=== PATIENT | female | born 1965 | race Two or more races ===

== ENCOUNTER → 2020-02-18 14:44 | Outpatient (BNVA) | payer MEDICAID, SELFPAY | PROVIDERS: PCP Nurse Practitioner Family; Referring Provider Nurse Practitioner Family; Visit Provider Internal Medicine Gastroenterology | DX: R10.13 Epigastric pain (principal); K59.09 Other constipation; K76.0 Fatty (change of) liver, not elsewhere classified; E73.9 Lactose intolerance, unspecified; K21.9 Gastro-esophageal reflux disease without esophagitis; E55.9 Vitamin D deficiency, unspecified; R79.89 Other specified abnormal findings of blood chemistry; E66.01 Morbid (severe) obesity due to excess calories; Z68.41 Body mass index [BMI] 40.0-44.9, adult; Z79.899 Other long term (current) drug therapy | CPT/HCPCS: 99212 ==

== ENCOUNTER 2020-06-12 12:26 | Outpatient (REF) | payer MEDICAID, SELFPAY | END 2020-06-12 12:27 | disposition home or self-care (01) | LOC: HO.LAB 12:26 | PROVIDERS: Visit Provider Internal Medicine | DX: Z20.822 Contact with and (suspected) exposure to COVID-19 (principal) | CPT/HCPCS: 36415; C9803; U0003; U0005 ==

== ENCOUNTER 2020-06-21 14:01 | Outpatient (REF) | payer MEDICAID, SELFPAY | END 2020-06-21 14:02 | disposition home or self-care (01) | LOC: HO.LAB 14:01 | PROVIDERS: Visit Provider Internal Medicine | DX: Z20.822 Contact with and (suspected) exposure to COVID-19 (principal) | CPT/HCPCS: 36415; C9803; U0003; U0005 ==

== ENCOUNTER 2020-07-06 15:59 | Outpatient (REF) | payer MEDICAID, SELFPAY ==
--- NOTE | ~2020-07-06 | MM_ITS ---
EXAMINATION: MM SCREENING DIGITAL BREAST TOMOSYNTHESIS, BILATERAL CLINICAL INFORMATION: Screening. Asymptomatic. The lifetime risk of breast cancer based on the Tyrer-Cuzick Model is 5.5%. COMPARISON: Mammography: March 14, 2017 and studies dating back to February 01, 2013 TECHNIQUE: Digital breast tomosynthesis is performed in both the craniocaudal and mediolateral oblique views along with computer-aided detection (CAD). Synthesized 2D images are generated from the tomosynthesis. FINDINGS: The breasts are almost entirely fatty (ACR BI-RADS breast composition Category a). There are no significant masses, abnormal calcifications, or other abnormalities. MM/MM tomosynthesis screening BI IMPRESSION: There are no significant changes from prior study. ASSESSMENT: BI-RADS 1: Negative RECOMMENDATION: Routine annual mammography screening. This patient's information was entered into a reminder system with a target due date for their next mammogram.
== END 2020-07-06 16:00 | disposition home or self-care (01) ==
LOC: HO.MAMMO 15:59
PROVIDERS: PCP Nurse Practitioner Family; Visit Provider Nurse Practitioner Family
DX: Z12.31 Encounter for screening mammogram for malignant neoplasm of breast (principal)
CPT/HCPCS: 77063; 77067

== ENCOUNTER 2020-08-03 07:49 | Outpatient (REF) | payer MEDICAID, SELFPAY ==
--- NOTE | ~2020-08-03 | XR_ITS ---
EXAMINATION: XR PELVIS CLINICAL INFORMATION: Hip pain. COMPARISON: 03/23/2014 TECHNIQUE: AP view of the pelvis. FINDINGS: There is no evidence of acute fracture or diastasis of the pelvis. Hip joint spaces are maintained. No destructive bony lesion is seen. Sacroiliac joints unremarkable. There is some spurring about the right greater trochanter. XR/XR pelvis 1-2V IMPRESSION: Spurring about the right greater trochanter. No significant bony abnormality appreciated.
== END 2020-08-03 07:50 | disposition home or self-care (01) ==
LOC: HO.HOSX 07:49
PROVIDERS: PCP Internal Medicine; Visit Provider Orthopaedic Surgery
DX: M25.552 Pain in left hip (principal); M54.16 Radiculopathy, lumbar region
CPT/HCPCS: 72170; 99202

== ENCOUNTER → 2020-08-17 14:12 | Outpatient (BNVA) | payer MEDICAID, SELFPAY | PROVIDERS: PCP Internal Medicine; Visit Provider Internal Medicine Gastroenterology ==

== ENCOUNTER 2020-08-30 07:02 | Outpatient (RCR) | payer MEDICAID, SELFPAY ==
--- NOTE | 2020-08-30 07:59 | MHC.PT.EP ---
[facility] [place] [facility] [place] [facility] [place] [facility] [address] Isadora Barajas [address] [phone] F: [phone] F: [phone] F: [phone] F: [phone] Physical Therapy Plan of Care Date of Evaluation: Date of Surgery: n/a Diagnosis: lumbar radiculopathy Assessment: The patient presented with mechanical low back pain and associated radiculopathy. The patient responded well to the Grisel Method. Her leg pain reduced with small range REIL. The patient demonstrates poor sitting, sleeping, and movement behaviors. She lacks proper hip hinge position for bending and lifting. She will require education on finding neutral spine once she is pain free. In standing she hinges at the mid lumbar spine and will need retraining on finding neutral spine. She also has poor chest breathing habits. She is a good candidate for skilled PT to address the listed impairments. Frequency and Duration: The patient will be seen 2x/week x 4 weeks. Short Term Goals: 1.Pt to able to demonstrate proper sitting posture with the use of a lumbar roll to decrease aggravating factors. 2.Pt to be able to demonstrate proper posture for common leisure activities such as crocheting and phone/tablet use. 3.For the patient to demonstrate proper upright sitting posture with use of the lumbar roll to improve compliance and carryover. Communications Operator Goals: 1.The patient to demonstrate proper lifting mechanics for household chore activities to show improved functional mobility. 2.The patient to report no leg or hip pain in order to show centralization of pain and reduction of lumbar derangement 3. Pt to be able to demonstrate self management of lumbar pain by demonstration of HEP. Treatment Plan: Modalities to reduce pain, spasms and effusion. Manual therapy to restore motion and function. Therapeutic exercise to improve strength and flexibility. Neuromuscular re-education for posture and balance. Therapeutic activities to return to functional activities of daily living. Electronically signed by: Sonam Mixon PT DPT Please sign and return to therapist. Thank you for your referral.
== END 2020-09-09 09:00 | disposition home or self-care (01) ==
LOC: HO.PT 07:02
PROVIDERS: PCP Internal Medicine; Visit Provider Orthopaedic Surgery
DX: M54.16 Radiculopathy, lumbar region (principal)
CPT/HCPCS: 97110; 97112; 97162

== ENCOUNTER → 2020-10-26 13:32 | Outpatient (BNVA) | payer MEDICAID, SELFPAY | PROVIDERS: Visit Provider Internal Medicine Gastroenterology ==

== ENCOUNTER → 2021-01-29 13:36 | Outpatient (BNVA) | payer MEDICAID, SELFPAY | PROVIDERS: PCP Internal Medicine; Visit Provider Internal Medicine Gastroenterology | DX: R79.89 Other specified abnormal findings of blood chemistry (principal) ==

== ENCOUNTER 2021-05-25 07:56 | Outpatient (REF) | payer MEDICAID, SELFPAY ==
[2021-05-25 09:13] LABS: Binax Internal Control QC Valid; Binax Lot number: 9864; Binax Now Covid-19 Ag Negative (Negative)
== END 2021-05-25 07:57 | disposition home or self-care (01) ==
LOC: HO.LAB 07:56
PROVIDERS: Visit Provider Internal Medicine
DX: Z20.822 Contact with and (suspected) exposure to COVID-19 (principal)
CPT/HCPCS: C9803

== ENCOUNTER 2021-05-29 10:21 | Outpatient (REF) | payer MEDICAID, SELFPAY ==
[2021-05-29 11:11] LABS: COVID-19 Test Negative (Negative)
== END 2021-05-29 10:22 | disposition home or self-care (01) ==
LOC: HO.LAB 10:21
PROVIDERS: Visit Provider Internal Medicine
DX: Z20.822 Contact with and (suspected) exposure to COVID-19 (principal)
CPT/HCPCS: 87635; C9803

== ENCOUNTER 2021-06-01 10:00 | Outpatient (REF) | payer MEDICAID, SELFPAY ==
[2021-06-01 10:28] LABS: Binax Now Covid-19 Ag Negative (Negative)
[2021-06-01 10:29] LABS: Binax Internal Control QC Valid
== END 2021-06-01 10:01 | disposition home or self-care (01) ==
LOC: HO.LAB 10:00
PROVIDERS: Visit Provider Internal Medicine
DX: Z20.822 Contact with and (suspected) exposure to COVID-19 (principal)
CPT/HCPCS: C9803

== ENCOUNTER 2021-10-25 10:27 | Emergency (ER) | payer MEDICAID, SELFPAY ==
--- NOTE | ~2021-10-25 | XR_ITS ---
EXAMINATION: XR CHEST CLINICAL INFORMATION: Shortness of breath, COVID positive. COMPARISON: 06/06/2019 chest radiograph. TECHNIQUE: 2 views of the chest were obtained. FINDINGS: No significant abnormality is noted involving the heart, lungs, mediastinum, bony thorax or soft tissues. XR/XR chest 2V IMPRESSION: No acute cardiopulmonary process.
[2021-10-25 10:32] VITALS: BP 150/117; PULSE 100; RESP 18; TEMP 36.9; O2SAT 96; BMI 43.4
[2021-10-25 10:50] LABS: COVID-19 Test Positive (Negative)
--- NOTE | 2021-10-25 10:58 | ED_ITS ---
HPI - SOB/Dyspnea General Chief Complaint: Dyspnea Stated Complaint: covid + diff breathing Time Seen by Provider: 10/25/21 10:58 Source: patient Mode of arrival: ambulatory Limitations: no limitations History of Present Illness HPI Narrative: 56 y/o female with history of constipation, GERD, asthma obesity, back pain who presents to the ER for evaluation of difficulty breathing that started yesterday. She tested positive for COVID at home today. She is fully vaccinated and boosted, she got her booster in May or June of this year. She states her difficulty breathing is due to her nasal congestion and she has a hard time getting an air. She is not wheezing or having any shortness of breath. She denies any chest pain. No fevers at home but she reports chills, body aches, headache and generalized weakness. MD elicited complaint: shortness of breath Pertinent past history: asthma Onset (ago): day(s) (1) Context: recent illness Timing: constant Severity: moderate Exacerbating factors: lying flat Relieving factors: rest Known history of: asthma Associated symptoms: cough Treatment prior to arrival: none Related Data Home oxygen amount: none Home Medications Medication Instructions Recorded Confirmed Saccharomyces boulardii 250 mg 250 mg PO BID 02/18/20 01/29/21 capsule (Probiotic (S.boulardii)) biotin 10,000 mcg capsule mcg PO 02/18/20 01/29/21 cholecalciferol (vitamin D3) 50 50 mcg PO DAILY 02/18/20 01/29/21 mcg (2,000 unit) capsule (Vitamin D3) citalopram 20 mg tablet 20 mg PO DAILY 02/18/20 01/29/21 docusate sodium 100 mg capsule 100 mg PO DAILY 02/18/20 01/29/21 epinephrine 0.3 mg/0.3 mL 0.3 mg IM Q10M PRN 02/18/20 01/29/21 injection, auto-injector (EpiPen) linaclotide 145 mcg capsule 145 mcg PO QAM 02/18/20 01/29/21 (Linzess) loratadine 10 mg tablet (Allergy 10 mg PO DAILY 02/18/20 01/29/21 Relief (loratadine)) lorazepam 1 mg tablet 1 mg PO BEDTIME PRN 02/18/20 01/29/21 simethicone 125 mg capsule (Gas 125 mg PO BID-QID PRN 02/18/20 01/29/21 Relief (simethicone)) simvastatin 20 mg tablet 20 mg PO BEDTIME 02/18/20 01/29/21 topiramate 50 mg capsule 50 mg PO DAILY 02/18/20 01/29/21 sprinkle,extended release 24 hr zolpidem 10 mg tablet 10 mg PO BEDTIME PRN 02/18/20 01/29/21 Previous Rx's Medication Instructions Recorded magnesium oxide 400 mg (241.3 mg 400 mg PO DAILY PRN constipation 02/18/20 magnesium) tablet 30 days #30 tabs dexlansoprazole 30 mg 60 mg PO DAILY #60 caps 06/18/21 capsule,biphase delayed release (Dexilant) fluticasone propionate 50 1 spray intranasal BID #16 grams 10/25/21 mcg/actuation nasal spray,suspension (24 Hour Allergy Relief) Allergies Allergy/AdvReac Type Severity Reaction Status Date / Time SEAFOOD Allergy Intermediate ANGIOEDEMA Uncoded 01/27/20 15:47 lactose intolerant Allergy Unknown stomach Uncoded 08/03/20 08:04 pain and heart burn Review of Systems Review of Systems: Constitutional: No Fever, + Chills ENT/Mouth: No sore throat, + Rhinorrhea, No Swallowing Difficulty, +nasal congestion Eyes: No Eye Pain, No Swelling, No Redness Cardiovascular: No Chest Pain, No SOB, No Orthopnea, No Edema Respiratory: + Cough, No Sputum, No Wheezing, No dyspnea Gastrointestinal: No Nausea, No Vomiting, No abdominal Pain Musculoskeletal: No joint pain, + Myalgias Skin: No Skin Lesions, No rash Neuro: + Weakness, No Numbness, No Dizziness, + Headache Psych: No Anxiety/Panic, No Depression Heme/Lymph: No Bruising, No Lymphadenopathy PMFSH Past Medical History Medical History (Updated 10/25/21 @ 12:10 by RANDI Saavedra) Bilateral wrist pain History of Helicobacter pylori infection (~06/2014) Hypercholesterolemia Obstructive sleep apnea Surgical History History of colonoscopy Family History Family History Unknown No problems noted. Social History Social History Household Members: Family Alcohol intake: current Alcohol intake frequency: holidays/special occasions only Advance Directives: No Advance Directives Information Provided: No Physical Exam Vital Signs: Vital Signs: Last Vital Signs Temp 98.4 F 10/25/21 10:32 Pulse 100 10/25/21 10:32 Resp 18 10/25/21 10:32 BP 150/117 H 10/25/21 10:32 Pulse Ox 96 10/25/21 10:32 O2 Del Method 10/25/21 10:32 BMI result Body Mass Index 43.4 Appearance: Alert. Oriented X3. No acute distress. Eyes: Pupils equal, round and reactive to light. ENT: Pharynx normal. Nasal turbinates are erythematous and boggy. Clear nasal discharge present hoarse voice. Neck: Normal inspection. Neck supple. CVS: Normal heart rate and rhythm. Pulses normal. Respiratory: No respiratory distress. Breath sounds normal. Skin: Skin warm and dry. Normal skin color. Normal skin turgor. No rashes. Extremities: No lower extremity edema. No calf tenderness. Neuro: Oriented X 3. Grossly normal, nonfocal Course Course Course Narrative: 56-year-old female presents to the ER for evaluation of ?difficulty breathing? that started yesterday. She took a at home COVID test today that was positive. She has had symptoms for last 3 days. Her difficulty breathing is related to nasal congestion and not shortness of breath. Her lungs are clear on examination. Her SpO2 is 96%. No wheezing. Her chest x-ray is clear. Will prescribe and nasal steroid and have her start a decongestant. At this time she is stable for discharge home with supportive care and outpatient follow-up. Stable for DC. MDM - SOB/Dyspnea Lab Data Labs: Lab Results 10/25/21 Range/Units 10:36 COVID-19 (PATRICK) Positive A (Negative) COVID-19 Clin Com See Note Critical Care Time Critical Care Time Critical Care Time: No Discharge Plan Discharge Clinical Impression: COVID-19 Patient Disposition: Home, Self-Care Instructions: Covid-19 Viral Syndrome and Novel Coronavirus (ED) Hey/Ath Additional Instructions: You were found to be COVID-19 POSITIVE today. Your chest x-ray and oxygen levels were normal. Rest. Drink plenty of fluids. Do not go out in public until 10/30, one week after your symptoms started. Wear a mask when you do out until 11/02. Use the prescribed nasal spray for your congestion. Recommend over the counter Sudafed from the pharmacy - you have to ask the pharmacist for this and sign for it. Take over the counter cold/flu medications as needed for your symptoms. Take Tylenol and/or Motrin as needed for fevers and body aches. Follow up with your doctor this week. If you develop new or worsening symptoms call 911 or come back to the ER for further evaluation. Prescriptions: New fluticasone propionate [24 Hour Allergy Relief] 50 mcg/actuation spray,suspension 1 spray intranasal BID Qty: 16 0RF Rx Instructions: administer into each nostril No Action Dexilant 30 mg capsule,biphase delayed releas 60 mg PO DAILY Qty: 60 3RF topiramate 50 mg capsule,sprinkle,ER 24hr 50 mg PO DAILY loratadine [Allergy Relief (loratadine)] 10 mg tablet 10 mg PO DAILY simvastatin 20 mg tablet 20 mg PO BEDTIME zolpidem 10 mg tablet 10 mg PO BEDTIME PRN biotin 10,000 mcg capsule PO cholecalciferol (vitamin D3) [Vitamin D3] 50 mcg (2,000 unit) capsule 50 mcg PO DAILY epinephrine [EpiPen] 0.3 mg/0.3 mL auto-injector 0.3 mg IM Q10M PRN Rx Instructions: for 2 doses docusate sodium 100 mg capsule 100 mg PO DAILY Saccharomyces boulardii [Probiotic (S.boulardii)] 250 mg capsule 250 mg PO BID Rx Instructions: swallow whole citalopram 20 mg tablet 20 mg PO DAILY lorazepam 1 mg tablet 1 mg PO BEDTIME PRN simethicone [Gas Relief (simethicone)] 125 mg capsule 125 mg PO BID-QID PRN magnesium oxide 400 mg (241.3 mg magnesium) tablet 400 mg PO DAILY PRN (Reason: constipation) 30 Days Qty: 30 4RF Linzess 145 mcg capsule 145 mcg PO QAM Referrals: [facility] [Primary Care Provider] -
== END 2021-10-25 12:17 | disposition home or self-care (01) ==
PROVIDERS: Emergency Provider Student in an Organized Health Care Education/Training Program
DX: U07.1 COVID-19 (principal); J45.909 Unspecified asthma, uncomplicated; E66.01 Morbid (severe) obesity due to excess calories; Z68.41 Body mass index [BMI] 40.0-44.9, adult
CPT/HCPCS: 71046; 87635; 99283

== ENCOUNTER 2021-12-27 08:02 | Outpatient (REF) | payer MEDICAID, SELFPAY ==
[2021-12-27 08:10] LABS: MANUAL DIFF FLAG NO
[2021-12-27 08:21] LABS: Basophils Percent Auto 0.7 % (0-2); Eosinophils Absolute Auto 0.1 X10*3/uL (0.0-0.4); Eosinophils Percent Auto 2.1 % (0-4); Hematocrit 41.4 % (37.0-47.0); Imm Gran Abs Auto 0.03 X10*3/uL (0.00-0.03); Imm Gran Pct Auto 0.6 % (0.0-0.4); Lymphocytes Absolute Auto 1.4 X10*3/uL (1.2-4.9); Lymphocytes Percent Auto 25.5 % (20-40); Mean Corpuscular HGB Conc 33.8 g/dl (31.0-35.0); Mean Corpuscular Hemoglobin 28.1 pg (27.0-33.0); Mean Corpuscular Volume 83.1 fL (80.0-98.0); Mean Platelet Volume 9.7 fL (9.4-12.3); Monocytes Absolute Auto 0.4 X10*3/uL (0.1-1.2); Monocytes Percent Auto 6.7 % (2-11); Neutrophils Absolute Auto 3.4 x10*3/uL (2.0-8.3); Neutrophils Percent Auto 64.4 % (45-73); Platelet Count 258 X10*3/uL (160-400); Red Blood Count 4.98 X10*6/uL (4.20-5.50); Red Cell Distribution Width 13.9 % (11.0-16.0); White Blood Count 5.3 X10*3/uL (4.8-10.8)
[2021-12-27 08:26] LABS: INTERNATIONAL NORM RATIO 1.1 (0.9-1.1); Prothrombin Time 12.4 SEC (10.0-13.1)
[2021-12-27 08:41] LABS: Alanine Aminotransferase 34 U/L (0-31); Alkaline Phosphatase 222 U/L (39-117); Aspartate Amino Transferase 34 U/L (5-31); Bilirubin Direct 0.2 mg/dL (0.0-0.5); Bilirubin Total 0.4 mg/dL (0.0-1.0); Total Protein 6.9 g/dL (6.5-8.0)
== END 2021-12-27 08:03 | disposition home or self-care (01) ==
LOC: HO.LAB 08:02
PROVIDERS: Visit Provider Internal Medicine Gastroenterology
DX: R79.89 Other specified abnormal findings of blood chemistry (principal)
CPT/HCPCS: 36415; 80076; 85025; 85610; 99212

== ENCOUNTER 2022-02-07 13:26 | Emergency (ER) | payer MEDICAID, SELFPAY ==
--- NOTE | ~2022-02-07 | CT_ITS ---
EXAMINATION: CT ANGIOGRAM CHEST CLINICAL INFORMATION: Left-sided chest pain radiating to back COMPARISON: CTA chest 03/29/2019 TECHNIQUE: Multiple axial images were obtained through the chest after the administration of 70 mL of Omnipaque 350 intravenous contrast. Extensive vascular post-processing including two-dimensional and three-dimensional reformatted images were created and reviewed on an independent workstation. This CT examination was performed using dose optimization techniques as appropriate, variously including the following: *Automated exposure control *Adjustment of mA and/or kV according to patient size (this includes techniques or standardized protocols for targeted exams where dose is matched to indication/reason for exam; i.e. extremities or head) *Use of iterative reconstruction technique DLP: 514 mGy-cm FINDINGS: LUNGS: The lungs are clear with no evidence of inflammation or nodules. MEDIASTINUM: No mediastinal or hilar lymphadenopathy is seen. Heart size is normal VASCULAR: The thoracic aorta appears unremarkable without convincing evidence of aneurysm dissection or any other acute aortic syndrome. Motion artifact, as the study was not cardiac gated interferes with evaluation of the aortic root. Three-vessel branching pattern of the arch is seen with widely patent great vessels. The small visualized portion of the abdominal aorta appears normal. The celiac SMA and LARA are all patent. There are single renal arteries seen bilaterally which are widely patent. Although not carried out for evaluation of the pulmonary arteries or pulmonary veins, they are well seen. No large pulmonary emboli are seen PLEURA: There is no pleural effusion. No pleural mass or thickening. AXILLA: No lymphadenopathy. UPPER ABDOMEN: Liver is enlarged with decreased attenuation suggesting hepatic steatosis OSSEOUS STRUCTURES: Unremarkable. CT/CT angio chest aorta IMPRESSION: No evidence of aortic dissection. Incidental note made of enlarged fatty liver. Fleischner guidelines were followed.
[2022-02-07 13:39] VITALS: BP 137/90; PULSE 88; PULSE 96; RESP 12; TEMP 36.6; O2SAT 98; O2SAT 99; BMI 40.6
[2022-02-07 13:45] VITALS: PULSE 96; RESP 20; O2SAT 95
--- NOTE | 2022-02-07 13:47 | ECG_ITS ---
Test Reason : CHEST PAIN Blood Pressure : / mmHG Vent. Rate : 089 BPM Atrial Rate : 089 BPM P-R Int : 192 ms QRS Dur : 086 ms QT Int : 386 ms P-R-T Axes : 016 -16 044 degrees QTc Int : 469 ms Normal sinus rhythm Possible Anterior infarct , age undetermined Abnormal ECG When compared with ECG of 23-NOV-2018 08:16, Nonspecific T wave abnormality, worse in Anterior leads Referred By: Marcela Garcia Electronically Signed By:ROBBY WALKER
--- NOTE | 2022-02-07 14:01 | ED_ITS ---
HPI - Chest Pain General Chief Complaint: Chest Pain Stated Complaint: CHEST PAIN Time Seen by Provider: 02/07/22 13:47 Source: patient and EMS Mode of arrival: EMS Limitations: no limitations History of Present Illness HPI narrative: 56-year-old female with a history of GERD, obesity, WOODS, obesity, asthma, constipation who presents to the ER via EMS from [facility] c/o left lower chest pain that radiates to her back that started around 2-3 am today. She says she was up using the bathroom when she noted a sharp, stabbing pain under her left breast, the intermittently wraps around to her back. She put some Vicks on the area and then went back to sleep. When she got up at 06:00 went to work she reports the pain intensified and she was unable to perform her job. She went to the [facility] and subsequently sent to the emergency room for further evaluation. She rides the ER on 6 L nasal cannula with oxygen saturations 99%. She denies any shortness of breath. She reports the pain is worse when she moves and when she touches the area under her left breast. She denies any injury or trauma MD complaint: chest pain Onset (ago): hour(s) (12) Timing of current episode: constant Onset: during rest Pain location: left chest Pain radiation: back Severity: moderate Pain scale (0-10): 8 Quality: sharp Relieving factors: nothing Exacerbating factors: palpation and movement Treatment prior to arrival: aspirin Risk Factors Thoracic aortic dissection risk factors: none Related Data Home Medications Medication Instructions Recorded Confirmed Saccharomyces boulardii 250 mg 250 mg PO BID 02/18/20 12/27/21 capsule (Probiotic (S.boulardii)) biotin 10,000 mcg capsule mcg PO 02/18/20 12/27/21 cholecalciferol (vitamin D3) 50 50 mcg PO DAILY 02/18/20 12/27/21 mcg (2,000 unit) capsule (Vitamin D3) citalopram 20 mg tablet 20 mg PO DAILY 02/18/20 12/27/21 docusate sodium 100 mg capsule 100 mg PO DAILY 02/18/20 12/27/21 epinephrine 0.3 mg/0.3 mL 0.3 mg IM Q10M PRN 02/18/20 12/27/21 injection, auto-injector (EpiPen) linaclotide 145 mcg capsule 145 mcg PO QAM 02/18/20 12/27/21 (Linzess) loratadine 10 mg tablet (Allergy 10 mg PO DAILY 02/18/20 12/27/21 Relief (loratadine)) lorazepam 1 mg tablet 1 mg PO BEDTIME PRN 02/18/20 12/27/21 simethicone 125 mg capsule (Gas 125 mg PO BID-QID PRN 02/18/20 12/27/21 Relief (simethicone)) simvastatin 20 mg tablet 20 mg PO BEDTIME 02/18/20 12/27/21 topiramate 50 mg capsule 50 mg PO DAILY 02/18/20 12/27/21 sprinkle,extended release 24 hr zolpidem 10 mg tablet 10 mg PO BEDTIME PRN 02/18/20 12/27/21 Previous Rx's Medication Instructions Recorded magnesium oxide 400 mg (241.3 mg 400 mg PO DAILY PRN constipation 02/18/20 magnesium) tablet 30 days #30 tabs fluticasone propionate 50 1 spray intranasal BID #16 grams 10/25/21 mcg/actuation nasal spray,suspension (24 Hour Allergy Relief) dexlansoprazole 30 mg 60 mg PO DAILY 60 days #120 caps 11/01/21 capsule,biphase delayed release (Dexilant) diphenhydramine HCl 25 mg capsule 50 mg PO ONCE PRN sleep 1 day #2 01/03/22 (Benadryl) caps prednisone 50 mg tablet 50 mg PO DAILY 1 day #3 tabs 01/04/22 Allergies Allergy/AdvReac Type Severity Reaction Status Date / Time SEAFOOD Allergy Intermediate ANGIOEDEMA Uncoded 01/27/20 15:47 lactose intolerant Allergy Unknown stomach Uncoded 08/03/20 08:04 pain and heart burn Review of Systems Review of Systems: Constitutional: No Fever, No Chills ENT/Mouth: No sore throat, No Rhinorrhea, No Swallowing Difficulty Cardiovascular: +Chest Pain, No SOB, No Orthopnea, No Edema Respiratory: No Cough, No Sputum, No Wheezing, No dyspnea Gastrointestinal: No Nausea, No Vomiting, No Diarrhea, No abdominal Pain, No Hematochezia, No Melena Genitourinary: No Dysuria, No Urinary Frequency, No Hematuria Musculoskeletal: No joint pain, No Myalgias Skin: No Skin Lesions, No rash Neuro: No Weakness, No Numbness, No Dizziness, No Headache Psych: + Anxiety/Panic, No Depression Heme/Lymph: No Bruising, No Lymphadenopathy Endocrine: No Polyuria, No Polydipsia PMFSH Past Medical History Medical History Bilateral wrist pain Chronic constipation Elevated LFTs Epigastric pain GERD (gastroesophageal reflux disease) History of Helicobacter pylori infection (~06/2014) Hypercholesterolemia Lactose intolerance Lumbar radiculopathy Morbid obesity with BMI of 40.0-44.9, adult NAFL (nonalcoholic fatty liver) Obstructive sleep apnea Vitamin D deficiency Surgical History History of colonoscopy Family History Family History Unknown No problems noted. Social History Social History Household Members: Family Alcohol intake: current Alcohol intake frequency: holidays/special occasions only Patient Tobacco Use Status: Never used Tobacco Use of substances other than those prescribed or required for medical reasons: No Advance Directives: No Advance Directives Information Provided: No Physical Exam Vital Signs: Vital Signs: Last Vital Signs Temp 97.9 F 02/07/22 13:39 Pulse 96 02/07/22 13:45 Resp 20 02/07/22 13:45 BP 137/90 H 02/07/22 13:39 Pulse Ox 95 02/07/22 13:45 O2 Del Method 02/07/22 13:45 Oxygen Flow Rate 4 02/07/22 13:39 BMI result Body Mass Index 40.6 Appearance: Alert. Oriented X3. No acute distress. Eyes: Pupils equal, round and reactive to light. ENT: Pharynx normal. Neck: Normal inspection. Neck supple. CVS: Normal heart rate and rhythm. Pulses normal. Respiratory: No respiratory distress. Breath sounds normal. Under left breast there is tenderness of the lower ribs, no overlying skin changes, no crepitus Abdomen: Soft and nontender. +BS x4 Skin: Skin warm and dry. Normal skin color. Normal skin turgor. No rashes. Extremities: No lower extremity edema. Neuro: Oriented X 3. No motor deficit. No sensory deficit. Course Course Course Narrative: 56-year-old female presents to the ER with acute onset of left-sided chest pain that radiates to her back that started at 2 or 03:00 today. She has exquisite tenderness on examination which is reassuring against any cardiac etiology it is more consistent with chest wall or muscular etiology, however given that the pain does radiate to her back will need to rule out dissection. She is hemodynamically stable with equal femoral pulses. water commissioner used to clarify that the patient does not have a contrast allergy. CT angio is pending. Reevaluation(s) Reevaluation #1: EKG reviewed, T-wave inversions in V1 to V3 are old. Her troponin is less than 3.5. She has chronically elevated alkaline phosphatase which is stable from prior. Other LFTs are within normal limits. Reevaluation #2: CT angio is negative for dissection. She is feeling better. She is stable for d/c home. Pain consistent with muscular etiology. MDM - Chest Pain Medical Records Data Attestation: I reviewed the patient's medical records. Lab Data Attestation: I reviewed the patient's lab results. Result diagrams: 02/07/22 14:20 02/07/22 14:20 Labs: Lab Results 02/07/22 02/07/22 02/07/22 Range/Units 14:20 14:20 14:20 WBC 8.9 (4.8-10.8) X10*3/uL RBC 5.46 (4.20-5.50) X10*6/uL Hgb 15.1 (12.0-16.0) g/dl Hct 43.9 (37.0-47.0) % MCV 80.4 (80.0-98.0) fL MCH 27.7 (27.0-33.0) pg MCHC 34.4 (31.0-35.0) g/dl RDW 13.6 (11.0-16.0) % Plt Count 293 (160-400) X10*3/uL MPV 9.6 (9.4-12.3) fL Immature Gran % (Auto) 0.4 (0.0-0.4) % Neut % (Auto) 71.5 (45-73) % Lymph % (Auto) 19.9 L (20-40) % [place] % (Auto) 6.7 (2-11) % Eos % (Auto) 1.1 (0-4) % Baso % (Auto) 0.4 (0-2) % Lymph # (Auto) 1.8 (1.2-4.9) X10*3/uL [place] # (Auto) 0.6 (0.1-1.2) X10*3/uL Eos # (Auto) 0.1 (0.0-0.4) X10*3/uL Baso # (Auto) 0.0 (0.0-0.2) X10*3/uL Abs Immat Gran (auto) 0.04 H (0.00-0.03) X10*3/uL Absolute Neuts (auto) 6.4 (2.0-8.3) x10*3/uL Absolute Nucleated RBC 0.000 (0.0-0.012) X10*3/uL Nucleated RBC % (auto) 0.0 (0.0-0.2) /100WBC Sodium 142 (135-145) mmol/L Potassium 4.0 (3.3-5.1) mmol/L Chloride 102 (96-108) mmol/L Carbon Dioxide 24 (22-29) mmol/L Anion Gap 20 (12-20) BUN 10 (9-16) mg/dL Creatinine 0.83 (0.5-1.4) mg/dL Estim Creat Clear Calc 88.3 Estimated GFR > 60 Random Glucose 250 H (60-115) mg/dL Calcium 9.6 (8.4-10.2) mg/dL Magnesium 1.8 (1.6-2.6) mg/dL Total Bilirubin 0.4 (0.0-1.0) mg/dL Direct Bilirubin 0.2 (0.0-0.5) mg/dL AST 19 D (5-31) U/L ALT 26 (0-31) U/L Alkaline Phosphatase 225 H (39-117) U/L Troponin I High Sens < 3.5 (<3.5-17.0) ng/L Total Protein 7.4 (6.5-8.0) g/dL Albumin 4.4 (3.5-5.0) g/dL COVID-19 (PATRICK) (Negative) COVID-19 Clin Com 02/07/22 Range/Units 14:20 WBC (4.8-10.8) X10*3/uL RBC (4.20-5.50) X10*6/uL Hgb (12.0-16.0) g/dl Hct (37.0-47.0) % MCV (80.0-98.0) fL MCH (27.0-33.0) pg MCHC (31.0-35.0) g/dl RDW (11.0-16.0) % Plt Count (160-400) X10*3/uL MPV (9.4-12.3) fL Immature Gran % (Auto) (0.0-0.4) % Neut % (Auto) (45-73) % Lymph % (Auto) (20-40) % [place] % (Auto) (2-11) % Eos % (Auto) (0-4) % Baso % (Auto) (0-2) % Lymph # (Auto) (1.2-4.9) X10*3/uL [place] # (Auto) (0.1-1.2) X10*3/uL Eos # (Auto) (0.0-0.4) X10*3/uL Baso # (Auto) (0.0-0.2) X10*3/uL Abs Immat Gran (auto) (0.00-0.03) X10*3/uL Absolute Neuts (auto) (2.0-8.3) x10*3/uL Absolute Nucleated RBC (0.0-0.012) X10*3/uL Nucleated RBC % (auto) (0.0-0.2) /100WBC Sodium (135-145) mmol/L Potassium (3.3-5.1) mmol/L Chloride (96-108) mmol/L Carbon Dioxide (22-29) mmol/L Anion Gap (12-20) BUN (9-16) mg/dL Creatinine (0.5-1.4) mg/dL Estim Creat Clear Calc Estimated GFR Random Glucose (60-115) mg/dL Calcium (8.4-10.2) mg/dL Magnesium (1.6-2.6) mg/dL Total Bilirubin (0.0-1.0) mg/dL Direct Bilirubin (0.0-0.5) mg/dL AST (5-31) U/L ALT (0-31) U/L Alkaline Phosphatase (39-117) U/L Troponin I High Sens (<3.5-17.0) ng/L Total Protein (6.5-8.0) g/dL Albumin (3.5-5.0) g/dL COVID-19 (PATRICK) Negative (Negative) COVID-19 Clin Com See Note ECG Data ECG #1: Attestation: I personally reviewed and interpreted this ECG as follows: ECG interpretation date: 02/07/22 ECG interpretation time: 16:20 Prior ECG tracings: available for review Interpretation: Normal sinus rhythm, ventricular 89 beats per minute, normal AL interval, normal QTC, no ST segment elevations or depressions, there are T-wave inversions in V1- V3, that are old Critical Care Time Critical Care Time Critical Care Time: No Discharge Plan Discharge Clinical Impression: Acute chest wall pain Patient Disposition: Home, Self-Care Instructions: Chest Wall Pain (ED) Additional Instructions: Your workup today was unremarkable. Your imaging did not show any concerning findings. Your pain is most likely due to chest wall pain from your coughing, it is most likely muscular. Recommend trial of anti inflammatory medications as needed for pain. Recommend following up with your primary care doctor. If you develop new or worsening symptoms call 911 or come back to the ER for further evaluation. Prescriptions: No Action Dexilant 30 mg capsule,biphase delayed releas 60 mg PO DAILY 60 Days Qty: 120 3RF diphenhydramine HCl [Benadryl] 25 mg capsule 50 mg PO ONCE PRN (Reason: sleep) 1 Days Qty: 2 0RF Rx Instructions: Take 2 tablets PO 1 hour before getting IV contrast prednisone 50 mg tablet 50 mg PO DAILY 1 Days Qty: 3 0RF Rx Instructions: Take 1 tablet 13 hrs prior to getting IV contrast Take 1 tablet 7 hrs prior to getting IV contrast Take 1 tablet 1 hr before getting IV contrast fluticasone propionate [24 Hour Allergy Relief] 50 mcg/actuation spray,suspension 1 spray intranasal BID Qty: 16 0RF Rx Instructions: administer into each nostril topiramate 50 mg capsule,sprinkle,ER 24hr 50 mg PO DAILY loratadine [Allergy Relief (loratadine)] 10 mg tablet 10 mg PO DAILY simvastatin 20 mg tablet 20 mg PO BEDTIME zolpidem 10 mg tablet 10 mg PO BEDTIME PRN biotin 10,000 mcg capsule PO cholecalciferol (vitamin D3) [Vitamin D3] 50 mcg (2,000 unit) capsule 50 mcg PO DAILY epinephrine [EpiPen] 0.3 mg/0.3 mL auto-injector 0.3 mg IM Q10M PRN Rx Instructions: for 2 doses docusate sodium 100 mg capsule 100 mg PO DAILY Saccharomyces boulardii [Probiotic (S.boulardii)] 250 mg capsule 250 mg PO BID Rx Instructions: swallow whole citalopram 20 mg tablet 20 mg PO DAILY lorazepam 1 mg tablet 1 mg PO BEDTIME PRN simethicone [Gas Relief (simethicone)] 125 mg capsule 125 mg PO BID-QID PRN magnesium oxide 400 mg (241.3 mg magnesium) tablet 400 mg PO DAILY PRN (Reason: constipation) 30 Days Qty: 30 4RF Linzess 145 mcg capsule 145 mcg PO QAM Referrals: [facility] [Primary Care Provider] - Stand Alone Forms: Work/School Release
[2022-02-07 14:24] LABS: MANUAL DIFF FLAG NO
[2022-02-07 14:35] LABS: Basophils Percent Auto 0.4 % (0-2); Eosinophils Absolute Auto 0.1 X10*3/uL (0.0-0.4); Eosinophils Percent Auto 1.1 % (0-4); Hematocrit 43.9 % (37.0-47.0); Hemoglobin 15.1 g/dl (12.0-16.0); Imm Gran Abs Auto 0.04 X10*3/uL (0.00-0.03); Imm Gran Pct Auto 0.4 % (0.0-0.4); Lymphocytes Absolute Auto 1.8 X10*3/uL (1.2-4.9); Lymphocytes Percent Auto 19.9 % (20-40); Mean Corpuscular HGB Conc 34.4 g/dl (31.0-35.0); Mean Corpuscular Hemoglobin 27.7 pg (27.0-33.0); Mean Corpuscular Volume 80.4 fL (80.0-98.0); Mean Platelet Volume 9.6 fL (9.4-12.3); Monocytes Absolute Auto 0.6 X10*3/uL (0.1-1.2); Monocytes Percent Auto 6.7 % (2-11); Neutrophils Absolute Auto 6.4 x10*3/uL (2.0-8.3); Neutrophils Percent Auto 71.5 % (45-73); Platelet Count 293 X10*3/uL (160-400); Red Blood Count 5.46 X10*6/uL (4.20-5.50); Red Cell Distribution Width 13.6 % (11.0-16.0); White Blood Count 8.9 X10*3/uL (4.8-10.8)
[2022-02-07 14:45] LABS: Alanine Aminotransferase 26 U/L (0-31); Albumin Level 4.4 g/dL (3.5-5.0); Alkaline Phosphatase 225 U/L (39-117); Anion Gap 20 (12-20); Aspartate Amino Transferase 19 U/L (5-31); Bilirubin Direct 0.2 mg/dL (0.0-0.5); Bilirubin Total 0.4 mg/dL (0.0-1.0); Blood Urea Nitrogen 10 mg/dL (9-16); Calcium 9.6 mg/dL (8.4-10.2); Carbon Dioxide 24 mmol/L (22-29); Chloride 102 mmol/L (96-108); Creatinine Clr Calc Pharmacy 88.3; Estimated Glomerular Filt Rate > 60; Glucose Random 250 mg/dL (60-115); Magnesium 1.8 mg/dL (1.6-2.6); Sodium 142 mmol/L (135-145); Total Protein 7.4 g/dL (6.5-8.0)
[2022-02-07 14:46] LABS: COVID-19 Test Negative (Negative); IDNOW Serial# 55D5AD1C
[2022-02-07 14:48] LABS: Troponin-I High Sensitivity < 3.5 ng/L (<3.5-17.0)
--- OUTSIDE RECORDS SUMMARY | 2022-02-07 15:20 | XMS_ITS | Continuity of Care Document ---
:1965 Author Organization [facility] Address [address] [place] [address]- Care Team Providers Name Role Phone Umair RABAGO, Shayy Schmitt [id number] Date(s): 01/11/[facility] - 06/03/20 [facility] [address] [place] [address]- Attending Physician: Raymundo Awan MD Admitting Physician: Raymundo Awan MD Referring Physician: Shayy Block NP, V Allergies, Adverse Reactions, Alerts Substance Reaction Severity Status NKA Active Medications acetaminophen-butalbital 325 mg-50 mg oral tablet 1 tablet, By Mouth, Every 4 hours, PRN as needed, # 30 tablet, 0 Refills, Maintenance, 05/20/17 15:18:41, Tablet Start Date: 05/20/17 Status: Orderedcitalopram 10 mg oral tablet 10 mg, 1, tablet, By Mouth, Daily, Refills 0, Maintenance, 05/20/17 15:22:52 Start Date: 05/20/17 Status: OrderedClaritin-D 1 tablet, By Mouth, Every 12 hours, 0 Refills, Maintenance, 09/29/14 9:30:48 Start Date: 09/29/14 Status: OrderedCompression Stockings See Instructions, # 3 pair, Refills 2, Tot. Refills 2, Maintenance, surgical, calf length 20-30 mm Hg Dx: bilateral leg varicose veins with pain and swelling, 03/06/17 17:10:34, Compound Start Date: 03/06/17 Status: OrderedCompression Stockings See Instructions, # 2 each, Refills 1, Tot. Refills 1, Maintenance, surgical, knee length 20-30 mm Hg DX:I83.813, 01/10/20 16:40:00 EDT, Supply Start Date: 01/10/20 Status: OrderedDexilant 60 mg oral delayed release capsule 1 capsule = 60 mg, By Mouth, Daily, # 30 capsule, 0 Refills, Maintenance, 05/20/17 15:19:24, EC Capsule Start Date: 05/20/17 Status: OrderedFlonase 50 mcg/inh nasal spray 1 sprays, Daily, 0 Refills, Maintenance, 09/29/14 9:31:17 Start Date: 09/29/14 Status: OrderedFlorajen3 oral capsule 1 capsule, By Mouth, Daily, 0 Refills, Maintenance, 05/20/17 15:19:06 Start Date: 05/20/17 Status: Orderedglycerin adult rectal suppository 1 supp, Rectally, Daily, 0 Refills, Maintenance, 05/20/17 15:19:49 Start Date: 05/20/17 Status: OrderedLinzess 290 mcg oral capsule 1 capsule = 290 mcg, By Mouth, Daily, # 30 capsule, 0 Refills, Maintenance, 05/20/17 15:20:58, Capsule Start Date: 05/20/17 Status: Orderedmagnesium oxide 400 mg oral tablet 1 tablet = 400 mg, By Mouth, Daily, # 14 tablet, 0 Refills, Maintenance, 05/20/17 15:20:07, Tablet Start Date: 05/20/17 Stop Date: 06/03/17 Status: OrderedNaprosyn 500 mg oral tablet 1 tablet = 500 mg, By Mouth, 2 times a day, 0 Refills, Maintenance, 05/20/17 15:21:51 Start Date: 05/20/17 Status: OrderedProbiotic Formula 1 capsule, By Mouth, Daily, 0 Refills, Maintenance, 05/20/17 15:22:39 Start Date: 05/20/17 Status: Orderedranitidine 300 mg oral capsule 1 capsule = 300 mg, By Mouth, Daily at bedtime, 0 Refills, Maintenance, 05/20/17 15:20:29 Start Date: 05/20/17 Status: Orderedsimethicone 125 mg oral capsule 1 capsule = 125 mg, By Mouth, 4 times a day, # 30 capsule, 0 Refills, Maintenance, 05/20/17 15:22:27, Capsule Start Date: 05/20/17 Status: Orderedsimvastatin 20 mg oral tablet 20 mg, 1, tablet, By Mouth, Daily at bedtime, Refills 0, Maintenance, 05/20/17 15:20:45 Start Date: 05/20/17 Status: OrderedtiZANidine 2 mg oral capsule 2 capsule = 4 mg, By Mouth, Every 8 hours, 0 Refills, Maintenance, 05/20/17 15:21:13 Start Date: 05/20/17 Status: Orderedtopiramate 25 mg oral capsule 1 capsule = 25 mg, By Mouth, 2 times a day, 0 Refills, Maintenance, 05/20/17 15:21:38 Start Date: 05/20/17 Status: OrderedVitamin D3 By Mouth, 0 Refills, Maintenance, 09/29/14 9:30:41 Start Date: 09/29/14 Status: Orderedzolpidem 10 mg oral tablet 1 tablet = 10 mg, By Mouth, Daily at bedtime, PRN for sleep, 0 Refills, Maintenance, 05/20/17 15:23:05, Tablet Start Date: 05/20/17 Status: Ordered Problem List Condition Effective Dates Status Health Status Informant Varicose vein(Confirmed) Active Social History Social History Type Response Smoking Status Never smoker entered on: 09/29/14 Sex
--- OUTSIDE RECORDS SUMMARY | 2022-02-07 15:20 | XMS_ITS | Continuity of Care Document ---
:1965 Author Organization [facility] Address [address] [place] [address]- Care Team Providers Name Role Phone Umair RABAGO, Shayy Schmitt [id number]22[facility] [address] [place] [address]- Attending Physician: Raymundo Awan MD Admitting Physician: [...]
--- OUTSIDE RECORDS SUMMARY | 2022-02-07 15:20 | XMS_ITS | Continuity of Care Document ---
:1965 Author Organization [facility] Address [address] [place] [address]- Care Team Providers Name Role Phone Shayy Block NP, V Primary Care Physician Encounter [facility] Date(s): 01/10/20 - 01/17/20 [facility] [address] [place] [address]- [facility] Attending Physician: Shayy Block NP, V Admitting Physician: Shayy Block NP, V Referring Physician: Shayy Block NP, V Allergies, [...] 09/29/14 Status: OrderedCompression Stockings See Instructions, # 2 each, Refills 1, Tot. Refills 1, Maintenance, surgical, knee length 20-30 mm Hg DX:I83.813, 01/10/20 16:40:00 EDT, Supply Start Date: 01/10/20 Status: OrderedCompression Stockings See Instructions, # 3 pair, Refills 2, Tot. Refills 2, Maintenance, surgical, calf length 20-30 mm Hg Dx: bilateral leg varicose veins with pain and swelling, 03/06/17 17:10:34, Compound Start Date: 03/06/17 Status: OrderedDexilant 60 mg oral delayed release [...] Status Health Status Informant Varicose vein(Confirmed) Active Vital Signs Most recent to oldest [Reference Range]: 1 Height 157.00 cm (01/10/20 4:21 PM) Weight 100 kg (01/10/20 4:21 PM) Body Mass Index [18.5-24.99] 40.57 *>HHI* (01/10/20 4:21 PM) Blood Pressure [90-138/55-84 mm Hg] 118/70 mm Hg (01/10/20 4:21 PM) Blood pressure sites Arm, right (01/10/20 4:21 PM) Weight Obtained Via Patient/family stated (01/10/20 4:21 PM) Social History Social History Type Response Smoking Status Never smoker entered on: 09/29/14 Sex
--- OUTSIDE RECORDS SUMMARY | 2022-02-07 15:20 | XMS_ITS | Continuity of Care Document ---
:1965 Author Organization [facility] Address [address] [place] [address]- Care Team Providers Name Role Phone Umair RABAGO, Shayy Schmitt Primary Care Physician Encounter [facility] Date(s): 01/11/20 - 05/10/20 [facility] [address] [place] [address] Attending Physician: Raymundo Awan MD Admitting Physician: Raymundo Awan MD Referring Physician: Raymundo Awan MD Allergies, Adverse Reactions, Alerts Substance Reaction Severity [...]
--- OUTSIDE RECORDS SUMMARY | 2022-02-07 15:20 | XMS_ITS | Continuity of Care Document ---
:1965 Author Organization [facility] Address [address] [place] [address]- Care Team Providers Name Role Phone Umair RABAGO, Shayy Schmitt [id number] [address] [place] [address]- Attending Physician: Raymundo Awan MD Admitting Physician: [...]
--- OUTSIDE RECORDS SUMMARY | 2022-02-07 15:20 | XMS_ITS | Continuity of Care Document ---
:1965 Author Organization [facility] Address [address] [place] [address]- Care Team Providers Name Role Phone Umair RABAGO, Shayy Schmitt [id number]16[facility] [address] [place] [address]- Attending Physician: Raymundo Awan MD Admitting Physician: Raymundo Awan MD Allergies, Adverse Reactions, [...]
--- OUTSIDE RECORDS SUMMARY | 2022-02-07 15:21 | XMS_ITS | Continuity of Care Document ---
:1965 Author Organization [facility] Address [address] [place] [address]- Care Team Providers Name Role Phone Umair RABAGO, Shayy Schmitt Primary Care Physician En[facility] [id number] Date(s): 09/15/20 - 10/15/20 [facility] [address] [place] [address]- Attending Physician: Jw Jimenez Admitting Physician: Jw Jimenez Referring Physician: AdmtrJw Allergies, Adverse Reactions, Alerts Substance Reaction Severity [...]
--- OUTSIDE RECORDS SUMMARY | 2022-02-07 15:21 | XMS_ITS | Continuity of Care Document ---
:1965 Author Organization [facility] Address [address] [place] [address]- Care Team Providers Name Role Phone Umair RABAGO, Shayy Schmitt [id number]/20 [facility] [address] [place] [address]- Attending Physician: Raymundo Awan MD Admitting Physician: [...]
--- OUTSIDE RECORDS SUMMARY | 2022-02-07 15:21 | XMS_ITS | Continuity of Care Document ---
:1965 Author Organization [facility] Address [address] [place] [address]- Care Team Providers Name Role Phone Umair RABAGO, Shayy Schmitt Primary Care Physician En[facility] [id number] Date(s): 05/25/20 - 06/24/20 [facility] [address] [place] [address]- Attending Physician: Jw Jimenez Admitting Physician: Jw [...]
== END 2022-02-07 17:10 | disposition home or self-care (01) ==
PROVIDERS: Physician Assistant; Emergency Provider Emergency Medicine
DX: R07.89 Other chest pain (principal); E78.00 Pure hypercholesterolemia, unspecified; E66.9 Obesity, unspecified; Z68.41 Body mass index [BMI] 40.0-44.9, adult; Z20.822 Contact with and (suspected) exposure to COVID-19
CPT/HCPCS: 71275; 80048; 80076; 83735; 84484; 85025; 87635; 93005; 99284; 99285

== ENCOUNTER → 2022-02-21 20:30 | Outpatient (REF) | payer MEDICAID, SELFPAY | LOC: HO.SL 20:30 | PROVIDERS: Visit Provider Internal Medicine | DX: G47.33 Obstructive sleep apnea (adult) (pediatric) (principal) | CPT/HCPCS: 95811 ==

== ENCOUNTER 2022-05-23 07:53 | Outpatient (REF) | payer MEDICAID, SELFPAY ==
[2022-05-23 09:37] LABS: MANUAL DIFF FLAG NO
[2022-05-23 09:52] LABS: Basophils Percent Auto 0.6 % (0-2); Eosinophils Absolute Auto 0.1 X10*3/uL (0.0-0.4); Eosinophils Percent Auto 1.9 % (0-4); Hematocrit 42.6 % (37.0-47.0); Hemoglobin 14.2 g/dl (12.0-16.0); Imm Gran Abs Auto 0.02 X10*3/uL (0.00-0.03); Imm Gran Pct Auto 0.4 % (0.0-0.4); Lymphocytes Absolute Auto 1.4 X10*3/uL (1.2-4.9); Lymphocytes Percent Auto 28.5 % (20-40); Mean Corpuscular HGB Conc 33.3 g/dl (31.0-35.0); Mean Corpuscular Hemoglobin 27.4 pg (27.0-33.0); Mean Corpuscular Volume 82.1 fL (80.0-98.0); Mean Platelet Volume 9.6 fL (9.4-12.3); Monocytes Absolute Auto 0.3 X10*3/uL (0.1-1.2); Monocytes Percent Auto 5.8 % (2-11); Neutrophils Absolute Auto 3.1 x10*3/uL (2.0-8.3); Neutrophils Percent Auto 62.8 % (45-73); Platelet Count 251 X10*3/uL (160-400); Red Blood Count 5.19 X10*6/uL (4.20-5.50); Red Cell Distribution Width 13.8 % (11.0-16.0); White Blood Count 4.9 X10*3/uL (4.8-10.8)
[2022-05-23 12:06] LABS: Folate 10.8 ng/mL (> or = 4.0); Vitamin B12 338 pg/mL (200-900)
[2022-05-23 12:08] LABS: Alanine Aminotransferase 30 U/L (0-31); Alkaline Phosphatase 229 U/L (39-117); Aspartate Amino Transferase 28 U/L (5-31); Bilirubin Direct 0.2 mg/dL (0.0-0.5); Bilirubin Total 0.6 mg/dL (0.0-1.0); Lipase 25 U/L (8-78); Total Protein 6.9 g/dL (6.5-8.0)
[2022-05-23 12:26] LABS: Vitamin D 25-OH Total 29.9 ng/mL (>30)
[2022-05-25 14:44] LABS: Immunoglobulin A 266 mg/dL (47-310)
[2022-05-26 18:58] LABS: TS Negative Control Passed; TS Panel A 0; TS Panel B 0; TS Positive Control Passed; TSpotTB Negative (Negative)
[2022-05-29 14:58] LABS: Mitochondrial Antibodies NEGATIVE (NEGATIVE)
[2022-05-30 13:09] LABS: Alk.Phos Iso. Macrohepatic 0 % (<=0); Alk.Phos Isoenzymes Bone 34 % (28-66); Alk.Phos Isoenzymes Intest 4 % (1-24); Alk.Phos Isoenzymes Liver 62 % (25-69); Alk.Phos Isoenzymes Placental 0 % (<=0); Alk.Phos Isoenzymes Total 190 U/L (37-153)
[2022-05-31 07:44] LABS: Transglutaminase Ab IgG <1.0 U/mL; Transglutaminase IgA <1.0 U/mL
== END 2022-05-23 07:54 | disposition home or self-care (01) ==
LOC: HO.LAB 07:53
PROVIDERS: Visit Provider Internal Medicine Gastroenterology
DX: K21.9 Gastro-esophageal reflux disease without esophagitis (principal); K43.9 Ventral hernia without obstruction or gangrene; K76.0 Fatty (change of) liver, not elsewhere classified; R79.89 Other specified abnormal findings of blood chemistry; E73.9 Lactose intolerance, unspecified; R10.13 Epigastric pain; R14.0 Abdominal distension (gaseous); R05.9 Cough, unspecified; Z79.899 Other long term (current) drug therapy
CPT/HCPCS: 36415; 80076; 82306; 82607; 82746; 82784; 83690; 84080; 85025; 86255; 86256; 86364; 86481; 99212

== ENCOUNTER 2022-05-27 10:26 | Day surgery (SDC) | payer MEDICAID, SELFPAY ==
--- NOTE | 2022-05-24 11:01 | HO.ANESPROP2 ---
Documented by User: Huma Ruiz NP 05/24/22 11:02 HPI - Anesthesia Eval Consult details Narrative: 57yo F for Upper Endoscopy PMFSH Active Problems Active Problems: All Active Problems (Updated 05/23/22 @ 08:30 by Gillian Velásquez MD) Cough (Acute) Supraumbilical hernia (Acute) COVID-19 (Acute) Lumbar radiculopathy (Acute) Morbid obesity with BMI of 40.0-44.9, adult (Acute) Colon cancer screening (Acute) Epigastric pain (Acute) Chronic constipation (Acute) Elevated LFTs (Acute) Vitamin D deficiency (Acute) GERD (gastroesophageal reflux disease) (Acute) Lactose intolerance (Acute) NAFL (nonalcoholic fatty liver) (Acute) Past Medical History Medical History Bilateral wrist pain Chronic constipation Elevated LFTs Epigastric pain GERD (gastroesophageal reflux disease) History of Helicobacter pylori infection (~06/2014) Hypercholesterolemia Lactose intolerance Lumbar radiculopathy Morbid obesity with BMI of 40.0-44.9, adult NAFL (nonalcoholic fatty liver) Obstructive sleep apnea Vitamin D deficiency Family History Family History Unknown No problems noted. Surgical History Surgical History History of colonoscopy Social History Social History Household Members: Family Alcohol intake: current Alcohol intake frequency: a few times a month Patient Tobacco Use Status: Never used Tobacco Use of substances other than those prescribed or required for medical reasons: No Are you DNR?: No Advance Directives: No Advance Directives Information Provided: Yes Meds Allergies Allergy/AdvReac Type Severity Reaction Status Date / Time SEAFOOD Allergy Intermediate ANGIOEDEMA Uncoded 05/27/22 11:09 lactose intolerant Allergy Unknown stomach Uncoded 05/27/22 11:09 pain and heart burn Home Medications Medication Instructions Recorded Confirmed Last Taken Type Saccharomyces boulardii 250 mg 250 mg PO BID 02/18/20 05/27/22 Unknown History capsule (Probiotic (S.boulardii)) biotin 10,000 mcg capsule 10,000 mcg PO DAILY 02/18/20 05/27/22 Unknown History cholecalciferol (vitamin D3) 50 50 mcg PO DAILY 02/18/20 05/27/22 Unknown History mcg (2,000 unit) capsule (Vitamin D3) citalopram 20 mg tablet 20 mg PO DAILY 02/18/20 05/27/22 Unknown History docusate sodium 100 mg capsule 100 mg PO DAILY 02/18/20 05/27/22 Unknown History epinephrine 0.3 mg/0.3 mL 0.3 mg IM Q10M PRN Allergy Symptoms 02/18/20 05/27/22 Unknown History injection, auto-injector (EpiPen) linaclotide 145 mcg capsule 145 mcg PO QAM 02/18/20 05/27/22 Unknown History (Linzess) loratadine 10 mg tablet (Allergy 10 mg PO DAILY 02/18/20 05/27/22 Unknown History Relief (loratadine)) lorazepam 1 mg tablet 1 mg PO BEDTIME PRN Anxiety 02/18/20 05/27/22 Unknown History simethicone 125 mg capsule (Gas 125 mg PO BID-QID PRN Acid Reflux 02/18/20 05/27/22 Unknown History Relief (simethicone)) simvastatin 20 mg tablet 20 mg PO BEDTIME 02/18/20 05/27/22 Unknown History topiramate 50 mg capsule 50 mg PO DAILY 02/18/20 05/27/22 Unknown History sprinkle,extended release 24 hr zolpidem 10 mg tablet 10 mg PO BEDTIME PRN Sleep 02/18/20 05/27/22 Unknown History Exam Exam Date and Time: May 24, 2022 1101 Pertinent Lab Results Pertinent Lab Results: Laboratory Tests 02/07/22 05/23/22 14:20 09:35 WBC 4.9 Hgb 14.2 Hct 42.6 Plt Count 251 Sodium 142 Potassium 4.0 Chloride 102 Carbon Dioxide 24 BUN 10 Creatinine 0.83 Assessment and Plan Assessment Anesthesia Assessment: Chart Reviewed Documented by User: Justine Mcege MD 05/27/22 11:28 [facility] Past Medical History Medical History Bilateral wrist pain Chronic constipation Elevated LFTs Epigastric pain GERD (gastroesophageal reflux disease) History of Helicobacter pylori infection (~06/2014) Hypercholesterolemia Lactose intolerance Lumbar radiculopathy Morbid obesity with BMI of 40.0-44.9, adult NAFL (nonalcoholic fatty liver) Obstructive sleep apnea Vitamin D deficiency Family History Family History Unknown No problems noted. Family history of problems with anesthesia: No Surgical History Surgical History History of colonoscopy History of Problems with Anesthesia: No Social History Social History Household Members: Family Alcohol intake: current Alcohol intake frequency: a few times a month Patient Tobacco Use Status: Never used Tobacco Use of substances other than those prescribed or required for medical reasons: No Are you DNR?: No Advance Directives: No Advance Directives Information Provided: Yes Meds Allergies Allergy/AdvReac Type Severity Reaction Status Date / Time SEAFOOD Allergy Intermediate ANGIOEDEMA Uncoded 05/27/22 11:09 lactose intolerant Allergy Unknown stomach Uncoded 05/27/22 11:09 pain and heart burn Home Medications Medication Instructions Recorded Confirmed Last Taken Type Saccharomyces boulardii 250 mg 250 mg PO BID 02/18/20 05/27/22 Unknown History capsule (Probiotic (S.boulardii)) biotin 10,000 mcg capsule 10,000 mcg PO DAILY 02/18/20 05/27/22 Unknown History cholecalciferol (vitamin D3) 50 50 mcg PO DAILY 02/18/20 05/27/22 Unknown History mcg (2,000 unit) capsule (Vitamin D3) citalopram 20 mg tablet 20 mg PO DAILY 02/18/20 05/27/22 Unknown History docusate sodium 100 mg capsule 100 mg PO DAILY 02/18/20 05/27/22 Unknown History epinephrine 0.3 mg/0.3 mL 0.3 mg IM Q10M PRN Allergy Symptoms 02/18/20 05/27/22 Unknown History injection, auto-injector (EpiPen) linaclotide 145 mcg capsule 145 mcg PO QAM 02/18/20 05/27/22 Unknown History (Linzess) loratadine 10 mg tablet (Allergy 10 mg PO DAILY 02/18/20 05/27/22 Unknown History Relief (loratadine)) lorazepam 1 mg tablet 1 mg PO BEDTIME PRN Anxiety 02/18/20 05/27/22 Unknown History simethicone 125 mg capsule (Gas 125 mg PO BID-QID PRN Acid Reflux 02/18/20 05/27/22 Unknown History Relief (simethicone)) simvastatin 20 mg tablet 20 mg PO BEDTIME 02/18/20 05/27/22 Unknown History topiramate 50 mg capsule 50 mg PO DAILY 02/18/20 05/27/22 Unknown History sprinkle,extended release 24 hr zolpidem 10 mg tablet 10 mg PO BEDTIME PRN Sleep 02/18/20 05/27/22 Unknown History Exam Airway Mallampati Class: II TM Dist: >3cm Neck ROM: Full Heart: rrr Lungs: cta Assessment and Plan Assessment Anesthesia Assessment: Anesthesia Plan Discussed and Chart Reviewed Final Anesthetic Review Family History of Problems with Anesthesia: No History of Problems with Anesthesia: No NPO: Yes ASA Class: II Final Preanesthetic Review: No Changes in Pt Med Stat, Meds/Allgs Chart Reviewed and Consent Obtained/Reviewed Patient Risk: Intermediate Procedure Risk: Intermediate Anesthetic Plan Anesthetic Plan: MAC: Disposition: Standard PACU
[2022-05-27 11:09] VITALS: BMI 37.9
[2022-05-27 11:12] VITALS: BP 109/83; PULSE 102; RESP 16; TEMP 36.2; O2SAT 95
[2022-05-27] MEDS: Lactated Ringers 1,000 ML 100 ML IVCONT (11:36)
--- NOTE | 2022-05-27 12:02 | MHC.SHP ---
Pre-Procedural Eval Section A Date of Service: 05/27/22 The patient is an INPATIENT: No Changes since office visit: Yes Patient answered all questions; No Cold of Flu in the past 2 weeks, No New Medical Problems and No Changes in Medication The History & Physical has been completed within 30 days and I have reviewed it.: Yes Section B Chief Complaint: Epigastric pain Allergies: Allergies Allergy/AdvReac Type Severity Reaction Status Date / Time SEAFOOD Allergy Intermediate ANGIOEDEMA Uncoded 05/27/22 11:09 lactose intolerant Allergy Unknown stomach Uncoded 05/27/22 11:09 pain and heart burn Plan I have reviewed the history and physical and performed a pertinent physical examination on my patient. No changes have occurred unless specified. Time Spent With Patient Time: Total time managing care of this patient today ____ minutes.
--- NOTE | 2022-05-27 12:02 | PM.OP ---
Brief Operative Note Date of Service: 05/27/22 Pre-op diagnosis: abdominal pain/bloating, acid reflex with burning sensation, swallowing problems on and off, weight loss. Post-op diagnosis: other (Hiatal hernia, Schatzki's ring, GERD, gastritis) Procedure: EGD WITH BIOPSIES AND ESOPHAGEAL BALLOON DILATION Surgeon: Gillian Velásquez MD Anesthesia: MAC Was an Income Tax Auditor used for this Procedure?: Yes Income Tax Auditor: Marcela Goodman Estimated blood loss (mL): 0 Pathology: other (: A. small bowel bxs, R/O celiac disease B. gastric antrum bxs, R/O H. pylori C. proximal esophagus bxs, R/O EoE) Condition: stable Disposition: PACU
--- NOTE | 2022-05-27 12:03 | W.PM.OPN ---
Operative Note Operative Note Date of Service: 05/27/22 Narrative: Pre-op diagnosis: abdominal pain/bloating, acid reflex with burning sensation, swallowing problems on and off, weight loss. Post-op diagnosis:?other (Hiatal hernia, Schatzki's ring, GERD, gastritis) Surgeon: Gillian Velásquez MD Anesthesia:?MAC FLEXIBLE TRANSORAL UPPER GASTROINTESTINAL ENDOSCOPY WITH BIOPSIES AND ESOPHAGEAL BALLOON DILATION Consent: Indications for the procedure and potential complications of bleeding, perforation, reaction to medications and missed diagnosis were discussed with the patient and informed consent was obtained. Instrument: Olympus GIF H 190 mid size upper endoscope Monitoring: Vital signs and clinical assessment, continuous EKG monitoring, Pulse oximetry, Carbon Dioxide monitoring and blood pressure monitoring were done throughout the procedure. Procedure: The patient was placed in the left lateral decubitis position and pre-procedure medications were administered and a bite block was placed. The endoscope was inserted into the mouth and advanced under direct vision to the third part of duodenum. A careful inspection was made as the upper endoscope was withdrawn including a retroflexed examination of the proximal stomach; Findings and interventions are described below. Findings: Larynx: Normal Esophagus: Tortuous esophagus with increased tertiary contractions - biopsies were obtained from proximal esophagus to check for EOE. GE junction at 35 cms, small hiatal hernia 35 to 37 cms. A partially obstructing Schatzki's ring at GE junction. Esophageal balloon dilation was performed with a 20 mm (60 F) CRE balloon X 60 seconds Stomach: Moderate gastric erythema with a few healing erosions. Biopsies were obtained. Grade 3 flap valve on retroflexed examination of the cardia. Duodenum: Normal bulb and descending duodenum. Biopsies obtained from 3rd part of duodenum to check for celiac sprue. Intervention: Biopsies and esophageal balloon dilation as noted above Impression and Post Procedure Diagnosis: Endoscopy Findings: ESOPHAGUS: Tortuous esophagus with increased tertiary contractions - biopsies were obtained from proximal esophagus to check for EOE. GE junction at 35 cms, small hiatal hernia 35 to 37 cms. A partially obstructing Schatzki's ring at GE junction. Esophageal balloon dilation was performed with a 20 mm (60 F) CRE balloon X 60 seconds STOMACH: Moderate gastric erythema with a few healing erosions. Biopsies were obtained. Grade 3 flap valve on retroflexed examination of the cardia. DUODENUM: Normal - biopsied to check for celiac sprue Plan: Await pathology results Patient has an appointment on 07/08/22 in the GI Clinic with Gillian Velásquez M.D.. GERD and Hiatal Hernia handouts were given in the discharge area
[2022-05-27 12:27] VITALS: BP 100/73; PULSE 95; RESP 16; TEMP 36.1; O2SAT 98
[2022-05-27 12:42] VITALS: BP 122/87; PULSE 96; RESP 16; TEMP 36.1; O2SAT 98
== END 2022-05-27 13:53 | disposition home or self-care (01) ==
PROVIDERS: Visit Provider Internal Medicine Gastroenterology
PROC: 0DJ08ZZ Inspection of Upper Intestinal Tract, Via Natural or Artificial Opening Endoscopic (ICD-10-PCS; CPT 43235; principal; 2022-05-27 11:50)
DX: K29.50 Unspecified chronic gastritis without bleeding (principal); K21.9 Gastro-esophageal reflux disease without esophagitis; R63.4 Abnormal weight loss; K22.2 Esophageal obstruction; K44.9 Diaphragmatic hernia without obstruction or gangrene; K76.0 Fatty (change of) liver, not elsewhere classified; K59.09 Other constipation; E78.00 Pure hypercholesterolemia, unspecified; R73.03 Prediabetes; E55.9 Vitamin D deficiency, unspecified; G47.33 Obstructive sleep apnea (adult) (pediatric); E66.9 Obesity, unspecified; Z68.37 Body mass index [BMI] 37.0-37.9, adult; E73.9 Lactose intolerance, unspecified; Z79.899 Other long term (current) drug therapy
CPT/HCPCS: 43249; 43239; 88305; 88342; C1726

== ENCOUNTER → 2022-06-26 07:59 | Outpatient (BNVA) | payer MEDICAID, SELFPAY | PROVIDERS: Visit Provider Nurse Practitioner Family | DX: G47.33 Obstructive sleep apnea (adult) (pediatric) (principal); Z99.89 Dependence on other enabling machines and devices | CPT/HCPCS: 99202 ==

== ENCOUNTER → 2022-07-08 07:29 | Outpatient (BNVA) | payer MEDICAID, SELFPAY | PROVIDERS: Visit Provider Internal Medicine Gastroenterology | DX: R10.13 Epigastric pain (principal) | CPT/HCPCS: 99212 ==

== ENCOUNTER → 2022-09-25 08:58 | Outpatient (BNVA) | payer MEDICAID, SELFPAY | PROVIDERS: Visit Provider Nurse Practitioner Family | DX: G47.33 Obstructive sleep apnea (adult) (pediatric) (principal); Z99.89 Dependence on other enabling machines and devices | CPT/HCPCS: 99212 ==

== ENCOUNTER 2022-10-02 08:34 | Outpatient (REF) | payer MEDICAID, SELFPAY ==
--- NOTE | ~2022-10-02 | US_ITS ---
EXAMINATION: US ABDOMEN COMPLETE CLINICAL INFORMATION: History of fatty liver. Elevated alkaline phosphatase. COMPARISON: CT abdomen and pelvis 01/31/2020. Ultrasound abdomen complete 11/04/2018 and 05/09/2014. TECHNIQUE: Real-time imaging of the abdominal viscera. FINDINGS: PANCREAS: The pancreas appears unremarkable, without masses or ductal dilatation, with the exception of the tail which is obscured by bowel gas. ABDOMINAL AORTA: The proximal, mid, and distal segments are normal in caliber. INFERIOR VENA CAVA: Visualized portions are normal. LIVER: The liver is enlarged measuring at least 20 cm in greatest length. The liver contour is normal. There is diffuse increased liver parenchymal echogenicity, consistent with hepatic steatosis. No focal hepatic lesion. There is no intrahepatic biliary duct dilatation seen. GALLBLADDER: Normal. The gallbladder is physiologically distended without evidence of stones, sludge, polyps, wall thickening or pericholecystic fluid. COMMON BILE DUCT: Normal in caliber measuring 0.36 cm in diameter. RIGHT KIDNEY: Normal. No hydronephrosis. No renal calculi or focal parenchymal lesions. The kidney measures 11.4 cm in maximum dimension. LEFT KIDNEY: Normal. No hydronephrosis. No renal calculi or focal parenchymal lesions. The kidney measures 12.3 cm in maximum dimension. SPLEEN: The spleen is enlarged measuring 13.6 cm in maximum dimension. FREE FLUID: None. US/US abdomen complete IMPRESSION: 1. Enlarged fatty liver. 2. Mild splenomegaly.
== END 2022-10-02 08:35 | disposition home or self-care (01) ==
LOC: HO.US 08:34
PROVIDERS: Visit Provider Nurse Practitioner Primary Care
DX: R74.8 Abnormal levels of other serum enzymes (principal); K76.0 Fatty (change of) liver, not elsewhere classified
CPT/HCPCS: 76700

== ENCOUNTER 2022-11-16 23:43 | Emergency (ER) | payer MEDICAID, SELFPAY ==
[2022-11-16 23:56] VITALS: BP 118/71; PULSE 90; RESP 23; TEMP 36.6; O2SAT 97; BMI 34.8
--- NOTE | 2022-11-17 01:02 | ED.CHESTPAIN ---
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 Related Data Home Medications Medication Instructions Recorded Confirmed Saccharomyces boulardii 250 mg 250 mg PO BID 02/18/20 07/08/22 capsule (Probiotic (S.boulardii)) biotin 10,000 mcg capsule 10,000 mcg PO DAILY 02/18/20 07/08/22 cholecalciferol (vitamin D3) 50 50 mcg PO DAILY 02/18/20 07/08/22 mcg (2,000 unit) capsule (Vitamin D3) citalopram 20 mg tablet 20 mg PO DAILY 02/18/20 07/08/22 docusate sodium 100 mg capsule 100 mg PO DAILY 02/18/20 07/08/22 epinephrine 0.3 mg/0.3 mL 0.3 mg IM Q10M PRN Allergy Symptoms 02/18/20 07/08/22 injection, auto-injector (EpiPen) linaclotide 145 mcg capsule 145 mcg PO QAM 02/18/20 07/08/22 (Linzess) loratadine 10 mg tablet (Allergy 10 mg PO DAILY 02/18/20 07/08/22 Relief (loratadine)) lorazepam 1 mg tablet 1 mg PO BEDTIME PRN Anxiety 02/18/20 07/08/22 simethicone 125 mg capsule (Gas 125 mg PO BID-QID PRN Acid Reflux 02/18/20 07/08/22 Relief (simethicone)) topiramate 50 mg capsule 50 mg PO DAILY 02/18/20 07/08/22 sprinkle,extended release 24 hr [id number] 1 tab PO .prn 06/26/22 07/08/22 50 mg-325 mg-40 mg tablet Previous Rx's Medication Instructions Recorded magnesium oxide 400 mg (241.3 mg 400 mg PO DAILY PRN constipation 02/18/20 magnesium) tablet 30 days #30 tabs fluticasone propionate 50 1 spray intranasal BID #16 grams 10/25/21 mcg/actuation nasal spray,suspension (24 Hour Allergy Relief) diphenhydramine HCl 25 mg capsule 50 mg PO ONCE PRN sleep 1 day #2 01/03/22 (Benadryl) caps dexlansoprazole 30 mg 60 mg PO DAILY 60 days #120 caps 05/23/22 capsule,biphase delayed release (Dexilant) sucralfate 1 gram tablet (Carafate) 1 g PO BID 30 days #60 tabs 05/23/22 Allergies Allergy/AdvReac Type Severity Reaction Status Date / Time SEAFOOD Allergy Intermediate ANGIOEDEMA Uncoded 09/25/22 09:04 lactose intolerant Allergy Unknown stomach Uncoded 09/25/22 09:04 pain and heart burn Review of Systems Review of Systems: Remigio positives and negatives as stated in [facility] Past Medical History Source: nursing notes reviewed Medical History Bilateral wrist pain Chronic constipation Elevated LFTs Epigastric pain GERD (gastroesophageal reflux disease) History of Helicobacter pylori infection (~06/2014) Hypercholesterolemia Lactose intolerance Lumbar radiculopathy Morbid obesity with BMI of 40.0-44.9, adult NAFL (nonalcoholic fatty liver) Obstructive sleep apnea Vitamin D deficiency Surgical History H/O: History of colonoscopy Family History Family History Unknown No problems noted. Social History Social History Household Members: Family Alcohol intake: current Alcohol intake frequency: a few times a month Patient Tobacco Use Status: Never used Tobacco Advance Directives: No Advance Directives Information Provided: Yes Physical Exam Vital Signs: Vital Signs: Last Vital Signs Temp 97.8 F 11/16/22 23:56 Pulse 90 11/16/22 23:56 Resp 23 H 11/16/22 23:56 BP 118/71 11/16/22 23:56 Pulse Ox 97 11/16/22 23:56 O2 Del Method Room Air 11/16/22 23:56 BMI result Body Mass Index 34.8 VITAL SIGNS: Reviewed. GENERAL: Elevated BMI, Well developed, well nourished, in no acute distress. HEAD: Normocephalic/atraumatic EYES: PERRLA, EOMI EARS: Ext canals without abnormality NOSE: Nares patent bilateral OROPHARYNX: no oral lesions noted, posterior pharynx clear NECK: Supple, no adenopathy LUNGS: Normal breath sounds. No adventitious sounds or accessory muscle use. SpO2<97> CARDIOVASCULAR: Regular rate and rhythm without noted murmurs ABDOMEN: Soft, non-tender, non-distended with bowel sounds. MUSCULOSKELETAL: No tenderness, deformities, or effusions noted on gross inspection. EXTREMITIES: No cyanosis, clubbing or edema. SKIN: Inspection of the skin reveals no rashes NEUROLOGIC: Alert and oriented x 4. Strength and sensation to light touch were grossly intact x 4. Medical Decision Making Medical Decision Making MDM Narrative: 57-year-old female with history and clinical presentation, DDX: Acute gastritis secondary to alcohol consumption, pancreatitis, low clinical suspicion for cardiopulmonary etiology or cholecystitis. Reviewed all laboratory investigations and hematologic indices are negative for leukocytosis/left shift and no evidence of anemia. Chemistries studies are grossly within normal limits to include undetectable troponin and no ischemic changes on EKG. Chest x-ray not significant for pneumonia. Patient is otherwise stable and will be discharged home with instructions follow-up with her primary care doctor. Differential Diagnosis Please see the discussion above Admission/Observation Consideration of admission/observation: Escalation of care including admission/observation considered Lab Data Please see the discussion above 11/16/22 23:51 11/16/22 23:51 Labs: Lab Results 11/16/22 11/16/22 11/16/22 Range/Units 23:51 23:51 23:51 WBC 7.7 (4.8-10.8) X10*3/uL RBC 4.90 (4.20-5.50) X10*6/uL Hgb 13.5 (12.0-16.0) g/dl Hct 39.1 (37.0-47.0) % MCV 79.8 L (80.0-98.0) fL MCH 27.6 (27.0-33.0) pg MCHC 34.5 (31.0-35.0) g/dl RDW 13.3 (11.0-16.0) % Plt Count 340 D (160-400) X10*3/uL MPV 8.8 L (9.4-12.3) fL Immature Gran % (Auto) 0.5 H (0.0-0.4) % Neut % (Auto) 48.7 (45-73) % Lymph % (Auto) 42.1 H (20-40) % Graham % (Auto) 6.4 (2-11) % Eos % (Auto) 1.6 (0-4) % Baso % (Auto) 0.7 (0-2) % Lymph # (Auto) 3.2 (1.2-4.9) X10*3/uL Graham # (Auto) 0.5 (0.1-1.2) X10*3/uL Eos # (Auto) 0.1 (0.0-0.4) X10*3/uL Baso # (Auto) 0.1 (0.0-0.2) X10*3/uL Abs Immat Gran (auto) 0.04 H (0.00-0.03) X10*3/uL Absolute Neuts (auto) 3.8 (2.0-8.3) x10*3/uL Absolute Nucleated RBC 0.000 (0.0-0.012) X10*3/uL Nucleated RBC % (auto) 0.0 (0.0-0.2) /100WBC Sodium 141 (135-145) mmol/L Potassium 4.1 (3.3-5.1) mmol/L Chloride 105 (96-108) mmol/L Carbon Dioxide 21 L (22-29) mmol/L Anion Gap 19 (12-20) BUN 11 (9-16) mg/dL Creatinine 0.76 (0.5-1.4) mg/dL Estim Creat Clear Calc 90.9 Estimated GFR > 60 Random Glucose 178 H (60-115) mg/dL Calcium 10.2 D (8.4-10.2) mg/dL Troponin I High Sens < 2.7 (<3.5-17.0) ng/L Lipase 22 (8-78) U/L Independent Interpretation I performed an independent interpretation of an: EKG Interpretation: Normal sinus rhythm, HR-97, no STEMI, MD/QRS/QTC is within normal limits. Radiology Impression Radiologist Impression: No pneumonia, otherwise my interpretation is in agreement with radiology's impression. External Record Review External record reviewed: Outpatient record and Prior outpatient labs Discharge Plan Discharge Clinical Impression: Gastritis, Alcohol intoxication Patient Disposition: Home, Self-Care Instructions: Gastritis (ED), Diet for Stomach Ulcers and Gastritis (ED) Additional Instructions: 1. Reanudar todos los medicamentos caseros seg?n lo prescrito. 2. Seguimiento con alfaro proveedor de atenci?n primaria los pr?ximos 1-2 d?as. Regrese a la allan de emergencias si los s?ntomas empeoran. 1. Resume all home medications as prescribed. 2. Follow-up with your primary care provider next 1-2 days. Return to the ER for any worsening symptoms. Prescriptions: No Action diphenhydramine HCl [Benadryl] 25 mg capsule 50 mg PO ONCE PRN (Reason: sleep) 1 Days Qty: 2 0RF Rx Instructions: Take 2 tablets PO 1 hour before getting IV contrast dexlansoprazole [Dexilant] 30 mg capsule,biphase delayed releas 60 mg PO DAILY 60 Days Qty: 120 3RF fluticasone propionate [24 Hour Allergy Relief] 50 mcg/actuation spray,suspension 1 spray intranasal BID Qty: 16 0RF Rx Instructions: administer into each nostril topiramate 50 mg capsule,sprinkle,ER 24hr 50 mg PO DAILY loratadine [Allergy Relief (loratadine)] 10 mg tablet 10 mg PO DAILY biotin 10,000 mcg capsule 10,000 mcg PO DAILY cholecalciferol (vitamin D3) [Vitamin D3] 50 mcg (2,000 unit) capsule 50 mcg PO DAILY epinephrine [EpiPen] 0.3 mg/0.3 mL auto-injector 0.3 mg IM Q10M PRN (Reason: Allergy Symptoms) Rx Instructions: for 2 doses docusate sodium 100 mg capsule 100 mg PO DAILY Saccharomyces boulardii [Probiotic (S.boulardii)] 250 mg capsule 250 mg PO BID Rx Instructions: swallow whole citalopram 20 mg tablet 20 mg PO DAILY lorazepam 1 mg tablet 1 mg PO BEDTIME PRN (Reason: Anxiety) simethicone [Gas Relief (simethicone)] 125 mg capsule 125 mg PO BID-QID PRN (Reason: Acid Reflux) magnesium oxide 400 mg (241.3 mg magnesium) tablet 400 mg PO DAILY PRN (Reason: constipation) 30 Days Qty: 30 4RF Linzess 145 mcg capsule 145 mcg PO QAM sucralfate [Carafate] 1 gram tablet 1 g PO BID 30 Days Qty: 60 2RF [id number]-[id number] 50-325-40 mg tablet 1 tab PO .prn Referrals: Cathie Becerra SIGNAL OPERATOR [Primary Care Provider] - Print Language: Telugu
== END 2022-11-17 02:25 | disposition home or self-care (01) ==
PROVIDERS: Emergency Provider Student in an Organized Health Care Education/Training Program; PCP Nurse Practitioner Primary Care
DX: K29.70 Gastritis, unspecified, without bleeding (principal); F10.920 Alcohol use, unspecified with intoxication, uncomplicated; Y90.9 Presence of alcohol in blood, level not specified; R06.02 Shortness of breath; E78.00 Pure hypercholesterolemia, unspecified; E66.9 Obesity, unspecified; Z68.34 Body mass index [BMI] 34.0-34.9, adult; Z79.899 Other long term (current) drug therapy
CPT/HCPCS: 36415; 71045; 80048; 83690; 84484; 85025; 93005; 99283

== ENCOUNTER 2022-12-05 02:07 | Emergency (ER) | payer MEDICAID, SELFPAY ==
--- NOTE | 2022-12-05 | ECG_ITS ---
Test Reason : CHEST PAIN Blood Pressure : / mmHG Vent. Rate : 081 BPM Atrial Rate : 081 BPM P-R Int : 186 ms QRS Dur : 092 ms QT Int : 394 ms P-R-T Axes : 033 -09 047 degrees QTc Int : 457 ms Normal sinus rhythm Nonspecific T wave abnormality Abnormal ECG When compared with ECG of 16-NOV-2022 23:44, No significant change was found Referred By: Generic ED Physician Electronically Signed By:KATHRIN ARAIZA MD
--- NOTE | ~2022-12-05 | XR_ITS ---
EXAMINATION: XR CHEST CLINICAL INFORMATION: Short of breath COMPARISON: 11/17/2022 TECHNIQUE: 2 views of the chest were obtained. FINDINGS: Cardiac leads overlie the chest. The lungs are well expanded. There is no focal consolidation, edema, or effusion. No pneumothorax. The cardiomediastinal silhouette is within normal limits. No acute osseous abnormality. XR/XR chest 2V IMPRESSION: Clear lungs.
[2022-12-05 02:15] VITALS: BP 97/59; PULSE 95; RESP 16; O2SAT 91; BMI 36.0
[2022-12-05 02:20] VITALS: BP 105/54
--- NOTE | 2022-12-05 02:20 | ED.CHESTPAIN ---
HPI - Chest Pain General Chief Complaint: Dyspnea Stated Complaint: CP Time Seen by Provider: 12/05/22 02:15 Source: patient Mode of arrival: ambulatory History of Present Illness HPI narrative: 57-year-old female who reports that she drank approximately 4-5 beers this evening and then developed shortness of breath despite the use of her CPAP machine and using albuterol inhaler. She denies any associated fever chills, new cough, denies any nausea or vomiting. Related Data Home Medications Medication Instructions Recorded Confirmed Saccharomyces boulardii 250 mg 250 mg PO BID 02/18/20 07/08/22 capsule (Probiotic (S.boulardii)) biotin 10,000 mcg capsule 10,000 mcg PO DAILY 02/18/20 07/08/22 cholecalciferol (vitamin D3) 50 50 mcg PO DAILY 02/18/20 07/08/22 mcg (2,000 unit) capsule (Vitamin D3) citalopram 20 mg tablet 20 mg PO DAILY 02/18/20 07/08/22 docusate sodium 100 mg capsule 100 mg PO DAILY 02/18/20 07/08/22 epinephrine 0.3 mg/0.3 mL 0.3 mg IM Q10M PRN Allergy Symptoms 02/18/20 07/08/22 injection, auto-injector (EpiPen) linaclotide 145 mcg capsule 145 mcg PO QAM 02/18/20 07/08/22 (Linzess) loratadine 10 mg tablet (Allergy 10 mg PO DAILY 02/18/20 07/08/22 Relief (loratadine)) lorazepam 1 mg tablet 1 mg PO BEDTIME PRN Anxiety 02/18/20 07/08/22 simethicone 125 mg capsule (Gas 125 mg PO BID-QID PRN Acid Reflux 02/18/20 07/08/22 Relief (simethicone)) topiramate 50 mg capsule 50 mg PO DAILY 02/18/20 07/08/22 sprinkle,extended release 24 hr fqleijulec-[id number]-[id number] 1 tab PO .prn 06/26/22 07/08/22 50 mg-325 mg-40 mg tablet Previous Rx's Medication Instructions Recorded magnesium oxide 400 mg (241.3 mg 400 mg PO DAILY PRN constipation 02/18/20 magnesium) tablet 30 days #30 tabs fluticasone propionate 50 1 spray intranasal BID #16 grams 10/25/21 mcg/actuation nasal spray,suspension (24 Hour Allergy Relief) diphenhydramine HCl 25 mg capsule 50 mg PO ONCE PRN sleep 1 day #2 01/03/22 (Benadryl) caps dexlansoprazole 30 mg 60 mg PO DAILY 60 days #120 caps 05/23/22 capsule,biphase delayed release (Dexilant) sucralfate 1 gram tablet (Carafate) 1 g PO BID 30 days #60 tabs 05/23/22 Allergies Allergy/AdvReac Type Severity Reaction Status Date / Time SEAFOOD Allergy Intermediate ANGIOEDEMA Uncoded 09/25/22 09:04 lactose intolerant Allergy Unknown stomach Uncoded 09/25/22 09:04 pain and heart burn Review of Systems Review of Systems: Pertinent positives and negatives as stated in [facility] Past Medical History Source: nursing notes reviewed Medical History Bilateral wrist pain Chronic constipation Elevated LFTs Epigastric pain GERD (gastroesophageal reflux disease) History of Helicobacter pylori infection (~06/2014) Hypercholesterolemia Lactose intolerance Lumbar radiculopathy Morbid obesity with BMI of 40.0-44.9, adult NAFL (nonalcoholic fatty liver) Obstructive sleep apnea Vitamin D deficiency Surgical History H/O: History of colonoscopy Family History Family History Unknown No problems noted. Social History Social History Household Members: Family Alcohol intake: current Alcohol intake frequency: a few times a month Patient Tobacco Use Status: Never used Tobacco Advance Directives: No Advance Directives Information Provided: Yes Physical Exam Vital Signs: Vital Signs: Last Vital Signs Temp 97.8 F 12/05/22 04:00 Pulse 108 H 12/05/22 04:00 Resp 16 12/05/22 04:00 BP 107/67 12/05/22 04:00 Pulse Ox 95 12/05/22 04:00 O2 Del Method Nasal Cannula 12/05/22 04:00 O2 Flow Rate 2 12/05/22 04:00 BMI result Body Mass Index 36.0 VITAL SIGNS: Reviewed. GENERAL: Elevated BMI, Well developed, well nourished, in no acute distress. HEAD: Normocephalic/atraumatic EYES: PERRLA, EOMI EARS: Ext canals without abnormality NOSE: Nares patent bilateral OROPHARYNX: no oral lesions noted, posterior pharynx clear NECK: Supple, no adenopathy LUNGS: Normal breath sounds. No adventitious sounds or accessory muscle use. SpO2<97> CARDIOVASCULAR: Regular rate and rhythm without noted murmurs, no JVD or lower extremity edema. ABDOMEN: Soft, non-tender, non-distended with bowel sounds. MUSCULOSKELETAL: No tenderness, deformities, or effusions noted on gross inspection. EXTREMITIES: No cyanosis, clubbing or edema. SKIN: Inspection of the skin reveals no rashes NEUROLOGIC: Drowsy but easily aroused and oriented x 4. Strength and sensation to light touch were grossly intact x 4. Medications Administered Discontinued Medications Generic Name Dose Route Start Last Admin Trade Name Freq PRN Reason Stop Dose Admin Albuterol Sulfate 5 mg 12/05/22 03:02 12/05/22 03:17 Albuterol Sulfate (0.083%) 2.5 Mg/3 Ml Vial.Neb INHALE 12/05/22 03:03 5 mg ONCE ONE Administration Lidocaine/Diphenhydr/Alum/Mg/Simeth 10 ml 12/05/22 02:18 12/05/22 02:25 Mag&Al/Sim/Diphenhyd/Lidocaine 10 Ml Oral.Susp PO 12/05/22 02:19 10 ml ONCE ONE Administration Protocol Medical Decision Making Medical Decision Making MDM Narrative: 57-year-old female with history and clinical presentation, DDX: Alcohol intoxication, Pneumonia, asthma, acid reflux, pancreatitis INTERVENTIONS: Nebs, labs, toxicology, EKG and chest x-ray I reviewed all investigations and hematologic indices are grossly within normal limits, there is no leukocytosis or left shift to suggest infection and there is no anemia or thrombocytopenia. Chemistries are grossly within normal limits and otherwise chronically stable, troponin is undetectable there are no acute EKG changes. Lipase is within normal limits arguing against the possibility of the pancreatitis in conjunction with benign abdominal exam. Urinalysis is negative for UTI or hematuria, however BAL-204. My interpretation is that patient is intoxicated and likely was not on her CPAP machine and that she falls asleep becomes obstructed and wakes up short of breath and anxious. She is otherwise stable for discharge to home. Patient will call family members for transportation to home. Differential Diagnosis Differential Diagnoses: The differential diagnosis associated with the presentation includes Please see the discussion above Admission/Observation Consideration of admission/observation: Escalation of care including admission/observation considered Please see the discussion above Lab Data MDM Lab Attestation statement: I reviewed the patient's lab results. Please see the discussion above 12/05/22 02:38 12/05/22 02:38 Labs: Lab Results 12/05/22 12/05/22 12/05/22 Range/Units 02:38 02:38 02:38 WBC 6.6 (4.8-10.8) X10*3/uL RBC 4.49 (4.20-5.50) X10*6/uL Hgb 12.4 (12.0-16.0) g/dl Hct 36.2 L (37.0-47.0) % MCV 80.6 (80.0-98.0) fL MCH 27.6 (27.0-33.0) pg MCHC 34.3 (31.0-35.0) g/dl RDW 13.3 (11.0-16.0) % Plt Count 252 D (160-400) X10*3/uL MPV 8.8 L (9.4-12.3) fL Immature Gran % (Auto) 0.5 H (0.0-0.4) % Neut % (Auto) 55.5 (45-73) % Lymph % (Auto) 36.2 (20-40) % [place] % (Auto) 5.9 (2-11) % Eos % (Auto) 1.4 (0-4) % Baso % (Auto) 0.5 (0-2) % Lymph # (Auto) 2.4 (1.2-4.9) X10*3/uL [place] # (Auto) 0.4 (0.1-1.2) X10*3/uL Eos # (Auto) 0.1 (0.0-0.4) X10*3/uL Baso # (Auto) 0.0 (0.0-0.2) X10*3/uL Abs Immat Gran (auto) 0.03 (0.00-0.03) X10*3/uL Absolute Neuts (auto) 3.7 (2.0-8.3) x10*3/uL Absolute Nucleated RBC 0.000 (0.0-0.012) X10*3/uL Nucleated RBC % (auto) 0.0 (0.0-0.2) /100WBC Sodium 141 (135-145) mmol/L Potassium 3.8 (3.3-5.1) mmol/L Chloride 106 (96-108) mmol/L Carbon Dioxide 19 L (22-29) mmol/L Anion Gap 20 (12-20) BUN 14 (9-16) mg/dL Creatinine 0.83 (0.5-1.4) mg/dL Estim Creat Clear Calc 81.5 Estimated GFR > 60 Random Glucose 168 H (60-115) mg/dL Calcium 9.5 D (8.4-10.2) mg/dL Total Bilirubin 0.3 (0.0-1.0) mg/dL AST 28 (5-31) U/L ALT 24 (0-31) U/L Alkaline Phosphatase 143 H (39-117) U/L Troponin I High Sens < 2.7 (<3.5-17.0) ng/L Total Protein 7.1 (6.5-8.0) g/dL Albumin 4.1 (3.5-5.0) g/dL Lipase 31 (8-78) U/L Urine Color Urine Appearance Urine pH (5.0-9.0) Ur Specific [place] (1.005-1.025) Urine Protein (Neg-Trace) mg/dL Urine Glucose (UA) (Negative) mg/dL Urine Ketones (Negative) mg/dL Urine Blood (Negative) Urine Nitrite (Negative) Ur Leukocyte Esterase (Negative) Ethyl Alcohol 204 mg/dL 12/05/22 Range/Units 02:57 WBC (4.8-10.8) X10*3/uL RBC (4.20-5.50) X10*6/uL Hgb (12.0-16.0) g/dl Hct (37.0-47.0) % MCV (80.0-98.0) fL MCH (27.0-33.0) pg MCHC (31.0-35.0) g/dl RDW (11.0-16.0) % Plt Count (160-400) X10*3/uL MPV (9.4-12.3) fL Immature Gran % (Auto) (0.0-0.4) % Neut % (Auto) (45-73) % Lymph % (Auto) (20-40) % [place] % (Auto) (2-11) % Eos % (Auto) (0-4) % Baso % (Auto) (0-2) % Lymph # (Auto) (1.2-4.9) X10*3/uL [place] # (Auto) (0.1-1.2) X10*3/uL Eos # (Auto) (0.0-0.4) X10*3/uL Baso # (Auto) (0.0-0.2) X10*3/uL Abs Immat Gran (auto) (0.00-0.03) X10*3/uL Absolute Neuts (auto) (2.0-8.3) x10*3/uL Absolute Nucleated RBC (0.0-0.012) X10*3/uL Nucleated RBC % (auto) (0.0-0.2) /100WBC Sodium (135-145) mmol/L Potassium (3.3-5.1) mmol/L Chloride (96-108) mmol/L Carbon Dioxide (22-29) mmol/L Anion Gap (12-20) BUN (9-16) mg/dL Creatinine (0.5-1.4) mg/dL Estim Creat Clear Calc Estimated GFR Random Glucose (60-115) mg/dL Calcium (8.4-10.2) mg/dL Total Bilirubin (0.0-1.0) mg/dL AST (5-31) U/L ALT (0-31) U/L Alkaline Phosphatase (39-117) U/L Troponin I High Sens (<3.5-17.0) ng/L Total Protein (6.5-8.0) g/dL Albumin (3.5-5.0) g/dL Lipase (8-78) U/L Urine Color Yellow Urine Appearance Clear Urine pH 5.5 (5.0-9.0) Ur Specific [place] <= 1.005 (1.005-1.025) Urine Protein Negative (Neg-Trace) mg/dL Urine Glucose (UA) Negative (Negative) mg/dL Urine Ketones Negative (Negative) mg/dL Urine Blood Negative (Negative) Urine Nitrite Negative (Negative) Ur Leukocyte Esterase Negative (Negative) Ethyl Alcohol mg/dL Independent Interpretation I performed an independent interpretation of an: EKG Interpretation: Normal sinus rhythm, HR-81, STEMI, SC/QRS/QTC are within normal limits. Radiology Impression Radiologist Impression: No pneumonia, otherwise my interpretation is in agreement with radiology's impression. External Record Review External record reviewed: Outpatient record and Prior outpatient labs Discharge Plan Discharge Clinical Impression: Alcohol intoxication, Obstructive sleep apnea Patient Disposition: Home, Self-Care Instructions: Using Oxygen at Home (ED), Alcohol Intoxication (ED) Additional Instructions: 1. Resume all home medications as prescribed. 2. I highly recommend that you use your CPAP machine while you sleep. 3. Please follow-up with your primary care provider for further evaluation Return to the ER for any worsening symptoms. Prescriptions: No Action diphenhydramine HCl [Benadryl] 25 mg capsule 50 mg PO ONCE PRN (Reason: sleep) 1 Days Qty: 2 0RF Rx Instructions: Take 2 tablets PO 1 hour before getting IV contrast dexlansoprazole [Dexilant] 30 mg capsule,biphase delayed releas 60 mg PO DAILY 60 Days Qty: 120 3RF fluticasone propionate [24 Hour Allergy Relief] 50 mcg/actuation spray,suspension 1 spray intranasal BID Qty: 16 0RF Rx Instructions: administer into each nostril topiramate 50 mg capsule,sprinkle,ER 24hr 50 mg PO DAILY loratadine [Allergy Relief (loratadine)] 10 mg tablet 10 mg PO DAILY biotin 10,000 mcg capsule 10,000 mcg PO DAILY cholecalciferol (vitamin D3) [Vitamin D3] 50 mcg (2,000 unit) capsule 50 mcg PO DAILY epinephrine [EpiPen] 0.3 mg/0.3 mL auto-injector 0.3 mg IM Q10M PRN (Reason: Allergy Symptoms) Rx Instructions: for 2 doses docusate sodium 100 mg capsule 100 mg PO DAILY Saccharomyces boulardii [Probiotic (S.boulardii)] 250 mg capsule 250 mg PO BID Rx Instructions: swallow whole citalopram 20 mg tablet 20 mg PO DAILY lorazepam 1 mg tablet 1 mg PO BEDTIME PRN (Reason: Anxiety) simethicone [Gas Relief (simethicone)] 125 mg capsule 125 mg PO BID-QID PRN (Reason: Acid Reflux) magnesium oxide 400 mg (241.3 mg magnesium) tablet 400 mg PO DAILY PRN (Reason: constipation) 30 Days Qty: 30 4RF Linzess 145 mcg capsule 145 mcg PO QAM sucralfate [Carafate] 1 gram tablet 1 g PO BID 30 Days Qty: 60 2RF veslvqncqh-wegzjgzwusnqz-svlc 50-325-40 mg tablet 1 tab PO .prn Referrals: Cathie Becerra, [facility] [Primary Care Provider] -
[2022-12-05] MEDS: Mag&Al/Sim/Diphenhyd/Lidocaine 10 ML ORAL.SUSP PO (02:25)
[2022-12-05 02:40] VITALS: BP 106/64; PULSE 90; RESP 20; TEMP 36.9; O2SAT 97
--- NOTE | 2022-12-05 02:41 | MHC.EDTECH ---
THIS PCT ASSUMED CARE OF PT ,VITALS SIGN TAKEN ,PATIENT BLOOD DRAWN AND SENT TO LAB .
[2022-12-05 02:42] LABS: Basophils Percent Auto 0.5 % (0-2); Eosinophils Absolute Auto 0.1 X10*3/uL (0.0-0.4); Eosinophils Percent Auto 1.4 % (0-4); Hematocrit 36.2 % (37.0-47.0); Hemoglobin 12.4 g/dl (12.0-16.0); Imm Gran Abs Auto 0.03 X10*3/uL (0.00-0.03); Imm Gran Pct Auto 0.5 % (0.0-0.4); Lymphocytes Absolute Auto 2.4 X10*3/uL (1.2-4.9); Lymphocytes Percent Auto 36.2 % (20-40); MANUAL DIFF FLAG NO; Mean Corpuscular HGB Conc 34.3 g/dl (31.0-35.0); Mean Corpuscular Hemoglobin 27.6 pg (27.0-33.0); Mean Corpuscular Volume 80.6 fL (80.0-98.0); Mean Platelet Volume 8.8 fL (9.4-12.3); Monocytes Absolute Auto 0.4 X10*3/uL (0.1-1.2); Monocytes Percent Auto 5.9 % (2-11); Neutrophils Absolute Auto 3.7 x10*3/uL (2.0-8.3); Neutrophils Percent Auto 55.5 % (45-73); Platelet Count 252 X10*3/uL (160-400); Red Blood Count 4.49 X10*6/uL (4.20-5.50); Red Cell Distribution Width 13.3 % (11.0-16.0); White Blood Count 6.6 X10*3/uL (4.8-10.8)
[2022-12-05 03:02] LABS: Alanine Aminotransferase 24 U/L (0-31); Albumin Level 4.1 g/dL (3.5-5.0); Alkaline Phosphatase 143 U/L (39-117); Anion Gap 20 (12-20); Aspartate Amino Transferase 28 U/L (5-31); Bilirubin Total 0.3 mg/dL (0.0-1.0); Blood Urea Nitrogen 14 mg/dL (9-16); Calcium 9.5 mg/dL (8.4-10.2); Carbon Dioxide 19 mmol/L (22-29); Chloride 106 mmol/L (96-108); Creatinine Clr Calc Pharmacy 81.5; Estimated Glomerular Filt Rate > 60; Ethanol 204 mg/dL; Glucose Random 168 mg/dL (60-115); Lipase 31 U/L (8-78); Potassium 3.8 mmol/L (3.3-5.1); Sodium 141 mmol/L (135-145); Total Protein 7.1 g/dL (6.5-8.0)
--- NOTE | 2022-12-05 03:03 | MHC.EDTECH ---
patient urine sample collected and sent to lab .
[2022-12-05 03:07] LABS: Troponin-I High Sensitivity < 2.7 ng/L (<3.5-17.0)
[2022-12-05 03:10] LABS: Appearance Urine Clear; Color Urine Yellow; Glucose Urine UA Negative (Negative); Leukocyte Esterase Urine Negative (Negative); Nitrite Urine Negative (Negative); PH 5.5 (5.0-9.0); Specific Gravity - Urine <= 1.005 (1.005-1.025); Urine Blood Negative (Negative); Urine Ketones Negative (Negative); Urine Protein Negative (Neg-Trace)
[2022-12-05] MEDS: Albuterol Sulfate (0.083%) 2.5 MG/3 ML VIAL.NEB 5 MG INHALE (03:17)
[2022-12-05 03:21] VITALS: PULSE 85; RESP 18; O2SAT 90
[2022-12-05 04:00] VITALS: BP 107/67; PULSE 108; RESP 16; TEMP 36.6; O2SAT 95
== END 2022-12-05 05:50 | disposition home or self-care (01) ==
PROVIDERS: Emergency Provider Student in an Organized Health Care Education/Training Program; PCP Nurse Practitioner Primary Care
DX: F10.129 Alcohol abuse with intoxication, unspecified (principal); R07.89 Other chest pain; G47.33 Obstructive sleep apnea (adult) (pediatric); R06.02 Shortness of breath; Y90.7 Blood alcohol level of 200-239 mg/100 ml; Z79.899 Other long term (current) drug therapy
CPT/HCPCS: 36415; 71046; 80053; 80307; 81003; 83690; 84484; 85025; 93005; 94640; 99284; 99285

== ENCOUNTER → 2022-12-05 02:12 | Outpatient (BNV) | payer MEDICAID, SELFPAY | PROVIDERS: Emergency Provider Student in an Organized Health Care Education/Training Program; PCP Nurse Practitioner Primary Care; Visit Provider Internal Medicine Cardiovascular Disease | DX: R07.9 Chest pain, unspecified (principal) | CPT/HCPCS: 93010 ==

== ENCOUNTER 2022-12-20 07:19 | Outpatient (AMB) | payer MEDICAID, SELFPAY ==
--- NOTE | 2022-12-20 07:24 | A.OFFVIS_ITS ---
Intake Vital Signs 12/20/22 07:28 Height 5 ft 3 in Weight 202 lb BMI 35.8 BP 122/68 Blood Pressure Location Lt brachial Position Sitting Pulse 89 Intake Visit Reasons: follow up Intake Note: Patient follow up for GERD. Patient cc: GERD with burning sensation and taking her breath out and Constipation, Patient needed refill for linzess. Denies any other GI issues. Nailer Machine Required: Yes Nailer Machine Name: [facility] [place] [facility] [place]peter Accompanied by: Self / Same As Patient Allergies SEAFOOD Allergy (Intermediate, Uncoded 09/25/22 09:04) ANGIOEDEMA lactose intolerant Allergy (Unknown, Uncoded 09/25/22 09:04) stomach pain and heart burn Medication List - Last Reconciled 12/20/22 by Gillian Velásquez MD biotin 10,000 mcg PO DAILY ivpmuolqsi-qjcbfqnobrrym-wetm 50-325-40 mg 1 tab PO .prn cholecalciferol (vitamin D3) (Vitamin D3) 50 mcg PO DAILY citalopram 20 mg PO DAILY dexlansoprazole (Dexilant) 60 mg (2 x 30 mg) PO DAILY 60 days diphenhydramine HCl (Benadryl) 50 mg (2 x 25 mg) PO ONCE PRN 1 day docusate sodium 100 mg PO DAILY epinephrine (EpiPen) 0.3 mg IM Q10M PRN fluticasone propionate 50 mcg/actuation (24 Hour Allergy Relief) 1 spray intranasal BID linaclotide (Linzess) 145 mcg PO QAM loratadine (Allergy Relief (loratadine)) 10 mg PO DAILY lorazepam 1 mg PO BEDTIME PRN magnesium oxide 400 mg PO DAILY PRN 30 days Saccharomyces boulardii (Probiotic (S.boulardii)) 250 mg PO BID simethicone (Gas Relief (simethicone)) 125 mg PO BID-QID PRN sucralfate (Carafate) 1 g PO BID 30 days topiramate 50 mg PO DAILY HPI follow up HPI Details GI CLINIC VISIT FOR THIS 57-YEAR-OLD KAZAK[place]-SPEAKING FEMALE FOR FOLLOW-UP OF GERD, EPIGASTRIC PAIN AND ABDOMINAL BLOATING. ?? ? CHRONIC ILLNESSES:?heartburn, headaches, hypercholesterolemia, prediabetic, varicose veins, vitamin D def, Obesity and sleep apnea ?LABS IN [place]:?01/04/20 - reviewed. NORMAL CBC AND CHEM PANEL. ELEVATED LFTS WITH AST OF 45, ALT 55 AND ALKALINE PHOSPHATASE OF 171, GGT OF 193 ? TERRENCE WAS NEGATIVE, 2015 HEPATITIS B SEROLOGIES INDICATED IMMUNITY TO HEPATITIS B. ? HEPATITIS C ANTIBODY WAS NEGATIVE ? SEROLOGIES FOR CELIAC DISEASE WERE NEGATIVE ?IMAGING STUDIES:?01/31/20? abdominal CT scan showed? scattered sigmoid and descending colon diverticulosis. ? Well-defined round structure left retroperitoneum not connected to kidneys ovaries -? question lymphocele ?11/04/18?Abd US showed: Liver of diffuse increased echogenicity. This is nonspecific, but ? consistent with diffuse fatty infiltration. Otherwise, unremarkable abdominal ultrasound. ?ENDOSCOPIC STUDIES:??05/27/22 EGD SHOWED: ESOPHAGUS: Tortuous esophagus with increased tertiary contractions -? biopsies were obtained from proximal esophagus to check for EOE.? GE junction at 35 cms, small hiatal hernia 35 to 37 cms. A partially obstructing Schatzki's ring at GE junction.? ? Esophageal balloon dilation was performed with a 20 mm (60 F) CRE balloon X 60 seconds STOMACH: Moderate gastric erythema with a few healing erosions. Biopsies were obtained. Grade 3 flap valve on retroflexed examination of the cardia. DUODENUM: Normal - biopsied to check for celiac sprue Plan:? GERD and Hiatal Hernia handouts were given in the discharge area BIOPSIES SHOWED: A.? Small bowel, biopsy:? Small bowel mucosa with preserved villi and no specific change; no evidence of celiac disease.? B.? Gastric antrum, biopsy:? Gastric antral mucosa with congestion and minimal chronic inactive gastritis; negative for H pylori, intestinal metaplasia and dysplasia.? C.? Esophagus, proximal, biopsy:? Squamous mucosa with no specific change; no evidence of eosinophilic esophagitis.? 10/02/18 EGD showed: ? ESOPHAGUS: Focal erosive esophagitis at GE junction ? STOMACH: Antral gastritis ? DUODENUM: Normal ? Plan ? Continue present medications (Dexilant 60 mg PO once daily) ? Patient has an appointment on 10/16/2018 in the GI Clinic with Gillian Velásquez M.D ?TODAY'S VISIT: [facility] [place] [facility] [place] Client Services AnalystJacquie Lab results reviewed with the patient showing improvement in LFTs. Unintentional wt loss - eating regular Seen at [facility] [place] [facility] x 2 due to stomach issues and problems with breathing after drinking ETOH Pt states she had 3-4 beers at [employer] gathering - denies daily ETOH use Requesting refills for Linzess for constipation - ran out of Linzess 2 weeks a go. Has a BM daily to every other day. PAST VISITS: ? 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 Everything I eat makes me feel bad I have been loosing wt and I dont know why Eating the same amount of food. Wt loss of 15 lbs over 4 months. Continues to have heartburn Constipation is a little better - going regularly when she takes the pill. Denies black stool or blood in the stool. Sometimes she has yellow phlegm when she speaks with a little blood. Intermittent cough and breathing problems. Waiting for euipment for sleep apnea. Happens in the morning when she tries to speak. I feel a little unwell My heartburn has not gone away. It continues for a long time after she eats - can have heartburn after eating fruit. No BM x 4 days and took a laxative and had a BM yesterday and today. Heartburn is worse when she is constipated. Has not weighed herself in a long time and dennies wt loss. ? Weighs? 220 lbs. at the last visit. Has been taking Dexilant and Linzess prn instead of daily - advised to use every day. Pt complains of abdominal pain , and GERD. Denies any N+V, diarrhea or constipation. ? I am feeling a little bit better. Every time I eat I get gases which do not go away. ? Notes intermittent abdominal pain. ? ? ? Medication has been helping with constipation. ? Lab and abdominal CT results were reviewed. ? Everything I eat give me gas. ? I still get some pain - when I eat something that makes my stomach upset after a few minutes - Rice, beef and soups. ? Denies radiation of abd pain to the back. ? No change in appetite or weight. ? Has a BM every day - taking Linzess every morning. ? Appetite is?regular [facility] Medical History Bilateral wrist pain Chronic constipation Elevated LFTs Epigastric pain GERD (gastroesophageal reflux disease) History of Helicobacter pylori infection (~06/2014) Hypercholesterolemia Lactose intolerance Lumbar radiculopathy Morbid obesity with BMI of 40.0-44.9, adult NAFL (nonalcoholic fatty liver) Obstructive sleep apnea Vitamin D deficiency Surgical History H/O: History of colonoscopy Family History Unknown No problems noted. Social History Household Members: Family Alcohol intake: current Alcohol intake frequency: a few times a month Patient Tobacco Use Status: Never used Tobacco Review of Systems Const All systems reviewed & are unremarkable except as noted in HPI and below Physical Exam Vital Signs: Last Vital Signs Pulse 89 12/20/22 07:28 BP 122/68 12/20/22 07:28 BMI result Body Mass Index 35.8 Const General: healthy appearing and no acute distress Nutritional Appearance: obese Orientation/consciousness: patient oriented x3 Limitations: language barrier HEENT Head: Yes normal to inspection Ears: hearing grossly normal bilaterally Eyes Sclerae: sclerae normal Pupils: Equal, round and reactive pupils present Neck Neck: Yes normal visual inspection Chest Chest palpation & inspection: normal inspection of the chest Resp Effort & Inspection: normal respiratory effort Auscultation: clear to auscultation bilaterally Cardio Palpation: normal PMI Rate: regular rate Rhythm: regular rhythm Heart sounds: S1 normal heart sound present, S2 normal heart sound present and no murmurs GI Palpation (GI): Soft to palpation, nontender and No hepatosplenomegaly present Auscultation: normal bowel sounds Rectal Exam - Female: deferred Skin General skin exam: no rashes or lesions noted Neuro General: patient oriented x3, gait normal and moves all extremities Cranial nerves: Yes Equal, round and reactive pupils present Psych Appearance: grossly normal Mental Status: mental status grossly normal Assessment & Plan Assessment & Plan (1) Colon cancer screening: Comment: Colonoscopy in August [address] Cassidy showed sigmoid diverticulosis and no polyps and repeat colonoscopy was advised in 10 years - action was set in [facility]. Code(s): Z12.11 - Encounter for screening for malignant neoplasm of colon (2) Epigastric pain: Code(s): R10.13 - Epigastric pain (3) Chronic constipation: Comment: Continue Magnesium Oxide 400 MG, 1-2 tablets at bedtime and Linzess Capsule, 290 MCG, 1 capsule, Orally, Once a day, Code(s): K59.09 - Other constipation (4) Elevated LFTs: Comment: hepatitis C was negative. Hepatitis-B serologies were consistent with past infection. TERRENCE, antimitochondrial antibody and celiac sprue serologies were negative. Abdominal ultrasound showed fatty liver. Patient was advised to work on weight reduction. Code(s): R79.89 - Other specified abnormal findings of blood chemistry (5) GERD (gastroesophageal reflux disease): Comment: Continue Dexilant Capsule Delayed Release, 60 MG, 1 capsule at suppertime, Orally, Once a day, Code(s): K21.9 - Gastro-esophageal reflux disease without esophagitis (6) Lactose intolerance: Code(s): E73.9 - Lactose intolerance, unspecified (7) NAFL (nonalcoholic fatty liver): Code(s): K76.0 - Fatty (change of) liver, not elsewhere classified Plan 57 YF with heartburn, headaches, hypercholesterolemia, prediabetic, varicose veins, vitamin D def, Obesity and sleep apnea followed in GI for peristent epigastric pain and abdominal bloating. EGD in 2014 showed esophagitis,? hemorrhagic gastritis and duodenitis. Patient takes naproxen intermittently. 10/02/18 EGD showed a small hiatal hernia with focal esophagitis at GE junction with a 1 cms ulcer/erosion covered with white exudate and erosive gastritis. Biopsies showed chronic inactive gastritis without Helicobacter organisms.? Patient admitted to taking Dexilant and Linzess p.r.n. and was advised to take them daily and monitor her symptoms and use simethicone p.r.n. Abdominal bloating likely related to chronic constipation.? Constipation has improved with Linzess once daily. Serologies for celiac disease were negative in 2014. Colonoscopy in August [address] Cassidy showed sigmoid diverticulosis and no polyps and repeat colonoscopy was advised in 10 years - action was set in [facility]. ELEVATED LFTS;?hepatitis C was negative. Hepatitis-B serologies were consistent with past infection. TERRENCE, antimitochondrial antibody and celiac sprue serologies were negative. Abdominal ultrasound showed fatty liver. Patient was advised to work on weight reduction. 01/[address] scan showed scattered sigmoid and descending colon diverticulosis. A well-defined round structure left retroperitoneum not connected to kidneys ovaries -? question lymphocele Sucralfate 1 gm twice daily was added to her GERD treatment regimen. 05/27/22 EGD was performed and findings as noted above. FU appt in 3 months Medications: Changed From linaclotide (Linzess) 145 mcg PO QAM K59.09 - Other constipation To linaclotide (Linzess) 145 mcg PO QAM 30 days 30 caps 1RF K59.09 - Other constipation Coding Level of Care Code Est Pt Level 4 (14628) Diagnoses Colon cancer screening Z12.11 Epigastric pain R10.13 Chronic constipation K59.09 Elevated LFTs R79.89 GERD (gastroesophageal reflux disease) K21.9 Lactose intolerance E73.9 NAFL (nonalcoholic fatty liver) K76.0 Time Spent (min) 22
[2022-12-20 07:28] VITALS: BP 122/68; PULSE 89; BMI 35.8
== END 2022-12-20 07:58 | disposition home or self-care (01) ==
PROVIDERS: PCP Nurse Practitioner Primary Care; Visit Provider Internal Medicine Gastroenterology
DX: K21.9 Gastro-esophageal reflux disease without esophagitis (principal); R10.13 Epigastric pain; K59.09 Other constipation; R79.89 Other specified abnormal findings of blood chemistry; E73.9 Lactose intolerance, unspecified; K76.0 Fatty (change of) liver, not elsewhere classified
CPT/HCPCS: 99214

== ENCOUNTER → 2022-12-20 07:19 | Outpatient (BNVA) | payer MEDICAID, SELFPAY | PROVIDERS: PCP Nurse Practitioner Primary Care; Visit Provider Internal Medicine Gastroenterology | DX: K21.9 Gastro-esophageal reflux disease without esophagitis (principal); R10.13 Epigastric pain; K59.09 Other constipation; R79.89 Other specified abnormal findings of blood chemistry; E73.9 Lactose intolerance, unspecified; K76.0 Fatty (change of) liver, not elsewhere classified; Z79.899 Other long term (current) drug therapy | CPT/HCPCS: 99212 ==

== ENCOUNTER 2023-02-24 13:55 | Emergency (ER) | payer MEDICAID, SELFPAY ==
--- NOTE | ~2023-02-24 | XR_ITS ---
EXAMINATION: XR RIBS, LEFT CLINICAL INFORMATION: Trauma. Pain. COMPARISON: 12/05/2022. TECHNIQUE: Frontal chest and 4 views of the left ribs were obtained. FINDINGS: The cardiomediastinal silhouette is stable. There is no focal lung consolidation or pleural effusion. The bony structures are unremarkable. There is no evidence for rib fracture. The soft tissues are unremarkable. XR/XR ribs LT min 3V w CXR1V IMPRESSION: No active cardiopulmonary disease. No evidence for rib fracture.
[2023-02-24 14:22] VITALS: BP 138/90; PULSE 81; RESP 16; TEMP 36.1; O2SAT 97; BMI 37.6
--- NOTE | 2023-02-24 19:15 | ED_ITS ---
HPI - Fall General Chief Complaint: Fall Stated Complaint: fall/ head, shoulder+side pain Time Seen by Provider: 02/24/23 18:44 Source: patient Mode of arrival: ambulatory Limitations: no limitations History of Present Illness HPI Narrative: Patient history of fibromyalgia apparently tripped and fell on stairs yesterday while go to the basement complaining of pain in the left ribs and all over the back also has slight pain in the top of the head pain in the right knee, no loss of consciousness no vomiting no memory loss Related Data Home Medications Medication Instructions Recorded Confirmed Saccharomyces boulardii 250 mg 250 mg PO BID 02/18/20 12/20/22 capsule (Probiotic (S.boulardii)) biotin 10,000 mcg capsule 10,000 mcg PO DAILY 02/18/20 12/20/22 cholecalciferol (vitamin D3) 50 50 mcg PO DAILY 02/18/20 12/20/22 mcg (2,000 unit) capsule (Vitamin D3) citalopram 20 mg tablet 20 mg PO DAILY 02/18/20 12/20/22 docusate sodium 100 mg capsule 100 mg PO DAILY 02/18/20 12/20/22 epinephrine 0.3 mg/0.3 mL 0.3 mg IM Q10M PRN Allergy Symptoms 02/18/20 12/20/22 injection, auto-injector (EpiPen) loratadine 10 mg tablet (Allergy 10 mg PO DAILY 02/18/20 12/20/22 Relief (loratadine)) lorazepam 1 mg tablet 1 mg PO BEDTIME PRN Anxiety 02/18/20 12/20/22 simethicone 125 mg capsule (Gas 125 mg PO BID-QID PRN Acid Reflux 02/18/20 12/20/22 Relief (simethicone)) topiramate 50 mg capsule 50 mg PO DAILY 02/18/20 12/20/22 sprinkle,extended release 24 hr qgqjhhkvyt-twtejerqdxagg-uhxhipsl 1 tab PO .prn 06/26/22 12/20/22 50 mg-325 mg-40 mg tablet Previous Rx's Medication Instructions Recorded magnesium oxide 400 mg (241.3 mg 400 mg PO DAILY PRN constipation 02/18/20 magnesium) tablet 30 days #30 tabs fluticasone propionate 50 1 spray intranasal BID #16 grams 10/25/21 mcg/actuation nasal spray,suspension (24 Hour Allergy Relief) diphenhydramine HCl 25 mg capsule 50 mg (2 x 25 mg) PO ONCE PRN 01/03/22 (Benadryl) sleep 1 day #2 caps dexlansoprazole 30 mg 60 mg (2 x 30 mg) PO DAILY 60 days 05/23/22 capsule,biphase delayed release #120 caps (Dexilant) sucralfate 1 gram tablet (Carafate) 1 g PO BID 30 days #60 tabs 05/23/22 linaclotide 145 mcg capsule 145 mcg PO QAM 30 days #30 caps 12/20/22 (Linzess) cyclobenzaprine 10 mg tablet 10 mg PO Q8H #20 tabs 02/24/23 tramadol 50 mg tablet 50 mg PO Q6H PRN pain #20 tabs 02/24/23 Allergies Allergy/AdvReac Type Severity Reaction Status Date / Time SEAFOOD Allergy Intermediate ANGIOEDEMA Uncoded 09/25/22 09:04 lactose intolerant Allergy Unknown stomach Uncoded 09/25/22 09:04 pain and heart burn Review of Systems Review of Systems: Yes all other systems are reviewed and are negative [facility] Past Medical History Medical History Lumbar radiculopathy Morbid obesity with BMI of 40.0-44.9, adult Epigastric pain Chronic constipation Elevated LFTs Hypercholesterolemia Vitamin D deficiency Bilateral wrist pain History of Helicobacter pylori infection (~06/2014) GERD (gastroesophageal reflux disease) Lactose intolerance NAFL (nonalcoholic fatty liver) Obstructive sleep apnea Surgical History H/O: History of colonoscopy Family History Family History Unknown No problems noted. Social History Social History Household Members: Family Alcohol intake: current Alcohol intake frequency: a few times a month Patient Tobacco Use Status: Never used Tobacco Advance Directives: No Advance Directives Information Provided: No Physical Exam Vital Signs: Vital Signs: Last Vital Signs Temp 97.0 F 02/24/23 14:22 Pulse 81 02/24/23 14:22 Resp 16 02/24/23 14:22 BP 138/90 H 02/24/23 14:22 Pulse Ox 97 02/24/23 14:22 O2 Del Method Room Air 02/24/23 14:22 BMI result Body Mass Index 37.6 Appearance: Alert. Oriented X3. No acute distress. Eyes: PERRLA, No Nystagmus ENT: Pharynx normal. Oral Mucosa moist Neck: Normal inspection. Neck supple. No midline tenderness no significant scalp swelling or tenderness CVS: Normal heart rate and rhythm. Pulses normal. Respiratory: No respiratory distress. Equal air entry bilateral, no wheezing/rales/rhonchi mild tenderness diffusely left lateral ribs no splinting Abdomen: Soft and nontender. Bowel sounds are present, no mass palpable, no CVA tenderness back: Diffuse tenderness all over no focal bony tenderness good range of movement of the lumbar spine Skin: Skin warm and dry. Normal skin color. Normal skin turgor. Extremities: No lower extremity edema. No calf tenderness Neuro: Oriented X 3. No motor deficit. No sensory deficit.No cerebellar signs , cranial nerves II-XII intact Medications Administered Discontinued Medications Generic Name Dose Route Start Last Admin Trade Name Freq PRN Reason Stop Dose Admin Cyclobenzaprine HCl 10 mg 02/24/23 19:08 02/24/23 19:21 Cyclobenzaprine Hcl 10 Mg Tablet PO 02/24/23 19:09 10 mg ONCE ONE Administration Tramadol HCl 50 mg 02/24/23 19:08 02/24/23 19:21 Tramadol Hcl 50 Mg Tablet PO 02/24/23 19:09 50 mg ONCE ONE Administration Medical Decision Making Medical Decision Making [facility] Narrative: Weekly muscle contusion x-rays negative for rib fracture patient ambulated discharge patient home on pain management Differential Diagnosis Differential Diagnoses: The differential diagnosis associated with the presentation includes Rib fracture/contusion/muscle strain Radiology Impression Discussion of test interpretation with radiology: I have reviewed the radiologist's reading. Discharge Plan Discharge Clinical Impression: Contusion of rib Patient Disposition: Home, Self-Care Instructions: Contusion in Adults (ED), Rib Contusion (ED) Additional Instructions: Your x-ray of the ribs negative for acute fracture Take pain medication and muscle relaxant as prescribed Apply ice pack at the painful area Follow-up with PCP if any concerns Prescriptions: New cyclobenzaprine 10 mg tablet 10 mg PO Q8H Qty: 20 0RF tramadol 50 mg tablet 50 mg PO Q6H PRN (Reason: pain) Qty: 20 0RF No Action diphenhydramine HCl [Benadryl] 25 mg capsule 50 mg PO ONCE PRN (Reason: sleep) 1 Days Qty: 2 0RF Rx Instructions: Take 2 tablets PO 1 hour before getting IV contrast dexlansoprazole [Dexilant] 30 mg capsule,biphase delayed releas 60 mg PO DAILY 60 Days Qty: 120 3RF fluticasone propionate [24 Hour Allergy Relief] 50 mcg/actuation spray,suspension 1 spray intranasal BID Qty: 16 0RF Rx Instructions: administer into each nostril topiramate 50 mg capsule,sprinkle,ER 24hr 50 mg PO DAILY loratadine [Allergy Relief (loratadine)] 10 mg tablet 10 mg PO DAILY biotin 10,000 mcg capsule 10,000 mcg PO DAILY cholecalciferol (vitamin D3) [Vitamin D3] 50 mcg (2,000 unit) capsule 50 mcg PO DAILY epinephrine [EpiPen] 0.3 mg/0.3 mL auto-injector 0.3 mg IM Q10M PRN (Reason: Allergy Symptoms) Rx Instructions: for 2 doses docusate sodium 100 mg capsule 100 mg PO DAILY Saccharomyces boulardii [Probiotic (S.boulardii)] 250 mg capsule 250 mg PO BID Rx Instructions: swallow whole citalopram 20 mg tablet 20 mg PO DAILY lorazepam 1 mg tablet 1 mg PO BEDTIME PRN (Reason: Anxiety) simethicone [Gas Relief (simethicone)] 125 mg capsule 125 mg PO BID-QID PRN (Reason: Acid Reflux) magnesium oxide 400 mg (241.3 mg magnesium) tablet 400 mg PO DAILY PRN (Reason: constipation) 30 Days Qty: 30 4RF sucralfate [Carafate] 1 gram tablet 1 g PO BID 30 Days Qty: 60 2RF bznfqukgas-jgbjrswwwfyjt-zrda 50-325-40 mg tablet 1 tab PO .prn Linzess 145 mcg capsule 145 mcg PO QAM 30 Days Qty: 30 1RF Stand Alone Forms: Work/School Release Interventions: ED Discharge Assessment Last Done: 02/24/23 19:23 Discharge Date/Time: 02/24/23 19:23
[2023-02-24] MEDS: Cyclobenzaprine HCl 10 MG TABLET PO (19:21)
[2023-02-24] MEDS: traMADoL HCL 50 MG TABLET PO (19:21)
== END 2023-02-24 19:23 | disposition home or self-care (01) ==
PROVIDERS: Emergency Provider Internal Medicine
DX: S20.212A Contusion of left front wall of thorax, initial encounter (principal); S49.92XA Unspecified injury of left shoulder and upper arm, initial encounter; R07.81 Pleurodynia; M54.50 Low back pain, unspecified; W01.10XA Fall on same level from slipping, tripping and stumbling with subsequent striking against unspecified object, initial encounter; Y93.9 Activity, unspecified; Y92.9 Unspecified place or not applicable; Y99.9 Unspecified external cause status; Z79.899 Other long term (current) drug therapy
CPT/HCPCS: 71101; 99283

== ENCOUNTER 2023-04-24 08:31 | Outpatient (REF) | payer MEDICAID, SELFPAY ==
--- NOTE | ~2023-04-24 | XR_ITS ---
EXAMINATION: XR BOTH KNEES AP STANDING XR RIGHT KNEE, 2 VIEWS CLINICAL INFORMATION: Right knee pain. COMPARISON: None available. TECHNIQUE: Standing AP view of both knees and lateral and sunrise views of the right knee. FINDINGS: LEFT KNEE: Moderate medial compartment osteoarthritis with nonuniform joint space narrowing, marginal osteophytes, and articular sclerosis. Lateral compartment appears relatively well-preserved. No fractures. Calcific atherosclerosis in the calf. RIGHT KNEE: Bssgycyl-nr-cynlre medial compartment osteoarthritis with joint space narrowing, marginal osteophytes, articular cortical remodeling, and articular sclerosis. More wutn-ld-rjsphpke patellofemoral compartment osteoarthritis and mild lateral compartment osteoarthritis. No joint effusion. No fracture. A 4 mm osseous loose body is suspected in the posterior aspect of the joint. XR/XR knee RT 2V IMPRESSION: 1. Ohqtlrhj-bl-rezgvg medial compartment osteoarthritis in the right knee and more wxhb-rx-jlttjdvg patellofemoral compartment osteoarthritis. 2. Hgmigdfo-pc-fwwshu medial compartment osteoarthritis in the left knee.
--- NOTE | ~2023-04-24 | XR_ITS ---
EXAMINATION: XR BOTH KNEES AP STANDING XR RIGHT KNEE, 2 VIEWS CLINICAL INFORMATION: Right knee pain. COMPARISON: None available. TECHNIQUE: Standing AP view of both knees and lateral and sunrise views of the right knee. FINDINGS: LEFT KNEE: Moderate medial compartment osteoarthritis with nonuniform joint space narrowing, marginal osteophytes, and articular sclerosis. Lateral compartment appears relatively well-preserved. No fractures. Calcific atherosclerosis in the calf. RIGHT KNEE: Ryxmzsts-da-oebfro medial compartment osteoarthritis with joint space narrowing, marginal osteophytes, articular cortical remodeling, and articular sclerosis. More gpjy-sz-mfvuanca patellofemoral compartment osteoarthritis and mild lateral compartment osteoarthritis. No joint effusion. No fracture. A 4 mm osseous loose body is suspected in the posterior aspect of the joint. XR/XR knee standing BI IMPRESSION: 1. Ardnwkjg-ja-hqwldc medial compartment osteoarthritis in the right knee and more gnjv-rv-dbdpvbhv patellofemoral compartment osteoarthritis. 2. Thccaoxg-eg-fswdpw medial compartment osteoarthritis in the left knee.
== END 2023-04-24 08:32 | disposition home or self-care (01) ==
LOC: HO.HOSX 08:31
PROVIDERS: Visit Provider Orthopaedic Surgery
DX: M17.11 Unilateral primary osteoarthritis, right knee (principal)
CPT/HCPCS: 20610; 73560; 73565; 99212; J0665; J1100

== ENCOUNTER 2023-04-24 10:17 | Outpatient (AMB) | payer MEDICAID, SELFPAY ==
--- NOTE | 2023-04-24 11:03 | A.OFFVIS_ITS ---
Intake Vital Signs 04/24/23 11:04 Height 5 ft 3 in Weight 212 lb BMI 37.6 Intake Visit Reasons: New Prob - Right knee pain Intake Note: My is a 57 year old female who presents today for a new problem visit with complaints of right knee pain. Allergies SEAFOOD Allergy (Intermediate, Uncoded 09/25/22 09:04) ANGIOEDEMA lactose intolerant Allergy (Unknown, Uncoded 09/25/22 09:04) stomach pain and heart burn HPI New Prob - Right knee pain HPI Details My is a 57 year old woman who presents with complaints of right knee pain. She has pain with daily activity, worse with stairs and extended ambulation. She has not received tretatment. [facility] Medical History Lumbar radiculopathy Morbid obesity with BMI of 40.0-44.9, adult Epigastric pain Chronic constipation Elevated LFTs Hypercholesterolemia Vitamin D deficiency Bilateral wrist pain History of Helicobacter pylori infection (~06/2014) GERD (gastroesophageal reflux disease) Lactose intolerance NAFL (nonalcoholic fatty liver) Obstructive sleep apnea Surgical History H/O: History of colonoscopy Family History Unknown No problems noted. Social History Household Members: Family Alcohol intake: current Alcohol intake frequency: a few times a month Patient Tobacco Use Status: Never used Tobacco Review of Systems Const All systems reviewed & are unremarkable except as noted in HPI and below Physical Exam Vital Signs: BMI result Body Mass Index 37.6 Const General: no acute distress, alert and awake Orientation/consciousness: patient oriented x3 HEENT Head: Yes normocephalic and Yes atraumatic Eyes EOM: EOMs intact bilaterally Resp Effort & Inspection: normal respiratory effort and able to speak in complete sentences Cardio Jugular venous distension: no JVD Skin General skin exam: turgor normal Rashes: no rashes Neuro General: patient oriented x3 Extrem Other: ttp medial compartment bilateral knees + gait antalgia Psych Appearance: grossly normal Affect: normal affect Attitude: cooperative Office Procedures Joint Injection/Drain Joint Injection/Drain Details: Injected 1 mL of Decadron and 3 mL 1% lidocaine and 3 mL of 0.25% Marcaine. Site was prepped using aseptic technique. Patient tolerated the procedure well. Primary Site: right knee Approach Used: anterolateral Coding 45853 - Large joint Procedure code (CPT) selection complete Results Reviewed Results Reviewed: I personally reviewed relevant radiographs medial compartment OA ( moderste to severe) bilateral knees Assessment & Plan Assessment & Plan (1) Arthritis of right knee: Code(s): M17.11 - Unilateral primary osteoarthritis, right knee Plan: Right knee OA. Injected right knee. Plan Scribed for Delta Son MD by Ed Schaffer, medical coding manager, on 04/24/23 at 11:15 AM, EST. Orders: Orders XR knee RT 2V 04/24/23 M25.569 - Pain in unspecified knee XR knee standing BI 04/24/23 M25.569 - Pain in unspecified knee Coding Level of Care Code Est Pt Level 4 (03642) Diagnoses Arthritis of right knee M17.11 CPT Codes Coding - Large joint: 19755 - Large joint ([id number])
[2023-04-24 11:04] VITALS: BMI 37.6
== END 2023-04-24 11:59 | disposition home or self-care (01) ==
PROVIDERS: Visit Provider Orthopaedic Surgery
DX: M25.561 Pain in right knee (principal); M17.11 Unilateral primary osteoarthritis, right knee
CPT/HCPCS: 20610; 99214

== ENCOUNTER 2023-05-29 | Outpatient (REF) | payer MEDICAID, SELFPAY ==
[2023-06-06 06:05] LABS: HPV mRNA E6/E7 rflx Not Detected (Not Detected)
== END 2023-05-29 00:01 | disposition home or self-care (01) ==
LOC: HO.HHCLNP
PROVIDERS: Visit Provider Advanced Practice Midwife
DX: Z12.4 Encounter for screening for malignant neoplasm of cervix (principal); Z11.51 Encounter for screening for human papillomavirus (HPV)
CPT/HCPCS: 87624; 88142

== ENCOUNTER 2023-06-10 08:05 | Outpatient (REF) | payer MEDICAID, SELFPAY ==
--- NOTE | ~2023-06-10 | MM_ITS ---
EXAMINATION: BONE DENSITOMETRY CLINICAL INDICATION: Premature menopause. COMPARISON: This is the patient's baseline examination. TECHNIQUE: Using a NextVR DXA System (software version: 13.1) manufactured by [employer], dual-energy x-ray absorptiometry was performed of the lumbar spine and left hip. The images are of good technical quality. Summary results are attached. FINDINGS: LEFT FEMUR, NECK: BMD 1.087 g/cm2, Z-score 0.8, T-score 0.4, normal. LEFT FEMUR, TOTAL: BMD 1.132 g/cm2, Z-score 1.0, T-score 1.0, normal. AP SPINE L1-L4: BMD 1.175 g/cm2, Z-score -0.1, T-score 0.0, normal. IDENTIFIED RISK FACTORS: Early menopause, secondary osteoporosis. HISTORY OF FRACTURE: None listed. MEDICATIONS: Vitamin D. MM/XR DEXA axial skeleton IMPRESSION: 1. DIAGNOSIS: Normal bone density based on the lowest T-score value of 0.0 in the lumbar spine applying World Health Organization criteria. 2. 10-YEAR FRACTURE RISK PREDICTION, FRAX: According to the guidelines, FRAX calculation should only be performed on patients in the osteopenia bone density category. Therefore, FRAX was not performed on this patient. 3. Treatment Recommendations: NOF guidelines recommend consideration for treatment in postmenopausal women and men age 50 and older presenting with the following: -A hip or vertebral (clinical or morphometric) fracture. -T-score less than or equal to -2.5 at the femoral neck or spine after appropriate evaluation to exclude secondary causes. -Low bone mass at the hip or spine and a 10-year fracture probability by FRAX of greater than or equal to 3% for hip fracture or greater than or equal to 20% for major osteoporotic fracture based on the [place] adapted WHO algorithm. 4. Other Recommendations: All treatment decisions require clinical judgment and consideration of individual patient factors, including patient preferences, comorbidities, previous drug use, risk factors not captured in the FRAX model (e.g. frailty, falls, vitamin D deficiency, increased bone turnover, interval significant decline in bone density) and possible under or overestimation of fracture risk by FRAX. FUTURE SCAN RECOMMENDATION: People with diagnosed cases of osteoporosis or at high risk for fracture should have regular bone mineral density tests. For patients eligible for Medicare, routine testing is allowed once every 2 years. The testing frequency can be increased to one year for patients who have rapidly progressing disease, those who are receiving or discontinuing medical therapy to restore bone mass, or have additional risk factors.
== END 2023-06-10 08:06 | disposition home or self-care (01) ==
LOC: HO.MAMMO 08:05
PROVIDERS: PCP Nurse Practitioner Primary Care; Visit Provider Advanced Practice Midwife
DX: Z13.820 Encounter for screening for osteoporosis (principal); Z78.0 Asymptomatic menopausal state
CPT/HCPCS: 77080

== ENCOUNTER 2023-06-18 11:04 | Outpatient (AMB) | payer MEDICAID, SELFPAY ==
--- NOTE | 2023-06-18 11:11 | A.OFFVIS_ITS ---
Intake Vital Signs 06/18/23 11:22 Height 5 ft 3 in Weight 212 lb BMI 37.6 BP 120/79 Blood Pressure Location Lt brachial Position Sitting Pulse 95 Intake Visit Reasons: lipoma left upper extremity Intake Note: This patient presents for an assessment for lipoma of the left upper extremity. Patient c/o; reports x3 lipoma left arm, reports no pain at this time, will like excised. 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 Name: Elie Information Interpreted: non-clinical & clinical Accompanied by: Self / Same As Patient Allergies SEAFOOD Allergy (Intermediate, Uncoded 06/18/23 11:23) ANGIOEDEMA lactose intolerant Allergy (Unknown, Uncoded 06/18/23 11:23) stomach pain and heart burn Medication List - Last Reconciled 06/18/23 by Milo Sanders MD albuterol sulfate 90 mcg/actuation (Ventolin HFA) 2 puffs inhalation Q6H PRN biotin 10,000 mcg PO DAILY dnqpbekwbd-pimumxbfcumdc-emsx 50-325-40 mg 1 tab PO .prn cholecalciferol (vitamin D3) (Vitamin D3) 50 mcg PO DAILY citalopram 20 mg PO DAILY cyclobenzaprine 10 mg PO Q8H dexlansoprazole (Dexilant) 60 mg (2 x 30 mg) PO DAILY 60 days diphenhydramine HCl (Benadryl) 50 mg (2 x 25 mg) PO ONCE PRN 1 day docusate sodium 100 mg PO DAILY doxepin 25 mg PO BEDTIME dulaglutide (Trulicity) 1.5 mg subcut QWEEK duloxetine 60 mg PO DAILY epinephrine (EpiPen) 0.3 mg IM Q10M PRN fluticasone propionate 50 mcg/actuation (24 Hour Allergy Relief) 1 spray intranasal BID linaclotide (Linzess) 145 mcg PO QAM 30 days loratadine (Allergy Relief (loratadine)) 10 mg PO DAILY lorazepam 1 mg PO BEDTIME PRN magnesium oxide 400 mg PO DAILY PRN 30 days metformin ER mg PO rosuvastatin 5 mg PO DAILY Saccharomyces boulardii (Probiotic (S.boulardii)) 250 mg PO BID simethicone (Gas Relief (simethicone)) 125 mg PO BID-QID PRN sucralfate (Carafate) 1 g PO BID 30 days tizanidine 2 mg PO Q8H PRN topiramate 50 mg PO DAILY tramadol 50 mg PO Q6H PRN HPI lipoma left upper extremity 2 HPI Details [age] year old female referred for lipomas on the left arm. She states that she has noticed this lumps for about a year. She does state that she has had lipomas removed on various parts of her body in the past. She wants these lipomas on the left forearm removed. He describes increased in size and discomfort. [facility] Medical History (Updated 06/18/23 @ 11:33 by Milo Sanders MD) Multiple lipomas Lumbar radiculopathy Morbid obesity with BMI of 40.0-44.9, adult Epigastric pain Chronic constipation Elevated LFTs Hypercholesterolemia Vitamin D deficiency Bilateral wrist pain History of Helicobacter pylori infection (~06/2014) GERD (gastroesophageal reflux disease) Lactose intolerance NAFL (nonalcoholic fatty liver) Obstructive sleep apnea Surgical History H/O: History of colonoscopy Family History Unknown No problems noted. Social History Household Members: Family Alcohol intake: current Alcohol intake frequency: a few times a month Patient Tobacco Use Status: Never used Tobacco Review of Systems Const Denies chills and Denies fever(s) Card Denies chest pain, Denies dyspnea and Denies dyspnea on exertion Resp Denies cough, Denies dyspnea and Denies dyspnea on exertion GI Denies hematochezia and Denies change in bowel habits Denies hematuria Musc Denies back pain and Denies limited range of motion Neuro Denies focal weakness and Denies convulsions Psych Denies depression and Denies mood swings Physical Exam Const General: comfortable and no acute distress Orientation/consciousness: patient oriented x3 Neck Neck: Yes no lymphadenopathy Resp Auscultation: clear to auscultation bilaterally Cardio Rhythm: regular rhythm GI Palpation (GI): Soft to palpation, nontender and no guarding Neuro General: patient oriented x3 Extrem Other: Left forearm with 3 lipomatous masses, each about 1 cm in size, almost adjacent to each other Assessment & Plan Assessment & Plan (1) Multiple lipomas: Code(s): D17.9 - Benign lipomatous neoplasm, unspecified Plan: She has 3 lipomas on the left forearm as described above. She wants these removed. I explained to her the technique of excision. I discussed the risks including but not limited to bleeding, infections, postop pain, poor healing, as well as the benefits and alternatives. She has given consent This will be done as an office procedure on her next visit under local anesthesia. Plan . Coding Level of Care Code New Pt Level 3 (98222) Diagnoses Multiple lipomas D17.9
[2023-06-18 11:22] VITALS: BP 120/79; PULSE 95; BMI 37.6
== END 2023-06-18 11:37 | disposition home or self-care (01) ==
PROVIDERS: PCP Nurse Practitioner Primary Care; Referring Provider Nurse Practitioner Primary Care; Visit Provider Surgery
DX: D17.9 Benign lipomatous neoplasm, unspecified (principal)
CPT/HCPCS: 99203

== ENCOUNTER → 2023-06-18 11:04 | Outpatient (BNVA) | payer MEDICAID, SELFPAY | PROVIDERS: PCP Nurse Practitioner Primary Care; Referring Provider Nurse Practitioner Primary Care; Visit Provider Surgery | DX: D17.9 Benign lipomatous neoplasm, unspecified (principal) | CPT/HCPCS: 99202 ==

== ENCOUNTER 2023-07-09 08:53 | Outpatient (REF) | payer MEDICAID, SELFPAY | END 2023-07-09 08:54 | disposition home or self-care (01) | LOC: HO.LNP 08:53 | PROVIDERS: PCP Nurse Practitioner Primary Care; Visit Provider Surgery | DX: D17.9 Benign lipomatous neoplasm, unspecified (principal) | CPT/HCPCS: 25075; 88304 ==

== ENCOUNTER 2023-07-09 08:53 | Outpatient (AMB) | payer MEDICAID, SELFPAY ==
--- NOTE | 2023-07-09 08:54 | A.OFFVIS_ITS ---
Intake Intake Visit Reasons: Exc lipomas x 3 left upper arm Allergies SEAFOOD Allergy (Intermediate, Uncoded 06/18/23 11:23) ANGIOEDEMA lactose intolerant Allergy (Unknown, Uncoded 06/18/23 11:23) stomach pain and heart burn HPI Exc lipomas x 3 left upper arm HPI Details She is here for excision of lipomas on the left upper arm. Today, only 2 lipomas almost adjacent to each other were in the left upper arm. [facility] Medical History (Updated 06/18/23 @ 11:33 by Milo Sanders MD) Multiple lipomas Lumbar radiculopathy Morbid obesity with BMI of 40.0-44.9, adult Epigastric pain Chronic constipation Elevated LFTs Hypercholesterolemia Vitamin D deficiency Bilateral wrist pain History of Helicobacter pylori infection (~06/2014) GERD (gastroesophageal reflux disease) Lactose intolerance NAFL (nonalcoholic fatty liver) Obstructive sleep apnea Surgical History H/O: History of colonoscopy Family History Unknown No problems noted. Social History Household Members: Family Alcohol intake: current Alcohol intake frequency: a few times a month Patient Tobacco Use Status: Never used Tobacco Office Procedures Excision Details: She had 2 lipomas on the left forearm. These were adjacent to each other. The area was prepped and draped. Lidocaine 1% was used for local anesthesia. I made an incision on the skin overlying 1 of the lipomas using blade 15. This carried down sharply through the full-thickness of the skin and part of the subcutaneous layer until a lipomatous mass was seen. This was sharply dissected using Metzenbaum scissors until this was delivered. This measured about 8 mm He 2nd lipoma was noted adjacent to this. An incision was made on the skin as well. The lipoma was visualized and was sharply dissected off of the rest of the subcutaneous layer until this was delivered and sent as specimen. This measured about 1 cm I closed both incisions with nylon 3-0 interrupted sutures. Dressings were applied. The procedure was completed. She tolerated procedure well. There was minimal blood loss. [id number]/arms/legs 1.1-2cm Procedure code (CPT) selection complete Assessment & Plan Assessment & Plan (1) Multiple lipomas: Code(s): D17.9 - Benign lipomatous neoplasm, unspecified Plan: Two lipomas were excised the left forearm. She was given wound care instructions and will be seen in the office for removal sutures. Coding Level of Care Code Procedure Only Diagnoses Multiple lipomas D17.9 CPT Codes Trunk/Arms/Legs - CPT: 72645-uqxgf/arms/legs 1.1-2cm ([id number])
== END 2023-07-09 09:21 | disposition home or self-care (01) ==
PROVIDERS: PCP Nurse Practitioner Primary Care; Visit Provider Surgery
DX: D17.22 Benign lipomatous neoplasm of skin and subcutaneous tissue of left arm (principal)
CPT/HCPCS: 25075

== ENCOUNTER 2023-07-21 08:45 | Outpatient (AMB) | payer MEDICAID, SELFPAY ==
--- NOTE | 2023-07-21 08:50 | A.OFFVIS_ITS ---
Intake Intake Visit Reasons: S/p exc lipomas left forearm-in off Intake Note: This patient presents for a follow-up assessment status post in-office procedure for excision x2 lipoma of left forearm. Patient c/o; reports no complaints. 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 She tolerated the procedure well and currently denies significant complaints. [facility] Medical History Multiple lipomas Lumbar radiculopathy Morbid obesity with BMI of 40.0-44.9, adult Epigastric pain Chronic constipation Elevated LFTs Hypercholesterolemia Vitamin D deficiency Bilateral wrist pain History of Helicobacter pylori infection (~06/2014) GERD (gastroesophageal reflux disease) Lactose intolerance NAFL (nonalcoholic fatty liver) Obstructive sleep apnea Surgical History Status post excision of lipoma (~07/09/23) H/O: History of colonoscopy Family History Unknown No problems noted. Social History Household Members: Family Alcohol intake: current Alcohol intake frequency: a few times a month Patient Tobacco Use Status: Never used Tobacco Review of Systems Const Denies chills and Denies fever(s) Card Denies chest pain, Denies dyspnea and Denies dyspnea on exertion Resp Denies cough, Denies dyspnea and Denies dyspnea on exertion GI Denies hematochezia and Denies change in bowel habits Denies hematuria Musc Denies back pain and Denies limited range of motion Neuro Denies focal weakness and Denies convulsions Psych Denies depression and Denies mood swings Physical Exam Const General: comfortable and no acute distress Resp Effort & Inspection: normal respiratory effort Extrem Other: Excision sites x2 in the left forearm well healed, sutures intact, no infection Assessment & Plan Assessment & Plan (1) Multiple lipomas: Code(s): D17.9 - Benign lipomatous neoplasm, unspecified Plan: Status post excision. I removed her sutures. The wound edges remained well apposed. She can therefore follow up on a p.r.n. basis. Her path report shows lipomas. Coding Level of Care Code Global (63071) Diagnoses Multiple lipomas D17.9
== END 2023-07-21 09:26 | disposition home or self-care (01) ==
PROVIDERS: PCP Nurse Practitioner Primary Care; Visit Provider Surgery
DX: D17.9 Benign lipomatous neoplasm, unspecified (principal)
CPT/HCPCS: 99024

== ENCOUNTER → 2023-07-21 08:45 | Outpatient (BNVA) | payer MEDICAID, SELFPAY | PROVIDERS: PCP Nurse Practitioner Primary Care; Visit Provider Surgery | DX: D17.9 Benign lipomatous neoplasm, unspecified (principal) | CPT/HCPCS: 99212 ==

== ENCOUNTER 2023-07-25 09:35 | Outpatient (REF) | payer MEDICAID, SELFPAY ==
[2023-07-25 11:29] LABS: MANUAL DIFF FLAG NO
[2023-07-25 11:31] LABS: Basophils Percent Auto 0.6 % (0-2); Eosinophils Absolute Auto 0.1 X10*3/uL (0.0-0.4); Eosinophils Percent Auto 2.1 % (0-4); Hemoglobin 13.3 g/dl (12.0-16.0); Imm Gran Abs Auto 0.01 X10*3/uL (0.00-0.03); Imm Gran Pct Auto 0.2 % (0.0-0.4); Lymphocytes Absolute Auto 1.7 X10*3/uL (1.2-4.9); Lymphocytes Percent Auto 31.4 % (20-40); Mean Corpuscular HGB Conc 34.1 g/dl (31.0-35.0); Mean Corpuscular Hemoglobin 27.8 pg (27.0-33.0); Mean Corpuscular Volume 81.4 fL (80.0-98.0); Mean Platelet Volume 9.8 fL (9.4-12.3); Monocytes Absolute Auto 0.4 X10*3/uL (0.1-1.2); Monocytes Percent Auto 7.4 % (2-11); Neutrophils Absolute Auto 3.1 x10*3/uL (2.0-8.3); Neutrophils Percent Auto 58.3 % (45-73); Platelet Count 266 X10*3/uL (160-400); Red Blood Count 4.79 X10*6/uL (4.20-5.50); Red Cell Distribution Width 13.3 % (11.0-16.0); White Blood Count 5.3 X10*3/uL (4.8-10.8)
[2023-07-25 12:02] LABS: Estimated Average Glucose 174 mg/dL; Hemoglobin A1c % 7.7 % (<6.0)
[2023-07-25 12:08] LABS: Alanine Aminotransferase 55 U/L (0-31); Albumin Level 4.2 g/dL (3.5-5.0); Alkaline Phosphatase 249 U/L (39-117); Anion Gap 14 (12-20); Aspartate Amino Transferase 25 U/L (5-31); Bilirubin Total 0.6 mg/dL (0.0-1.0); Blood Urea Nitrogen 16 mg/dL (9-16); Calcium 9.5 mg/dL (8.4-10.2); Carbon Dioxide 27 mmol/L (22-29); Chloride 103 mmol/L (96-108); Estimated Glomerular Filt Rate > 60; Glucose Random 154 mg/dL (60-115); Potassium 3.9 mmol/L (3.3-5.1); Sodium 140 mmol/L (135-145); Total Protein 7.4 g/dL (6.5-8.0)
== END 2023-07-25 09:36 | disposition home or self-care (01) ==
LOC: HO.HHCL 09:35
PROVIDERS: Visit Provider Student in an Organized Health Care Education/Training Program
DX: E11.69 Type 2 diabetes mellitus with other specified complication (principal); E78.5 Hyperlipidemia, unspecified
CPT/HCPCS: 36415; 80053; 83036; 85025

== ENCOUNTER 2023-07-31 07:25 | Outpatient (AMB) | payer MEDICAID, SELFPAY ==
--- NOTE | 2023-07-31 07:37 | A.OFFVIS_ITS ---
Vital Signs 07/31/23 07:41 Height 5 ft 3 in Weight 213 lb BMI 37.7 BP 126/77 Blood Pressure Location Lt brachial Position Sitting Pulse 89 Intake Visit Reasons: fu last seen 12/2022 Intake Note: Patient follow up for Chronic Constipation. Patient cc: abdominal bloating, constipation with some blood when she extra push for BM, and acid reflex and some dates with burning sensation. Color Maker Formulator Required: Yes Color Maker Formulator Name: [facility] Interpeter Accompanied by: Self / Same As Patient Allergies SEAFOOD Allergy (Intermediate, Uncoded 07/21/23 08:56) ANGIOEDEMA lactose intolerant Allergy (Unknown, Uncoded 07/21/23 08:56) stomach pain and heart burn Medication List - Last Reconciled 07/31/23 by Gillian Velásquez MD albuterol sulfate 90 mcg/actuation (Ventolin HFA) 2 puffs inhalation Q6H PRN biotin 10,000 mcg PO DAILY nefigdebve-rlxijflflgtvf-robl 50-325-40 mg 1 tab PO .prn cholecalciferol (vitamin D3) (Vitamin D3) 50 mcg PO DAILY citalopram 20 mg PO DAILY cyclobenzaprine 10 mg PO Q8H dexlansoprazole (Dexilant) 60 mg (2 x 30 mg) PO DAILY 60 days diphenhydramine HCl (Benadryl) 50 mg (2 x 25 mg) PO ONCE PRN 1 day docusate sodium 100 mg PO DAILY doxepin 25 mg PO BEDTIME dulaglutide (Trulicity) 1.5 mg subcut QWEEK duloxetine 60 mg PO DAILY epinephrine (EpiPen) 0.3 mg IM Q10M PRN fluticasone propionate 50 mcg/actuation (24 Hour Allergy Relief) 1 spray int ranasal BID linaclotide (Linzess) 145 mcg PO QAM 30 days loratadine (Allergy Relief (loratadine)) 10 mg PO DAILY lorazepam 1 mg PO BEDTIME PRN magnesium oxide 400 mg PO DAILY PRN 30 days metformin ER mg PO rosuvastatin 5 mg PO DAILY Saccharomyces boulardii (Probiotic (S.boulardii)) 250 mg PO BID simethicone (Gas Relief (simethicone)) 125 mg PO BID-QID PRN sucralfate (Carafate) 1 g PO BID 30 days tizanidine 2 mg PO Q8H PRN topiramate 50 mg PO DAILY tramadol 50 mg PO Q6H PRN HPI HPI fu last seen 12/2022: Details: GI CLINIC VISIT FOR THIS 58-YEAR-OLD BOLIVIAN-SPEAKING FEMALE FOR FOLLOW-UP OF GERD, EPIGASTRIC PAIN AND ABDOMINAL BLOATING. ?? ? CHRONIC ILLNESSES:?heartburn, headaches, hypercholesterolemia, prediabetic, varicose veins, vitamin D def, Obesity and sleep apnea ?[facility] - reviewed. NORMAL CBC AND CHEM PANEL. ELEVATED LFTS WITH AST OF 45, ALT 55 AND ALKALINE PHOSPHATASE OF 171, GGT OF 193 ? TERRENCE WAS NEGATIVE, 2015 HEPATITIS B SEROLOGIES INDICATED IMMUNITY TO HEPATITIS B. ? HEPATITIS C ANTIBODY WAS NEGATIVE ? SEROLOGIES FOR CELIAC DISEASE WERE NEGATIVE ?IMAGING STUDIES:?01/31/20? abdominal CT scan showed? scattered sigmoid and descending colon diverticulosis. ? Well-defined round structure left retroperitoneum not connected to kidneys ovaries -? question lymphocele ?11/04/18?Abd US showed: Liver of diffuse increased echogenicity. This is nonspecific, but ? consistent with diffuse fatty infiltration. Otherwise, unremarkable abdominal ultrasound. ?ENDOSCOPIC STUDIES:??05/27/22 EGD SHOWED: ESOPHAGUS: Tortuous esophagus with increased tertiary contractions -? biopsies were obtained from proximal esophagus to check for EOE.? GE junction at 35 cms, small hiatal hernia 35 to 37 cms. A partially obstructing Schatzki's ring at GE junction.? ? Esophageal balloon dilation was performed with a 20 mm (60 F) CRE balloon X 60 seconds STOMACH: Moderate gastric erythema with a few healing erosions. Biopsies were obtained. Grade 3 flap valve on retroflexed examination of the cardia. DUODENUM: Normal - biopsied to check for celiac sprue Plan:? GERD and Hiatal Hernia handouts were given in the discharge area BIOPSIES SHOWED: A.? Small bowel, biopsy:? Small bowel mucosa with preserved villi and no specific change; no evidence of celiac disease.? B.? Gastric antrum, biopsy:? Gastric antral mucosa with congestion and minimal chronic inactive gastritis; negative for H pylori, intestinal metaplasia and dysplasia.? C.? Esophagus, proximal, biopsy:? Squamous mucosa with no specific change; no evidence of eosinophilic esophagitis.? 10/02/18 EGD showed: ? ESOPHAGUS: Focal erosive esophagitis at GE junction ? STOMACH: Antral gastritis ? DUODENUM: Normal ? Plan ? Continue present medications (Dexilant 60 mg PO once daily) ? Patient has an appointment on 10/16/2018 in the GI Clinic with Gillian Velásquez M.D ?TODAY'S VISIT: [facility] Manager Project Management, Elise Patient cc: abdominal bloating, constipation with some blood when she extra push for BM, and acid reflex and some dates with burning sensation. Feeling regular Taking Linzess and having a BM once a day. She is on a diet and lost 3 lbs. Occasional rectal bleeding when she strains. Lab results reviewed with the patient showing improvement in LFTs. Unintentional wt loss - eating regular Seen at [facility] ER x 2 due to stomach issues and problems with breathing after drinking ETOH Pt states she had 3-4 beers at a family gathering - denies daily ETOH use Requesting refills for Linzess for constipation - ran out of Linzess 2 weeks ago. Has a BM daily to every other day. PAST VISITS: ? 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 Everything I eat makes me feel bad I have been loosing wt and I dont know why Eating the same amount of food. Wt loss of 15 lbs over 4 months. Continues to have heartburn Constipation is a little better - going regularly when she takes the pill. Denies black stool or blood in the stool. Sometimes she has yellow phlegm when she speaks with a little blood. Intermittent cough and breathing problems. Waiting for euipment for sleep apnea. Happens in the morning when she tries to speak. I feel a little unwell My heartburn has not gone away. It continues for a long time after she eats - can have heartburn after eating fruit. No BM x 4 days and took a laxative and had a BM yesterday and today. Heartburn is worse when she is constipated. Has not weighed herself in a long time and dennies wt loss. ? Weighs? 220 lbs. at the last visit. Has been taking Dexilant and Linzess prn instead of daily - advised to use every day. Pt complains of abdominal pain , and GERD. Denies any N+V, diarrhea or constipation. ? I am feeling a little bit better. Every time I eat I get gases which do not go away. ? Notes intermittent abdominal pain. ? ? ? Medication has been helping with constipation. ? Lab and abdominal CT results were reviewed. ? Everything I eat give me gas. ? I still get some pain - when I eat something that makes my stomach upset after a few minutes - Rice, beef and soups. ? Denies radiation of abd pain to the back. ? No change in appetite or weight. ? Has a BM every day - taking Linzess every morning. ? Appetite is?regular [facility] Medical History Multiple lipomas Lumbar radiculopathy Morbid obesity with BMI of 40.0-44.9, adult Epigastric pain Chronic constipation Elevated LFTs Hypercholesterolemia Vitamin D deficiency Bilateral wrist pain History of Helicobacter pylori infection (~06/2014) GERD (gastroesophageal reflux disease) Lactose intolerance NAFL (nonalcoholic fatty liver) Obstructive sleep apnea Surgical History History of hand surgery Status post excision of lipoma (~07/09/23) H/O: History of colonoscopy Family History Unknown No problems noted. Social History Household Members: Family Alcohol intake: current Alcohol intake frequency: a few times a month Patient Tobacco Use Status: Never used Tobacco Review of Systems Const All systems reviewed & are unremarkable except as noted in HPI and below Physical Exam Vital Signs: Last Vital Signs Pulse 89 07/31/23 07:41 BP 126/77 07/31/23 07:41 BMI result Body Mass Index 37.7 Const General: healthy appearing and no acute distress Nutritional Appearance: obese Orientation/consciousness: patient oriented x3 Limitations: language barrier HEENT Head: Yes normal to inspection Ears: hearing grossly normal bilaterally Eyes Sclerae: sclerae normal Pupils: Equal, round and reactive pupils present Neck Neck: Yes normal visual inspection Chest Chest palpation & inspection: normal inspection of the chest Resp Effort & Inspection: normal respiratory effort Auscultation: clear to auscultation bilaterally Cardio Palpation: normal PMI Rate: regular rate Rhythm: regular rhythm Heart sounds: S1 normal heart sound present, S2 normal heart sound present and no murmurs GI Inspection: Yes scar (lower midline scar) and Yes visible herniation (reducible supraumblical hernia) Palpation (GI): Soft to palpation, nontender and No hepatosplenomegaly present Auscultation: normal bowel sounds Rectal Exam - Female: deferred Skin General skin exam: no rashes or lesions noted Neuro General: patient oriented x3, gait normal and moves all extremities Cranial nerves: Yes Equal, round and reactive pupils present Psych Appearance: grossly normal Mental Status: mental status grossly normal Assessment & Plan Assessment & Plan (1) Supraumbilical hernia: Comment: A 1.5 to 2 cms firm rounded smooth slightly tender mass just above the umbilicus - ? hernia, cyst or submucosal lipoma Code(s): K43.9 - Ventral hernia without obstruction or gangrene Category: Medical (2) Colon cancer screening: Comment: Colonoscopy in August [address] Cassidy showed sigmoid diverticulosis and no polyps and repeat colonoscopy was advised in 10 years - action was set in [facility]. Code(s): Z12.11 - Encounter for screening for malignant neoplasm of colon Category: Medical (3) Epigastric pain: Code(s): R10.13 - Epigastric pain Category: Medical (4) Chronic constipation: Comment: Continue Magnesium Oxide 400 MG, 1-2 tablets at bedtime and Linzess Capsule, 290 MCG, 1 capsule, Orally, Once a day, Code(s): K59.09 - Other constipation Category: Medical (5) Elevated LFTs: Comment: hepatitis C was negative. Hepatitis-B serologies were consistent with past infection. TERRENCE, antimitochondrial antibody and celiac sprue serologies were negative. Abdominal ultrasound showed fatty liver. Patient was advised to work on weight reduction. Code(s): R79.89 - Other specified abnormal findings of blood chemistry Category: Medical (6) GERD (gastroesophageal reflux disease): Comment: Continue Dexilant Capsule Delayed Release, 60 MG, 1 capsule at suppertime, Oral ly, Once a day, Code(s): K21.9 - Gastro-esophageal reflux disease without esophagitis Category: Medical (7) Lactose intolerance: Code(s): E73.9 - Lactose intolerance, unspecified Category: Medical (8) NAFL (nonalcoholic fatty liver): Code(s): K76.0 - Fatty (change of) liver, not elsewhere classified Category: Medical Plan 58 YF with heartburn, headaches, hypercholesterolemia, prediabetic, varicose veins, vitamin D def, Obesity and sleep apnea followed in GI for peristent epigastric pain and abdominal bloating. EGD in 2014 showed esophagitis,? hemorrhagic gastritis and duodenitis. Patient takes naproxen intermittently. 10/02/18 EGD showed a small hiatal hernia with focal esophagitis at GE junction with a 1 cms ulcer/erosion covered with white exudate and erosive gastritis. Biopsies showed chronic inactive gastritis without Helicobacter organisms.? Patient admitted to taking Dexilant and Linzess p.r.n. and was advised to take them daily and monitor her symptoms and use simethicone p.r.n. Abdominal bloating likely related to chronic constipation.? Constipation has improved with Linzess once daily. Serologies for celiac disease were negative in 2014. Colonoscopy in August [address] Cassidy showed sigmoid diverticulosis and no polyps and repeat colonoscopy was advised in 10 years - action was set in [facility]. ELEVATED LFTS;?hepatitis C was negative. Hepatitis-B serologies were consistent with past infection. TERRENCE, antimitochondrial antibody and celiac sprue serologies were negative. Abdominal ultrasound showed fatty liver. Patient was advised to work on weight reduction. ETOH level 204 in 11/[address] scan showed scattered sigmoid and descending colon diverticulosis. A well-defined round structure left retroperitoneum not connected to kidneys ovaries -? question lymphocele Sucralfate 1 gm twice daily was added to her GERD treatment regimen. 05/27/22 EGD was performed and findings as noted above. 07/31/23 Feeling regular Taking Linzess and having a BM once a day. She is on a diet and lost 3 lbs. Occasional rectal bleeding when she strains. Pt advised to continue Linzess 145 mcg daily FU appt in 6 months - FU of GERD, constipation and fatty liver Medications: Changed From linaclotide 145 mcg PO QAM 30 days 30 caps 1RF K59.09 - Other constipation To linaclotide (Linzess) 145 mcg PO QAM 90 caps 1RF 90 days K59.09 - Other constipation From dexlansoprazole 60 mg (2 x 30 mg) PO DAILY 60 days 120 caps 3RF K21.9 - Gastro-esophageal reflux disease without esophagitis To dexlansoprazole (Dexilant) 60 mg (2 x 30 mg) PO DAILY 180 caps 1RF 90 days K21.9 - Gastro-esophageal reflux disease without esophagitis Coding Level of Care Code Est Pt Level 4 (72726) Diagnoses Supraumbilical hernia K43.9 Colon cancer screening Z12.11 Epigastric pain R10.13 Chronic constipation K59.09 Elevated LFTs R79.89 GERD (gastroesophageal reflux disease) K21.9 Lactose intolerance E73.9 NAFL (nonalcoholic fatty liver) K76.0 Time Spent (min) 24
[2023-07-31 07:41] VITALS: BP 126/77; PULSE 89; BMI 37.7
== END 2023-07-31 08:07 | disposition home or self-care (01) ==
PROVIDERS: PCP Nurse Practitioner Primary Care; Visit Provider Internal Medicine Gastroenterology
DX: K59.09 Other constipation (principal); K43.9 Ventral hernia without obstruction or gangrene; K76.0 Fatty (change of) liver, not elsewhere classified; K21.9 Gastro-esophageal reflux disease without esophagitis; E73.9 Lactose intolerance, unspecified
CPT/HCPCS: 99499

== ENCOUNTER → 2023-07-31 07:25 | Outpatient (BNVA) | payer MEDICAID, SELFPAY | PROVIDERS: PCP Nurse Practitioner Primary Care; Visit Provider Internal Medicine Gastroenterology ==

== ENCOUNTER 2023-08-21 08:30 | Outpatient (REF) | payer MEDICAID, SELFPAY ==
--- NOTE | 2023-08-21 09:16 | MHC.AU.MED ---
Medical Clearance for Hearing Instrumentation Date: 08/21/23 Patient Name: My Clarke Date of : 1965 Primary Care Provider: Referring Provider: Cathie Becerra NP We have seen your patient on 08/21/23 and have determined that they are a candidate for amplification (See accompanying report). Specifically, they would benefit from: Hearing aid use in both ears There is a statute that addresses Medical Evaluation Requirements prior to fitting a patient with a hearing aid. According to [place] statute [facility] CMR:6.03(1), (a) General. Except as provided in 265 CMR 6.03(1)(b), a wash oil pump operator helper shall not sell a hearing aid unless the prospective user has presented to the wash oil pump operator helper a written statement signed by a licensed physician that states that the patient's hearing loss has been medically evaluated and the patient may be considered a candidate for a hearing aid. The medical evaluation must have taken place within the preceding six months. Please note: Due to the [place] Statute referenced above, we cannot accept a signature other than that of a licensed physician. DIRECTOR OF HEALTH CARE MARKETING and RANDI signatures cannot be accepted. I am in agreement with the above recommendation. There is no medical contraindication for hearing instrumentation. Physician Signature Date Physician Name (Printed)
== END 2023-08-21 08:31 | disposition home or self-care (01) ==
LOC: HO.SH 08:30
PROVIDERS: Visit Provider Nurse Practitioner Primary Care
DX: H90.3 Sensorineural hearing loss, bilateral (principal)
CPT/HCPCS: 92557; 92567; 92591

== ENCOUNTER 2023-09-22 13:35 | Outpatient (REF) | payer MEDICAID, SELFPAY ==
--- NOTE | 2023-09-22 15:33 | MHC.AU.HA2 ---
Hearing Instrument Fitting- Adult- Binaural Date of Visit: 09/22/23 Hearing Instruments Dispensed: Right Ear: Derick, Model, Color, Serial Number: Otselvin drewRIscout FAIR [id number] Soup Mixer Repair Warranty: 10/04/2026 Soup Mixer Loss and Damage Warranty: 10/04/2026 [facility] Service Plan: 09/21/2024 Battery Size: Rechargeable Fire Support Specialist/Slim Tube: #2 85 Earmold/Dome/CShell/SlimTip: 8mm open Type of Wax Guard: Minifit Pro Wax Left Ear: Derick, Model, Color, Serial Number: Otselvin drewRIscout FAIR#[id number] Soup Mixer Repair Warranty: 10/04/2026 Soup Mixer Loss and Damage Warranty: 10/04/2026 [facility] Service Plan: 09/21/2024 Battery Size: Rechargeable Fire Support Specialist/Slim Tube: #2 85g Earmold/Dome/CShell/SlimTip: 8mm open Type of Wax Guard: Minifit Pro Wax Accessories/Assistive Technology: Oticon Minirite car starter S#[id number] Warranty 10/04/2026 Summary of Fitting: Pt reported today that she does not need an electrical systems engineer, communicated in Uzbek. Fit with and oriented to binaural Oticon Real 2 miniRITE R HAs. Verified to [facility] V5 Adult targets. Good subjective comfort and benefit reported. Counseled on adjustment to amplification. Reviewed charging, maintenance, use and care. Practiced insertion and removal. Paired with phone and connection demonstrated. Recommendations: Recommendations: Hearing instrument care and maintenance were discussed and practiced. The instrument(s) were paired to the patient's smartphone. A hearing instrument follow-up was scheduled. Diagnosis Code(s): Primary Diagnosis: H90.3 Bilateral Sensorineural Hearing Loss Signature: Provider: Audrey Vega, JOSEP-A
== END 2023-09-22 13:36 | disposition home or self-care (01) ==
LOC: HO.HAP 13:35
PROVIDERS: Visit Provider Nurse Practitioner Primary Care
DX: Z46.1 Encounter for fitting and adjustment of hearing aid (principal); H90.3 Sensorineural hearing loss, bilateral
CPT/HCPCS: V5011; V5020; V5160; V5261

== ENCOUNTER 2023-10-16 07:27 | Outpatient (REF) | payer MEDICAID, SELFPAY ==
--- NOTE | ~2023-10-16 | MM_ITS ---
EXAMINATION: MM SCREENING DIGITAL BREAST TOMOSYNTHESIS, BILATERAL CLINICAL INFORMATION: Screening. Asymptomatic. COMPARISON: Mammography: This study is compared with prior exams dating back to 2017. TECHNIQUE: Digital breast tomosynthesis is performed in both the craniocaudal and mediolateral oblique views along with computer-aided detection (CAD). Synthesized 2D images are generated from the tomosynthesis. FINDINGS: The breasts are almost entirely fatty (ACR BI-RADS breast composition Category a). There are no significant masses, abnormal calcifications, or other abnormalities. MM/MM tomosynthesis screening BI IMPRESSION: No mammographic evidence of malignancy. ASSESSMENT: BI-RADS BI-RADS 1 - Negative RECOMMENDATION: Routine annual mammography screening. 1 year F/U This examination should not preclude the clinical evaluation of a suspicious palpable abnormality. This patient's information was entered into a reminder system with a target due date for their next mammogram.
== END 2023-10-16 07:28 | disposition home or self-care (01) ==
LOC: HO.MAMMO 07:27
PROVIDERS: PCP Nurse Practitioner Primary Care; Visit Provider Nurse Practitioner Primary Care
DX: Z12.31 Encounter for screening mammogram for malignant neoplasm of breast (principal)
CPT/HCPCS: 77063; 77067

== ENCOUNTER → 2023-10-16 07:30 | Outpatient (BNV) | payer MEDICAID, SELFPAY | PROVIDERS: PCP Nurse Practitioner Primary Care; Visit Provider Radiology Diagnostic Radiology | DX: Z12.31 Encounter for screening mammogram for malignant neoplasm of breast (principal) | CPT/HCPCS: 77063; 77067 ==

== ENCOUNTER 2023-12-02 14:39 | Outpatient (REF) | payer MEDICAID, SELFPAY ==
[2023-12-02 16:26] LABS: Estimated Average Glucose 160 mg/dL; Hemoglobin A1c % 7.2 % (<6.0)
[2023-12-05 05:54] LABS: TS Negative Control Passed; TS Panel A 0; TS Panel B 0; TS Positive Control Passed; TSpotTB Negative (Negative)
== END 2023-12-02 14:40 | disposition home or self-care (01) ==
LOC: HO.HHCL 14:39
PROVIDERS: Visit Provider Nurse Practitioner Primary Care
DX: Z00.00 Encounter for general adult medical examination without abnormal findings (principal); E11.69 Type 2 diabetes mellitus with other specified complication; E78.5 Hyperlipidemia, unspecified
CPT/HCPCS: 36415; 83036; 86481

== ENCOUNTER 2024-01-22 07:36 | Outpatient (AMB) | payer MEDICAID, SELFPAY ==
--- NOTE | 2024-01-22 07:37 | MHC.OFFVIS ---
Vital Signs 01/22/24 07:49 Height 5 ft 3 in Weight 213 lb BMI 37.7 BP 113/70 Blood Pressure Location Lt brachial Position Sitting Pulse 70 Intake Visit Reasons: 6 months GERD, Fatty liver and constipation Intake Note: Patient follow up for GERD, Fatty liver and constipation. Patient cc: GERD with burning sensation and some nauseas. Denies any other concern for today. 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 Wood Boatbuilder Apprentice Name: Wood Boatbuilder Apprentice Name: Catia Alvarez Allergies SEAFOOD Allergy (Intermediate, Uncoded 07/21/23 08:56) ANGIOEDEMA lactose intolerant Allergy (Unknown, Uncoded 07/21/23 08:56) stomach pain and heart burn Medication List - Last Reconciled 01/22/24 by Gillian Velásquez MD albuterol sulfate 90 mcg/actuation (Ventolin HFA) 2 puffs inhalation Q6H PRN biotin 10,000 mcg PO DAILY tuevoenxwk-irqwyzobrxsxu-netf 50-325-40 mg 1 tab PO .prn cholecalciferol (vitamin D3) (Vitamin D3) 50 mcg PO DAILY citalopram 20 mg PO DAILY cyclobenzaprine 10 mg PO Q8H dexlansoprazole (Dexilant) 60 mg (2 x 30 mg) PO DAILY 90 days diphenhydramine HCl (Benadryl) 50 mg (2 x 25 mg) PO ONCE PRN 1 day docusate sodium 100 mg PO DAILY doxepin 25 mg PO BEDTIME dulaglutide (Trulicity) 1.5 mg subcut QWEEK duloxetine 60 mg PO DAILY epinephrine (EpiPen) 0.3 mg IM Q10M PRN fluticasone propionate 50 mcg/actuation (24 Hour Allergy Relief) 1 spray intranasal BID linaclotide (Linzess) 145 mcg PO QAM 90 days loratadine (Allergy Relief (loratadine)) 10 mg PO DAILY lorazepam 1 mg PO BEDTIME PRN magnesium oxide 400 mg PO DAILY PRN 30 days metformin ER mg PO rosuvastatin 5 mg PO DAILY Saccharomyces boulardii (Probiotic (S.boulardii)) 250 mg PO BID simethicone (Gas Relief (simethicone)) 125 mg PO BID-QID PRN sucralfate (Carafate) 1 g PO BID 30 days tizanidine 2 mg PO Q8H PRN topiramate XR 50 mg PO DAILY tramadol 50 mg PO Q6H PRN HPI HPI 6 months GERD, Fatty liver and constipation: Details: GI CLINIC VISIT FOR THIS 58-YEAR-OLD GHANAIAN-SPEAKING FEMALE FOR FOLLOW-UP OF GERD, EPIGASTRIC PAIN AND ABDOMINAL BLOATING. ?? ? CHRONIC ILLNESSES:?heartburn, headaches, hypercholesterolemia, prediabetic, varicose veins, vitamin D def, Obesity and sleep apnea ?[facility] - reviewed. NORMAL CBC AND CHEM PANEL. ELEVATED LFTS WITH AST OF 45, ALT 55 AND ALKALINE PHOSPHATASE OF 171, GGT OF 193 ? TERRENCE WAS NEGATIVE, 2015 HEPATITIS B SEROLOGIES INDICATED IMMUNITY TO HEPATITIS B. ? HEPATITIS C ANTIBODY WAS NEGATIVE ? SEROLOGIES FOR CELIAC DISEASE WERE NEGATIVE ?IMAGING STUDIES:?01/31/20? abdominal CT scan showed? scattered sigmoid and descending colon diverticulosis. ? Well-defined round structure left retroperitoneum not connected to kidneys ovaries -? question lymphocele ?11/04/18?Abd US showed: Liver of diffuse increased echogenicity. This is nonspecific, but ? consistent with diffuse fatty infiltration. Otherwise, unremarkable abdominal ultrasound. ?ENDOSCOPIC STUDIES:??05/27/22 EGD SHOWED: ESOPHAGUS: Tortuous esophagus with increased tertiary contractions -? biopsies were obtained from proximal esophagus to check for EOE.? GE junction at 35 cms, small hiatal hernia 35 to 37 cms. A partially obstructing Schatzki's ring at GE junction.? ? Esophageal balloon dilation was performed with a 20 mm (60 F) CRE balloon X 60 seconds STOMACH: Moderate gastric erythema with a few healing erosions. Biopsies were obtained. Grade 3 flap valve on retroflexed examination of the cardia. DUODENUM: Normal - biopsied to check for celiac sprue Plan:? GERD and Hiatal Hernia handouts were given in the discharge area BIOPSIES SHOWED: A.? Small bowel, biopsy:? Small bowel mucosa with preserved villi and no specific change; no evidence of celiac disease.? B.? Gastric antrum, biopsy:? Gastric antral mucosa with congestion and minimal chronic inactive gastritis; negative for H pylori, intestinal metaplasia and dysplasia.? C.? Esophagus, proximal, biopsy:? Squamous mucosa with no specific change; no evidence of eosinophilic esophagitis.? 5/24/19 EGD showed:? ESOPHAGUS: Focal erosive esophagitis at GE junction ? STOMACH: Antral gastritis ? DUODENUM: Normal ? Plan ? Continue present medications (Dexilant 60 mg PO once daily) ? Patient has an appointment on 10/16/2018 in the GI Clinic with Gillian Velásquez M.D ?TODAY'S VISIT: [facility]ter, Elise Patient follow up for GERD, Fatty liver and constipation. Patient cc: GERD with burning sensation and some nauseas. Denies any other concern for today. Taking a PPI daily Taking Linzess and having a BM once a day. She is on a diet and lost 3 lbs. Occasional rectal bleeding when she strains. PAST VISITS: Patient cc: abdominal bloating, constipation with some blood when she extra push for BM, and acid reflex and some dates with burning sensation. Feeling regular Lab results reviewed with the patient showing improvement in LFTs. Unintentional wt loss - eating regular Seen at [facility] x 2 due to stomach issues and problems with breathing after drinking ETOH Pt states she had 3-4 beers at a family gathering - denies daily ETOH use Requesting refills for Linzess for constipation - ran out of Linzess 2 weeks ago. Has a BM daily to every other day. ? 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 Everything I eat makes me feel bad I have been loosing wt and I dont know why Eating the same amount of food. Wt loss of 15 lbs over 4 months. Continues to have heartburn Constipation is a little better - going regularly when she takes the pill. Denies black stool or blood in the stool. Sometimes she has yellow phlegm when she speaks with a little blood. Intermittent cough and breathing problems. Waiting for euipment for sleep apnea. Happens in the morning when she tries to speak. I feel a little unwell My heartburn has not gone away. It continues for a long time after she eats - can have heartburn after eating fruit. No BM x 4 days and took a laxative and had a BM yesterday and today. Heartburn is worse when she is constipated. Has not weighed herself in a long time and dennies wt loss. ? Weighs? 220 lbs. at the last visit. Has been taking Dexilant and Linzess prn instead of daily - advised to use every day. Pt complains of abdominal pain , and GERD. Denies any N+V, diarrhea or constipation. ? I am feeling a little bit better. Every time I eat I get gases which do not go away. ? Notes intermittent abdominal pain. ? ? ? Medication has been helping with constipation. ? Lab and abdominal CT results were reviewed. ? Everything I eat give me gas. ? I still get some pain - when I eat something that makes my stomach upset after a few minutes - Rice, beef and soups. ? Denies radiation of abd pain to the back. ? No change in appetite or weight. ? Has a BM every day - taking Linzess every morning. ? Appetite is?regular [facility] Medical History Multiple lipomas Lumbar radiculopathy Morbid obesity with BMI of 40.0-44.9, adult Epigastric pain Chronic constipation Elevated LFTs Hypercholesterolemia Vitamin D deficiency Bilateral wrist pain History of Helicobacter pylori infection (~06/2014) GERD (gastroesophageal reflux disease) Lactose intolerance NAFL (nonalcoholic fatty liver) Obstructive sleep apnea Surgical History History of hand surgery Status post excision of lipoma (~07/09/23) H/O: History of colonoscopy Family History Unknown No problems noted. Social History Household Members: Family Alcohol intake: current Alcohol intake frequency: a few times a month Patient Tobacco Use Status: Never used Tobacco Physical Exam Vital Signs: Last Vital Signs Pulse 70 01/22/24 07:49 BP 113/70 01/22/24 07:49 BMI result Body Mass Index 37.7 Assessment & Plan Assessment & Plan (1) NAFL (nonalcoholic fatty liver): Code(s): K76.0 - Fatty (change of) liver, not elsewhere classified Category: Medical (2) Lactose intolerance: Code(s): E73.9 - Lactose intolerance, unspecified Category: Medical (3) GERD (gastroesophageal reflux disease): Comment: Continue Dexilant Capsule Delayed Release, 60 MG, 1 capsule at suppertime, Orally, Once a day, Code(s): K21.9 - Gastro-esophageal reflux disease without esophagitis Category: Medical (4) Elevated LFTs: Comment: hepatitis C was negative. Hepatitis-B serologies were consistent with past infection. TERRENCE, antimitochondrial antibody and celiac sprue serologies were negative. Abdominal ultrasound showed fatty liver. Patient was advised to work on weight reduction. Code(s): R79.89 - Other specified abnormal findings of blood chemistry Category: Medical (5) Chronic constipation: Comment: Continue Magnesium Oxide 400 MG, 1-2 tablets at bedtime and Linzess Capsule, 290 MCG, 1 capsule, Orally, Once a day, Code(s): K59.09 - Other constipation Category: Medical (6) Epigastric pain: Code(s): R10.13 - Epigastric pain Category: Medical (7) Colon cancer screening: Comment: Colonoscopy in August [address] Cassidy showed sigmoid diverticulosis and no polyps and repeat colonoscopy was advised in 10 years - action was set in [facility]. Code(s): Z12.11 - Encounter for screening for malignant neoplasm of colon Category: Medical (8) Supraumbilical hernia: Comment: A 1.5 to 2 cms firm rounded smooth slightly tender mass just above the umbilicus - ? hernia, cyst or submucosal lipoma Code(s): K43.9 - Ventral hernia without obstruction or gangrene Category: Medical Plan 58 YF with heartburn, headaches, hypercholesterolemia, prediabetic, varicose veins, vitamin D def, Obesity and sleep apnea followed in GI for peristent epigastric pain and abdominal bloating. EGD in 2014 showed esophagitis,? hemorrhagic gastritis and duodenitis. Patient takes naproxen intermittently. 10/02/18 EGD showed a small hiatal hernia with focal esophagitis at GE junction with a 1 cms ulcer/erosion covered with white exudate and erosive gastritis. Biopsies showed chronic inactive gastritis without Helicobacter organisms.? Patient admitted to taking Dexilant and Linzess p.r.n. and was advised to take them daily and monitor her symptoms and use simethicone p.r.n. Abdominal bloating likely related to chronic constipation.? Constipation has improved with Linzess once daily. Serologies for celiac disease were negative in 2014. Colonoscopy in August [address] Cassidy showed sigmoid diverticulosis and no polyps and repeat colonoscopy was advised in 10 years - action was set in [facility]. ELEVATED LFTS;?hepatitis C was negative. Hepatitis-B serologies were consistent with past infection. TERRENCE, antimitochondrial antibody and celiac sprue serologies were negative. Abdominal ultrasound showed fatty liver. Patient was advised to work on weight reduction. ETOH level 204 in 11/[address] scan showed scattered sigmoid and descending colon diverticulosis. A well-defined round structure left retroperitoneum not connected to kidneys ovaries -? question lymphocele Sucralfate 1 gm twice daily was added to her GERD treatment regimen. 05/27/22 EGD was performed and findings as noted above. 01/22/24 Taking a PPI daily Taking Linzess and having a BM once a day. She is on a diet and lost 3 lbs. Occasional rectal bleeding when she strains. Pt advised to schedule an abdominal ultrasound with elastography and labs to evaluate for chronic liver disease (FU of elevated LFTs) She was referred to General Surgery for evaluation of supraumblical hernia FU appt in 3 months Orders: Orders Liver Fibrosis Pnl 01/22/24 R79.89 - Other specified abnormal findings of blood chemistry, K76.0 - Fatty (change of) liver, not elsewhere classified US abdomen white w elastography 01/22/24 K76.0 - Fatty (change of) liver, not elsewhere classified, R79.89 - Other specified abnormal findings of blood chemistry Liver Panel 01/22/24 R79.89 - Other specified abnormal findings of blood chemistry, K76.0 - Fatty (change of) liver, not elsewhere classified Vitamin D 25-OH Total 01/22/24 R79.89 - Other specified abnormal findings of blood chemistry, K76.0 - Fatty (change of) liver, not elsewhere classified Vitamin B12 and Folate 01/22/24 R79.89 - Other specified abnormal findings of blood chemistry, K76.0 - Fatty (change of) liver, not elsewhere classified Prothrombin Time INR 09/12/24 R79.89 - Other specified abnormal findings of blood chemistry, K76.0 - Fatty (change of) liver, not elsewhere classified Complete Blood Count no Diff 01/22/24 R79.89 - Other specified abnormal findings of blood chemistry, K76.0 - Fatty (change of) liver, not elsewhere classified Referrals General Surgery Referral K43.9 - Ventral hernia without obstruction or gangrene Medications: Refilled linaclotide (Linzess) 145 mcg PO QAM 90 caps 1RF 90 days K59.09 - Other constipation Coding Level of Care Code Est Pt Level 4 (03858) Diagnoses NAFL (nonalcoholic fatty liver) K76.0 Lactose intolerance E73.9 GERD (gastroesophageal reflux disease) K21.9 Elevated LFTs R79.89 Chronic constipation K59.09 Epigastric pain R10.13 Colon cancer screening Z12.11 Supraumbilical hernia K43.9 Time Spent (min) 20
--- NOTE | 2024-01-22 07:46 | A.OFFVIS_ITS ---
Vital Signs 01/22/24 07:49 Height 5 ft 3 in Weight 213 lb BMI 37.7 BP 113/70 Blood Pressure Location Lt brachial Position Sitting Pulse 70 Intake Visit Reasons: 6 months GERD, Fatty liver and constipation Intake Note: Patient follow up for GERD, Fatty liver and constipation. Patient cc: GERD with burning sensation and some nauseas. Denies any other concern for today. 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 Name: Catia [id number] Accompanied by: Self / Same As Patient Allergies SEAFOOD Allergy (Intermediate, Uncoded 07/21/23 08:56) ANGIOEDEMA lactose intolerant Allergy (Unknown, Uncoded 07/21/23 08:56) stomach pain and heart burn Medication List - Last Reconciled 01/22/24 by Gillian Velásquez MD albuterol sulfate 90 mcg/actuation (Ventolin HFA) 2 puffs inhalation Q6H PRN biotin 10,000 mcg PO DAILY bejinavmhx-ttfnkfrxwmgjw-xjss 50-325-40 mg 1 tab PO .prn cholecalciferol (vitamin D3) (Vitamin D3) 50 mcg PO DAILY citalopram 20 mg PO DAILY cyclobenzaprine 10 mg PO Q8H dexlansoprazole (Dexilant) 60 mg (2 x 30 mg) PO DAILY 90 days diphenhydramine HCl (Benadryl) 50 mg (2 x 25 mg) PO ONCE PRN 1 day docusate sodium 100 mg PO DAILY doxepin 25 mg PO BEDTIME dulaglutide (Trulicity) 1.5 mg subcut QWEEK duloxetine 60 mg PO DAILY epinephrine (EpiPen) 0.3 mg IM Q10M PRN fluticasone propionate 50 mcg/actuation (24 Hour Allergy Relief) 1 spray intranasal BID linaclotide (Linzess) 145 mcg PO QAM 90 days loratadine (Allergy Relief (loratadine)) 10 mg PO DAILY lorazepam 1 mg PO BEDTIME PRN magnesium oxide 400 mg PO DAILY PRN 30 days metformin ER mg PO rosuvastatin 5 mg PO DAILY Saccharomyces boulardii (Probiotic (S.boulardii)) 250 mg PO BID simethicone (Gas Relief (simethicone)) 125 mg PO BID-QID PRN sucralfate (Carafate) 1 g PO BID 30 days tizanidine 2 mg PO Q8H PRN topiramate XR 50 mg PO DAILY tramadol 50 mg PO Q6H PRN PFSH Medical History Multiple lipomas Lumbar radiculopathy Morbid obesity with BMI of 40.0-44.9, adult Epigastric pain Chronic constipation Elevated LFTs Hypercholesterolemia Vitamin D deficiency Bilateral wrist pain History of Helicobacter pylori infection (~06/2014) GERD (gastroesophageal reflux disease) Lactose intolerance NAFL (nonalcoholic fatty liver) Obstructive sleep apnea Surgical History History of hand surgery Status post excision of lipoma (~07/09/23) H/O: History of colonoscopy Family History Unknown No problems noted. Social History Household Members: Family Alcohol intake: current Alcohol intake frequency: a few times a month Patient Tobacco Use Status: Never used Tobacco Review of Systems Const All systems reviewed & are unremarkable except as noted in HPI and below Physical Exam Vital Signs: Last Vital Signs Pulse 70 01/22/24 07:49 BP 113/70 01/22/24 07:49 BMI result Body Mass Index 37.7 Const General: healthy appearing and no acute distress Nutritional Appearance: obese Orientation/consciousness: patient oriented x3 Limitations: language barrier HEENT Head: Yes normal to inspection Ears: hearing grossly normal bilaterally Eyes Sclerae: sclerae normal Pupils: Equal, round and reactive pupils present Neck Neck: Yes normal visual inspection Chest Chest palpation & inspection: normal inspection of the chest Resp Effort & Inspection: normal respiratory effort Auscultation: clear to auscultation bilaterally Cardio Palpation: normal PMI Rate: regular rate Rhythm: regular rhythm Heart sounds: S1 normal heart sound present, S2 normal heart sound present and no murmurs GI Inspection: Yes scar (lower midline scar) and Yes visible herniation (reducible supraumblical hernia) Palpation (GI): Soft to palpation, nontender and No hepatosplenomegaly present Auscultation: normal bowel sounds Rectal Exam - Female: deferred Skin General skin exam: no rashes or lesions noted Neuro General: patient oriented x3, gait normal and moves all extremities Cranial nerves: Yes Equal, round and reactive pupils present Psych Appearance: grossly normal Mental Status: mental status grossly normal Assessment & Plan Assessment & Plan (1) NAFL (nonalcoholic fatty liver): Code(s): K76.0 - Fatty (change of) liver, not elsewhere classified Category: Medical (2) Lactose intolerance: Code(s): E73.9 - Lactose intolerance, unspecified Category: Medical (3) GERD (gastroesophageal reflux disease): Comment: Continue Dexilant Capsule Delayed Release, 60 MG, 1 capsule at suppertime, Orally, Once a day, Code(s): K21.9 - Gastro-esophageal reflux disease without esophagitis Category: Medical (4) Elevated LFTs: Comment: hepatitis C was negative. Hepatitis-B serologies were consistent with past infection. TERRENCE, antimitochondrial antibody and celiac sprue serologies were negative. Abdominal ultrasound showed fatty liver. Patient was advised to work on weight reduction. Code(s): R79.89 - Other specified abnormal findings of blood chemistry Category: Medical (5) Chronic constipation: Comment: Continue Magnesium Oxide 400 MG, 1-2 tablets at bedtime and Linzess Capsule, 290 MCG, 1 capsule, Orally, Once a day, Code(s): K59.09 - Other constipation Category: Medical (6) Epigastric pain: Code(s): R10.13 - Epigastric pain Category: Medical (7) Colon cancer screening: Comment: Colonoscopy in August [address] Cassidy showed sigmoid diverticulosis and no polyps and repeat colonoscopy was advised in 10 years - action was set in [facility]. Code(s): Z12.11 - Encounter for screening for malignant neoplasm of colon Category: Medical (8) Supraumbilical hernia: Comment: A 1.5 to 2 cms firm rounded smooth slightly tender mass just above the umbilicus - ? hernia, cyst or submucosal lipoma Code(s): K43.9 - Ventral hernia without obstruction or gangrene Category: Medical Orders: Orders Liver Fibrosis Pnl 01/22/24 R79.89 - Other specified abnormal findings of blood chemistry, K76.0 - Fatty (change of) liver, not elsewhere classified US abdomen white w elastography 01/22/24 K76.0 - Fatty (change of) liver, not elsewhere classified, R79.89 - Other specified abnormal findings of blood chemistry Liver Panel 01/22/24 R79.89 - Other specified abnormal findings of blood chemistry, K76.0 - Fatty (change of) liver, not elsewhere classified Vitamin D 25-OH Total 01/22/24 R79.89 - Other specified abnormal findings of blood chemistry, K76.0 - Fatty (change of) liver, not elsewhere classified Vitamin B12 and Folate 01/22/24 R79.89 - Other specified abnormal findings of blood chemistry, K76.0 - Fatty (change of) liver, not elsewhere classified Prothrombin Time INR 01/22/24 R79.89 - Other specified abnormal findings of blood chemistry, K76.0 - Fatty (change of) liver, not elsewhere classified Complete Blood Count no Diff 01/22/24 R79.89 - Other specified abnormal findings of blood chemistry, K76.0 - Fatty (change of) liver, not elsewhere classified Referrals General Surgery Referral K43.9 - Ventral hernia without obstruction or gangrene Medications: Refilled linaclotide (Linzess) 145 mcg PO QAM 90 caps 1RF 90 days K59.09 - Other constipation Coding Level of Care Code Est Pt Level 4 (17949) Diagnoses NAFL (nonalcoholic fatty liver) K76.0 Lactose intolerance E73.9 GERD (gastroesophageal reflux disease) K21.9 Elevated LFTs R79.89 Chronic constipation K59.09 Epigastric pain R10.13 Colon cancer screening Z12.11 Supraumbilical hernia K43.9 Time Spent (min) 23
[2024-01-22 07:49] VITALS: BP 113/70; PULSE 70; BMI 37.7
== END 2024-01-22 08:06 | disposition home or self-care (01) ==
PROVIDERS: PCP Nurse Practitioner Primary Care; Visit Provider Internal Medicine Gastroenterology
DX: K76.0 Fatty (change of) liver, not elsewhere classified (principal); E73.9 Lactose intolerance, unspecified; K21.9 Gastro-esophageal reflux disease without esophagitis; K59.09 Other constipation; K43.9 Ventral hernia without obstruction or gangrene
CPT/HCPCS: 99214

== ENCOUNTER → 2024-01-22 07:36 | Outpatient (BNVA) | payer MEDICAID, SELFPAY | PROVIDERS: PCP Nurse Practitioner Primary Care; Visit Provider Internal Medicine Gastroenterology | DX: K21.9 Gastro-esophageal reflux disease without esophagitis (principal); K76.0 Fatty (change of) liver, not elsewhere classified; K59.09 Other constipation; E73.9 Lactose intolerance, unspecified; R79.89 Other specified abnormal findings of blood chemistry; R10.13 Epigastric pain; K43.9 Ventral hernia without obstruction or gangrene | CPT/HCPCS: 99212 ==

== ENCOUNTER 2024-02-05 07:59 | Outpatient (REF) | payer MEDICAID, SELFPAY ==
--- NOTE | ~2024-02-05 | US_ITS ---
EXAMINATION: US ABDOMEN LIMITED WITH LIVER ELASTOGRAPHY CLINICAL INFORMATION: Fatty liver. COMPARISON: Ultrasound abdomen 10/02/2022, CT abdomen and pelvis 01/31/2020. TECHNIQUE: Real-time imaging of the abdominal viscera. Noninvasive ultrasound liver fibrosis assessment is performed using Cate ElastPQ point quantification shear wave elastography (pSWE) with a 5 MHz transducer. Multiple elastography samples are obtained. FINDINGS: PANCREAS: The pancreas is hyperechoic. The visualized pancreatic head and body are otherwise unremarkable in appearance. The remainder of the pancreas is obscured from visualization by the overlying bowel gas. LIVER: The liver is enlarged at 17.6 cm in maximal dimension with increased echogenicity, consistent with hepatic steatosis. No biliary dilatation is present. The right lobe measures 17.6 cm in length. The left lobe measures 9.0 cm in length. Shear wave elastography provides a median stiffness of 1.42 m/s (reference: normal median stiffness is 0.81 - 1.22 m/s). The IQR/median stiffness to assess sampling precision is 0.15 (reference: optimal IQR/median stiffness is under 0.3). GALLBLADDER: The gallbladder is physiologically distended without evidence of stones, sludge, polyps, wall thickening or pericholecystic fluid. COMMON BILE DUCT: Normal in caliber measuring 0.4 cm in diameter. RIGHT KIDNEY: Normal. No hydronephrosis. No renal calculi or focal parenchymal lesions. The kidney measures 11.0 cm in maximum dimension. FREE FLUID: None. US/US abdomen white w elastography IMPRESSION: 1. Mildly enlarged fatty liver. 2. Elastography: Liver elastography measurements are consistent with a minimal risk for clinically significant liver fibrosis (METAVIR Stage F0-F1). Electronically signed by: Matthew Finney MD 04/15/2024 10:57 PM [facility]ONNE[facility]
== END 2024-02-05 08:00 | disposition home or self-care (01) ==
LOC: HO.US 07:59
PROVIDERS: PCP Nurse Practitioner Primary Care; Visit Provider Internal Medicine Gastroenterology
DX: K76.0 Fatty (change of) liver, not elsewhere classified (principal); R79.89 Other specified abnormal findings of blood chemistry
CPT/HCPCS: 76705; 76981

== ENCOUNTER 2024-05-11 09:40 | Outpatient (REF) | payer SELFPAY ==
[2024-05-11 10:59] LABS: Hematocrit 41.7 % (37.0-47.0); Mean Corpuscular HGB Conc 33.6 g/dl (31.0-35.0); Mean Corpuscular Hemoglobin 27.7 pg (27.0-33.0); Mean Corpuscular Volume 82.6 fL (80.0-98.0); Mean Platelet Volume 9.3 fL (9.4-12.3); Platelet Count 295 X10*3/uL (160-400); Red Blood Count 5.05 X10*6/uL (4.20-5.50); Red Cell Distribution Width 14.4 % (11.0-16.0); White Blood Count 6.1 X10*3/uL (4.8-10.8)
[2024-05-11 11:01] LABS: Prothrombin Time 12.1 SEC (10.9-12.4)
[2024-05-11 11:53] LABS: Alanine Aminotransferase 34 U/L (0-31); Albumin Level 4.2 g/dL (3.5-5.0); Alkaline Phosphatase 139 U/L (39-117); Aspartate Amino Transferase 30 U/L (5-31); Bilirubin Direct 0.2 mg/dL (0.0-0.5); Bilirubin Total 0.6 mg/dL (0.0-1.0); Total Protein 7.3 g/dL (6.5-8.0)
[2024-05-11 11:55] LABS: Vitamin D 25-OH Total 40.1 ng/mL (>30)
[2024-05-11 12:09] LABS: Folate 13.2 ng/mL (> or = 4.0); Vitamin B12 329 pg/mL (200-900)
[2024-05-17 15:43] LABS: FIB-ALT 27 U/L (6-29); FIB-Alpha-2-Macroglobulin 147 mg/dL (106-279); FIB-Apolipoprotein A1 212 mg/dL (101-198); FIB-GGT 130 U/L (3-70); FIB-Haptoglobin 199 mg/dL (43-212); FIB-Total Bilirubin 0.4 mg/dL (0.2-1.2); Liver Fibrosis Score 0.08; Liver Fibrosis Stage F0; Nec Inflam Act Grade A0; Nec Inflam Act Score 0.09; Reference ID 5273986
== END 2024-05-11 09:41 | disposition home or self-care (01) ==
LOC: HO.LAB 09:40
PROVIDERS: PCP Nurse Practitioner Primary Care; Visit Provider Internal Medicine Gastroenterology
DX: R79.89 Other specified abnormal findings of blood chemistry (principal); K76.0 Fatty (change of) liver, not elsewhere classified
CPT/HCPCS: 36415; 80076; 81596; 82306; 82607; 82746; 85027; 85610

== ENCOUNTER 2024-05-13 07:53 | Outpatient (AMB) | payer OTHER, SELFPAY ==
--- NOTE | 2024-05-13 07:55 | MHC.OFFVIS ---
Vital Signs 05/13/24 08:06 Height 5 ft 3 in Weight 213 lb BMI 37.7 BP 126/75 Blood Pressure Location Lt brachial Position Sitting Pulse 79 Intake Visit Reasons: 3 month follow up Intake Note: Patient 3 month follow up for chronic constipation, Abd US/Lab results. Patient cc: LLQ pain,acid reflex with some burning sensation, and between diarrhea and constipation, also you referral pt to surgeon and I do not see any note from General surgeon. Fitter'S Assistant Required: Yes Accompanied by: Self / Same As Patient Allergies SEAFOOD Allergy (Intermediate, Uncoded 07/21/23 08:56) ANGIOEDEMA lactose intolerant Allergy (Unknown, Uncoded 07/21/23 08:56) stomach pain and heart burn Medication List - Last Reconciled 05/13/24 by Gillian Velásquez MD albuterol sulfate 90 mcg/actuation (Ventolin HFA) 2 puffs inhalation Q6H PRN biotin 10,000 mcg PO DAILY [id number]-[id number]-[id number] 50-325-40 mg 1 tab PO .prn cholecalciferol (vitamin D3) (Vitamin D3) 50 mcg PO DAILY citalopram 20 mg PO DAILY cyclobenzaprine 10 mg PO Q8H dexlansoprazole (Dexilant) 60 mg (2 x 30 mg) PO DAILY 90 days diphenhydramine HCl (Benadryl) 50 mg (2 x 25 mg) PO ONCE PRN 1 day docusate sodium 100 mg PO DAILY doxepin 25 mg PO BEDTIME dulaglutide (Trulicity) 1.5 mg subcut QWEEK duloxetine 60 mg PO DAILY epinephrine (EpiPen) 0.3 mg IM Q10M PRN fluticasone propionate 50 mcg/actuation (24 Hour Allergy Relief) 1 spray intranasal BID linaclotide (Linzess) 145 mcg PO QAM 90 days loratadine (Allergy Relief (loratadine)) 10 mg PO DAILY lorazepam 1 mg PO BEDTIME PRN magnesium oxide 400 mg PO DAILY PRN 30 days metformin ER mg PO rosuvastatin 5 mg PO DAILY Saccharomyces boulardii (Probiotic (S.boulardii)) 250 mg PO BID simethicone (Gas Relief (simethicone)) 125 mg PO BID-QID PRN sucralfate (Carafate) 1 g PO BID 30 days tizanidine 2 mg PO Q8H PRN topiramate XR 50 mg PO DAILY tramadol 50 mg PO Q6H PRN HPI HPI 3 month follow up: Details: GI CLINIC VISIT FOR THIS 58-YEAR-OLD LIB[place]-SPEAKING FEMALE FOR FOLLOW-UP OF GERD, EPIGASTRIC PAIN AND ABDOMINAL BLOATING. ?? ? 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 Lab and US results reviewed - LFTs improved with wt reduction Taking a PPI daily Taking Linzess and having a BM once a day. She is on a diet and lost 3 lbs. Occasional rectal bleeding when she strains. PAST VISITS: Patient cc: abdominal bloating, constipation with some blood when she extra push for BM, and acid reflex and some dates with burning sensation. Feeling regular Lab results reviewed with the patient showing improvement in LFTs. Unintentional wt loss - eating regular Seen at [facility] x 2 due to stomach issues and problems with breathing after drinking ETOH Pt states she had 3-4 beers at a family gathering - denies daily ETOH use Requesting refills for Linzess for constipation - ran out of Linzess 2 weeks ago. Has a BM daily to every other day. ? 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 Everything I eat makes me feel bad I have been loosing wt and I dont know why Eating the same amount of food. Wt loss of 15 lbs over 4 months. Continues to have heartburn Constipation is a little better - going regularly when she takes the pill. Denies black stool or blood in the stool. Sometimes she has yellow phlegm when she speaks with a little blood. Intermittent cough and breathing problems. Waiting for euipment for sleep apnea. Happens in the morning when she tries to speak. I feel a little unwell My heartburn has not gone away. It continues for a long time after she eats - can have heartburn after eating fruit. No BM x 4 days and took a laxative and had a BM yesterday and today. Heartburn is worse when she is constipated. Has not weighed herself in a long time and dennies wt loss. ? Weighs? 220 lbs. at the last visit. Has been taking Dexilant and Linzess prn instead of daily - advised to use every day. Pt complains of abdominal pain , and GERD. Denies any N+V, diarrhea or constipation. ? I am feeling a little bit better. Every time I eat I get gases which do not go away. ? Notes intermittent abdominal pain. ? ? ? Medication has been helping with constipation. ? Lab and abdominal CT results were reviewed. ? Everything I eat give me gas. ? I still get some pain - when I eat something that makes my stomach upset after a few minutes - Rice, beef and soups. ? Denies radiation of abd pain to the back. ? No change in appetite or weight. ? Has a BM every day - taking Linzess every morning. ? Appetite is?regula ?LABS IN [employer]:?01/04/20 - reviewed. NORMAL CBC AND CHEM PANEL. ELEVATED LFTS WITH AST OF 45, ALT 55 AND ALKALINE PHOSPHATASE OF 171, GGT OF 193 ? TERRENCE WAS NEGATIVE, 2015 HEPATITIS B SEROLOGIES INDICATED IMMUNITY TO HEPATITIS B. ? HEPATITIS C ANTIBODY WAS NEGATIVE ? SEROLOGIES FOR CELIAC DISEASE WERE NEGATIVE ?IMAGING STUDIES:?01/2024 ABDOMINAL ULTRASOUND WITH ELASTOGRAPHY SHOWED: 1. Mildly enlarged fatty liver. 2. Elastography: Liver elastography measurements are consistent with a minimal risk for clinically significant liver fibrosis (METAVIR Stage F0-F1). 01/31/20? abdominal CT scan showed? scattered sigmoid and descending colon diverticulosis. ? Well-defined round structure left retroperitoneum not connected to kidneys ovaries -? question lymphocele ?11/04/18?Abd US showed: Liver of diffuse increased echogenicity. This is nonspecific, but ? consistent with diffuse fatty infiltration. Otherwise, unremarkable abdominal ultrasound. ?ENDOSCOPIC STUDIES:??05/27/22 EGD SHOWED: ESOPHAGUS: Tortuous esophagus with increased tertiary contractions -? biopsies were obtained from proximal esophagus to check for EOE.? GE junction at 35 cms, small hiatal hernia 35 to 37 cms. A partially obstructing Schatzki's ring at GE junction.? ? Esophageal balloon dilation was performed with a 20 mm (60 F) CRE balloon X 60 seconds STOMACH: Moderate gastric erythema with a few healing erosions. Biopsies were obtained. Grade 3 flap valve on retroflexed examination of the cardia. DUODENUM: Normal - biopsied to check for celiac sprue Plan:? GERD and Hiatal Hernia handouts were given in the discharge area BIOPSIES SHOWED: A.? Small bowel, biopsy:? Small bowel mucosa with preserved villi and no specific change; no evidence of celiac disease.? B.? Gastric antrum, biopsy:? Gastric antral mucosa with congestion and minimal chronic inactive gastritis; negative for H pylori, intestinal metaplasia and dysplasia.? C.? Esophagus, proximal, biopsy:? Squamous mucosa with no specific change; no evidence of eosinophilic esophagitis.? 10/02/18 EGD showed:? ESOPHAGUS: Focal erosive esophagitis at GE junction ? STOMACH: Antral gastritis ? DUODENUM: Normal ? Plan ? Continue present medications (Dexilant 60 mg PO once daily) ? Patient has an appointment on 10/16/2018 in the GI Clinic with Gillian Velásquez M.D ? [facility] Medical History Multiple lipomas Lumbar radiculopathy Morbid obesity with BMI of 40.0-44.9, adult Epigastric pain Chronic constipation Elevated LFTs Hypercholesterolemia Vitamin D deficiency Bilateral wrist pain History of Helicobacter pylori infection (~06/2014) GERD (gastroesophageal reflux disease) Lactose intolerance NAFL (nonalcoholic fatty liver) Obstructive sleep apnea Surgical History History of hand surgery Status post excision of lipoma (~07/09/23) H/O: History of colonoscopy Family History Unknown No problems noted. Social History Household Members: Family Alcohol intake: current Alcohol intake frequency: a few times a month Patient Tobacco Use Status: Never used Tobacco Review of Systems Const All systems reviewed & are unremarkable except as noted in HPI and below Physical Exam Const General: healthy appearing and no acute distress Nutritional Appearance: obese Orientation/consciousness: patient oriented x3 Limitations: language barrier HEENT Head: Yes normal to inspection Ears: hearing grossly normal bilaterally Eyes Sclerae: sclerae normal Pupils: Equal, round and reactive pupils present Neck Neck: Yes normal visual inspection Chest Chest palpation & inspection: normal inspection of the chest Resp Effort & Inspection: normal respiratory effort Auscultation: clear to auscultation bilaterally Cardio Palpation: normal PMI Rate: regular rate Rhythm: regular rhythm Heart sounds: S1 normal heart sound present, S2 normal heart sound present and no murmurs GI Inspection: Yes scar (lower midline scar) and Yes visible herniation (reducible supraumblical hernia) Palpation (GI): Soft to palpation, nontender and No hepatosplenomegaly present Auscultation: normal bowel sounds Rectal Exam - Female: deferred Skin General skin exam: no rashes or lesions noted Neuro General: patient oriented x3, gait normal and moves all extremities Cranial nerves: Yes Equal, round and reactive pupils present Psych Appearance: grossly normal Mental Status: mental status grossly normal Assessment & Plan Assessment & Plan (1) NAFL (nonalcoholic fatty liver): Code(s): K76.0 - Fatty (change of) liver, not elsewhere classified Category: Medical (2) Lactose intolerance: Code(s): E73.9 - Lactose intolerance, unspecified Category: Medical (3) GERD (gastroesophageal reflux disease): Comment: Continue Dexilant Capsule Delayed Release, 60 MG, 1 capsule at suppertime, Orally, Once a day, Code(s): K21.9 - Gastro-esophageal reflux disease without esophagitis Category: Medical (4) Elevated LFTs: Comment: hepatitis C was negative. Hepatitis-B serologies were consistent with past infection. TERRENCE, antimitochondrial antibody and celiac sprue serologies were negative. Abdominal ultrasound showed fatty liver. Patient was advised to work on weight reduction. Code(s): R79.89 - Other specified abnormal findings of blood chemistry Category: Medical (5) Chronic constipation: Comment: Continue Magnesium Oxide 400 MG, 1-2 tablets at bedtime and Linzess Capsule, 290 MCG, 1 capsule, Orally, Once a day, Code(s): K59.09 - Other constipation Category: Medical (6) Epigastric pain: Code(s): R10.13 - Epigastric pain Category: Medical (7) Colon cancer screening: Comment: Colonoscopy in August [address] Cassidy showed sigmoid diverticulosis and no polyps and repeat colonoscopy was advised in 10 years - action was set in [facility]. Code(s): Z12.11 - Encounter for screening for malignant neoplasm of colon Category: Medical (8) Supraumbilical hernia: Comment: A 1.5 to 2 cms firm rounded smooth slightly tender mass just above the umbilicus - ? hernia, cyst or submucosal lipoma Code(s): K43.9 - Ventral hernia without obstruction or gangrene Category: Medical Plan 58 YF with heartburn, headaches, hypercholesterolemia, prediabetic, varicose veins, vitamin D def, Obesity and sleep apnea followed in GI for peristent epigastric pain and abdominal bloating. EGD in 2014 showed esophagitis,? hemorrhagic gastritis and duodenitis. Patient takes naproxen intermittently. 10/02/18 EGD showed a small hiatal hernia with focal esophagitis at GE junction with a 1 cms ulcer/erosion covered with white exudate and erosive gastritis. Biopsies showed chronic inactive gastritis without Helicobacter organisms.? Patient admitted to taking Dexilant and Linzess p.r.n. and was advised to take them daily and monitor her symptoms and use simethicone p.r.n. Abdominal bloating likely related to chronic constipation.? Constipation has improved with Linzess once daily. Serologies for celiac disease were negative in 2014. Colonoscopy in August [address] Cassidy showed sigmoid diverticulosis and no polyps and repeat colonoscopy was advised in 10 years - action was set in [facility]. ELEVATED LFTS;?hepatitis C was negative. Hepatitis-B serologies were consistent with past infection. TERRENCE, antimitochondrial antibody and celiac sprue serologies were negative. Abdominal ultrasound showed fatty liver. Patient was advised to work on weight reduction. ETOH level 204 in 11/[address] scan showed scattered sigmoid and descending colon diverticulosis. A well-defined round structure left retroperitoneum not connected to kidneys ovaries -? question lymphocele Sucralfate 1 gm twice daily was added to her GERD treatment regimen. 05/27/22 EGD was performed and findings as noted above. 01/22/24 Taking a PPI daily Taking Linzess and having a BM once a day. She is on a diet and lost 3 lbs. Occasional rectal bleeding when she strains. Pt advised to schedule an abdominal ultrasound with elastography and labs to evaluate for chronic liver disease (FU of elevated LFTs) She was referred to General Surgery for evaluation of supraumblical hernia 05/13/24 Lab and US results reviewed - LFTs improved with wt reduction Taking a PPI daily Taking Linzess and having a BM once a day. FU appt in 6 months Coding Level of Care Code Est Pt Level 3 (31833) Diagnoses NAFL (nonalcoholic fatty liver) K76.0 Lactose intolerance E73.9 GERD (gastroesophageal reflux disease) K21.9 Elevated LFTs R79.89 Chronic constipation K59.09 Epigastric pain R10.13 Colon cancer screening Z12.11 Supraumbilical hernia K43.9 Time Spent (min) 20
[2024-05-13 08:06] VITALS: BP 126/75; PULSE 79; BMI 37.7
== END 2024-05-13 08:37 | disposition home or self-care (01) ==
PROVIDERS: PCP Nurse Practitioner Primary Care; Visit Provider Internal Medicine Gastroenterology
DX: K76.0 Fatty (change of) liver, not elsewhere classified (principal); E73.9 Lactose intolerance, unspecified; K21.9 Gastro-esophageal reflux disease without esophagitis; R74.01 Elevation of levels of liver transaminase levels; K59.09 Other constipation; Z12.11 Encounter for screening for malignant neoplasm of colon; K43.9 Ventral hernia without obstruction or gangrene
CPT/HCPCS: 99213

== ENCOUNTER → 2024-05-13 07:53 | Outpatient (BNVA) | payer MEDICAID, SELFPAY | PROVIDERS: PCP Nurse Practitioner Primary Care; Visit Provider Internal Medicine Gastroenterology | DX: Z12.11 Encounter for screening for malignant neoplasm of colon (principal); K59.09 Other constipation; K43.9 Ventral hernia without obstruction or gangrene; K21.9 Gastro-esophageal reflux disease without esophagitis; K76.0 Fatty (change of) liver, not elsewhere classified; E73.9 Lactose intolerance, unspecified; R79.89 Other specified abnormal findings of blood chemistry; R10.13 Epigastric pain | CPT/HCPCS: 99212 ==

== ENCOUNTER → 2024-06-07 13:44 | Outpatient (BNVA) | payer OTHER, SELFPAY | PROVIDERS: PCP Nurse Practitioner Primary Care; Referring Provider Internal Medicine Gastroenterology; Visit Provider Surgery | DX: K42.0 Umbilical hernia with obstruction, without gangrene (principal); E66.01 Morbid (severe) obesity due to excess calories; Z68.38 Body mass index [BMI] 38.0-38.9, adult | CPT/HCPCS: 99212 ==

== ENCOUNTER 2024-06-21 10:04 | Outpatient (AMB) | payer MEDICAID, SELFPAY ==
--- NOTE | 2024-06-21 10:32 | MHC.OFFVIS ---
Vital Signs 06/21/24 10:39 Height 5 ft 3 in Weight 213 lb BMI 37.7 BP 130/80 Blood Pressure Location Lt brachial Position Sitting Pulse 86 Pulse Source Pulse Oximeter Pulse Oximetry (%) 94 Oxygen Delivery Method Room Air Intake Visit Reasons: Follow Up - Conf Mental Health Nurse Required: Yes Mental Health Nurse Services: Mental Health Nurse Present Accompanied by: Self / Same As Patient Allergies SEAFOOD Allergy (Intermediate, Uncoded 06/21/24 10:38) ANGIOEDEMA lactose intolerant Allergy (Unknown, Uncoded 06/21/24 10:38) stomach pain and heart burn Medication List - Last Reconciled 06/21/24 by TASNEEM Sweeney albuterol sulfate 90 mcg/actuation (Ventolin HFA) 2 puffs inhalation Q6H PRN biotin 10,000 mcg PO DAILY bupropion HCl XL 150 mg PO QAM [id number]-zjdjpostrjgke-bmdu 50-325-40 mg 1 tab PO .prn cholecalciferol (vitamin D3) (Vitamin D3) 50 mcg PO DAILY citalopram 20 mg PO DAILY cyclobenzaprine 10 mg PO Q8H dexlansoprazole (Dexilant) 60 mg (2 x 30 mg) PO DAILY 90 days diphenhydramine HCl (Benadryl) 50 mg (2 x 25 mg) PO ONCE PRN 1 day docusate sodium 100 mg PO DAILY doxepin 25 mg PO BEDTIME dulaglutide (Trulicity) 1.5 mg subcut QWEEK duloxetine 60 mg PO DAILY epinephrine (EpiPen) 0.3 mg IM Q10M PRN fluticasone propionate 50 mcg/actuation (24 Hour Allergy Relief) 1 spray intranasal BID linaclotide (Linzess) 145 mcg PO QAM 90 days loratadine (Allergy Relief (loratadine)) 10 mg PO DAILY lorazepam 1 mg PO BEDTIME PRN magnesium oxide 400 mg PO DAILY PRN 30 days metformin ER mg PO rosuvastatin 5 mg PO DAILY Saccharomyces boulardii (Probiotic (S.boulardii)) 250 mg PO BID semaglutide (Ozempic) 1 mg subcut QWEEK simethicone (Gas Relief (simethicone)) 125 mg PO BID-QID PRN sucralfate (Carafate) 1 g PO BID 30 days tizanidine 2 mg PO Q8H PRN topiramate 50 mg PO BEDTIME topiramate XR 50 mg PO DAILY tramadol 50 mg PO Q6H PRN HPI Comments Details: 59-y/o female patient presents for follow up of moderate obstructive sleep apnea. Patient reports she has not been able to use her CPAP machine for greater than 1 year, as it is broken and does not work. She states, when she was using her CPAP, she was sleeping better and having less daytime tiredness. She states she tolerated her previous CPAP settings of 13 cm H2O well. Now, she continues to have difficulty sleeping, snoring, gasping arousals at night. She also notes, that she needs a refill on her doxepin, as her psychiatrist left, and she is waiting for an appointment with a new one. [facility] Medical History (Updated 06/21/24 @ 11:04 by TASNEEM Sweeney) Morbid obesity Irreducible umbilical hernia Multiple lipomas Lumbar radiculopathy Morbid obesity with BMI of 40.0-44.9, adult Epigastric pain Chronic constipation Elevated LFTs Hypercholesterolemia Vitamin D deficiency Bilateral wrist pain History of Helicobacter pylori infection (~06/2014) GERD (gastroesophageal reflux disease) Lactose intolerance NAFL (nonalcoholic fatty liver) Obstructive sleep apnea Surgical History History of hand surgery Status post excision of lipoma (~07/09/23) H/O: History of colonoscopy Family History Unknown No problems noted. Social History Household Members: Family Alcohol intake: current Alcohol intake frequency: a few times a month Patient Tobacco Use Status: Never used Tobacco Physical Exam Vital Signs: Last Vital Signs Pulse 86 06/21/24 10:39 BP 130/80 06/21/24 10:39 Pulse Ox 94 06/21/24 10:39 Oxygen Delivery Method Room Air 06/21/24 10:39 BMI result Body Mass Index 37.7 Const General: no acute distress Orientation/consciousness: patient oriented x3 Resp Effort & Inspection: normal respiratory effort and able to speak in complete sentences Neuro General: patient oriented x3 Psych Mental Status: mental status grossly normal Speech and movement: Clear speech present Attitude: cooperative Assessment & Plan Assessment & Plan (1) Moderate obstructive sleep apnea: Code(s): G47.33 - Obstructive sleep apnea (adult) (pediatric) Category: Medical (2) Sleep difficulties: Code(s): G47.9 - Sleep disorder, unspecified Category: Medical (3) Fatigue: Code(s): R53.83 - Other fatigue Category: Medical Plan Patient advised to resume CPAP 13 cm H2O nightly > 4 hours, as patient previously had good benefit from use. Order written to have patient resume CPAP 13 cm H2O nightly > 4 hrs and for CPAP machine evaluation/replacement. Patient's current respiratory company: [employer]. We will also initiate an order for follow-up in-lab PSG to assess status of sleep apnea, in order to requalify patient to resume CPAP tx. We will refill doxepin 25 mg q.h.s., until she establishes care with a new psychiatrist. Will follow-up upon review of above and patient to follow-up in clinic in 6 months or sooner prn. Orders: Orders RT PSG in-lab sleep study Today G47.33 - Obstructive sleep apnea (adult) (pediatric), G47.9 - Sleep disorder, unspecified, R53.83 - Other fatigue Medications: Changed From doxepin 25 mg PO BEDTIME To doxepin 25 mg PO BEDTIME 30 caps 1RF 30 days Coding Level of Care Code Est Pt Level 4 (04920) Diagnoses Moderate obstructive sleep apnea G47.33 Sleep difficulties G47.9 Fatigue R53.83
[2024-06-21 10:39] VITALS: BP 130/80; PULSE 86; O2SAT 94; BMI 37.7
== END 2024-06-21 11:03 | disposition home or self-care (01) ==
PROVIDERS: PCP Nurse Practitioner Primary Care; Visit Provider Nurse Practitioner Family
DX: G47.33 Obstructive sleep apnea (adult) (pediatric) (principal); G47.9 Sleep disorder, unspecified; R53.83 Other fatigue
CPT/HCPCS: 99214

== ENCOUNTER → 2024-06-21 10:04 | Outpatient (BNVA) | payer MEDICAID, SELFPAY | PROVIDERS: PCP Nurse Practitioner Primary Care; Visit Provider Nurse Practitioner Family | DX: G47.33 Obstructive sleep apnea (adult) (pediatric) (principal); G47.9 Sleep disorder, unspecified; R53.83 Other fatigue | CPT/HCPCS: 99212 ==

== ENCOUNTER → 2024-07-07 19:30 | Outpatient (REF) | payer MEDICAID, SELFPAY | LOC: HO.SL 19:30 | PROVIDERS: PCP Nurse Practitioner Primary Care; Visit Provider Nurse Practitioner Family | DX: G47.33 Obstructive sleep apnea (adult) (pediatric) (principal); G47.9 Sleep disorder, unspecified; R53.83 Other fatigue | CPT/HCPCS: 95810 ==

== ENCOUNTER 2024-07-30 10:41 | Day surgery (SDC) | payer MEDICAID, SELFPAY ==
[2024-07-30] VITALS (7 sets, daily range): BP systolic 104–118; BP diastolic 64–81; PULSE 78–90; RESP 12–16; TEMP 35.8–36.1; O2SAT 92–97; BMI 37.6
[2024-07-30] MEDS: Lactated Ringers 1,000 ML 100 ML IVCONT (11:39)
[2024-07-30 11:49] LABS: Glucose, Whole Blood 164 mg/dL (60-115)
--- NOTE | 2024-07-30 12:30 | P.CONAN_ITS ---
Documented by User: Huma Ruiz NP 07/29/24 09:12 HPI - Anesthesia Eval Consult details Narrative: 59yo F for Hernial Umbilical Irreducible with possible mesh Anesthesia Pre-Procedure Meds Is the patient on any of the following meds?: GLP1/DPP4 PMFSH Active Problems Active Problems: All Active Problems Fatigue (Acute) Sleep difficulties (Acute) Moderate obstructive sleep apnea (Acute) Arthritis of right knee (Acute) NABIL on CPAP (Acute) Cough (Acute) Supraumbilical hernia (Acute) COVID-19 (Acute) Colon cancer screening (Acute) Morbid obesity (Acute) Irreducible umbilical hernia (Acute) Multiple lipomas (Acute) Lumbar radiculopathy (Acute) Morbid obesity with BMI of 40.0-44.9, adult (Acute) Epigastric pain (Acute) Chronic constipation (Acute) Elevated LFTs (Acute) Vitamin D deficiency (Acute) GERD (gastroesophageal reflux disease) (Acute) Lactose intolerance (Acute) NAFL (nonalcoholic fatty liver) (Acute) Past Medical History Medical History (Updated 07/28/24 @ 15:39 by Gita Walker RN) NABIL (obstructive sleep apnea) Morbid obesity Irreducible umbilical hernia Multiple lipomas Lumbar radiculopathy Morbid obesity with BMI of 40.0-44.9, adult Epigastric pain Chronic constipation Elevated LFTs Hypercholesterolemia Vitamin D deficiency Bilateral wrist pain History of Helicobacter pylori infection (~06/2014) GERD (gastroesophageal reflux disease) Lactose intolerance NAFL (nonalcoholic fatty liver) Obstructive sleep apnea Family History Family History Unknown No problems noted. Family history of problems with anesthesia: No Surgical History Surgical History History of hand surgery Status post excision of lipoma (~07/09/23) H/O: History of colonoscopy History of Problems with Anesthesia: No Social History Social History Household Members: Family Alcohol intake: current Alcohol intake frequency: a few times a month Patient Tobacco Use Status: Never used Tobacco Use of substances other than those prescribed or required for medical reasons: No Are you DNR?: No Advance Directives: No Advance Directives Information Provided: Yes Recently lost weight without trying: No Nutrition Risks: No Nutritional Risk Patient : No Meds Allergies Allergy/AdvReac Type Severity Reaction Status Date / Time lactose intolerant Allergy Intermediate stomach Uncoded 07/28/24 16:16 pain and heart burn SEAFOOD Allergy Intermediate ANGIOEDEMA Uncoded 07/28/24 16:16 Home Medications ?Medication ?Instructions ?Recorded ?Confirmed ?Last Taken ?Type Saccharomyces boulardii 250 mg 250 mg PO BID 02/18/20 06/21/24 Unknown History capsule (Probiotic (S.boulardii)) biotin 10,000 mcg capsule 10,000 mcg PO DAILY 02/18/20 06/21/24 Unknown History cholecalciferol (vitamin D3) 50 50 mcg PO DAILY 02/18/20 06/21/24 Unknown History mcg (2,000 unit) capsule (Vitamin D3) citalopram 20 mg tablet 20 mg PO DAILY 02/18/20 06/21/24 Unknown History docusate sodium 100 mg capsule 100 mg PO DAILY 02/18/20 06/21/24 Unknown History epinephrine 0.3 mg/0.3 mL 0.3 mg IM Q10M PRN Allergy Symptoms 02/18/20 06/21/24 Unknown History injection, auto-injector (EpiPen) loratadine 10 mg tablet (Allergy 10 mg PO DAILY 02/18/20 06/21/24 Unknown History Relief (loratadine)) lorazepam 1 mg tablet 1 mg PO BEDTIME PRN Anxiety 02/18/20 06/21/24 Unknown History simethicone 125 mg capsule (Gas 125 mg PO BID-QID PRN Acid Reflux 02/18/20 06/21/24 Unknown History Relief (simethicone)) topiramate 50 mg capsule 50 mg PO DAILY 02/18/20 06/21/24 Unknown History sprinkle,extended release 24 hr aktcmokhvl-pltxeyazdaemd-tslmaxny 1 tab PO .prn 06/26/22 06/21/24 Unknown History 50 mg-325 mg-40 mg tablet albuterol sulfate 90 mcg/actuation 2 puff inhalation Q6H PRN wheezing 06/18/23 06/21/24 Unknown History aerosol inhaler (Ventolin HFA) dulaglutide 1.5 mg/0.5 mL 1.5 mg subcut QWEEK 06/18/23 06/21/24 07/19/24 History subcutaneous pen injector (Trulicity) duloxetine 60 mg capsule,delayed 60 mg PO DAILY 06/18/23 06/21/24 Unknown History release metformin 500 mg tablet,extended mg PO 06/18/23 06/21/24 Unknown History release 24 hr rosuvastatin 5 mg tablet 5 mg PO DAILY cholesterol 06/18/23 06/21/24 Unknown History tizanidine 2 mg tablet 2 mg PO Q8H PRN muscle spasm 06/18/23 06/21/24 Unknown History bupropion HCl 150 mg 24 hr tablet, 150 mg PO QAM 06/07/24 06/21/24 Unknown History extended release semaglutide 1 mg/dose (4 mg/3 mL) 1 mg subcut QWEEK 06/07/24 06/21/24 07/19/24 History subcutaneous pen injector (Ozempic) topiramate 50 mg tablet 50 mg PO BEDTIME 06/07/24 06/21/24 Unknown History Assessment and Plan Assessment Anesthesia Assessment: Chart Reviewed Final Anesthetic Review Family History of Problems with Anesthesia: No History of Problems with Anesthesia: No Documented by User: Abby Limon DO 07/30/24 12:32 HPI - Anesthesia Eval Anesthesia Pre-Procedure Meds Is the patient on any of the following meds?: GLP1/DPP4 [facility] Past Medical History Medical History (Updated 07/28/24 @ 15:39 by Gita Walker, CARRIE) NABIL (obstructive sleep apnea) Morbid obesity Irreducible umbilical hernia Multiple lipomas Lumbar radiculopathy Morbid obesity with BMI of 40.0-44.9, adult Epigastric pain Chronic constipation Elevated LFTs Hypercholesterolemia Vitamin D deficiency Bilateral wrist pain History of Helicobacter pylori infection (~06/2014) GERD (gastroesophageal reflux disease) Lactose intolerance NAFL (nonalcoholic fatty liver) Obstructive sleep apnea Family History Family History Unknown No problems noted. Family history of problems with anesthesia: No Surgical History Surgical History History of hand surgery Status post excision of lipoma (~07/09/23) H/O: History of colonoscopy History of Problems with Anesthesia: No Social History Social History Household Members: Family Alcohol intake: current Alcohol intake frequency: a few times a month Patient Tobacco Use Status: Never used Tobacco Use of substances other than those prescribed or required for medical reasons: No Are you DNR?: No Advance Directives: No Advance Directives Information Provided: Yes Recently lost weight without trying: No Nutrition Risks: No Nutritional Risk Patient : No Meds Allergies Allergy/AdvReac Type Severity Reaction Status Date / Time lactose intolerant Allergy Intermediate stomach Uncoded 07/28/24 16:16 pain and heart burn SEAFOOD Allergy Intermediate ANGIOEDEMA Uncoded 07/28/24 16:16 Home Medications ?Medication ?Instructions ?Recorded ?Confirmed ?Last Taken ?Type Saccharomyces boulardii 250 mg 250 mg PO BID 02/18/20 06/21/24 Unknown History capsule (Probiotic (S.boulardii)) biotin 10,000 mcg capsule 10,000 mcg PO DAILY 02/18/20 06/21/24 Unknown History cholecalciferol (vitamin D3) 50 50 mcg PO DAILY 02/18/20 06/21/24 Unknown History mcg (2,000 unit) capsule (Vitamin D3) citalopram 20 mg tablet 20 mg PO DAILY 02/18/20 06/21/24 Unknown History docusate sodium 100 mg capsule 100 mg PO DAILY 02/18/20 06/21/24 Unknown History epinephrine 0.3 mg/0.3 mL 0.3 mg IM Q10M PRN Allergy Symptoms 02/18/20 06/21/24 Unknown History injection, auto-injector (EpiPen) loratadine 10 mg tablet (Allergy 10 mg PO DAILY 02/18/20 06/21/24 Unknown History Relief (loratadine)) lorazepam 1 mg tablet 1 mg PO BEDTIME PRN Anxiety 02/18/20 06/21/24 Unknown History simethicone 125 mg capsule (Gas 125 mg PO BID-QID PRN Acid Reflux 02/18/20 06/21/24 Unknown History Relief (simethicone)) topiramate 50 mg capsule 50 mg PO DAILY 02/18/20 06/21/24 Unknown History sprinkle,extended release 24 hr tmutsmwruf-ildixigkmqbph-wvvnehdy 1 tab PO .prn 06/26/22 06/21/24 Unknown History 50 mg-325 mg-40 mg tablet albuterol sulfate 90 mcg/actuation 2 puff inhalation Q6H PRN wheezing 06/18/23 06/21/24 Unknown History aerosol inhaler (Ventolin HFA) dulaglutide 1.5 mg/0.5 mL 1.5 mg subcut QWEEK 06/18/23 06/21/24 07/19/24 History subcutaneous pen injector (Trulicity) duloxetine 60 mg capsule,delayed 60 mg PO DAILY 06/18/23 06/21/24 Unknown History release metformin 500 mg tablet,extended mg PO 06/18/23 06/21/24 Unknown History release 24 hr rosuvastatin 5 mg tablet 5 mg PO DAILY cholesterol 06/18/23 06/21/24 Unknown History tizanidine 2 mg tablet 2 mg PO Q8H PRN muscle spasm 06/18/23 06/21/24 Unknown History bupropion HCl 150 mg 24 hr tablet, 150 mg PO QAM 06/07/24 06/21/24 Unknown Histo ry extended release semaglutide 1 mg/dose (4 mg/3 mL) 1 mg subcut QWEEK 06/07/24 06/21/24 07/19/24 History subcutaneous pen injector (Ozempic) topiramate 50 mg tablet 50 mg PO BEDTIME 06/07/24 06/21/24 Unknown History Exam Exam Date and Time: 07/30/24 1230 Height,Weight and Vital Signs: Height 5 ft 3 in Weight 96.4 kg Vital Signs Temperature 96.4 F L 07/30/24 11:22 Pulse Rate 86 07/30/24 11:22 Respiratory Rate 16 07/30/24 11:22 Blood Pressure 118/81 07/30/24 11:22 Pulse Oximetry 93 07/30/24 11:22 Oxygen Delivery Method Room Air 07/30/24 11:22 Temperature 96.4 F L 07/30/24 11:22 Pulse Rate 86 07/30/24 11:22 Respiratory Rate 16 07/30/24 11:22 Blood Pressure 118/81 07/30/24 11:22 Pulse Oximetry 93 07/30/24 11:22 Oxygen Delivery Method Room Air 07/30/24 11:22 Airway Mallampati Class: III TM Dist: >3cm Neck ROM: Full Loose/Missing/Broken Teeth: Yes (missing molars left bottom jaw) Heart: S1S2 Lungs: CTAB Assessment and Plan Assessment Anesthesia Assessment: Anesthesia Plan Discussed and Chart Reviewed Final Anesthetic Review Family History of Problems with Anesthesia: No History of Problems with Anesthesia: No NPO: Yes ASA Class: II Final Preanesthetic Review: No Changes in Pt Med Stat, Meds/Allgs Chart Reviewed, Consent Obtained/Reviewed and Anes Risks/Benef Reviewed Patient Risk: Low Procedure Risk: Low Anesthetic Plan Anesthetic Plan: GA and Agree w/ Assess. and Plan Disposition: Standard PACU
--- NOTE | 2024-07-30 13:42 | MHC.SHP ---
Pre-Procedural Eval Section A - 24 Hr Update-Section A only Date of Service: 07/30/24 Section B - Complete if H&P > 30 days Chief Complaint: Umbilical hernia with obstruction, without gangren Details of Present Illness: Has a reducible umbilical hernia Relevant Family History (Specify if Yes): No Relevant Social History: None Present Medications: see Short Stay Collaborative assessment Medical History: Significant History (Obstructive sleep apnea, arthritis, morbid obesity, GERD, lumbar radiculopathy) Allergies: Allergies Allergy/AdvReac Type Severity Reaction Status Date / Time lactose intolerant Allergy Intermediate stomach Uncoded 07/28/24 16:16 pain and heart burn SEAFOOD Allergy Intermediate ANGIOEDEMA Uncoded 07/28/24 16:16 Review of Systems Sugical H&P ROS: Negative: Constitution, Cardiovascular, Respiratory and Gastrointestinal Exam Surgical H&P Exam: Normal: Heart and Normal: Lungs and Significant Findings: Abdomen (Reducible umbilical hernia) Plan Diagnosis/Plan: Unchanged I have reviewed the history and physical and performed a pertinent physical examination on my patient. No changes have occurred unless specified. Time Spent With Patient Time: Total time managing care of this patient today ____ minutes.
[2024-07-30] MEDS: ceFAZolin Sodium/Dextrose,Iso 2 GM/50 ML PIGGYBACK IV (14:05)
--- NOTE | 2024-07-30 14:52 | P.OP_ITS ---
Operative Note Operative Note Date of Service: 07/30/24 Narrative: Preop diagnosis: Supraumbilical hernia, reducible Postop diagnosis: The same Procedure: Repair of supraumbilical hernia with Ventralex mesh Surgeon: Milo Sanders MD Canine Enforcement Officer: James Taveras MS 3 The patient is a 59-year-old female with a nonreducible supraumbilical hernia. She understood the technique of repair with mesh and she was aware of the risks, benefits, and alternatives She was brought to the operating room. She was placed supine under general anesthesia via laryngeal mask airway. The abdomen was prepped and draped in the usual sterile fashion. A surgical time-out was done. The patient received cefazolin 2 g IV preoperatively I infiltrated the planned line of incision with lidocaine 1%. I made a supraumbilical curvilinear transverse incision with a blade 15. This carried down through the full-thickness of the skin and subcutaneous fat with electrocautery. I then proceeded to dissect the umbilicus as a flap off of the cutaneous layer and the hernia contents Metzenbaum scissors. I then proceeded to isolate the hernia which contained fat. I sharply dissected the hernia sac off of the rest of the fascial edge with Metzenbaum scissors. I I opened up the sac and the hernia contents. The sac was excised and this was sent as specimen. By doing so was able to reduce the entire hernia through the fascial defect. This was all fat containing. Distal defect was about 1.5 cm in diameter. I therefore used a small-sized Ventralex mesh. This was positioned flat under the fascia. I secured the Prolene straps of the mesh to the fascial edge on both sides with Prolene 2 sutures. I trimmed the Prolene straps flush on the fascial level Closed the small fascial defect with a [id number] Maxon 1 stitch I applied Polysorb 3-0 sutures to tack the umbilicus back to the fascia. I reapposed the subcutaneous fat with Polysorb 3-0 sutures. Skin closure was achieved Polysorb 4-0 subcuticular running sutures. I infiltrated the area with Marcaine 0.5% for postop analgesia Dressings were applied. The procedure was completed The patient tolerated the procedure well. There were no immediate complications. Initial and final counts of sponges and instruments were correct. Estimated blood loss was about cc. The patient was extubated without difficulty and transferred to the recovery room with stable vital signs
[2024-07-30] MEDS: oxyCODONE HCl Immed Release 5 MG TABLET PO (15:32)
== END 2024-07-30 15:57 | disposition home or self-care (01) ==
PROVIDERS: PCP Nurse Practitioner Primary Care; Visit Provider Surgery
PROC: (CPT 49592; principal; 2024-07-30 15:00)
DX: K43.6 Other and unspecified ventral hernia with obstruction, without gangrene (principal); G89.29 Other chronic pain; R10.13 Epigastric pain; R14.0 Abdominal distension (gaseous); K21.9 Gastro-esophageal reflux disease without esophagitis; K59.09 Other constipation; K76.0 Fatty (change of) liver, not elsewhere classified; E78.00 Pure hypercholesterolemia, unspecified; E55.9 Vitamin D deficiency, unspecified; E66.01 Morbid (severe) obesity due to excess calories; Z68.38 Body mass index [BMI] 38.0-38.9, adult; Z79.84 Long term (current) use of oral hypoglycemic drugs; Z79.85 Long-term (current) use of injectable non-insulin antidiabetic drugs; Z79.899 Other long term (current) drug therapy; E73.9 Lactose intolerance, unspecified; Z91.013 Allergy to seafood
CPT/HCPCS: 49592; 82947; 88302; C1781; J0690; J1100; J2003; J2250; J2405; J2704; J2795; J3010

== ENCOUNTER → 2024-07-30 10:41 | Outpatient (BNV) | payer MEDICAID, SELFPAY | PROVIDERS: PCP Nurse Practitioner Primary Care; Visit Provider Surgery | DX: K43.9 Ventral hernia without obstruction or gangrene (principal) | CPT/HCPCS: 49591 ==

== ENCOUNTER → 2024-08-12 12:52 | Outpatient (BNVA) | payer MEDICAID, SELFPAY | PROVIDERS: PCP Nurse Practitioner Primary Care; Visit Provider Surgery | DX: Z09 Encounter for follow-up examination after completed treatment for conditions other than malignant neoplasm (principal); Z87.19 Personal history of other diseases of the digestive system; Z98.890 Other specified postprocedural states | CPT/HCPCS: 99211 ==

== ENCOUNTER 2024-09-01 09:24 | Outpatient (AMB) | payer MEDICAID, SELFPAY ==
--- NOTE | 2024-09-01 09:26 | A.OFFVIS_ITS ---
Vital Signs 09/01/24 09:40 Height 5 ft 3 in Weight 214 lb BMI 37.9 BP 135/80 Blood Pressure Location Lt brachial Position Sitting Pulse 94 Intake Visit Reasons: s/p umbilical hernia surgery Intake Note: Patient is seen in office for post op assessment post repair of supraumbilical hernia. Pt c/o: admits to rash due to tape/strips, denies discharge, or other concerns surgery:07/30/24 Allergies lactose intolerant Allergy (Intermediate, Uncoded 07/28/24 16:16) stomach pain and heart burn SEAFOOD Allergy (Intermediate, Uncoded 07/28/24 16:16) ANGIOEDEMA HPI HPI s/p umbilical hernia surgery: Details: She underwent repair of a supraumbilical hernia with Ventralex mesh last 07/30/2024. She tolerated procedure well. She is here for postop visit She says she is doing well at home. She denies any significant pain. She also says that she wants 2 skin tags removed from the pubic area. She says that she has difficulty with hygiene because of this. [facility] Medical History (Updated 09/01/24 @ 09:47 by Milo Sanders MD) Benign skin papilloma NABIL (obstructive sleep apnea) Morbid obesity Irreducible umbilical hernia Multiple lipomas Lumbar radiculopathy Morbid obesity with BMI of 40.0-44.9, adult Epigastric pain Chronic constipation Elevated LFTs Hypercholesterolemia Vitamin D deficiency Bilateral wrist pain History of Helicobacter pylori infection (~06/2014) GERD (gastroesophageal reflux disease) Lactose intolerance NAFL (nonalcoholic fatty liver) Obstructive sleep apnea Surgical History Hx of hernia repair (07/30/24) History of hand surgery Status post excision of lipoma (~07/09/23) H/O: History of colonoscopy Family History Unknown No problems noted. Social History Household Members: Family Alcohol intake: current Alcohol intake frequency: a few times a month Patient Tobacco Use Status: Never used Tobacco Review of Systems Const Denies fever(s) Card Denies chest pain GI Denies abdominal pain and Denies vomiting Physical Exam Const General: comfortable and no acute distress Resp Effort & Inspection: normal respiratory effort Cardio Rate: regular rate GI Other: Incision clean and dry, no signs of recurrence Palpation (GI): Soft to palpation, not firm, nontender and no guarding Other: Two small papillomatous lesions adjacent to each other, each about 2 mm in size in the left pubic area Assessment & Plan Assessment & Plan (1) Supraumbilical hernia: Comment: A 1.5 to 2 cms firm rounded smooth slightly tender mass just above the umbilicus - ? hernia, cyst or submucosal lipoma Code(s): K43.9 - Ventral hernia without obstruction or gangrene Category: Medical Plan: Status post hernia repair with mesh. She is doing very well. The incisions well healed. The repair site is intact. I advised her to avoid lifting anything more than 20 lb for at least 2 more weeks. Advised her on the benefits of weight loss. (2) Benign skin papilloma: Code(s): D23.9 - Other benign neoplasm of skin, unspecified Category: Medical Plan: She has 2 small papillomatous skin lesions each about 2 mm in size on the left oblique area. The area was prepped and draped. I excised these with fine scissors. I applied Band-Aids as dressings. There was minimal blood loss. I explained to her wound care. Coding Level of Care Code Est Pt Level 2 (70914) Diagnoses Supraumbilical hernia K43.9 Benign skin papilloma D23.9
[2024-09-01 09:40] VITALS: BP 135/80; PULSE 94; BMI 37.9
--- OUTSIDE RECORDS SUMMARY | 2024-09-01 10:23 | XMS_ITS | Encounter Summary ---
Author Organization [employer] Address [address] [facility] [place] [address] Care Team Providers Care Courier Name Role Phone Cathie Becerra Primary Care Provider [phone] Reason for Visit * Reason Onset Date Comments Nurse Triage 10/20/2023 Encounter Details Date Type Department Care Team ([facility] st Contact Info) Description 10/20/[address] [facility] [address] [place], [place] [id number] Cathie Becerra ANP [address] [place] [address] Nurse Triage Social History Tobacco Use Types Packs/Day Years Used Date Smoking Tobacco: Never Smokeless Tobacco: Never Alcohol Use Standard Drinks/Week Comments Not Currently 0 (1 standard drink = 0.6 oz pur e alcohol) Housing Stability Answer Date Recorded What is your housing situation today? I have emmajennifer mcneill 02/24/[address] you li ve. Do you have problems with any of the following? None of the above 02/24/2023 Food Insecurity Answer Date Recorded Within the past 12 months, y ou worried that your food would run out before you got money to buy more: Never True 02/24/2023 Within the past 12 months,th e food you bought just didn't last and you didn't have enough money to get more: Never True Transportation Answer Date Recorded In the past 12 months, has l ack of transportation kept you from medical appts, meetings, work or from getting things needed for daily living? No 02/24/2023 Utilities Answer Date Recorded In the past 12 months, has t he electric, gas, oil or water company threatened to shut off services in your home? No 02/24/2023 Depression Answer Date Recorded Patient Health Questionnaire-2 Score 0 09/12/2022 Comments No Sex and Gender Information Value Date Recorded Sex Assigned at Female 03/11/2022 10:14 AM EDT Legal Sex Female 10:14 AM EDT Gender Identity Female 03/11/2022 10:14 AM EDT Sexual Orientation Choose not to disclose 2022 4:36 PM EDT Sexual Orientation Straight 08/14/2022 4: 36 PM EDT documented as of this encounter Miscellaneous Notes * Telephone Encounter - Krystal Hinton RN - 10/20/2023 4:57 PM EDT Triage call with [employer] [place] [id number] Pt reports since last Friday has had some rectal bleeding. Pt denies constipation and reports diarrhea today with some drops of blood seen in toilet. Pt denies pain, dizziness, light headedness and isn't sure if Pt has hemorrhoids. Pt is advised to come to [facility] which is open till 8pm today. Pt agrees with this disposition and will come after 530pm when out of work. Pt insurance is verified as active. Protocol Used: Rectal Bleeding (Adult) Protocol-Based Disposition: See in Office or Video Visit Today Positive Triage Questions: * Moderate rectal bleeding (small blood clots, passing blood without stool, or toilet water turns red) * Patient wants to be seen * All higher-acuity triage questions were negative Care Advice Discussed: * Reassurance and Education - Mild Rectal Bleeding * Reasons To Call Back - Bleeding increases in amount - Bleeding occurs 3 or more times after using Care Advice - You become worse * Telephone Encounter - Joel Joyner - 10/20/2023 2:23 PM EDT Symptom: Stools - Blood Mixed In Outcome: Talk to a nurse or provider within 15 minutes Reason: Large amount of blood The caller accepted this outcome Patient speaks romanian documented in this encounter Plan of Treatment Upcoming Encounters Date Type Department Care Team (Late st Contact Info) Description 12/01/2024 8:00 AM EDT Office Visit [facility] [address] [place] [address] Lissa Casey 12/02/2024 9:30 AM EDT Office Visit [facility] [address] [place] [address] Cathie Becerra ANP [address] [place] [address] documented as of this encounter Visit Diagnoses Not on filedocumented in this encounter Care Teams Courier Relationship Specialty Start Date End Date Cathie Becerra ANP [address] [place] [address] PCP - General Family Medicine 06/20/22 documented as of this encounter
--- OUTSIDE RECORDS SUMMARY | 2024-09-01 10:23 | XMS_ITS | Encounter Summary ---
Author Organization [facility] [facility] Address [address] [place] [address] [address] [place] [address] Care Team Providers Care Client Service Administrator Name Role Phone Bubba Story MD Primary Care Provider Cathie Johnson Primary Care Provider Encounter Details Date Type Department Care Team (Latest Contact Info) Description 07/21/2019 Abstract [facility] CONVERSIONS Dental, Provider, DDS Social History Tobacco Use Types Packs/Day Years Used Date Smoking Tobacco: Never Assessed Comments Unknown Sex and Gender Information Value Date Recorded Sex Assigned at Female 03/11/2022 10:14 AM EDT Legal Sex Female 10:14 AM EDT Gender Identity Female 03/11/2022 10:14 AM EDT Sexual Orientation Choose not to disclose 2022 4:36 PM EDT Sexual Orientation Straight 08/14/2022 4: 36 PM EDT documented as of this encounter Plan of Treatment Upcoming Encounters Date Type Department Care Team (Late st Contact Info) Description 12/01/2024 8:00 AM EDT Office Visit [facility] [address] [place] [address] Lissa Casey 12/02/2024 9:30 AM EDT Office Visit [facility] MEDIC[facility] [address] [place] [address] Cathie Becerra ANP [address] [place] [address] documented as of this encounter Visit Diagnoses Not on filedocumented in this encounter Care Teams Client Service Administrator Relationship Specialty Start Date End Date Bubba Story MD PCP - General Family Medicine 06/15/20 06/19/22 Cathie Becerra ANP [address] [place] [id number] PCP - General Family Medicine 06/20/22 documented as of this encounter
--- OUTSIDE RECORDS SUMMARY | 2024-09-01 10:23 | XMS_ITS | Clinical Summary ---
Author Organization [employer] [facility] Address [id number] [place] [id number] Care Team Providers Care Commissions Analyst Name Role Phone Ed Collins MD Primary Care Provider [phone] Surgical History Surgery Date Site/Laterality Comments TUBAL LIGATION PROCEDURE: HISTORICAL TUBAL LIGATION Family History Relation Name Status Comments Daughter 1 Alive Daughter 2 Alive Father not known Mother not known Sister Alive not known Son Alive Social History Tobacco Use Types Packs/Day Years Used Date Smoking Tobacco: Never Smokeless Tobacco: Never Alcohol Use Standard Drinks/Week Comments Yes 0 (1 standard drink = 0.6 oz pur e alcohol) Comments Unknown Sex and Gender Information Value Date Recorded Sex Assigned at Not on file Legal Sex Female 1:57 PM EST Gender Identity Not on file Sexual Orientation Not on file Obstetrics History Plan of Treatment Health Maintenance Due Date Last Done Comments Breast Cancer Screening 1966 Hepatitis B Vaccines (1 of 3 - 19+ 3-dose series) 1985 Cervical Cancer Screening: P ap Smear 1987 Pneumococcal Vaccine: 50+ Years (1 of 1 - PCV) 2016 Zoster Vaccines (1 of 2) 2016 DTaP,Tdap,and Td Vaccines (2 - Td or Tdap) 11/28/2018 11/28/2008 COVID-19 Vaccine ( - 2023-2 5 season) 2024 Influenza Vaccine (Season Ended) 2025 01/17/2011, 05/01/2009, 03/03/2009 HIB Vaccines Aged Out No longer eligi ble based on patient's age to complete this topic HPV Vaccines Aged Out No longer eligi ble based on patient's age to complete this topic Hepatitis A Vaccines Aged Out No long er eligible based on patient's age to complete this topic IPV Vaccines Aged Out No longer eligi ble based on patient's age to complete this topic MMR Vaccines Aged Out No longer eligi ble based on patient's age to complete this topic Meningococcal ACWY Vaccine Aged Out N o longer eligible based on patient's age to complete this topic Meningococcal B Vaccine Aged Out No l onger eligible based on patient's age to complete this topic Pneumococcal Vaccine: Pediatrics (0 to 5 Years) and At-Risk Patients (6 to 64 Years) Aged Out No longer eligible b ased on patient's age to complete this topic RSV Immunization Patients Under 20 months Aged Out No longer eligible b ased on patient's age to complete this topic Varicella Vaccines Aged Out No longer eligible based on patient's age to complete this topic Care Teams Commissions Analyst Relationship Specialty Start Date End Date Ed Collins MD [address] [place] [address] [address] DAVID Gomes PCP - General Internal Medicine 10/12/12
--- OUTSIDE RECORDS SUMMARY | 2024-09-01 10:23 | XMS_ITS | Encounter Summary ---
Author Organization [employer] Address [address] [facility] [address] [place] [address] Care Team Providers Care Restaurant Busser Name Role Phone Cathie Becerra Primary Care Provider [phone] Reason for Visit * Reason Onset Date Comments call back 10/18/2022 Encounter Details Date Type Department Care Team ([facility] st Contact Info) Description 10/18/2022 Telephone [facility] MEDICINE [address] [place], [place] [phone] Cathie Becerra ANP [address] [place] [address] call back Social History Tobacco Use Types Packs/Day Years Used Date Smoking Tobacco: Never Smokeless Tobacco: Never Alcohol Use Standard Drinks/Week Comments Yes 0 (1 standard drink = 0.6 oz pur e alcohol) Depression Answer Date Recorded Patient Health Questionnaire-2 Score 0 09/12/2022 Comments Unknown Sex and Gender Information Value Date Recorded Sex Assigned at Female 03/11/2022 10:14 AM EDT Legal Sex Female 10:14 AM EDT Gender Identity Female 03/11/2022 10:14 AM EDT Sexual Orientation Choose not to disclose 2022 4:36 PM EDT Sexual Orientation Straight 08/14/2022 4: 36 PM EDT COVID-19 Exposure Response Date Recorded In the last 10 days, have yo u been in contact with someone who was confirmed or suspected to have Coronavirus/COVID-19? No / Unsure 10/21/2022 8:40 AM EDT documented as of this encounter Miscellaneous Notes * Telephone Encounter - Catie Chris - 10/18/2022 1:52 PM EDT Tc from pt requesting a call back in regards to a medication she spoke to PCP about for cholesterol. States she went to pharmacy and advised her they never received a script. documented in this encounter Plan of Treatment Upcoming Encounters Date Type Department Care Team (Late st Contact Info) Description 12/01/2024 8:00 AM EDT Office Visit [facility] ADULT DENTAL [address] [place] [address] Lissa Casey 12/02/2024 9:30 AM EDT Office Visit [facility] MEDICINE [address] [place] [address] Cathie Becerra ANP [address] [place] [address] documented as of this encounter Visit Diagnoses Not on filedocumented in this encounter Care Teams Restaurant Busser Relationship Specialty Start Date End Date Cathie Becerra ANP [address] [place] [id number] PCP - General Family Medicine 06/20/22 documented as of this encounter
--- OUTSIDE RECORDS SUMMARY | 2024-09-01 10:23 | XMS_ITS | Encounter Summary ---
Author Organization [employer] Address [address] [facility] 7t [place] [address] Care Team Providers Care Cable Dispatcher Name Role Phone Cathie Becerra Primary Care Provider [phone] Reason for Visit * Reason Onset Date Comments Appointment 09/05/2022 Encounter Details Date Type Department Care Team (Late st Contact Info) Description 09/05/2022 Telephone [facility] ADULT DENTAL [address] [place], [place] [phone] Lupe Beckett [address] [place], [place] [phone] Appointment Social History Tobacco Use Types Packs/Day Years [...] encounter Miscellaneous Notes * Telephone Encounter - Tawana Lawrence - 09/05/2022 1:30 PM EDT Patient has been on waiting list since 11/2021 in [facility] for prophy exam and xrays and is looking to be scheduled. documented in this encounter Plan of Treatment Upcoming Encounters Date Type Department Care Team (Late st Contact Info) Description 12/01/2024 8:00 AM EDT Office Visit [facility] ADULT DENTAL [address] [place], [place] [phone] Lissa Casey 12/02/2024 9:30 AM EDT Office Visit [facility] MEDICINE [address] [place] [address] Cathei Becerra ANP [address] [place] [address] documented as of this encounter Visit Diagnoses Not on filedocumented in this encounter Care Teams Cable Dispatcher Relationship Specialty Start Date End Date Cathie Becerra ANP [address] [place] [id number] PCP - General Family Medicine 06/20/22 documented as of this encounter
--- OUTSIDE RECORDS SUMMARY | 2024-09-01 10:23 | XMS_ITS | Encounter Summary ---
Author Organization [employer] Address [address] [facility] 7[address] [place] [address] Care Team Providers Care Splicing Supervisor Name Role Phone Cathie Becerra Primary Care Provider [phone] Reason for Visit * Reason Onset Date Comments Med Refill 10/13/2023 Encounter Details Date Type Department Care Team ([facility] st Contact Info) Description 10/13/2023 Telephone [facility] MEDICINE [address] [place] [address] Cathie Becerra ANP [address] [place] [address] Med Refill Social History Tobacco Use Types Packs/Day Years [...] Miscellaneous Notes * Telephone Encounter - Catie Perez - 10/13/2023 3:01 PM EDT TC from pt requesting medication refill. Medications needing refill : traMADol (Ultram) 50 MG tablet To be sent to: [facility]/pharmacy #[id number] - [place], [place] - [address] [place] [address] documented in this encounter Plan of Treatment Upcoming Encounters Date Type Department Care Team (Late st Contact Info) Description 12/01/2024 8:00 AM EDT Office Visit [facility] ADULT DENTAL [address] [place] [address] Lissa Casey 12/02/2024 9:30 AM EDT Office Visit [facility] MEDICINE [address] [place] [address] Cathie Becerra ANP [address] [place] [address] documented as of this encounter Visit Diagnoses Not on filedocumented in this encounter Care Teams Splicing Supervisor Relationship Specialty Start Date End Date Cathie Becerra ANP [address] [place] [address] PCP - General Family Medicine 06/20/22 documented as of this encounter
--- OUTSIDE RECORDS SUMMARY | 2024-09-01 10:23 | XMS_ITS | Encounter Summary ---
Author Organization [employer] Address [address] [facility] 7t [place] [address] Care Team Providers Care Butadiene Converter Utility Operator Name Role Phone Cathie Becerra ANP Primary Care Provider [phone] Reason for Visit * Reason Onset Date Comments Med Refill 10/10/2022 Encounter Details Date Type Department Care Team (Late st Contact Info) Description 10/10/2022 Telephone [facility] MEDICINE [address] [place] [address] Cathie Becerra ANP [address] [place] [address] Med Refill Social History Tobacco Use Types [...] suspected to have Coronavirus/COVID-19? No / Unsure 10/01/2022 7:52 AM EDT documented as of this encounter Miscellaneous Notes * Telephone Encounter - Monique Amador RN - 10/10/2022 10:33 AM EDT Pt requesting Simvastatin, states was discussed at 09/09 appt. Thank you. * Telephone Encounter - Gissel Guillory - 10/10/2022 9:52 AM EDT Tc from pt requesting med refill on Simvastatin 20 mg, pt claims provider advise will send a medication script for her High cholesterol on 10/09/2022. Please sent to [facility]/pharmacy #[id number] - [place] - [address] [facility] documented in this encounter Plan of Treatment Upcoming Encounters Date Type Department Care Team (Late st Contact Info) Description 12/01/2024 8:00 AM EDT Office Visit [facility] ADULT DENTAL [address] [place] [address] Lissa Casey 12/02/2024 9:30 AM EDT Office Visit [facility] MEDICINE [address] [place] [address] Cathie Becerra ANP [address] [place] [address] documented as of this encounter Visit Diagnoses Not on filedocumented in this encounter Care Teams Butadiene Converter Utility Operator Relationship Specialty Start Date End Date Cathie Becerra ANP [address] [place] [address] PCP - General Family Medicine 06/20/22 documented as of this encounter
--- OUTSIDE RECORDS SUMMARY | 2024-09-01 10:23 | XMS_ITS | Clinical Summary ---
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 Dexilant [address] capsule TOME 2 C PSULAS POR V A ORAL TODOS LOS D 022 Active FreeStyle lancets 1 each by Other route 2 times daily. dx type 2 diabetes 100 each 11 023 Active Blood Glucose Monitoring Suppl (FreeStyle Lite) w/Device kit 1 each in the morning. 1 kit 023 Active Alcohol Swabs pads 1 each if needed (to clean skin). 100 each 11 023 Active Continuous Blood Gluc Fitness Coordinator (FreeStyle Nhi 2 [place]) deviceIndication s:Type 2 diabetes mellitus with hyperlipidemia (CMS/HCC) (CMS/[facility]) 1 each 5 (five) times a day. 1 each 023 Active Continuous Blood Gluc Sensor (FreeStyle Nhi 2 Sensor) miscIndications: Type 2 diabetes mellitus with hyperlipidemia (CMS/HCC) (CMS/[facility]) 1 each every 14 (fourteen) days. 6 each 3 023 Active loratadine (Claritin) 10 MG tabletIndication s:Non-seasonal allergic rhinitis due to other allergic trigger TAKE 1 TABLET (10MG) BY ORAL ROUTE EVERY DAY NEEDED 90 tablet 1 023 Active albuterol (ProAir HFA) 108 (90 Base) MCG/ACT inhalerIndicatio ns:Wheezing Inhale 2 puffs every 6 (six) hours if needed for wheezing. 18 g 1 024 Active EPINEPHrine (Epipen) 0.3 MG/0.3ML injection syringeIndicatio ns:Shellfish allergy Inject 0.3 mL (0.3 mg) as directed 1 (one) time for 1 dose. 2 each 024 Active traMADol (Ultram) 50 MG tabletIndication s:Primary osteoarthritis of left knee Take 1 tablet (50 mg) by mouth every 12 (twelve) hours if needed for severe pain. 15 tablet 024 Active glucose blood (FREESTYLE LITE) test stripIndications :Type 2 diabetes mellitus with hyperlipidemia (CMS/HCC) ([facility]) USE INSTRUCTED CHECK BLOOD GLUCOSE 2-3 TIMES DAILY 100 strip 11 024 Active cholecalciferol (D3 Super Strength) 50 MCG (2000 UT) capsule TAKE 1 CAPSULE BY MOUTH EVERY MORNING 90 capsule 1 024 Active rosuvastatin (Crestor) 5 MG tabletIndication s:Type 2 diabetes mellitus with hyperlipidemia (CMS/HCC) ([facility]),Cardio vascular event risk TAKE 1 TABLET ONCE DAILY FOR CHOLESTEROL 90 tablet 1 024 Active fluticasone (Flonase) 50 MCG/ACT nasal sprayIndications :Non-seasonal allergic rhinitis due to other allergic trigger SPRAY 1 SPRAY INTRANASALLY 2 TIMES A DAY INTO EACH NOSTRIL 48 mL 1 024 Active topiramate 50 MG tabletIndication s:Migraine without aura and without status migrainosus, not intractable TAKE 1 TABLET BY MOUTH AT BEDTIME 30 tablet 5 025 Active butalbital-aceta minophen-caffein e 50-325-40 MG tabletIndication s:Migraine without aura and without status migrainosus, not intractable Take 1 tablet by mouth every 6 (six) hours if needed for headaches. Try to limit use to < 3d/mo 12 tablet 1 025 Active tiZANidine (Zanaflex) 2 MG tabletIndication s:Muscle pain Take 1 tablet (2 mg) by mouth 3 times daily for 10 days. If needed for muscle pain 30 tablet Active Ozempic, 2 MG/DOSE, 8 MG/3ML solution pen-injectorIndi cations:Type 2 diabetes mellitus with hyperlipidemia (CMS/HCC) (CMS/HCC) Inject 2 MG SUBCUTANEOUSLY EVERY 7 DAYS IN THE ABDOMEN, THIGHS OR UPPER ARM. ROTATE INJECTION SITES. 3 mL 2 Active metFORMIN XR (Glucophage-XR) 500 MG 24 hr tabletIndication s:Type 2 diabetes mellitus with hyperlipidemia (CMS/HCC) (CMS/HCC) 1 tablet twice daily with meal. Do not crush, chew, or split. 180 tablet 3 Active DULoxetine (Cymbalta) [address] capsuleIndicatio ns:Depression, unspecified depression type Take 1 capsule (60 mg) by mouth in the morning. Do not crush or chew. 30 capsule 1 025 2024 Active doxepin (SINEquan) 25 MG capsuleIndicatio ns:Insomnia, unspecified type Take 1 capsule (25 mg) by mouth at bedtime. 30 capsule 1 025 2024 Active doxepin (SINEquan) 25 MG capsuleIndicatio ns:Insomnia, unspecified type Take 1 capsule (25 mg) by mouth at bedtime. 30 capsule 2 025 2024 Discontinued(R eorder (will not trigger notification to Pharmacy)) DULoxetine (Cymbalta) [address] capsuleIndicatio ns:Depression, unspecified depression type Take 1 capsule (60 mg) by mouth in the morning. Do not crush or chew. 30 capsule 2 025 2024 Discontinued(R eorder (will not trigger notification to Pharmacy)) buPROPion XL (Wellbutrin XL) 150 MG 24 hr tabletIndication s:Depression, unspecified depression type TAKE 1 TABLET BY MOUTH EVERY MORNING 90 tablet 025 2024 Discontinued(N on-compliance) Active Problems Problem Noted Date Diagnosed Date Insomnia 07/27/2024 Preop examination 07/25/2023 Assessment & Plan (07/25/2023 12:27 PM EDT): RCR is 0 going for minimal risk procedure Per surgeon' office information pt needs EKG and labs -From labs done today Hb1AC 7.7, chem renal function is normal only noted elevated ALT to 55 ,and chronic Alk phos elevation today 249, CBC wnl -EKG today NSR, HR 82, QTc 455, no ischemic findings -There are no contraindications for procedure , advised pt that will need to hold on morning pills on day of procedure and to avoid any NSAIDs 7 days before surgery -will have fax this note to surgeon Type 2 diabetes mellitus with hyperlipidemia (CM S/HCC) 02/14/2023 Assessment & Plan (07/25/2023 12:27 PM EDT): -pt has apt w PCP 09/04 Scheduled already and can follow then chronic elevation of alk phos, as well ALT elevation ,pt was off GLP1 for couple of weeks but now resumed so hopefully her Hb1AC will improved with that Elevated LFTs 02/13/2023 Epigastric pain 02/13/2023 Lactose intolerance 02/13/2023 Lumbar radiculopathy 02/13/2023 NAFL (nonalcoholic fatty liver) 02/13/2023 Supraumbilical hernia 02/13/2023 Chronic constipation 02/13/2023 Colon cancer screening 02/13/2023 Gastritis 02/13/2023 GERD (gastroesophageal reflux disease) 3 Morbid obesity with BMI of 40.0-44.9, adult 09/2022 Excessive attrition of teeth, limited to enamel 10/21/2022 Varicose veins of both lower extremities 023 Depression 09/12/2022 Healthcare maintenance 09/12/2022 Hiatal hernia 09/12/2022 Elevated alkaline phosphatase level 09/12/2022 Headache 09/06/2022 Vitamin D deficiency 11/29/2015 NABIL on CPAP 05/04/2015 Overview (12/02/2023): Images from the original note were not included. Constipation 02/16/2015 Obesity 02/16/2015 Knee pain 02/16/2015 Resolved Problems Problem Noted Date Diagnosed Date Resolved Date Alcohol intoxication 02/13/2023 024 Cough 02/13/2023 02/14/2023 COVID-19 02/13/2023 02/14/2023 Encounters * This document contains information received from the source organization and may not represent a complete record from that organization. Date Type Department Care Team Description 08/11/2024 Population Health Risk Score [facility] (C3) Department [address] [id number] Provider, Population Health Generic 07/30/2024 Orders Only GENERIC EXTERNAL DATA DEPARTMENT Provider, Generic External Data 07/06/[address] [address] Mekhi Martinez ANP Type 2 diabetes mellitus with hyperlipidemia (CMS/HCC) (CMS/HCC) 07/01/[address] [address] Rachel Sanchez [place] 06/30/[address] [address] Sugey Reyes [place] 06/25/2024 8:00 AM EST Office Visit [facility] [address] [place] [address] Rhona Rogers 06/24/[address] [address] Mekhi Martinez ANP may recall (Tried calling pt to book a september f/u dm, pt did not answer left vm ,sending letter) 06/17/2024 10:15 AM EST Office Visit [address] [address] Mekhi Martinez ANP Type 2 diabetes mellitus with hyperlipidemia (CMS/HCC) (CMS/HCC) (Primary Dx); Migraine without aura and without status migrainosus, not intractable; Elevated blood pressure reading without diagnosis of hypertension 06/17/2024 Travel 06/16/[address] [address] Sugey Reyes MA chart prep 06/14/2024 8:00 AM EST Office Visit [facility] [address] [place] [address] Rhona Rogers 06/03/2024 Patient Outreach [address] [address] Mekhi Martinez ANP Pre-visit Planning (Pre-visit planning - LVM ) from Last 3 Months Immunizations Name Administration Dates Next Due Hep B, Adolescent or Pediatric 07/22/1996,1995,06/19/1995 Influenza Injectable Quadriv alant Preservative Free IIV4 MDCK 04/20/2020 Influenza injectable quadriv alent IIV4 with preservative 04/10/2017,02/22/2016 Influenza injectable quadriv alent preservative free 02/14/2023,01/18/2022,04/25/2021,2018,03/11/2018,03/20/2015 Influenza, IIV3, injectable 03/29/2014, 1,03/03/2009 Influenza, Split (incl. colleen fied surface antigen) 02/16/2013 Influenza, seasonal, injecta ble, preservative free 03/03/2024 Caprice SARS-CoV-2 Vaccination 08/02/2020 MMR 11/06/2006 Novel [id number], preservative-free 05/01/2009 PPD Test 07/09/2011,06/16/2009 Pfizer Covid-19 Vaccine 12+ 03/03/2024, 3 Pneumococcal Conjugate PCV 20 06/03/2023 TD (adult), 2 Lf tetanus tox oid, preservative free, adsorbed 12/23/2019,05/07/2002 Tdap 11/28/2008 Zoster, Recombinant 06/28/2020,04/20/2020 Social History Tobacco Use Types Packs/Day Years Used Date Smoking Tobacco: Never Smokeless Tobacco: Never Tobacco Cessation:Counseling Given: Not Answered Alcohol Use Standard Drinks/Week Comments Not Currently 0 (1 standard drink = 0.6 oz pur e alcohol) Depression Answer Date Recorded Patient Health Questionnaire-9 Score 15 06/17/2024 Patient Health Questionnaire-9 Score 15 06/17/2024 Last PHQ-9: Questionnaire Data Not on file 0 06/17/2024 Housing Stability Answer Date Recorded What is your housing situation today? I have emma mcneill 02/24/[address] you [...] the past 12 months, has t he [employer], gas, oil or water company threatened to shut off services in your home? No 02/24/2023 Depression Answer Date Recorded Patient Health Questionnaire-2 Score 4 06/17/2024 Comments No Sex and Gender Information Value Date Recorded Sex Assigned at Female 03/11/2022 10:14 AM EDT Legal Sex Female 10:14 AM EDT Gender Identity Female 03/11/2022 10:14 AM EDT Sexual Orientation Choose not to disclose 2022 4:36 PM EDT Sexual Orientation Straight 08/14/2022 4: 36 PM EDT Last Filed Vital Signs Vital Sign Reading Time Taken Comments Blood Pressure 134/94 06/17/2024 10:23 AM EST Pulse 80 06/17/2024 10:23 AM EST Temperature 36.4 ??C (97.5 ??F) 06/17/2024 10:[address] Respiratory Rate 14 06/17/2024 10:23 AM EST Oxygen Saturation 95% 06/17/2024 10:23 AM EST Inhaled Oxygen Concentration - - Weight 98.2 kg (216 lb 9.6 oz) 06/17/2024 10:23 AM EST Height 160 cm (5' 3 ) 03/23/2024 10:50 AM EST Body Mass Index 38.37 03/23/2024 10:50 AM EST Plan of Treatment Upcoming Encounters Date Type Department Care Team (Late st Contact Info) Description 12/01/2024 8:00 AM EDT Office Visit [facility] [address] [place] [address] Lissa Casey 12/02/2024 9:30 AM EDT Office Visit [facility] [address] [place], [place] [phone] Mekhi Martinez, ANP [address] [facility] [facility] [place] [address] Health Maintenance Due Date Last Done Comments CT Colonography 1965 FIT DNA/Cologuard 1965 FIT 1965 FOBT 1965 HIV Screening 1965 Sigmoidoscopy 1965 Eye Exam 1976 Diabetes: Urine Protein Screening 1985 Hepatitis A Vaccines (1 of 2 - Risk 2-dose series) 1985 Hepatitis B Vaccines (1 of 3 - 19+ 3-dose series) 1985 07/22/1996, 02/26/1996, 06/19/1995 Lipid Panel 10/02/2023 10/01/2022 SDOH Screening 08/27/2024 08/28/2023 Diabetes: Hemoglobin A1C 09/14/2024 025, 03/03/2024, 12/02/2023, Additional history exists Mammogram 10/15/2024 10/16/2023, 02/27/2016 Dental Oral Exam 12/01/2024 06/02/2024, , 07/21/2019, Additional history exists Dental Prophylaxis 12/01/2024 06/02/2024, 0 10/01/2022, 07/21/2019, Additional history exists Depression Monitoring 12/15/2024 06/17/2024, 025 Dental X-Ray: Bitewings 06/03/2025 06/02/19 25, 07/21/2019, 07/16/2018, Additional history exists Alcohol/Substance Use Screening 06/17/2025 06/17/2024 Depression Screening 06/17/2025 06/17/2024, 06/17/19 25 Diabetes: Foot Exam 06/17/2025 06/17/2024, 06/17/2024, 06/17/2024 Tobacco Screening 08/24/2025 08/24/2024 Colonoscopy 08/23/2026 08/23/2016 Colorectal Cancer Screening 08/23/2026 Dental X-Ray: Full Mouth 06/03/2027 06/02/2024, 11/10 Cervical Cancer Screening 05/29/2028 HPV/Cotest 05/29/2028 05/29/2023, 03/12, 03/30/2019, Additional history exists Pap Smear 05/29/2028 05/29/2023, 03/30/2019 DTaP/Tdap/Td Vaccines (3 - Td or Tdap) 12/22/2029 12/23/2019, 11/28/2008, 05/07/2002 RSV Patients and Patients Aged 60 years or older (1 - 1-dose 75+ series) 2041 Zoster Vaccines Completed 06/28/2020, 04/20/2020 Hepatitis C Screening Completed 10/01/2022 Pneumococcal Vaccine: 50+ Years Completed 06/03/2023 COVID-19 Vaccine Completed 03/03/2024, , 02/20/2022, Additional history exists Influenza Vaccine Completed 03/03/2024, , 01/18/2022, Additional history exists HIB Vaccines Aged Out No longer eligi ble based on patient's age to complete this topic HPV Vaccines Aged Out No longer eligi ble based on patient's age to complete this topic IPV Vaccines Aged Out No longer eligi ble based on patient's age to complete this topic Meningococcal Vaccine Aged Out No skinny maddison eligible based on patient's age to complete this topic RSV under 20 months Aged Out No longe r eligible based on patient's age to complete this topic Rotavirus Vaccines Aged Out No longer eligible based on patient's age to complete this topic Procedures Procedure Name Priority Date/Time Associated Diagnosis Comments GROSS AND MICROSCOPIC LEVEL 2 Routine 07/30/2024 2:35 PM EDT GLUCOSE, WHOLE BLOOD Routine 07/30/2024 11:41 AM EDT CASE PRESENTATION, DETAILED AND EXTENSIVE TREATMENT PLANNING Routine 06/25/2024 8:00 AM EST 14 B(V) RESIN-BASED COMPOSITE - 1 SURF, POSTERIOR Routine 06/25/2024 8:00 AM EST 20 B(V) RESIN-BASED COMPOSITE - 1 SURF, POSTERIOR Routine 06/25/2024 8:00 AM EST 29 B(V) RESIN-BASED COMPOSITE - 1 SURF, POSTERIOR Routine 06/25/2024 8:00 AM EST POCT GLYCATED HEMOGLOBIN, TOTAL Routine 06/17/2024 10:33 AM EST Type 2 diabetes mellitus with hyperlipidemia (CMS/HCC) (CMS/HCC) POCT GLUCOSE Routine 06/17/2024 10:33 AM EST Type 2 diabetes mellitus with hyperlipidemia (CMS/HCC) (CMS/HCC) CASE PRESENTATION, DETAILED AND EXTENSIVE TREATMENT PLANNING Routine 06/14/2024 8:00 AM EST 3 B(V) RESIN-BASED COMPOSITE - 1 SURF, POSTERIOR Routine 06/14/2024 8:00 AM EST 4 DO RESIN-BASED COMPOSITE - 2 SURF, POSTERIOR Routine 06/14/2024 8:00 AM EST PROPHYLAXIS - ADULT Routine 06/02/2024 8 :00 AM EST INTRAORAL - COMPLETE SERIES OF RADIOGRAPHIC IMAGES Routine 06/02/2024 8:00 AM EST PERIODIC ORAL EVALUATION - ESTABLISHED PATIENT Routine 06/02/2024 8:00 AM EST BI MAMMOGRAM SCREENING TOMOSYNTHESIS BILATERAL Routine 10/16/2023 7:55 AM EDT Breast pain in female HPV MRNA E6/E7 REFLEX TO HPV 16, 18/45 Routine 05/29/2023 9:32 AM EST PAP SMEAR Routine 05/29/2023 9:32 AM EST Cervical cancer screening HEPATITIS C AB W/REFL TO HCV RNA, QN, PCR Routine 10/01/2022 9:17 AM EDT Healthcare maintenance LIPID PANEL, STANDARD Routine 10/01/2022 9:17 AM EDT Impaired glucose tolerance HM COLONOSCOPY Routine 08/23/2016 from Last 3 Months or Most Recently Relevant to Health Maintenance Results * Gross and Microscopic Level 2 (07/30/2024 2:35 PM EDT) 07/30/2024 2:35 PM EDT 08/02/2024 8:08 AM EDT [facility] - 08/03/2024 2:52 PM EDT ----- ------- Name: Colon,My ? Age/Sex: 59/F ? : 1965 Unit#: [id number] ?? Attend Dr: Milo Sanders MD ?Re07/30/24 ?Status: DEP SDC ? Location: HO.SSS ?Disch: ? ----- ------- SPEC : [id number] ? RECD: 08/02/24-807 ? STATUS: ??SOUT ? REQ NUM: [id number] ? ELO: 07/30/24-6817 ? SUBM DR: Milo Sanders MD ? ENTERED: ??08/02/24-829 ?SP TYPE: Surgical ? OTHR DR: MEKHI MARTINEZ NP ? ORDERED: ??Gross Micro L2 ? Diagnosis ?? Umbilical hernia: ??Mesothelial-lined fibrovascular and adipose tissue with chronic ?? inflammation, consistent with hernia sac. ?Clinical History Umbilical hernia with obstruction, without gangrene ?Microscopic Description Microscopic sections reviewed. ? Material Received ?? Hernia sac ? Gross Description Received in formalin labeled ?hernia sac? is a 3.0 x 2.5 x 0.1-0.25 cm viera-brown saccular portion of fibromembranous tissue with attached fibroadipose tissue. ??On sectioning fibromembranous tissue is edematous and congested, viera-brown measuring up to 0.2 cm in thickness. ??The attached fibroadipose tissue is unremarkable. ??Lab Tech sections are submitted in a cassette labeled A1. CEDS Copies To: ?? Milo Sanders MD ?? [facility] ?? [address] ?? [place] [address] ?? [phone] ?? MEKHI MARTINEZ NP ?? [facility] ?? [address] [facility] [address] ?? [place] [address] ?? [phone] ----- ------- Signed (signature on file) Tej Coburn MD 08/03/24 7270 ? ----- ------- ? END OF REPORT ? Generic External Data Provider LAB CYTOLOGY ORDE RABLES Final Result Performing Organization Address [facility] Co de Phone Number [facility] [address] [place] [address] [phone] * (ABNORMAL) Glucose, Whole Blood (07/30/2024 11:41 AM EDT) Pathologist [facility] Glucose, Whole Blood 164(H) 60 - 115 mg/dL [facility] Comment:METER #: [id number] 07/30/2024 11:4 1 AM EDT 07/30/2024 11:48 AM EDT Generic External Data Provider LAB BLOOD ORDERAB LES Final Result Performing Organization Address [facility] Co de Phone Number [facility] [address] [place] [phone] * (ABNORMAL) POCT HGB A1C (06/17/2024 10:33 AM EST) Hemoglobin A1C 7.1(A) 4.0 - 6.0 % QC Media Lot # [id number] Lot# Expiration Date Blood 06/17/2024 10:3 3 AM EST Mekhi Hernan [facility] POINT OF CARE TEST ENTER/EDIT OR DERABLES Edited Result - Final * POCT Glucose (06/17/2024 10:33 AM EST) Glucose Blood, POC 144 60 - 200 mg/dL QC Media Lot # [id number] Lot# Expiration Date Blood Capillary blood specimen / Unknown 06/17/2024 10:33 AM EST us Brand Hernan [facility] POINT OF CARE TEST ENTER/EDIT OR DERABLES Final Result * BI Mammogram Screening Tomosynthesis Bilateral (10/16/2023 7:55 AM EDT) Anatomical Region Laterality Modality Breast Bilateral Mammography 10/16/2023 7:55 AM EDT Narrative 11/03/2023 3:21 AM EDT ? [facility] [place] ? [address] ?[place] [address] ? Mammography Report ? Signed ? Patient: Colon,Ym ?MR#: [id number] ? : 1965 ?Acct:[id number] ? Age/Sex: 58 / F ?ADM Date: 10/16/23 ? Loc: HO.MAMMO ? Attending Dr: Mekhi Martinez CHEMICAL DEPENDENCY NURSE ? Ordering Physician: Shanel Villalobos MD ?Results: 1Ne ?? gative ? Date of Service: 10/16/23 ?Follow Up: 1 Year From Orig ?? inal Mammogram ? Procedure(s): MM tomosynthesis screening BI ?? Accession Number(s): [id number] ? cc: Shanel Villalobos MD; MEKHI MARTINEZ NP ? EXAMINATION: ?? MM SCREENING DIGITAL BREAST TOMOSYNTHESIS, BILATERAL ? CLINICAL INFORMATION: ? Screening. Asymptomatic. ? COMPARISON: ?? Mammography: This study is compared with prior exams dating back to ?? 2017. ? TECHNIQUE: ?? Digital breast tomosynthesis is performed in both the craniocaudal and ?? mediolateral oblique views along with computer-aided detection (CAD). ?? Synthesized 2D images are generated from the tomosynthesis. ? FINDINGS: ?? The breasts are almost entirely fatty (ACR BI-RADS breast composition ?? Category a). ? There are no significant masses, abnormal calcifications, or other ?? abnormalities. ? MM/MM tomosynthesis screening BI ?? IMPRESSION: ?? No mammographic evidence of malignancy. ? ASSESSMENT: ? BI-RADS BI-RADS 1 - Negative ? RECOMMENDATION: ?? Routine annual mammography screening. ? 1 year F/U ? This examination should not preclude the clinical evaluation of a ?? suspicious palpable abnormality. ? This patient's information was entered into a reminder system with a ?? target due date for their next mammogram. ? Dictated By: ?Debbi Beard MD ? Signed By: ?<Electronically signed by Debbi Beard MD in OV> ? 11/03/23 0317 ? DD/ 0755 ? TD/TT: ? Operations And Intelligence Assistant: ? Procedure Note Aimee Estevez - 11/03/2023 [place] [facility] [address] [place], [place] [address] Mammography Report Signed Patient: Gabriele Clarke#: [id number] : 1965Acct:[id number] Age/Sex: 58 / FADM Date: 10/16/23 Loc: [facility] Attending Dr: Mekhi Martinez NP Ordering Physician: Shanel Villalobos MDResults: 1Ne gative Date of Service: 10/16/23Follow Up: 1 Year From Orig inal Mammogram Procedure(s): MM tomosynthesis screening BI Accession Number(s): [id number] cc: Shanel Villalobos MD; MEKHI MARTINEZ NP EXAMINATION: MM SCREENING DIGITAL BREAST TOMOSYNTHESIS, BILATERAL CLINICAL INFORMATION: Screening. Asymptomatic. COMPARISON: Mammography: This study is compared with prior exams dating back to 2017. TECHNIQUE: Digital breast tomosynthesis is performed in both the craniocaudal and mediolateral oblique views along with computer-aided detection (CAD). Synthesized 2D images are generated from the tomosynthesis. FINDINGS: The breasts are almost entirely fatty (ACR BI-RADS breast composition Category a). There are no significant masses, abnormal calcifications, or other abnormalities. MM/MM tomosynthesis screening BI IMPRESSION: No mammographic evidence of malignancy. ASSESSMENT: BI-RADS BI-RADS 1 - Negative RECOMMENDATION: Routine annual mammography screening. 1 year F/U This examination should not preclude the clinical evaluation of a suspicious palpable abnormality. This patient's information was entered into a reminder system with a target due date for their next mammogram. Dictated By: Debbi Beard MD Signed By: <Electronically signed by Debbi Beard MD in OV> 11/03/23 0317 DD/ 0755 TD/TT: Operations And Intelligence Assistant: Shanel Villalobos MD IM BI PROCEDURES Final Result * HPV mRNA E6/E7 w/Reflex to HPV Genotypes 16, 18/45 (05/29/2023 9:32 AM EST) HPV nRNA E6/E7 Not Detected Not Detected [facility] Comment:Methodology: Transcr iption-Mediated AmplificationThis assay detects E6/E7 viral messenger RNA (mRNA) from 14high-risk HPV types (16,18,31,33,35,39,45,51,52,56,58,59,66,68).Cervical sources are required for HPV testing.If a vaginal source from a patient who has had atotal hysterectomy with removal of cervix wassubmitted, please contact the testing laboratoryfor alternative testing options.For additional information, please refer [email or web address](This link if provided for information/educational purposes only.)THIS TEST WAS PERFORMED AT:[facility] [employer] [place] [phone] OSEGUERA MD HPV mRNA E6/E7 TNP [facility] HPV 16 RNA TNP [facility] HPV 18/45 RNA TNP [facility] 05/29/2023 9:32 AM EST 05/30/2023 9:15 AM EST us Monica Tawanda [facility] CYTOLOGY ORDERABLES F inal Result [facility] [address] [place] [address] [phone] * Pap Smear (05/29/2023 9:32 AM EST) Swab Cervix uteri structure / Unknown 05/29/2023 9:32 AM EST 05/30/2023 9:15 AM EST Narrative [facility] - 06/11/2023 8:42 AM EST ----- ------- Name: Colon,My ? Age/Sex: 58/F ? : 1965 Unit#: [id number] ?? Attend Dr: ?Re05/29/23 ?Status: PRE REF ? Location: HO.LNP ?Disch: ? ----- ------- SPEC : [id number] ? RECD: 05/30/23 ? STATUS: ??SOUT ? REQ NUM: [id number] ? ELO: 05/29/23 ? SUBM DR: MONICA PARIKH CNM ? ENTERED: ??06/02/23 ?SP TYPE: Pap Smr ?OTHR DR: ? ORDERED: ??Pap Smear ? Interpretation ?? Satisfactory for evaluation. ?? No endocervical cells seen. ?? Negative for intraepithelial lesion or malignancy. ?HPV mRNA E6/E7: ?NOT DETECTED ? This assay detects E6/E7 viral messenger RNA (mRNA) from 14 high-risk HPV types (16, 18, ?? 31, 33, 35, 39, 45, 51, 52, 56, 58, 59, 66, 68) ?? HPV testing performed by [facility], [place], [place]. ??See reference laboratory ?? portion of the EMR for entire report. ?Clinical Information LMP: Postmenopausal Previous PAP test: Unknown date/findings ? Material Received ?? ThinPrep-Cervical ----- ------- Signed (signature on file) PATEL Mendez (ASCP) 06/11/23 0842 ? ----- ------- ? END OF REPORT ? us Monica Parikh [facility] CYTOLOGY ORDERABLES F inal Result [facility] [address] [place] [phone] * Hepatitis C Antibody with Reflex to HCV, RNA, Quantitative, Real-Time PCR (10/01/2022 9:17 AM EDT) Hepatitis C Antibody NON-REACT RAMILA NON-REACT RAMILA [facility] [place] [facility] Index 0.05 <1.00 [facility] [place] [facility] Comment: HCV antibody was non-reactive. There is no laboratory evidence of HCV infection. In most cases, no further action is required. However, if recent HCV exposure is suspected, a test for HCV RNA (test code 59735) is suggested. For additional information please refer to http://[employer]erred [employer]/faq/MXR36n8 (This link is being provided for informational/ educational purposes only.) Blood Venous blood specimen / Unknown 10/01/2022 9:17 AM EDT 10/01/2022 9:17 AM EDT Narrative [facility] - 10/02/2022 10:28 PM EDT FASTING:YES FASTING: YES On license of [facility] LAB BLOOD ORDERABLES Final Resul t [facility] [address], [place] [address] [facility] [place] [facility] [address] [place] [address] * (ABNORMAL) Lipid Panel, Standard (10/01/2022 9:17 AM EDT) Cholesterol, Total 258(H) <200 mg/dL [facility] [place] [facility] HDL Cholesterol 53 > OR = 50 mg/dL [facility] [place] [facility] Triglycerides 294(H) <150 mg/dL [employer] Comment: If a non-fasting specimen was collected, consider repeat triglyceride testing on a fasting specimen if clinically indicated. Skylar et al. J. of Clin. Lipidol. 2015;9:129-169. LDL Cholesterol 160(H) mg/dL (calc) [facility] [place] [facility] Comment: Reference range: <100 Desirable range <100 mg/dL for primary prevention; ?? <70 mg/dL for patients with CHD or diabetic patients with > or = 2 CHD risk factors. LDL-C is now calculated using the Tanvir calculation, which is a validated novel method providing better accuracy than the Friedewald equation in the estimation of LDL-C. Yong CRAWFORD et al. CIARAN. 2013;310(19): 5424-8734 (http://education.Nirvaha/faq/DNI022) Chol/HDLC Ratio 4.9 <5.0 (calc) [facility] Non-HDL Cholesterol 205(H) <130 mg/dL (calc) [facility] [place] [facility] Comment: For patients with diabetes plus 1 major ASCVD risk factor, treating to a non-HDL-C goal of <100 mg/dL (LDL-C of <70 mg/dL) is considered a therapeutic option. Blood Venous blood specimen / Unknown 10/01/2022 9:17 AM EDT 10/01/2022 9:17 AM EDT Narrative [facility] - 10/02/2022 10:28 PM EDT FASTING:YES FASTING: YES On license of [facility] LAB BLOOD ORDERABLES Final Resul t [address], [place] [address] [facility] [place] [facility] [address] [place] [address] * Colonoscopy (08/23/2016) Colonoscopy Normal Normal Grant Cassidy MD HEALTH MAINTENANCE Final Res ult from Last 3 Months or Most Recently Relevant to Health Maintenance Insurance [facility] ST[place] ADULT Care Teams Oil Derrick Operator Relationship Specialty Start Date End Date Mekhi Martinez ANP [address] [place] [address] PCP - General Family Medicine 06/20/22
--- OUTSIDE RECORDS SUMMARY | 2024-09-01 10:23 | XMS_ITS | Encounter Summary ---
Author Organization [employer] Address [address] [facility] 7t [place] [address] Care Team Providers Care Bilingual Call Center Representative Name Role Phone Cathie Becerra Primary Care Provider [phone] Reason for Visit * Reason Onset Date Comments Appointment Request 06/01/2024 Encounter Details Date Type Department Care Team ([facility] st Contact Info) Description 06/01/2024 Telephone [facility] MED[facility]INE [address] [place], [place] [phone] Cathie Becerra ANP [address] [place], [place] [phone] Appointment Request Social History Tobacco Use Types Packs/Day Years [...] encounter Miscellaneous Notes * Telephone Encounter - Minna Neff CNM - 06/01/2024 8:23 AM EST Please call to r/s - thanks! * Telephone Encounter - Pantera Cee - 06/01/2024 8:21 AM EST Tc from pt requesting to r/s appt from 06/01. Contact pt at [phone] documented in this encounter Plan of Treatment Upcoming Encounters Date Type Department Care Team (Late st Contact Info) Description 12/01/2024 8:00 AM EDT Office Visit [facility] ADULT DENTAL [address] [place] [address] Lissa Casey 12/02/2024 9:30 AM EDT Office Visit [facility] [address] [place] [address] Cathie Becerra ANP [address] [place] [address] documented as of this encounter Visit Diagnoses Not on filedocumented in this encounter Care Teams Bilingual Call Center Representative Relationship Specialty Start Date End Date Cathie Becerra ANP [address] [place] [address] PCP - General Family Medicine 06/20/22 documented as of this encounter
--- OUTSIDE RECORDS SUMMARY | 2024-09-01 10:23 | XMS_ITS | Encounter Summary ---
Author Organization [facility] Address [address] [place] [address] 7t [place] [address] Care Team Providers Care Senior Front End Engineer Name Role Phone Bubba Story MD Primary Care Provider Cathie Johnson Primary Care Provider [phone] Encounter Details Date Type Department Care Team (Latest Contact Info) Description 07/16/2018 Abstract [facility] CONVERSIONS Dental, Provider, DDS Social History Tobacco [...] Description 12/01/2024 8:00 AM EDT Office Visit [facility] ADULT DENTAL [address] [place] [address] Lissa Casey 12/02/2024 9:30 AM EDT Office Visit [facility] MEDICINE [address] [place] [address] Cathie Becerra ANP [address] [place] [address] documented as of this encounter Visit Diagnoses Not on filedocumented in this encounter Care Teams Senior Front End Engineer Relationship Specialty Start Date End Date Bubba Story MD PCP - General Family Medicine 06/15/20 06/19/22 Cathie Becerra ANP [address] [place] [address] PCP - General Family Medicine 06/20/22 documented as of this encounter
--- OUTSIDE RECORDS SUMMARY | 2024-09-01 10:23 | XMS_ITS | Encounter Summary ---
Author Organization [employer] Address [address] [facility] 7t [place] [address] Care Team Providers Care Logistics Coordinator Name Role Phone Cathie Becerra Primary Care Provider [phone] Encounter Details Date Type Department Care Team (Late st Contact Info) Description 08/22/2023 Orders Only [facility] MEDICINE [address] [place], [place] [phone] Cathie Becerra ANP [address] [place], [place] [phone] Social History Tobacco Use Types Packs/Day Years [...] Description 12/01/2024 8:00 AM EDT Office Visit [facility] ADULT DENTAL [address] [place] [address] Lissa Casey 12/02/2024 9:30 AM EDT Office Visit [facility] MED[facility] [address] [place] [address] Cathie Becerra ANP [address] [place] [address] documented as of this encounter Visit Diagnoses Not on filedocumented in this encounter Care Teams Logistics Coordinator Relationship Specialty Start Date End Date Cathie Becerra ANP [address] [place] [address] PCP - General Family Medicine 06/20/22 documented as of this encounter
--- OUTSIDE RECORDS SUMMARY | 2024-09-01 10:23 | XMS_ITS | Encounter Summary ---
Author Organization [employer] Address [address] [facility] 7t [place] [address] Care Team Providers Care Telecommunications Officer Name Role Phone Cathie Becerra Primary Care Provider [phone] Reason for Visit * Reason Comments Med Refill Encounter Details Date Type Department Care Team ([facility] st Contact Info) Description 07/17/2023 Refill [facility] MEDICINE [address] [place], [place] [phone] Cathie Becerra ANP [address] [place] [address] Wheezing Social History Tobacco Use Types Packs/Day Years [...] Description 12/01/2024 8:00 AM EDT Office Visit [facility] CH[facility] ADULT DENTAL [address] [place] [address] Lissa Casey 12/02/2024 9:30 AM EDT Office Visit [facility] MEDICINE [address] [place] [address] Cathie Becerra ANP [address] [place] [address] documented as of this encounter Visit Diagnoses Diagnosis Wheezing documented in this encounter Care Teams Telecommunications Officer Relationship Specialty Start Date End Date Cathie Becerra ANP [address] [place] [address] PCP - General Family Medicine 06/20/22 documented as of this encounter
== END 2024-09-01 09:39 | disposition home or self-care (01) ==
LOC: HO.HGS 09:24
PROVIDERS: PCP Nurse Practitioner Primary Care; Visit Provider Surgery
DX: K43.9 Ventral hernia without obstruction or gangrene (principal); D23.9 Other benign neoplasm of skin, unspecified
CPT/HCPCS: 99212

== ENCOUNTER → 2024-09-01 09:24 | Outpatient (BNVA) | payer MEDICAID, SELFPAY | PROVIDERS: PCP Nurse Practitioner Primary Care; Visit Provider Surgery | DX: D23.9 Other benign neoplasm of skin, unspecified (principal); Z48.815 Encounter for surgical aftercare following surgery on the digestive system; Z98.890 Other specified postprocedural states | CPT/HCPCS: 99212 ==

== ENCOUNTER 2025-03-03 10:36 | Outpatient (REF) | payer MEDICAID, SELFPAY ==
--- OUTSIDE RECORDS SUMMARY | 2025-02-28 11:00 | XMS_ITS | Encounter Summary ---
Author Organization [employer] Address [address] [facility] 7[address] [place] [address] Care Team Providers Care Cell Attendant Name Role Phone Cathie Becerra Primary Care Provider [phone] Reason for Visit * Reason Comments Scaling And Root Planing Encounter Details Date Type Department Care Team ([facility] st Contact Info) Description 02/28/2025 11:00 AM EDT Office Visit [facility] ADULT DENTAL [address] [place] [address] Daryl Powell Dental calculus (Primary Dx) Social History Tobacco Use Types Packs/Day Years [...] PM EDT documented as of this encounter Last Filed Vital Signs Vital Sign Reading Time Taken Comments Blood Pressure 122/72 02/28/2025 10:58 AM EDT Pulse 78 02/28/2025 10:58 AM EDT Temperature - - Respiratory Rate - - Oxygen Saturation - - Inhaled Oxygen Concentration - - Weight - - Height - - Body Mass Index - - documented in this encounter Progress Notes * Daryl Powell - 02/28/2025 11:00 AM EDT Patient ID: My Clarke is a 59 y.o. female. Time Out: Timeout Date: 02/28/25, Timeout Time: 105 Location: [facility] Tooth: UR and LR Procedure: Scaling and Root Planing Verified the above with patient, oceanographer assistant, and provider. Confirmed via patient's chart, intraorally and by radiographs. Insurance Professional: not applicable Medical Hx: Vitals: Blood pressure 122/72, pulse 78. Medications, Med Hx reviewed with patient and updated in chart. Treatment Provided Dental procedures in this visit D4341 - PERIODONTAL SCALING AND ROOT PLANING - 4 OR MORE TEETH PER QUADRANT UR (Completed) Service provider: Daryl Powell Billing provider: Collin Martinez DMD D4342 - PERIODONTAL SCALING AND ROOT PLANING - 1 TO 3 TEETH PER QUADRANT UR (Completed) Service provider: Daryl Powell Billing provider: Collin Martinez DMD D1330 - ORAL HYGIENE INSTRUCTIONS (Completed) Service provider: Daryl Powell Billing provider: Collin Martinez DMD D9450 - CASE PRESENTATION, DETAILED AND EXTENSIVE TREATMENT PLANNING (Completed) Service provider: Daryl Powell Billing provider: Collin Juan, DMD Topical: 20% Benzocaine Confirmed profound anesthesia. Oral Cancer Screening: No lesions Head/Neck Exam: No Lesions Instruments Used: Ultrasonic Scalers and Hand Scalers Fluoride: N/A Calculus: Moderate and Generalized Plaque: Light and Generalized Stain: Light and Generalized Bleeding: Light and Generalized Gingiva: Bleeding on probing OH: Fair Oral hygiene instructions provided to patient including brushing technique and flossing. Recommendations: [place] two times daily, modified caldwell technique, Floss daily Recall Frequency: 6 mo NV: srp left Hygienist: Daryl Powell RDH documented in this encounter Plan of Treatment Upcoming Encounters Date Type Department Care Team (Late st Contact Info) Description 03/07/2025 11:00 AM EDT Office Visit [facility] ADULT DENTAL [address] [place] [address] Daryl Powell 04/20/2025 8:00 AM EST Office Visit [facility] ADULT DENTAL [address] [place] [address] Chelsie Gordy [address] [place] [address] documented as of this encounter Procedures Procedure Name Priority Date/Time Associated Diagnosis Comments UR PERIODONTAL SCALING AND ROOT PLANING - 4 OR MORE TEETH PER QUADRANT Routine 02/28/2025 11:00 AM EDT UR PERIODONTAL SCALING AND ROOT PLANING - 1 TO 3 TEETH PER QUADRANT Routine 02/28/2025 11:00 AM EDT ORAL HYGIENE INSTRUCTIONS Routine 2024 11:00 AM EDT CASE PRESENTATION, DETAILED AND EXTENSIVE TREATMENT PLANNING Routine 02/28/2025 11:00 AM EDT documented in this encounter Visit Diagnoses Diagnosis Dental calculus- Primary Accretions on teeth documented in this encounter Additional Health Concerns Assessment Noted Time PHQ-9 Depression Total Score: 15 025 10:44 AM EST documented as of this encounter Care Teams Cell Attendant Relationship Specialty Start Date End Date Cathie Becerra ANP [address] [place] [phone] PCP - General Family Medicine 06/20/22 documented as of this encounter
--- OUTSIDE RECORDS SUMMARY | 2025-03-03 09:30 | XMS_ITS | Encounter Summary ---
Author Organization [employer] Address [address] [facility] [address] [place] [address] Care Team Providers Care Technology Intern Name Role Phone Cathie Becerra Primary Care Provider [phone] Reason for Referral * Consultation (Routine) - Authorized Specialty Diagnoses / Procedures Referred By Monalisa man Referred To Contact Behavioral Health Diagnoses Depression, unspecified depression type Procedures Referral to Behavioral Health Cathie Becerra ANP [address] [place] [address] Phone: tel: fax: Referral ID Status Reason Start Date Expiration Date Visits Requested Visits Authorized [id number] Authorized Specialty Services Required 03/03/2026 1 1 * Imaging (Routine) - Closed Specialty Diagnoses / Procedures Referred By Monalisa man Referred To Contact Radiology Diagnoses Screening mammogram for breast cancer Procedures BI Mammogram Screening Bilateral Cathie Becerra ANP [address] [place] [address] Phone: tel: fax: [address] Phone: tel: fax: Referral ID Status Reason Start Date Expiration Date Visits Re quested Visits Authorized [id number] Closed 03/03/2025 03/03/2026 1 1 Reason for Visit * Reason Comments Annual Exam Encounter Details Date Type Department Care Team (Latest Contact Info) Description 03/03/2025 9:30 AM EDT Office Visit [facility] [address] [place] [address] Cathie Becerra, ANP [address] [place] [address] Healthcare maintenance (Primary Dx); Type 2 diabetes mellitus with hyperlipidemia (HCC); Encounter for immunization; Screening mammogram for breast cancer; Need for hepatitis B screening test; Chronic pain of both knees; Dietary counseling; Exercise counseling; Bilateral hearing loss, unspecified hearing loss type; Congestion of left ear; Depression, unspecified depression type Social History Tobacco Use Types Packs/Day Years Used Date Smoking Tobacco: Never Smokeless Tobacco: Never Tobacco Cessation:Counseling Given: Not Answered Alcohol Use Standard Drinks/Week Comments Not Currently 0 (1 standard drink = 0.6 oz pur e alcohol) Depression Answer Date Recorded Patient Health Questionnaire-9 Score 8 03/03/2025 Patient Health Questionnaire-9 Score 8 03/03/2025 Last PHQ-9: Questionnaire Data Not on file 1 Housing Stability Answer Date Recorded What is your housing situation today? I have emma mcneill 03/03/[address] you li ve. Do you have problems with any of the following? None of the above 03/03/2025 Food Insecurity Answer Date Recorded Within the past 12 months, y ou worried that your food would run out before you got money to buy more: Never True 03/03/2025 Within the past 12 months,th e food you bought just didn't last and you didn't have enough money to get more: Never True Transportation Answer Date Recorded In the past 12 months, has l ack of transportation kept you from medical appts, meetings, work or from getting things needed for daily living? No 03/03/2025 Utilities Answer Date Recorded In the past 12 months, has t he electric, gas, oil or water company threatened to shut off services in your home? No 03/03/2025 Depression Answer Date Recorded Patient Health Questionnaire-2 Score 2 03/03/2025 Internet Access Answer Date Recorded Internet Access Q1 Yes 03/03/2025 Internet Access Q2 Not on file 03/03/2025 Comments No Sex and Gender Information Value [...] Sign Reading Time Taken Comments Blood Pressure 110/80 03/03/2025 9:41 AM EDT Pulse 84 03/03/2025 9:41 AM EDT Temperature 36.4 C (97.6 F) 03/03/2025 9:41 AM EDT Respiratory Rate 14 03/03/2025 9:41 AM EDT Oxygen Saturation 94% 03/03/2025 9:41 AM EDT Inhaled Oxygen Concentration - - Weight 92.1 kg (203 lb) 03/03/2025 9:41 AM EDT Height 160 cm (5' 3 ) 03/03/2025 9:41 AM EDT Body Mass Index 35.96 03/03/2025 9:41 AM EDT documented in this encounter Functional Status * Over the past 2 weeks, how often have you been bothered by any of the following problems? Question Answer Date of Assessment Author Patient Health Questionnaire -2 Score 2 03/03/2025 10:18 AM EDT Herlinda Cortes MA * Little interest or pleasure in doing things Answer Date of Assessment Author Several days 03/03/2025 10:18 AM EDT Herlinda Cortes MA * Feeling down, depressed, or hopeless Answer Date of Assessment Author Several days 03/03/2025 10:18 AM EDT Herlinda Cortes MA * Trouble falling or staying asleep, or sleeping too much Answer Date of Assessment Author More than half the days 03/03/2025 10:18 AM EDT Herlinda Cortes MA * Feeling tired or having little energy Answer Date of Assessment Author Several days 03/03/2025 10:18 AM EDT Herlinda Cortes MA * Poor appetite or overeating Answer Date of Assessment Author Several days 03/03/2025 10:18 AM EDT Herlinda Cortes MA * Feeling bad about yourself - or that you are a failure or have let yourself or your family down Answer Date of Assessment Author Several days 03/03/2025 10:18 AM Herlinda Blankenship MA * Trouble concentrating on things, such as reading the newspaper or watching television Answer Date of Assessment Author Several days 03/03/2025 10:18 AM Herlinda Blankenship MA * Moving or speaking so slowly that other people could have noticed? Or the opposite - being so fidgety or restless that you have been moving around a lot more than usual. Answer Date of Assessment Author Not at all 03/03/2025 10:18 AM Herlinda Blankenship MA * Thoughts that you would be better off or hurting yourself in some way Answer Date of Assessment Author Not at all 03/03/2025 10:18 AM Herlinda Blankenship MA * Patient Health Questionnaire-9 Score Answer Date of Assessment Author 8 03/03/2025 10:18 AM Herlinda Blankenship MA * How difficult have these problems made it for you to do your work, take care of things at home, or get along with other people? Answer Date of Assessment Author Somewhat difficult 03/03/2025 10:18 AM Herlinda Rangel MA documented as of this encounter Progress Notes * BLAYNE Do - 03/03/2025 9:30 AM EDT SUBJECTIVE: My Clarke is a 59 y.o. year old female who presents for chronic disease management. Denies recent illness, injury, or hospitalization. PMH type 2 diabetes with hyperlipidemia and hepatic steatosis, GERD, lumbar radiculopathy, chronic constipation, NABIL on CPAP has a past medical history of Arthritis, COVID-19 (02/13/2023), Diabetes mellitus (HCC), GERD (gastroesophageal reflux disease), Hyperlipidemia, Lumbar radiculopathy (02/13/2023), NAFL (nonalcoholic fatty liver), and Vitamin D deficiency (11/29/2015). Acute Concerns: Labs ordered not yet obtained 2. Left Ear Fullness - Sensation of left ear being plugged prior to visit - No ear pain reported - History of hearing aids, with difficulty adjusting volume, described as too loud - Difficulty hearing during conversations with others - Hearing aids obtained a couple of months ago, asked her to call for follow-up visit to adjust settings 2. Blurry Vision L eye - Occasional blurry vision reported prior to visit - Last eye exam performed earlier this year, exact month not recalled - Previous eye exam last year was normal - No history of retinopathy reported in the past - I requested notes from eye and lasik after appt 3. DM: - A1c noted to have increased vs previous. Pt reports not going to the gym any more. - Concern about possible connection between vision changes and Ozempic use. No h/o retinopathy but requested updated eye care notes. - agrees to switch to mounjaro for additional A1c and weight benefit 4. Bilateral knee pain. Did not yet get XR. Ordered again. Dr. Calvo advised against additional cortisone injections. Non-smoker CRC screening: c-scope 2016 w/ Dr. Cassidy, repeat 2026 Fatty liver by US Normal DEXA 06/11/23 NABIL on CPAP, following w/ [facility] Sleep med Mammo due, ordered Pap UTD Social History Social History Narrative Not on file Problem List[1] Surgical History[2] Family History[3] Review of Systems Constitutional: Negative for chills and fever. HENT: Positive for hearing loss. Negative for sore throat. Respiratory: Negative for cough and shortness of breath. Cardiovascular: Negative for chest pain. Gastrointestinal: Negative for constipation and diarrhea. Endocrine: Negative for polydipsia, polyphagia and polyuria. Genitourinary: Negative for dysuria. Musculoskeletal: Positive for arthralgias. OBJECTIVE: Vitals: 03/03/25 0941 BP: 110/80 BP Location: Left arm Patient Position: Sitting BP Cuff Size: Adult Pulse: 84 Resp: 14 Temp: 97.6 ??F (36.4 ??C) TempSrc: Oral SpO2: 94% Weight: 203 lb (92.1 kg) Height: 5' 3 (1.6 m) Physical Exam Vitals reviewed. Constitutional: Appearance: Normal appearance. She is obese. HENT: Head: Normocephalic and atraumatic. Right Ear: Tympanic membrane, ear canal and external ear normal. Left Ear: Ear canal and external ear normal. Ears: Comments: Minimal effusion behind the left tympanic membrane. Nose: No congestion. Eyes: General: No scleral icterus. Extraocular Movements: Extraocular movements intact. Pupils: Pupils are equal, round, and reactive to light. Cardiovascular: Rate and Rhythm: Normal rate and regular rhythm. Pulmonary: Effort: Pulmonary effort is normal. Musculoskeletal: Right lower leg: No edema. Left lower leg: No edema. Neurological: Mental Status: She is alert and oriented to person, place, and time. Mental status is at baseline. Cranial Nerves: No cranial nerve deficit. Gait: Gait normal. Psychiatric: Mood and Affect: Mood normal. Behavior: Behavior normal. ASSESSMENT/PLAN My was seen today for annual exam. Up to date w/ HM activities mostly, mammo ordered for update today, labs previously ordered, eye exam done 05/2024, requested notes Assessment & Plan Type 2 diabetes mellitus with hyperlipidemia (HCC): - Elevated A1c at 7.5%. No evidence of diabetic retinopathy on last year???s eye exam. Risk of retinopathy discussed. - Prescribed new medication (Mounjaro) as insurance prefers it over Ozempic. Advised to monitor forabdominal pain or severe nausea and report if present. Emphasized importance of exercise to maintain muscle strength. - Risks and side effects: Discussed potential side effects of Mounjaro, including constipation and possible muscle loss in arms. Reviewed need to return to gym and increase exercise. Encounter for immunization: - Confirmed receipt of flu vaccine. Healthcare maintenance: - Ordered routine laboratory tests including cholesterol, renal function, and hepatitis B serology.Ordered screening mammogram. Will obtain results of this year???s eye exam. Screening mammogram for breast cancer: - Ordered screening mammogram. Need for hepatitis B screening test: - Ordered hepatitis B serology. Chronic pain of both knees: - Ordered new X-rays for knees. Dietary counseling: - Advised importance of diet in diabetes management. Exercise counseling: - Recommended regular exercise, specifically going to the gym, to counteract potential muscle loss from diabetes medications. Bilateral hearing loss, unspecified hearing loss type: - Bilateral hearing loss present. Hearing aids volume too loud; patient unable to adjust. Risk of social isolation, depression, and dementia discussed. - Advised to contact provider for hearing aids to adjust volume. Recommended pt to call company andaudiology provider for adjustment. Congestion of left ear: - Fluid behind left eardrum, likely related to allergies. - Prescribed cetirizine to be taken as needed. Prescription - Mounjaro (tirzepatide) injection, initiated today; monitor for abdominal pain or severe nausea; risk of constipation; potential for muscle loss in arms--recommend continued gym exercise - Cetirizine, as needed for allergy symptoms Diagnoses and all orders for this visit: Healthcare maintenance (Primary) As above Type 2 diabetes mellitus with hyperlipidemia (HCC) - POCT Glucose - POCT Hgb A1c - Tirzepatide (Mounjaro) 7.5 MG/0.5ML solution auto-injector; Inject 7.5 mg under the skin 1 (one) time per week. Encounter for immunization - FLU VACCINE TRIVALENT [id number] (Fluarix) 19 yrs + Screening mammogram for breast cancer - BI Mammogram Screening Bilateral; Future Need for hepatitis B screening test - Hepatitis B Core Antibody, Total; Future - Hepatitis B surface antigen, EIA; Future - Hepatitis B Surface Antibody, Qualitative; Future Chronic pain of both knees - XR Knee 3 Views Left; Future - XR Knee 3 Views Right; Future Dietary counseling Lifestyle recommendations to improve heart health & lower cholesterol: be as active as able, ideally exercise 150min moderate intensity or 75min vigorous intensity weekly; increase intake of vegetables, fruits, whole grains, fish. Try to minimize intake of sugary or greasy food and drink. Use olive oil or vegetable, peanut, canola, or similar oil for cooking. Decrease or stop drinking alcoholif you drink, quit/decrease smoking if you smoke. Exercise counseling As above Bilateral hearing loss, unspecified hearing loss type As above Congestion of left ear - cetirizine (ZyrTEC) 10 MG tablet; Take 1 tab daily for 1 week and then take as needed for allergysx Depression, unspecified depression type - Referral to Behavioral Health; Future This note was drafted using Ambient (AI) technology. The patient/patient's guardian has been informed and has consented to the use of this technology: Yes Herlinda AVILA provided Tamazight interpretation. Based on our discussion, I have outlined the following instructions for you: - Start taking your new medication, Mounjaro, as prescribed. - Watch out for any stomach pain or severe nausea. If you notice these symptoms, let your healthcare team know right away. - Be aware that Mounjaro may cause constipation or muscle loss in your arms. If you notice these issues, let your healthcare team know. - Exercise regularly, such as going to the gym, to help keep your muscles strong and prevent muscleloss from your diabetes medication. - You have already received your flu vaccine, so no action is needed for this. - Go for your routine blood tests to check your cholesterol, kidney function, and hepatitis B. - Schedule and complete your breast screening mammogram. - Wait for your healthcare team to get the results of your eye exam. - Get X-rays done for your knees as ordered. - Follow a healthy diet to help manage your diabetes. - Get help from your hearing provider to adjust the volume on your hearing aids if it is too loud. - Take cetirizine as needed if you have congestion in your left ear. Thank you again for your visit, and we look forward to supporting you in your journey to better health. Follow Up: Medications Ordered Prior to Encounter[4] [1] Patient Active Problem List Diagnosis Constipation Headache Obesity Knee pain Depression Healthcare maintenance Hiatal hernia Elevated alkaline phosphatase level Varicose veins of both lower extremities Excessive attrition of teeth, limited to enamel Elevated LFTs Epigastric pain Lactose intolerance Lumbar radiculopathy NAFL (nonalcoholic fatty liver) Supraumbilical hernia Chronic constipation Colon cancer screening Gastritis GERD (gastroesophageal reflux disease) Morbid obesity with BMI of 40.0-44.9, adult (CMS/HCC) (HCC) NABIL on CPAP Type 2 diabetes mellitus with hyperlipidemia ([facility]) Preop examination Insomnia [2] Past Surgical History: Procedure Laterality Date SECTION, LOW TRANSVERSE x 3 [3] No family history on file. [4] Current Outpatient Medications on File Prior to Visit Medication Sig Dispense Refill albuterol (Ventolin HFA) 108 (90 Base) MCG/ACT inhaler INHALE 2 PUFFS EVERY 6 HOURS IF NEEDED FOR WHEEZING. 18 g 1 Alcohol Swabs pads 1 each if needed (to clean skin). 100 each 11 Blood Glucose Monitoring Suppl (ViepageStyle Lite) w/Device kit 1 each in the morning. 1 kit 0 gllqtcbwvg-gzpbzsuibnzxj-yyhgkgnm 50-325-40 MG tablet Take 1 tablet by mouth every 6 (six) hours ifneeded for headaches. Try to limit use to < 3d/mo 12 tablet 1 cholecalciferol (D3 Super Strength) 50 MCG (2000 UT) capsule TAKE 1 CAPSULE BY MOUTH EVERY MORNING 90 capsule 1 Continuous Blood Gluc Manipulative Therapy Specialist (ViepageStyle Nhi 2 [place]) device 1 each 5 (five) times a day. 1 each 0 Continuous Blood Gluc Sensor (FreeStyle Nhi 2 Sensor) misc 1 each every 14 (fourteen) days. 6 each [address] capsule TOME 2 C PSULAS POR V A ORAL TODOS LOS D doxepin (SINEquan) 25 MG capsule Take 1 capsule (25 mg) by mouth at bedtime. 30 capsule 1 DULoxetine (Cymbalta) [address] capsule TAKE 1 CAPSULE BY MOUTH EVERY MORNING. DO NOT CRUSH OR CHEW.30 capsule 1 EPINEPHrine (Epipen) 0.3 MG/0.3ML injection syringe Inject 0.3 mL (0.3 mg) as directed 1 (one) timefor 1 dose. 2 each 0 fluticasone (Flonase) 50 MCG/ACT nasal spray INSTILL 1 SPRAY IN EACH NOSTRIL TWICE DAILY 48 g 1 FreeStyle lancets 1 each by Other route 2 times daily. dx type 2 diabetes 100 each 11 glucose blood (FREESTYLE LITE) test strip USE INSTRUCTED CHECK BLOOD GLUCOSE 2-3 TIMES DAILY 100strip 11 Linzess 145 MCG capsule take 1 capsule by mouth every day in the morning metFORMIN XR (Glucophage-XR) 500 MG 24 hr tablet 1 tablet twice daily with meal. Do not crush, chew, or split. 180 tablet 3 rosuvastatin (Crestor) 5 MG tablet Take 1 tablet once daily for cholesterol 90 tablet 1 tiZANidine (Zanaflex) 2 MG tablet TAKE 1 TABLET (2 MG) BY MOUTH 3 TIMES DAILY FOR 10 DAYS. IF NEEDED FOR MUSCLE PAIN 30 tablet 0 topiramate 50 MG tablet TAKE 1 TABLET BY MOUTH AT BEDTIME 30 tablet 5 traMADol (Ultram) 50 MG tablet TAKE 1 TABLET (50 MG) BY MOUTH EVERY 12 (TWELVE) HOURS IF NEEDED FORSEVERE PAIN. 15 tablet 0 [DISCONTINUED] loratadine (Claritin) 10 MG tablet TAKE 1 TABLET (10MG) BY ORAL ROUTE EVERY DAY NEEDED 90 tablet 1 [DISCONTINUED] Ozempic, 2 MG/DOSE, 8 MG/3ML solution pen-injector Inject 2 MG SUBCUTANEOUSLY EVERY 7 DAYS IN THE ABDOMEN, THIGHS OR UPPER ARM. ROTATE INJECTION SITES. 3 mL 2 No current facility-administered medications on file prior to visit. documented in this encounter Plan of Treatment Upcoming Encounters Date Type Department Care Team (Late st Contact Info) Description 03/07/2025 11:00 AM EDT Office Visit [facility] [address] [place] [address] Duane Powellard 04/20/2025 8:00 AM EST Office Visit [facility] [address] [place] [address] Gordy Holguin [address] [place] [address] Scheduled Orders Name Type Priority Associated Diagnoses Orde r Schedule BI Mammogram Screening Bilateral Imaging Routine Screening mammogram for breast cancer Expected: 03/03/2025, Expires: 03/04/2026 XR Knee 3 Views Left Imaging Routine Chronic pain of both knees Expected: 03/03/2025, Expires: 03/03/2026 XR Knee 3 Views Right Imaging Routine Chronic pain of both knees Expected: 03/03/2025, Expires: 03/03/2026 documented as of this encounter Procedures Procedure Name Priority Date/Time Associated Diagnosis Comments HEPATITIS B SURFACE ANTIGEN, EIA Routine 03/03/2025 10:44 AM EDT Need for hepatitis B screening test HEPATITIS B CORE AB TOTAL Routine 03/03/2025 10:44 AM EDT Need for hepatitis B screening test HEPATITIS B SURFACE ANTIBODY, QUALITATIVE Routine 03/03/2025 10:44 AM EDT Need for hepatitis B screening test POCT GLYCATED HEMOGLOBIN, TOTAL Routine 03/03/2025 9:52 AM EDT Type 2 diabetes mellitus with hyperlipidemia (HCC) POCT GLUCOSE Routine 03/03/2025 9:49 AM EDT Type 2 diabetes mellitus with hyperlipidemia (HCC) documented in this encounter Results * Hepatitis B Surface Antibody, Qualitative (03/03/2025 10:44 AM EDT) ~Hepatitis B Surface Antibody REACTIVE Nonreactive [facility] Comment:REACTIVE: > 11.99 mI U/mL Blood Venous blood specimen / Unknown 03/03/2025 10:44 AM EDT 03/03/2025 11:21 AM EDT us Cathie Becerra [facility] BLOOD ORDERABLES Final Resul t Performing Organization Address [facility] Co de Phone Number [facility] [address] [place] [phone] * Hepatitis B surface antigen, EIA (03/03/2025 10:44 AM EDT) Hepatitis B Surface Ag Negative Negative [facility] Blood Venous blood specimen / Unknown 03/03/2025 10:44 AM EDT 03/03/2025 11:21 AM EDT us Cathie Becerra [facility] BLOOD ORDERABLES Final Resul t Performing Organization Address [facility] de Phone Number [facility] [address] [place] [phone] * Hepatitis B Core Antibody, Total (03/03/2025 10:44 AM EDT) Hepatitis B Core Antibody Nonreactive Nonreactive [facility] Blood Venous blood specimen / Unknown 03/03/2025 10:44 AM EDT 03/03/2025 11:21 AM EDT us Cathie Becerra [facility] BLOOD ORDERABLES Final Resul t Performing Organization Address [facility] de Phone Number [facility] [address] [place] [phone] * (ABNORMAL) POCT Hgb A1c (03/03/2025 9:52 AM EDT) Hemoglobin A1C 7.5(A) 4.0 - 5.7 % QC Media Lot # [id number] Lot# Expiration Date ,789 Blood 03/03/2025 9:52 AM EDT us Cathie Becerra ANP POINT OF CARE TEST ENTER/EDIT OR DERABLES Final Result * POCT Glucose (03/03/2025 9:49 AM EDT) Glucose Blood, POC 159 60 - 200 mg/dL QC Media Lot # [id number] Lot# Expiration Date ,327,204 Blood Capillary blood specimen / Unknown 03/03/2025 9:49 AM EDT Cathie CISNEROS POINT OF CARE TEST ENTER/EDIT OR DERABLES Final Result documented in this encounter Visit Diagnoses Diagnosis Healthcare maintenance- Primary Type 2 diabetes mellitus with hyperlipidemia (HCC) Encounter for immunization Screening mammogram for breast cancer Need for hepatitis B screening test Chronic pain of both knees Dietary counseling Dietary surveillance and counseling Exercise counseling Bilateral hearing loss, unspecified hearing loss type Congestion of left ear Depression, unspecified depression type documented in this encounter Additional Health Concerns Assessment Noted Time PHQ-9 Depression Total Score: 8 03/03/20 25 10:18 AM EDT documented as of this encounter Care Teams Technology Intern Relationship Specialty Start Date End Date Cathie Becerra ANP [address] [place] [phone] PCP - General Family Medicine 06/20/22 documented as of this encounter
[2025-03-03 12:06] LABS: Anion Gap 13 (12-20); Blood Urea Nitrogen 14 mg/dL (9-16); Calcium 9.9 mg/dL (8.4-10.2); Carbon Dioxide 30 mmol/L (22-29); Chloride 103 mmol/L (96-108); Cholesterol 186 mg/dL (<200); Estimated Glomerular Filt Rate > 60; HDL Cholesterol 43 mg/dL (>40); Potassium 4.1 mmol/L (3.3-5.1); Sodium 142 mmol/L (135-145); Triglycerides 146 mg/dL (<150)
[2025-03-03 12:29] LABS: HBS Num1 18.33 mIU/mL (0-7.99); HBc Num1 0.06 S/CO (0.00-0.79); HBsAGNum1 0.33 S/CO (0.00-0.99); Hepatitis B Surface Antigen Negative (Negative); ~Hepatitis B Surface Antibody REACTIVE (Nonreactive)
--- OUTSIDE RECORDS SUMMARY | 2025-03-03 12:49 | XMS_ITS | Encounter Summary ---
Author Organization [employer] Address [address] [facility] [address] [place] [address] Care Team Providers Care Crude Oil Treater Name Role Phone Cathie Becerra Primary Care Provider [phone] Reason for Visit * Reason Comments Med Refill Encounter Details Date Type Department Care Team ([facility] st Contact Info) Description 07/17/2023 Refill [facility] [address], [place] [phone] Cathie Becerra ANP [address] [place] [address] Wheezing Social History Tobacco Use Types Packs/Day [...] Description 03/07/2025 11:00 AM EDT Office Visit [facility] [address] [place] [address] Daryl Powell 04/20/2025 8:00 AM EST Office Visit [facility] [address] [place] [address] Gordy Holguin [address] [place] [address] documented as of this encounter Visit Diagnoses Diagnosis Wheezing documented in this encounter Care Teams Crude Oil Treater Relationship Specialty Start Date End Date Cathie Becerra ANP [address] [place] [address] PCP - General Family Medicine 06/20/22 documented as of this encounter
--- OUTSIDE RECORDS SUMMARY | 2025-03-03 12:49 | XMS_ITS | Encounter Summary ---
Author Organization [employer] Address 75 [facility] 7t [place] [address] Care Team Providers Care Lead Android Developer Name Role Phone Cathie Becerra Primary Care Provider [phone] Encounter Details Date Type Department Care Team (Latest Contact Info) Description 03/03/2025 Travel Social History Tobacco Use Types Packs/Day Years [...] PM EDT documented as of this encounter Functional Status * Over the [...] AM EDT Herlinda Cortes MA * Trouble concentrating on things, such as reading the newspaper or watching television Answer Date of Assessment Author Several days 03/03/2025 10:18 AM EDT Herlinda Cortes MA * Moving or speaking so slowly that other people could have noticed? Or the opposite - being so fidgety or restless that you have been moving around a lot more than usual. Answer Date of Assessment Author Not at all 03/03/2025 10:18 AM EDT Herlinda Cortes MA * Thoughts that you would be better off or hurting yourself in some way Answer Date of Assessment Author Not at all 03/03/2025 10:18 AM EDT Herlinda Cortes MA * Patient Health Questionnaire-9 Score Answer Date of Assessment Author 8 03/03/2025 10:18 AM EDT Herlinda Cortes MA * How difficult have these problems made it for you to do your work, take care of things at home, or get along with other people? Answer Date of Assessment Author Somewhat difficult 03/03/2025 10:18 AM EDT Herlinda Keane MA documented as of this encounter Plan of Treatment Upcoming Encounters Date Type Department Care Team (Late st Contact Info) Description 03/07/2025 11:00 AM EDT Office Visit [facility] ADULT DENTAL [address] [place] [address] Daryl Powell 04/20/2025 8:00 AM EST Office Visit [facility] ADULT DENTAL [address] [place] [address] Gordy Holguin 505 [place] [address] documented as of this encounter Visit Diagnoses Not on filedocumented in this encounter Additional Health Concerns Assessment Noted Time PHQ-9 Depression Total Score: 8 03/03/20 25 10:18 AM EDT documented as of this encounter Care Teams Lead Android Developer Relationship Specialty Start Date End Date Cathie Becerra ANP [address] [place] [address] PCP - General Family Medicine 06/20/22 documented as of this encounter
--- OUTSIDE RECORDS SUMMARY | 2025-03-03 12:49 | XMS_ITS | Encounter Summary ---
Author Organization [employer] Address 75 [facility] 7t [place] [address] Care Team Providers Care Coke Drawer Name Role Phone Cathie Becerra Primary Care Provider [phone] Reason for Visit * Reason Onset Date Comments chart prep 03/01/2025 Encounter Details Date Type Department Care Team ([facility] st Contact Info) Description 03/01/2025 Telephone [facility] MEDICINE [address] [place] [address] Cathie Becerra ANP [address] [place] [address] chart prep Social History Tobacco Use Types Packs/Day Years [...] encounter Miscellaneous Notes * Telephone Encounter - Herlinda Cortes MA - 03/01/2025 3:13 PM EDT Chart Prep Labs: done Images: not applicable Referrals: appointment pending Vaccines due: Flu, Hep B, and Hep A Screenings: mammogram, eye exam, and HIV screening Overdue care gaps: SDOH, Oral health screening, and Disability screen documented in this encounter Plan of Treatment Upcoming Encounters Date Type Department Care Team (Late st Contact Info) Description 03/07/2025 11:00 AM EDT Office Visit [facility] ADULT DENTAL [address] [place] [address] Daryl Powell 04/20/2025 8:00 AM EST Office [facility] ADULT DENTAL [address] [place] [address] Gordy Holguin 505 [place] [address] documented as of this encounter Visit Diagnoses Not on filedocumented in this encounter Additional Health Concerns Assessment Noted Time PHQ-9 Depression Total Score: 15 025 10:44 AM EST documented as of this encounter Care Teams Coke Drawer Relationship Specialty Start Date End Date Cathie Becerra ANP [address] [place] [address] PCP - General Family Medicine 06/20/22 documented as of this encounter
--- OUTSIDE RECORDS SUMMARY | 2025-03-03 12:50 | XMS_ITS | Encounter Summary ---
Author Organization [employer] Address 75 [facility] 7t [place] [address] Care Team Providers Care Bulk Pallet Builder Name Role Phone Cathie Becerra Primary Care Provider [phone] Reason for Visit * Reason Onset Date Comments call back 10/18/2022 Encounter Details Date Type Department Care Team ([facility] st Contact Info) Description 10/18/2022 Telephone [facility] MEDICINE [address] [place] [address] Cathie Becerra ANP [address] [place] [address] call back Social History Tobacco Use Types [...] Upcoming Encounters Date Type Department Care Team ([facility] st Contact Info) Description 03/07/2025 11:00 AM EDT Office Visit [facility] ADULT DENTAL [address] [place] [address] Daryl Powell 04/20/2025 8:00 AM EST Office Visit [facility] ADULT DENTAL [address] [place] [address] Gordy Holguin [address] [place] [address] documented as of this encounter Visit Diagnoses Not on filedocumented in this encounter Care Teams Bulk Pallet Builder Relationship Specialty Start Date End Date Cathie Becerra ANP [address] [place] [address] PCP - General Family Medicine 06/20/22 documented as of this encounter
--- OUTSIDE RECORDS SUMMARY | 2025-03-03 12:50 | XMS_ITS | Encounter Summary ---
Author Organization [employer] Address 75 [facility] 7t [place] [address] Care Team Providers Care Lab Specialist Name Role Phone Cathie Becerra Primary Care Provider [phone] Reason for Visit * Reason Onset Date Comments Appointment Request 06/01/2024 Encounter Details Date Type Department Care Team ([facility] st Contact Info) Description 06/01/2024 Telephone [facility] MEDICINE [address] [place] [address] Cathie Becerra ANP 230 [place] [address] Appointment Request Social History Tobacco Use Types [...] r/s appt from 06/01. Contact pt at [phone] documented in this encounter Plan of Treatment Upcoming Encounters Date Type Department Care Team (Late st Contact Info) Description 03/07/2025 11:00 AM EDT Office Visit [facility] ADULT [facility]AL [address] [place] [address] Daryl Powell 04/20/2025 8:00 AM EST Office Visit [facility] ADULT DENTAL [address] [place] [address] Gordy Holguin 505 [place] [address] documented as of this encounter Visit Diagnoses Not on filedocumented in this encounter Care Teams Lab Specialist Relationship Specialty Start Date End Date Cathie Becerra ANP [address] [place] [address] PCP - General Family Medicine 06/20/22 documented as of this encounter
--- OUTSIDE RECORDS SUMMARY | 2025-03-03 12:50 | XMS_ITS | Encounter Summary ---
Author Organization [employer] Address 75 [facility] 7t [place] [address] Care Team Providers Care Head Butler Name Role Phone Cathie Becerra Primary Care Provider [phone] Reason for Visit * Reason Onset Date Comments Med Refill 10/13/2023 Encounter Details Date Type Department Care Team ([facility] st Contact Info) Description 10/13/2023 Telephone [facility] MEDICINE [address] [place] [address] Cathie Becerra ANP [address] [place] [address] Med Refill Social History Tobacco Use Types [...] 50 MG tablet To be sent to: [facility]/pharmacy #[id number] documented in this encounter Plan of Treatment Upcoming Encounters Date Type Department Care Team (Late st Contact Info) Description 03/07/2025 11:00 AM EDT Office Visit [facility] ADULT DENTAL [address] [place] [address] Daryl Powell 04/20/2025 8:00 AM EST Office Visit [facility] ADULT DENTAL [address] [place] [address] Gordy Holguin 505 [place] [address] documented as of this encounter Visit Diagnoses Not on filedocumented in this encounter Care Teams Head Butler Relationship Specialty Start Date End Date Cathie Becerra ANP [address] [place] [address] PCP - General Family Medicine 06/20/22 documented as of this encounter
--- OUTSIDE RECORDS SUMMARY | 2025-03-03 12:50 | XMS_ITS | Encounter Summary ---
Author Organization [employer] Address 75 [facility] 7 [place] [address] Care Team Providers Care News Clerk Name Role Phone Bubba Story MD Primary Care Provider Cathie Johnson Primary Care Provider [phone] Encounter Details Date Type Department Care Team (Latest Contact Info) Description 07/16/2018 Abstract [facility] CONVERSIONS Dental, Provider, DDS Social History [...] Description 03/07/2025 11:00 AM EDT Office Visit [facility] ADULT DENTAL [address] [place] [address] Daryl Powell 04/20/2025 8:00 AM EST Office Visit [facility] ADULT DENTAL [address] [place] [address] Gordy Holguin 505 [place] [address] documented as of this encounter Visit Diagnoses Not on filedocumented in this encounter Care Teams News Clerk Relationship Specialty Start Date End Date Bubba Story MD PCP - General Family Medicine 06/15/20 06/19/22 Cathie Becerra ANP 230 [place] [address] PCP - General Family Medicine 06/20/22 documented as of this encounter
--- OUTSIDE RECORDS SUMMARY | 2025-03-03 12:50 | XMS_ITS | Encounter Summary ---
Author Organization [employer] Address 75 [facility] 7t [place] [address] Care Team Providers Care Nursery Manager Name Role Phone Cathie Becerra Primary Care Provider Reason for Visit * Reason Onset Date Comments Med Refill 10/10/2022 Encounter Details Date Type Department Care Team ([facility] st Contact Info) Description 10/10/2022 Telephone [facility] MEDICINE [address] [place] [address] Cathie Becerra ANP 230 [place] [address] Med Refill Social History Tobacco Use Types [...] Thank you. * Telephone Encounter - Gissel Cortes Guillory - 10/10/2022 9:52 AM EDT Tc from pt requesting med refill on Simvastatin 20 mg, pt claims provider advise will send a medication script for her High cholesterol on 10/09/2022. Please sent to [facility]/pharmacy #[id number] - [place] - [address] [place] [address] documented in this encounter Plan of Treatment Upcoming Encounters Date Type Department Care Team (Late st Contact Info) Description 03/07/2025 11:00 AM EDT Office Visit [facility] ADULT DENTAL [address] [place] [address] Daryl Powell 04/20/2025 8:00 AM EST Office Visit [facility] ADULT DENTAL [address] [place] [address] Gordy Holguin 505 [place] [address] documented as of this encounter Visit Diagnoses Not on filedocumented in this encounter Care Teams Nursery Manager Relationship Specialty Start Date End Date Cathie Becerra ANP [address] [place] [address] PCP - General Family Medicine 06/20/22 documented as of this encounter
--- OUTSIDE RECORDS SUMMARY | 2025-03-03 12:50 | XMS_ITS | Encounter Summary ---
Author Organization [employer] Address 75 [facility] 7 [place] [address] Care Team Providers Care Brick Setter Operator Name Role Phone Bubba Story MD Primary Care Provider Cathie Johnson Primary Care Provider [phone] Encounter Details Date Type Department Care Team (Latest Contact Info) Description 07/21/2019 Abstract [facility] CONVERSIONS Dental, Provider, DDS Social History [...] 03/07/2025 11:00 AM EDT Office Visit [facility] ADULT DENTAL [address] [place] [address] Daryl Powell 04/20/2025 8:00 AM EST Office Visit [facility] ADULT DENTAL [address] [place] [address] Gordy Holguin [address] [place] [address] documented as of this encounter Visit Diagnoses Not on filedocumented in this encounter Care Teams Brick Setter Operator Relationship Specialty Start Date End Date Bubba Story MD PCP - General Family Medicine 06/15/20 06/19/22 Cathie Becerra ANP 230 [place] [address] PCP - General Family Medicine 06/20/22 documented as of this encounter
--- OUTSIDE RECORDS SUMMARY | 2025-03-03 12:50 | XMS_ITS | Encounter Summary ---
Author Organization [employer] Address 75 [facility] 7t [place] [address] Care Team Providers Care Cardroom Supervisor Name Role Phone Cathie Becerra Primary Care Provider [phone] Reason for Visit * Reason Onset Date Comments Nurse Triage 10/20/2023 Encounter Details Date Type Department Care Team ([facility] st Contact Info) Description 10/20/2023 Telephone [facility] MEDICINE [address] [place] [address] Cathie Becerra ANP 230 [place] [address] Nurse Triage Social History Tobacco Use Types [...] 10/20/2023 4:57 PM EDT Triage call with [employer] Rv Repairer ID [id number] Pt reports since last Friday has had some rectal bleeding. Pt denies constipation and reports diarrhea today with some drops of blood seen in toilet. Pt denies pain, dizziness, light headedness and isn't sure if Pt has hemorrhoids. Pt is advised to come to [facility] which is open till 8pm today. Pt [...] The caller accepted this outcome Patient speaks cook islander documented in this encounter Plan of Treatment Upcoming Encounters Date Type Department Care Team (Late st Contact Info) Description 03/07/2025 11:00 AM EDT Office Visit [facility] ADULT D[facility]AL [address] [place] [phone] Daryl Powell 04/20/2025 8:00 AM EST Office Visit [facility] ADULT DENTAL [address] [place], [place] [phone] Gordy Holguin 505 [place] [address] documented as of this encounter Visit Diagnoses Not on filedocumented in this encounter Care Teams Cardroom Supervisor Relationship Specialty Start Date End Date Cathie Becerra ANP [address] [place] [address] PCP - General Family Medicine 06/20/22 documented as of this encounter
--- OUTSIDE RECORDS SUMMARY | 2025-03-03 12:50 | XMS_ITS | Encounter Summary ---
Author Organization [employer] Address 75 [facility] 7t [place] [address] Care Team Providers Care Certified Physical Therapist Assistant Name Role Phone Cathie Becerra Primary Care Provider [phone] Reason for Visit * Reason Onset Date Comments Appointment Request 10/11/2024 Encounter Details Date Type Department Care Team ([facility] st Contact Info) Description 10/11/2024 Telephone [facility] MEDICINE [address] [place] [address] Cathie Becerra ANP [address] [place] [address] Appointment Request Social History Tobacco Use Types [...] encounter Miscellaneous Notes * Telephone Encounter - Sherita Clarke - 10/11/2024 1:57 PM EDT Tc from pt requesting appointment for knee injection. Pt stated procedure started in March 2024. documented in this encounter Plan of Treatment Upcoming Encounters Date Type Department Care Team (Late st Contact Info) Description 03/07/2025 11:00 AM EDT Office Visit [facility] ADULT DENTAL [address] [place] [address] Daryl Powell 04/20/2025 8:00 AM EST Office Visit [facility] ADULT DENTAL [address] [place] [address] Gordy Holguin 505 [place] [address] documented as of this encounter Visit Diagnoses Not on filedocumented in this encounter Additional Health Concerns Assessment Noted Time PHQ-9 Depression Total Score: 15 025 10:44 AM EST documented as of this encounter Care Teams Certified Physical Therapist Assistant Relationship Specialty Start Date End Date Cathie Becerra ANP [address] [place] [address] PCP - General Family Medicine 06/20/22 documented as of this encounter
--- OUTSIDE RECORDS SUMMARY | 2025-03-03 12:50 | XMS_ITS | Encounter Summary ---
Author Organization [employer] Address 75 [facility] 7t [place] [address] Care Team Providers Care Driver'S Education Instructor Name Role Phone Cathie Becerra Primary Care Provider Encounter Details Date Type Department Care Team (Late st Contact Info) Description 08/22/2023 Orders Only [facility] MEDICINE [address] [place], [place] [phone] Cathie Becerra ANP 230 [place] [address] Social History Tobacco Use Types Packs/Day Years [...] 03/07/2025 11:00 AM EDT Office [facility] AD[facility] [address] [place] [address] Daryl Powell 04/20/2025 8:00 AM EST Office Visit [facility] AD[facility] [address] [place] [address] Gordy Holguin 505 [place] [address] documented as of this encounter Visit Diagnoses Not on filedocumented in this encounter Care Teams Driver'S Education Instructor Relationship Specialty Start Date End Date Cathie Becerra ANP [address] [place] [address] PCP - General Family Medicine 06/20/22 documented as of this encounter
--- OUTSIDE RECORDS SUMMARY | 2025-03-03 12:50 | XMS_ITS | Clinical Summary ---
Author Organization [employer] [facility] Address [address] [place] [id number] Care Team Providers Care Plant Machinist Name Role Phone Ed Collins MD Primary Care Provider [phone] Surgical History Surgery Date Site/Laterality Comments TUBAL [...] (2 - Td or Tdap) 11/28/2018 11/28/2008 Depression Screening 05/12/2024 COVID-19 Vaccine ( - 2023-2 5 season) 2025 Influenza Vaccine (#1) 2025 1, 05/01/2009, 03/03/2009 RSV Immunization Adult Patients (1 - 1-dose 75+ series) 2041 HIB Vaccines Aged Out No longer eligi [...] age to complete this topic Care Teams Plant Machinist Relationship Specialty Start Date End Date Ed Collins MD [address] [place] [address] [address] DAVID Gomes PCP - General Internal Medicine 10/12/12
--- OUTSIDE RECORDS SUMMARY | 2025-03-03 12:50 | XMS_ITS | Encounter Summary ---
Author Organization [employer] Address 75 [facility] 7t [place] [address] Care Team Providers Care Risk Engineer Name Role Phone Cathie Becerra Primary Care Provider [phone] Reason for Visit * Reason Onset Date Comments Med Refill 10/11/2024 Encounter Details Date Type Department Care Team ([facility] st Contact Info) Description 10/11/2024 Telephone [facility] MEDICINE [address] [place] [address] Cathie Becerra ANP [address] [place] [address] Med Refill Social History Tobacco Use Types [...] encounter Miscellaneous Notes * Telephone Encounter - Sehrita Clarke - 10/11/2024 1:52 PM EDT TC from pt requesting medication refill. Medications needing refill : traMADol (Ultram) 50 MG tablet To be sent to: [facility]/pharmacy #[id number] [place], [place] - [address] [place] [address] documented in this encounter Plan of Treatment Upcoming Encounters Date Type Department Care Team (Late st Contact Info) Description 03/07/2025 11:00 AM EDT Office Visit [facility] ADULT DENTAL [address] [place] [address] Daryl Powell 04/20/2025 8:00 AM EST Office Visit [facility] ADULT DENTAL [address] [place] [address] Gordy Holguin 505 [place] [address] documented as of this encounter Visit Diagnoses Not on filedocumented in this encounter Additional Health Concerns Assessment Noted Time PHQ-9 Depression Total Score: 15 025 10:44 AM EST documented as of this encounter Care Teams Risk Engineer Relationship Specialty Start Date End Date Cathie Becerra ANP [address] [place] [address] PCP - General Family Medicine 06/20/22 documented as of this encounter
--- OUTSIDE RECORDS SUMMARY | 2025-03-03 12:51 | XMS_ITS | Clinical Summary ---
Author Organization [employer] Address [address] [facility] [place] [address] Care Team Providers Care Fuller Brush Man Name Role Phone Mekhi Martinez Primary Care Provider [phone] Allergies Active Allergy Reactions Criticality Noted Date [...] each 11 023 Active Continuous Blood Gluc Manager Inventory (FreeStyle Nhi 2 [place]) deviceIndication s:Type 2 diabetes mellitus with hyperlipidemia (HCC) 1 each 5 (five) times a day. 1 each 023 Active Continuous Blood Gluc Sensor (FreeStyle Nhi 2 Sensor) miscIndications: Type 2 diabetes mellitus with hyperlipidemia (HCC) 1 each every 14 (fourteen) days. 6 each 3 023 Active EPINEPHrine (Epipen) 0.3 MG/0.3ML injection syringeIndicatio ns:Shellfish allergy Inject 0.3 mL (0.3 mg) as directed 1 (one) time for 1 dose. 2 each 024 Active glucose blood (FREESTYLE LITE) test stripIndications :Type 2 diabetes mellitus with hyperlipidemia (HCC) USE INSTRUCTED CHECK BLOOD GLUCOSE 2-3 TIMES DAILY 100 strip 11 024 Active cholecalciferol (D3 Super Strength) 50 MCG (2000 UT) capsule TAKE 1 CAPSULE BY MOUTH EVERY MORNING 90 capsule 1 024 Active topiramate 50 MG tabletIndication s:Migraine without aura and without status migrainosus, not intractable TAKE 1 TABLET BY MOUTH AT BEDTIME 30 tablet 5 025 Active metFORMIN XR (Glucophage-XR) 500 MG 24 hr tabletIndication s:Type 2 diabetes mellitus with hyperlipidemia (HCC) 1 tablet twice daily with meal. Do not crush, chew, or split. 180 tablet 3 025 Active butalbital-aceta minophen-caffein e 50-325-40 MG tabletIndication s:Migraine without aura and without status migrainosus, not intractable Take 1 tablet by mouth every 6 (six) hours if needed for headaches. Try to limit use to < 3d/mo 12 tablet 1 025 Active rosuvastatin (Crestor) 5 MG tabletIndication s:Type 2 diabetes mellitus with hyperlipidemia (HCC),Cardiovasc ular event risk Take 1 tablet once daily for cholesterol 90 tablet 1 025 Active Linzess 145 MCG capsule take 1 capsule by mouth every day in the morning 025 Active albuterol (Ventolin HFA) 108 (90 Base) MCG/ACT inhalerIndicatio ns:Wheezing INHALE 2 PUFFS EVERY 6 HOURS IF NEEDED FOR WHEEZING. 18 g 025 Active fluticasone (Flonase) 50 MCG/ACT nasal sprayIndications :Non-seasonal allergic rhinitis due to other allergic trigger INSTILL 1 SPRAY IN EACH NOSTRIL TWICE DAILY 48 g 025 Active DULoxetine (Cymbalta) [address] capsuleIndicatio ns:Depression, unspecified depression type TAKE 1 CAPSULE BY MOUTH EVERY MORNING. DO NOT CRUSH OR CHEW. 30 capsule 1 025 Active doxepin (SINEquan) 25 MG capsuleIndicatio ns:Insomnia, unspecified type Take 1 capsule (25 mg) by mouth at bedtime. 30 capsule 1 025 12/13/ 2025 Active traMADol (Ultram) 50 MG tabletIndication s:Primary osteoarthritis of left knee TAKE 1 TABLET (50 MG) BY MOUTH EVERY 12 (TWELVE) HOURS IF NEEDED FOR SEVERE PAIN. 15 tablet Active tiZANidine (Zanaflex) 2 MG tabletIndication s:Muscle pain TAKE 1 TABLET (2 MG) BY MOUTH 3 TIMES DAILY FOR 10 DAYS. IF NEEDED FOR MUSCLE PAIN 30 tablet 025 2024 Active cetirizine (ZyrTEC) 10 MG tabletIndication s:Congestion of left ear Take 1 tab daily for 1 week and then take as needed for allergy sx 90 tablet Active Tirzepatide (Mounjaro) 7.5 MG/0.5ML solution auto-injectorInd ications:Type 2 diabetes mellitus with hyperlipidemia (HCC) Inject 7.5 mg under the skin 1 (one) time per week. 2 mL 2 Active loratadine (Claritin) 10 MG tabletIndication s:Non-seasonal allergic rhinitis due to other allergic trigger TAKE 1 TABLET (10MG) BY ORAL ROUTE EVERY DAY NEEDED 90 tablet 1 023 2024 Discontinued(I neffective) fluticasone (Flonase) 50 MCG/ACT nasal sprayIndications :Non-seasonal allergic rhinitis due to other allergic trigger SPRAY 1 SPRAY INTRANASALLY 2 TIMES A DAY INTO EACH NOSTRIL 48 mL 1 024 2024 Discontinued doxepin (SINEquan) 25 MG capsuleIndicatio ns:Insomnia, unspecified type Take 1 capsule (25 mg) by mouth at bedtime. 30 capsule 1 025 2024 Discontinued(R eorder (will not trigger notification to Pharmacy)) tiZANidine (Zanaflex) 2 MG tabletIndication s:Muscle pain Take 1 tablet (2 mg) by mouth 3 times daily for 10 days. If needed for muscle pain 30 tablet 025 2024 Discontinued traMADol (Ultram) 50 MG tabletIndication s:Primary osteoarthritis of left knee Take 1 tablet (50 mg) by mouth every 12 (twelve) hours if needed for severe pain. 15 tablet 025 2024 Discontinued DULoxetine (Cymbalta) [address] Kowalski ns:Depression, unspecified depression type Take 1 capsule (60 mg) by mouth in the morning. Do not crush or chew. 30 capsule 1 025 2024 Discontinued Ozempic, 2 MG/DOSE, 8 MG/3ML solution pen-injectorIndi cations:Type 2 diabetes mellitus with hyperlipidemia (HCC) Inject 2 MG SUBCUTANEOUSLY EVERY 7 DAYS IN THE ABDOMEN, THIGHS OR UPPER ARM. ROTATE INJECTION SITES. 3 mL 2 025 2024 Discontinued(F ormulary change) Active Problems Problem Noted Date Diagnosed Date [...] surgeon Type 2 diabetes mellitus with hyperlipidemia 10/2022 Assessment & Plan (07/25/2023 12:27 PM EDT): [...] 02/13/2023 Gastritis 02/13/2023 GERD (gastroesophageal reflux disease) Morbid obesity with BMI of 40.0-44.9, adult ([facility]) 02/13/2023 Excessive attrition of teeth, limited to enamel 10/21/2022 Varicose veins of both lower extremities 023 Depression 09/12/2022 Healthcare maintenance 09/12/2022 Hiatal hernia 09/12/2022 Elevated alkaline phosphatase level 09/12/2022 Headache 09/06/2022 NABIL on CPAP 05/04/2015 Overview (12/02/2023): Images from the original note were not included. Constipation 02/16/2015 Obesity 02/16/2015 Knee pain 02/16/2015 Resolved Problems Problem Noted Date Diagnosed Date Resolved Date Alcohol intoxication 02/13/2023 024 Cough 02/13/2023 02/14/2023 COVID-19 02/13/2023 02/14/2023 Vitamin D deficiency 11/29/2015 025 Encounters Date Type Department Care Team Description 03/03/2025 9:30 AM EDT Office Visit [facility] [address] [place] [phone] Mekhi Martinez ANP Healthcare maintenance (Primary Dx); Type 2 diabetes mellitus with hyperlipidemia (HCC); Encounter for immunization; Screening mammogram for breast cancer; Need for hepatitis B screening test; Chronic pain of both knees; Dietary counseling; Exercise counseling; Bilateral hearing loss, unspecified hearing loss type; Congestion of left ear; Depression, unspecified depression type 03/03/2025 Travel 03/01/2025 Telephone [facility] [address] [place] [phone] Mekhi Martinez ANP chart prep 02/28/2025 11:00 AM EDT Office Visit [facility] [address] [place] [address] Daryl Powell Dental calculus (Primary Dx) 02/23/2025 Patient Outreach [facility] [address] [place] [phone] Mekhi Martinez ANP Pre-visit Planning (Pre-visit planning - LVM ) 02/22/2025 Refill [facility] [address], [place] [phone] Mekhi Martinez ANP Primary osteoarthritis of left knee; Muscle pain 02/20/2025 Refill [facility] [address] [place] [address] Mekhi Martinez ANP Depression, unspecified depression type; Insomnia, unspecified type 02/01/2025 Refill [facility] [address] [place] [address] Mekhi Martinez ANP Non-seasonal allergic rhinitis due to other allergic trigger 01/24/2025 Refill [facility] [address] [place] [address] Desmond Price MD Type 2 diabetes mellitus with hyperlipidemia (CMS/HCC) ([facility]) 12/31/2024 8:00 AM EDT Office Visit [facility] [address] [place] [address] Gordy Holguin 12/20/2024 Refill [facility] [address] [place] [address] Mekhi Martinez ANP Wheezing 12/13/2024 Refill [facility] [address] [place] [address] Mekhi Martinez ANP Depression, unspecified depression type 12/10/2024 9:30 AM EDT Procedure Visit [facility] [address] [place] [address] Elaine Calvo MD Chronic pain of left knee (Primary Dx); Type 2 diabetes mellitus with hyperlipidemia (CMS/HCC) ([facility]) 12/10/2024 Telephone [facility] [address] [place] [address] Mekhi Martinez ANP Reschedule appt. 12/10/2024 Travel 12/01/2024 8:00 AM EDT Office Visit [facility] [address] [place] [address] Lissa Casey Dental calculus (Primary Dx) from Last 3 Months Immunizations Immunization Administration Dates Next Due Hep B, Adolescent or Pediatric 07/22/1996,1995,06/19/1995 Influenza Injectable Quadriv alant Preservative Free IIV4 MDCK 04/20/2020 Influenza injectable quadriv alent IIV4 with preservative 04/10/2017,02/22/2016 Influenza injectable quadriv alent preservative free 02/14/2023,01/18/2022,04/25/2021,2018,03/11/2018,03/20/2015 Influenza, IIV3, injectable 03/29/2014, 1,03/03/2009 Influenza, Split (incl. colleen fied surface antigen) 02/16/2013 Influenza, seasonal, injecta ble, preservative free 03/03/2025,03/03/2024 Caprice SARS-CoV-2 Vaccination 08/02/2020 MMR 11/06/2006 Novel [id number], preservative-free 05/01/2009 PPD Test 07/09/2011,06/16/2009 Pfizer Covid-19 [...] Mass Index 35.96 03/03/2025 9:41 AM EDT Plan of Treatment Upcoming Encounters Date Type Department Care Team (Late st Contact Info) Description 03/07/2025 11:00 AM EDT Office Visit [facility] [address] [place] [address] Darly Powell 04/20/2025 8:00 AM EST Office Visit [facility] [address] [place] [address] Gordy Holguin [address] [place] [address] Health Maintenance Due Date Last Done Comments CT Colonography 1965 FIT DNA/Cologuard 1965 FIT 1965 FOBT 1965 HIV Screening 1965 Sigmoidoscopy 1965 Diabetes: Urine Protein Screening 1985 Hepatitis A Vaccines (1 of 2 - Risk 2-dose series) 1985 Hepatitis B Vaccines (1 of 3 - 19+ 3-dose series) 1985 07/22/1996, 02/26/1996, 06/19/1995 Eye Exam 09/09/2013 09/10/2011 Lipid Panel 10/02/2023 03/03/2025, 10/01/2022 Mammogram 10/15/2024 10/16/2023, 02/27/2016 Dental Oral Exam 12/01/2024 06/02/2024, , 07/21/2019, Additional history exists Diabetes: Hemoglobin A1C 06/03/2025 025, 06/17/2024, 03/03/2024, Additional history exists Dental Prophylaxis 06/04/2025 12/01/2024, 0 06/02/2024, 10/01/2022, Additional history exists Alcohol/Substance Use Screening 06/17/2025 06/17/2024 Diabetes: Foot Exam 06/17/2025 06/17/2024, 06/17/2024, 06/17/2024 Dental X-Ray: Bitewings 12/02/2025 12/02/19 25, 06/02/2024, 07/21/2019, Additional history exists Depression Screening 03/03/2026 03/03/2025, 03/03/20 25 Disability Screening 03/03/2026 03/03/2025 SDOH Screening 03/03/2026 03/03/2025 Tobacco Screening 03/03/2026 03/03/2025 Colonoscopy 08/23/2026 08/23/2016 Colorectal Cancer Screening 08/23/2026 Dental X-Ray: Full Mouth 06/03/2027 06/02/2024, 0705/2014 Cervical Cancer Screening 05/29/2028 HPV/Cotest 05/29/2028 05/29/2023, [...] 02/20/2022, Additional history exists Influenza Vaccine Completed 03/03/2025, , 02/14/2023, Additional history exists HIB Vaccines Aged Out [...] Date/Time Associated Diagnosis Comments HEPATITIS B SURFACE ANTIBODY, QUALITATIVE Routine 03/03/2025 10:44 AM EDT Need for hepatitis B screening test HEPATITIS B SURFACE ANTIGEN, EIA Routine 03/03/2025 10:44 AM EDT Need for hepatitis B screening test HEPATITIS B CORE AB TOTAL Routine 03/03/2025 10:44 AM EDT Need for hepatitis B screening test BASIC METABOLIC PANEL Routine 03/03/2025 10:44 AM EDT Type 2 diabetes mellitus with hyperlipidemia (HCC) LIPID PANEL, STANDARD Routine 03/03/2025 10:44 AM EDT Type 2 diabetes mellitus with hyperlipidemia (HCC) POCT GLYCATED HEMOGLOBIN, TOTAL Routine 03/03/2025 9:52 AM EDT Type 2 diabetes mellitus with hyperlipidemia (HCC) POCT GLUCOSE Routine 03/03/2025 9:49 AM EDT Type 2 diabetes mellitus with hyperlipidemia (HCC) ORAL HYGIENE INSTRUCTIONS Routine 02/28/2025 11:00 AM EDT CASE PRESENTATION, DETAILED AND EXTENSIVE TREATMENT PLANNING Routine 02/28/2025 11:00 AM EDT UR PERIODONTAL SCALING AND ROOT PLANING - 1 TO 3 TEETH PER QUADRANT Routine 02/28/2025 11:00 AM EDT UR PERIODONTAL SCALING AND ROOT PLANING - 4 OR MORE TEETH PER QUADRANT Routine 02/28/2025 11:00 AM EDT CASE PRESENTATION, DETAILED AND EXTENSIVE TREATMENT PLANNING Routine 12/31/2024 8:00 AM EDT 27 I RESIN-BASED COMPOSITE - 1 SURF, ANTERIOR Routine 12/31/2024 8:00 AM EDT MD ARTHROCENTESIS ASPIR&/INJ MAJOR JT/BURSA W/O US Routine 12/10/2024 10:10 AM EDT Chronic pain of left knee POCT GLUCOSE Routine 12/10/2024 9:29 AM EDT Type 2 diabetes mellitus with hyperlipidemia (CMS/HCC) (CMS/HCC) COMPREHENSIVE PERIODONTAL EVALUATION - NEW OR ESTABLISHED PATIENT Routine 12/01/2024 8:00 AM EDT BITEWINGS - 2 RADIOGRAPHIC IMAGES Routine 12/01/2024 8:00 AM EDT INTRAORAL - PERIAPICAL EACH ADDITIONAL RADIOGRAPHIC IMAGE Routine 12/01/2024 8:00 AM EDT INTRAORAL - PERIAPICAL FIRST RADIOGRAPHIC IMAGE Routine 12/01/2024 8:00 AM EDT ORAL HYGIENE INSTRUCTIONS Routine 12/01/2024 8:00 AM EDT CASE PRESENTATION, DETAILED AND EXTENSIVE TREATMENT PLANNING Routine 12/01/2024 8:00 AM EDT PROPHYLAXIS - ADULT Routine 12/01/2024 8 :00 AM EDT INTRAORAL - COMPLETE SERIES OF RADIOGRAPHIC IMAGES [...] Routine 10/01/2022 9:17 AM EDT Healthcare maintenance HM COLONOSCOPY Routine 08/23/2016 from Last 3 Months or Most Recently Relevant to Health Maintenance Results * Hepatitis B surface antigen, EIA (03/03/2025 10:44 AM EDT) Pathologist [facility] Hepatitis B Surface Ag Negative Negative [facility] Blood Venous blood specimen / Unknown 03/03/2025 10:44 AM EDT 03/03/2025 11:21 AM EDT Mekhi Martinez [facility] LAB BLOOD ORDERABLES Final Resul t Performing Organization Address [facility] Co de Phone Number [facility] [address] [place] [phone] * Hepatitis B Core Antibody, Total (03/03/2025 10:44 AM EDT) Pathologist [facility] Hepatitis B Core Antibody Nonreactive Nonreactive [facility] Blood Venous blood specimen / Unknown 03/03/2025 10:44 AM EDT 03/03/2025 11:21 AM EDT Mekhi Martinez [facility] LAB BLOOD ORDERABLES Final Resul t Performing Organization Address [facility] Co de Phone Number [facility] [address] [place] [address] [phone] * Hepatitis B Surface Antibody, Qualitative (03/03/2025 10:44 AM EDT) ~Hepatitis B Surface Antibody REACTIVE Nonreactive [facility] Comment:REACTIVE: > 11.99 mI U/mL Blood Venous blood specimen / Unknown 03/03/2025 10:44 AM EDT 03/03/2025 11:21 AM EDT Mekhi Martinez ANP LAB BLOOD ORDERABLES Final Resul t Performing Organization Address [facility] Co de Phone Number [facility] [address] [place] [address] [phone] * (ABNORMAL) Lipid Panel, Standard (03/03/2025 10:44 AM EDT) Triglycerides 146 <150 mg/dL [facility] Comment:Desirable Triglyceri de: less than 150 mg/dLBorderline High Triglyceride 150-199 mg/dLHigh Triglyceride: 200-499 mg/dLVery High Triglyceride: greater than or equal to 5OO mg/dL Cholesterol 186 <200 mg/dL [facility] Comment:Desirable Cholestero l: less than 200 mg/dLBorderline High Cholesterol: 200-239 mg/dLHigh Cholesterol: greater than 239 mg/dL LDL Cholesterol Calculated 114(H) <100 mg/dL [facility] Comment:Desirable LDL: less than 100 mg/dLNear Optimal/Above Optimal LDL: 110- 129 mg/dLBorderline High LDL: 130-159 mg/dLHigh LDL: 160-189 mg/dLVery High LDL: greater than or equal to 190 mg/dL HDL Cholesterol 43 >40 mg/dL [facility] Comment:Desirable HDL: great er than 40 mg/dL Note: This HDL assay may give artificially low results in patients with liver disease. Blood Venous blood specimen / Unknown 03/03/2025 10:44 AM EDT 03/03/2025 11:21 AM EDT us Mekhi Martinez ANP LAB BLOOD ORDERABLES Final Resul t Performing Organization Address [facility]/ZIP Co de Phone Number [facility] [address] [place] [address] [phone] * (ABNORMAL) Basic Metabolic Panel (03/03/2025 10:44 AM EDT) Sodium 142 135 - 145 mmol/L [facility] Potassium 4.1 3.3 - 5.1 mmol/L [facility] Chloride 103 96 - 108 mmol/L [facility] Carbon Dioxide 30(H) 22 - 29 mmol/L [facility] Anion Gap 13 12 - 20 [facility] Urea Nitrogen (BUN) 14 9 - 16 mg/dL [facility] Creatinine, Serum 0.70 0.5 - 1.4 mg/dL [facility] Estimated Glomerular Filt Rate >60 [facility] Comment:Chronic Kidney Disea se: Estimated GFR < 60 mL/min/1.58f4Sucjtm Kidney Disease: Estimated GFR < 15 mL/min/1.73m2 Glucose 146(H) 60 - 115 mg/dL [facility] Calcium 9.9 8.4 - 10.2 mg/dL [facility] Blood Venous blood specimen / Unknown 03/03/2025 10:44 AM EDT 03/03/2025 11:21 AM EDT us Mekhi Martinez ANP LAB BLOOD ORDERABLES Final Resul t [facility] [address] [place] [address] [phone] * (ABNORMAL) POCT Hgb A1c (03/03/2025 9:52 AM EDT) Pathologist [facility] Hemoglobin A1C 7.5(A) 4.0 - 5.7 % [employer] Media Lot # [id number] Lot# Expiration Date [id number] Blood 03/03/2025 9:52 AM EDT us Mekhi Martinez ANP POINT OF CARE TEST ENTER/EDIT OR DERABLES Final Result * POCT Glucose (03/03/2025 9:49 AM EDT) Only the most recent of2 resultswithin the time period is included. Pathologist [facility] Glucose Blood, POC 159 60 - 200 mg/dL [employer] Lot # [id number] Lot# Expiration Date [id number] Blood Capillary blood specimen / Unknown 03/03/2025 9:49 AM EDT Mekhi CISNEROS POINT OF CARE TEST ENTER/EDIT OR DERABLES Final Result * MD ARTHROCENTESIS ASPIR&/INJ MAJOR JT/BURSA W/O US (12/10/2024 10:10 AM EDT) Narrative Elaine Calvo MD - 12/10/2024 10:10 AM EDT Elaine Calvo MD 12/10/2024 10:13 AM Arthrocentesis Date/Time: 12/10/2024 10:10 AM Performed by: Elaine Calvo MD Authorized by: Elaine Calvo MD Consent: Consent obtained: Verbal and written Consent given by: Patient Risks, benefits, and alternatives were discussed: yes Risks discussed: Pain Alternatives discussed: Referral [place] protocol: Procedure explained and questions answered to patient or proxy's satisfaction: yes Relevant documents present and verified: yes Test results available: yes Imaging studies available: yes Required blood products, implants, devices, and special equipment available: yes Site/side marked: yes Immediately prior to procedure, a time out was called: yes Patient identity confirmed: Verbally with patient Location: Location: Knee Knee: L knee Anesthesia: Anesthesia method: Topical application Procedure details: Preparation: Patient was prepped and draped in usual sterile fashion Needle gauge: 22 G Ultrasound guidance: no Approach: Anterior Steroid injected: yes Specimen collected: no Post-procedure details: Dressing: Adhesive bandage Procedure completion: Tolerated Elaine Calvo MD IN CLINIC/BEDSIDE ORDERABLES Fin al Result * BI Mammogram Screening Tomosynthesis Bilateral (10/16/2023 7:55 AM EDT) Anatomical Region Laterality Modality Breast Bilateral Mammography 10/16/2023 7:55 AM EDT Narrative 11/03/2023 3:21 AM EDT [facility] [address] [place], [place] [address] Mammography Report Signed Patient: My Clarke MR#: [id number] : 1965 Acct:[id number] Age/Sex: 58 / F ADM Date: 10/16/23 Loc: [facility] Attending Dr: Mekhi Martinez NP Ordering Physician: Shanel Villalobos MD Results: 1Ne gat Date of Service: 10/16/23 Follow Up: 1 Year From Orig ina Mammogram Procedure(s): MM tomosynthesis screening BI Accession Number(s): [id number] cc: Shanel Villalobos MD; MEKHI MARTINEZ NP [...] in OV> 11/03/23 0317 DD/ 0755 TD/TT: Returns Supervisor: Procedure Note Donotuseinterpreter, Image - [facility] [address] [place] [address] Mammography Report Signed Patient: Gabriele Clarke#: [id number] : 1965Acct:[id number] Age/Sex: 58 / FADM Date: 10/16/23 Loc: [facility] Attending Dr: Mekhi Martinez NP Ordering Physician: Shanel Villalobosesults: 1Ne gative Date of Service: 10/16/23Follow Up: 1 Year From Orig inal Mammogram Procedure(s): MM tomosynthesis screening BI Accession Number(s): [id number] cc: Shanel Villalobos MD; MEKHI MARTINEZ NP [...] signed by Debbi Beard MD in OV> 11/03/23316 DD/ TD/TT: Returns Supervisor: Shanel Villalobos MD IMG BI PROCEDURES Final Result * HPV mRNA E6/E7 w/Reflex to HPV Genotypes 16, 18/45 (05/29/2023 9:32 AM EST) HPV nRNA E6/E7 Not Detected Not Detected [facility] Comment:Methodology: Transcr iption-Mediated AmplificationThis assay detects E6/E7 viral messenger RNA (mRNA) from 14high-risk HPV types (16,18,31,33,35,39,45,51,52,56,58,59,66,68).Cervical sources are required for HPV testing.If a vaginal source from a patient who has had atotal hysterectomy with removal of cervix wassubmitted, please contact the testing laboratoryfor alternative testing options.For additional information, please refer tohttp://education.Germmatters/faq/JOM451v5(This link if provided for information/educational purposes only.)THIS TEST WAS PERFORMED AT:[employer] [place] [phone] OSEGUERA MD HPV mRNA E6/E7 TNP [facility] HPV 16 RNA TNP [facility] HPV 18/45 [facility] 05/29/2023 9:32 AM EST 05/30/2023 9:15 AM EST us Monica Parikh [facility] LAB CYTOLOGY ORDERABLES F inal Result [facility] [address] [place] [phone] [phone] * Pap Smear (05/29/2023 9:32 AM EST) Swab Cervix uteri structure / Unknown 05/29/2023 9:32 AM EST 05/30/2023 9:15 AM EST Narrative [facility] - 06/11/2023 8:42 AM EST ----- ------- Name: My Clarke Age/Sex: 58/F : 1965 Unit#: [id number] Attend Dr: Re05/29/23 Status: PRE REF Location: [facility] Disch: ----- ------- SPEC : [id number] RECD: 05/30/23 STATUS: RUDDY GARAY NUM: [id number] ELO: 05/29/[address] [facility] [address]: MONICA PARIKH CNM ENTERED: 06/02/23 SP TYPE: Pap Smr OTHR DR: ORDERED: Pap Smear Interpretation Satisfactory for evaluation. No endocervical cells seen. Negative for intraepithelial lesion or malignancy. HPV mRNA E6/E7: NOT DETECTED This assay detects E6/E7 viral messenger RNA (mRNA) from 14 high-risk HPV types (16, 18, 31, 33, 35, 39, 45, 51, 52, 56, 58, 59, 66, 68) HPV testing performed by [employer], [place], [place]. See reference laboratory portion of the EMR for entire report. Clinical Information LMP: Postmenopausal Previous PAP test: Unknown date/findings Material Received ThinPrep-Cervical ----- ------- Signed (signature on file) PATEL Mendez (ASCP) 06/11/23 0842 ----- ------- END OF REPORT Monica Parikh CNM LAB CYTOLOGY ORDERABLES F inal Result [facility] [address] [place] [phone] [phone] * Hepatitis C Antibody with Reflex to HCV, RNA, Quantitative, Real-Time PCR (10/01/2022 9:17 AM EDT) Hepatitis C Antibody NON-REACT RAMILA NON-REACT RAMILA [employer] Index 0.05 <1.00 [employer] [place] [employer] Comment: HCV antibody was non-reactive. There is no laboratory evidence of HCV infection. In most cases, no further action is required. However, if recent HCV exposure is suspected, a test for HCV RNA (test code 71825) is suggested. For additional information please refer to http://education.Germmatters/faq/BTG85w9 (This link is being provided for informational/ educational purposes only.) Blood Venous blood specimen / Unknown 10/01/2022 9:17 AM EDT 10/01/2022 9:17 AM EDT Narrative [facility] - 10/02/2022 10:28 PM EDT FASTING:YES FASTING: YES Mekhi Martinez [facility] LAB BLOOD ORDERABLES Final Resul t [facility] [address], [place] [address] [employer] [place] [address] [place] [address] * Colonoscopy (08/23/2016) Pathologist [facility] Colonoscopy Normal Normal Grant Cassidy MD HEALTH MAINTENANCE Final Res ult from Last 3 Months or Most Recently Relevant to Health Maintenance Insurance [facility] C[place] ADULT Care Teams Fuller Brush Man Relationship Specialty Start Date End Date Mekhi Martinez ANP [address] [place] [id number] PCP - General Family Medicine 06/20/22
--- OUTSIDE RECORDS SUMMARY | 2025-03-03 12:51 | XMS_ITS | Encounter Summary ---
Author Organization [employer] Address [address] [facility] 7t [place] [address] Care Team Providers Care Crane Mechanic Name Role Phone Cathie Becerra Primary Care Provider [phone] Reason for Visit * Reason Onset Date Comments Appointment 09/05/2022 Encounter Details Date Type Department Care Team (Late Contact Info) Description 09/05/2022 Telephone [facility] ADULT DENTAL [address] [place] [address] Lupe Beckett [address] [place] [address] Appointment Social History Tobacco Use Types Packs/Day [...] xrays and is looking to be scheduled. DR documented in this encounter Plan of Treatment Upcoming Encounters Date Type Department Care Team (Late st Contact Info) Description 03/07/2025 11:00 AM EDT Office Visit [facility] [address] [place], [place] [phone] Daryl Powlel 04/20/2025 8:00 AM EST Office Visit [facility] [address] [place] [address] Chelsie Gordy [address] [place] [address] documented as of this encounter Visit Diagnoses Not on filedocumented in this encounter Care Teams Crane Mechanic Relationship Specialty Start Date End Date Cathie Becerra ANP [address] [place] [id number] PCP - General Family Medicine 06/20/22 documented as of this encounter
== END 2025-03-03 10:37 | disposition home or self-care (01) ==
LOC: HO.HHCL 10:36
PROVIDERS: PCP Nurse Practitioner Primary Care; Visit Provider Nurse Practitioner Primary Care
DX: Z11.59 Encounter for screening for other viral diseases (principal); E11.69 Type 2 diabetes mellitus with other specified complication; E78.5 Hyperlipidemia, unspecified
CPT/HCPCS: 36415; 80048; 80061; 86704; 86706; 87340

== ENCOUNTER 2025-03-10 08:22 | Outpatient (AMB) | payer MEDICAID, SELFPAY ==
--- OUTSIDE RECORDS SUMMARY | 2025-03-07 11:00 | XMS_ITS | Encounter Summary ---
Author Organization [employer] Address [address] [facility] 7t [place] [address] Care Team Providers Care Machining Department Supervisor Name Role Phone Cathie Becerra Primary Care Provider [phone] Reason for Visit * Reason Comments Scaling And Root Planing Encounter Details Date Type Department Care Team ([facility] st Contact Info) Description 03/07/2025 11:00 AM EDT Office Visit [facility] ADULT DENTAL [address] [place] [address] Daryl Powell Dental calculus (Primary Dx) Social [...] Sign Reading Time Taken Comments Blood Pressure 126/70 03/07/2025 11:01 AM EDT Pulse 67 03/07/2025 11:01 AM EDT Temperature - - Respiratory Rate - - Oxygen Saturation - - Inhaled Oxygen Concentration - - Weight - - Height - - Body Mass Index - - documented in this encounter Progress Notes * Daryl Powell - 03/07/2025 11:00 AM EDT Patient ID: My Clarke is a 59 y.o. female. Time Out: Timeout Date: 03/07/25, Timeout Time: 1102 Location: [facility] Tooth: UL and LL Procedure: Scaling and Root Planing Verified the above with patient, assistant professor of economics, and provider. Confirmed via patient's chart, intraorally and by radiographs. Cook Helper Juice: not applicable Medical Hx: Vitals: Blood pressure 126/70, pulse 67. Medications, Med Hx reviewed with patient and updated in chart. Treatment Provided Dental procedures in this visit D4341 - PERIODONTAL SCALING AND ROOT PLANING - 4 OR MORE TEETH PER QUADRANT UL (Completed) Service provider: Daryl Powell Billing provider: Collin Martinez DMD D4342 - PERIODONTAL SCALING AND ROOT PLANING - 1 TO 3 TEETH PER QUADRANT LL (Completed) Service provider: Daryl Powell Billing provider: Collin Martinez DMD D1330 - ORAL HYGIENE INSTRUCTIONS (Completed) Service provider: Daryl Powell Billing provider: Collin Martinez DMD D9450 - CASE PRESENTATION, DETAILED AND EXTENSIVE TREATMENT PLANNING (Completed) Service provider: Daryl Powell Billing provider: Collin Martinez DMD Topical: 20% Benzocaine Confirmed profound anesthesia. Oral Cancer Screening: No lesions Head/Neck Exam: No Lesions Instruments Used: Ultrasonic Scalers and Hand Scalers Fluoride: N/A Calculus: Moderate and Generalized Plaque: Light and Generalized Stain: Light and Localized Bleeding: Light and Generalized Gingiva: Bleeding on probing OH: Fair Oral hygiene instructions provided to patient including brushing technique and flossing. Recommendations: [place] two times daily, modified caldwell technique, Floss daily Recall Frequency: 6 mo NV: 6mr Hygienist: Daryl Powell RDH documented in this encounter Plan of Treatment Upcoming Encounters Date Type Department Care Team (Late st Contact Info) Description 04/20/2025 8:00 AM EST Office Visit [facility] ADULT DENTAL [address] [place] [address] Gordy Holguin [address] [place] [address] documented as of this encounter Procedures Procedure Name Priority Date/Time Associated Diagnosis Comments UL PERIODONTAL SCALING AND ROOT PLANING - 4 OR MORE TEETH PER QUADRANT Routine 03/07/2025 11:00 AM EDT LL PERIODONTAL SCALING AND ROOT PLANING - 1 TO 3 TEETH PER QUADRANT Routine 03/07/2025 11:00 AM EDT ORAL HYGIENE INSTRUCTIONS Routine 2024 11:00 AM EDT CASE PRESENTATION, DETAILED AND EXTENSIVE TREATMENT PLANNING Routine 03/07/2025 11:00 AM EDT documented in this encounter Visit Diagnoses Diagnosis Dental calculus- Primary Accretions on teeth documented in this encounter Additional Health Concerns Assessment Noted Time PHQ-9 Depression Total Score: 8 03/03/20 25 10:18 AM EDT documented as of this encounter Care Teams Machining Department Supervisor Relationship Specialty Start Date End Date Cathie Becerra ANP [address] [place] [id number] PCP - General Family Medicine 06/20/22 documented as of this encounter
--- NOTE | 2025-03-10 08:32 | MHC.OFFVIS ---
Vital Signs 03/10/25 08:34 Height 5 ft 3 in Weight 200 lb 9.93 oz BMI 35.5 BP 122/71 Blood Pressure Location Lt brachial Position Sitting Pulse 88 Intake Visit Reasons: 6 mo f/u r/s 11/11, 11/29 Intake Note: My presents in the office as a 6 month follow up. CC: States that she has gas when she eats and even when she does not eat but it bueno in her epigastric region and umbilical. She takes her medications for irregular BMs. Warper Creeler Required: No Allergies lactose intolerant Allergy (Intermediate, Uncoded 07/28/24 16:16) stomach pain and heart burn SEAFOOD Allergy (Intermediate, Uncoded 07/28/24 16:16) ANGIOEDEMA Medication List - Last Reconciled 03/10/25 by Gillian Velásquez MD albuterol sulfate 90 mcg/actuation (Ventolin HFA) 2 puffs inhalation Q6H PRN biotin 10,000 mcg PO DAILY bupropion HCl XL 150 mg PO QAM ffdjgpeayo-hblkuxwhhluvk-vwjx 50-325-40 mg 1 tab PO .prn cholecalciferol (vitamin D3) (Vitamin D3) 50 mcg PO DAILY citalopram 20 mg PO DAILY cyclobenzaprine 10 mg PO Q8H dexlansoprazole (Dexilant) 60 mg (2 x 30 mg) PO DAILY 90 days diphenhydramine HCl (Benadryl) 50 mg (2 x 25 mg) PO ONCE PRN 1 day docusate sodium 100 mg PO DAILY doxepin 25 mg PO BEDTIME 30 days dulaglutide (Trulicity) 1.5 mg subcut QWEEK duloxetine 60 mg PO DAILY epinephrine (EpiPen) 0.3 mg IM Q10M PRN fluticasone propionate 50 mcg/actuation (24 Hour Allergy Relief) 1 spray intranasal BID ibuprofen 600 mg PO Q6H PRN linaclotide (Linzess) 145 mcg PO QAM 90 days loratadine (Allergy Relief (loratadine)) 10 mg PO DAILY lorazepam 1 mg PO BEDTIME PRN magnesium oxide 400 mg PO DAILY PRN 30 days metformin ER mg PO oxycodone-acetaminophen 5-325 mg 1 tab PO Q6H PRN rosuvastatin 5 mg PO DAILY Saccharomyces boulardii (Probiotic (S.boulardii)) 250 mg PO BID simethicone (Gas Relief (simethicone)) 125 mg PO BID-QID PRN sucralfate (Carafate) 1 g PO BID 30 days tirzepatide (Mounjaro) 7.5 mg subcut QWEEK tizanidine 2 mg PO Q8H PRN topiramate 50 mg PO BEDTIME topiramate XR 50 mg PO DAILY tramadol 50 mg PO Q6H PRN HPI HPI 6 mo f/u r/s 11/11, 11/29: Details: GI CLINIC VISIT FOR THIS 59-YEAR-OLD TAJIK-SPEAKING FEMALE FOR FOLLOW-UP OF GERD, EPIGASTRIC PAIN AND ABDOMINAL BLOATING. CHRONIC ILLNESSES:?heartburn, HAs, hypercholest, prediabetic, varicose veins, vitamin D def, Obesity and sleep apnea ?TODAY'S VISIT: [facility] Concrete Boom Pump OperatorDeloris Pt states that she has gas when she eats and even when she does not eat but it bueno in her epigastric region and umbilical. She takes her medications for irregular BMs I always has gas - wether she eats or not Unable to identify precipitating foods PAST VISITS: Lab and US results reviewed - LFTs improved with wt reduction Taking a PPI daily Taking Linzess and having a BM once a day. She is on a diet and lost 3 lbs. Occasional rectal bleeding when she strains. Patient complains of abdominal bloating, constipation with some blood when she extra push for BM, and acid reflex and some dates with burning sensation. Feeling regular Lab results reviewed with the patient showing improvement in LFTs. Unintentional wt loss - eating regular Seen at [facility] ER x 2 due to stomach issues and problems with breathing after drinking ETOH Pt states she had 3-4 beers at a family gathering - denies daily ETOH use Requesting refills for Linzess for constipation - ran out of Linzess 2 weeks ago. Has a BM daily to every other day. ? Telephone shake table operatorIsreal # [id number] EGD results reviewed with the patient I have been eating a little bit and has been eating well Abd pain and constipation is better I dont feel good in the stomach. Everything I eat makes me feel bad I have been loosing wt and I dont know why Eating the same amount of food. Wt loss of 15 lbs over 4 months. Continues to have heartburn Constipation is a little better - going regularly when she takes the pill. Denies black stool or blood in the stool. Sometimes she has yellow phlegm when she speaks with a little blood. Intermittent cough and breathing problems. Waiting for euipment for sleep apnea. Happens in the morning when she tries to speak. I feel a little unwell My heartburn has not gone away. It continues for a long time after she eats - can have heartburn after eating fruit. No BM x 4 days and took a laxative and had a BM yesterday and today. Heartburn is worse when she is constipated. Has not weighed herself in a long time and dennies wt loss. ? Weighs? 220 lbs. at the last visit. Has been taking Dexilant and Linzess prn instead of daily - advised to use every day. Pt complains of abdominal pain , and GERD. Denies any N+V, diarrhea or constipation. ? I am feeling a little bit better. Every time I eat I get gases which do not go away. ? Notes intermittent abdominal pain. ? ? ? Medication has been helping with constipation. ? Lab and abdominal CT results were reviewed. ? Everything I eat give me gas. ? I still get some pain - when I eat something that makes my stomach upset after a few minutes - Rice, beef and soups. ? Denies radiation of abd pain to the back. ? No change in appetite or weight. ? Has a BM every day - taking Linzess every morning. ? Appetite is?regula ?LABS IN [employer]:?01/04/20 - reviewed. NORMAL CBC AND CHEM PANEL. ELEVATED LFTS WITH AST OF 45, ALT 55 AND ALKALINE PHOSPHATASE OF 171, GGT OF 193 ? TERRENCE WAS NEGATIVE, 2014 HEPATITIS B SEROLOGIES INDICATED IMMUNITY TO HEPATITIS B. ? HEPATITIS C ANTIBODY WAS NEGATIVE ? SEROLOGIES FOR CELIAC DISEASE WERE NEGATIVE ?IMAGING STUDIES:?01/2024 ABDOMINAL ULTRASOUND WITH ELASTOGRAPHY SHOWED: 1. Mildly enlarged fatty liver. 2. Elastography: Liver elastography measurements are consistent with a minimal risk for clinically significant liver fibrosis (METAVIR Stage F0-F1). 01/31/20? abdominal CT scan showed? scattered sigmoid and descending colon diverticulosis. ? Well-defined round structure left retroperitoneum not connected to kidneys ovaries -? question lymphocele ?11/04/18?Abd US showed: Liver of diffuse increased echogenicity. This is nonspecific, but ? consistent with diffuse fatty infiltration. Otherwise, unremarkable abdominal ultrasound. ?ENDOSCOPIC STUDIES:??05/27/22 EGD SHOWED: ESOPHAGUS: Tortuous esophagus with increased tertiary contractions -? biopsies were obtained from proximal esophagus to check for EOE.? GE junction at 35 cms, small hiatal hernia 35 to 37 cms. A partially obstructing Schatzki's ring at GE junction.? ? Esophageal balloon dilation was performed with a 20 mm (60 F) CRE balloon X 60 seconds STOMACH: Moderate gastric erythema with a few healing erosions. Biopsies were obtained. Grade 3 flap valve on retroflexed examination of the cardia. DUODENUM: Normal - biopsied to check for celiac sprue Plan:? GERD and Hiatal Hernia handouts were given in the discharge area BIOPSIES SHOWED: A.? Small bowel, biopsy:? Small bowel mucosa with preserved villi and no specific change; no evidence of celiac disease.? B.? Gastric antrum, biopsy:? Gastric antral mucosa with congestion and minimal chronic inactive gastritis; negative for H pylori, intestinal metaplasia and dysplasia.? C.? Esophagus, proximal, biopsy:? Squamous mucosa with no specific change; no evidence of eosinophilic esophagitis.? 10/02/18 EGD showed:? ESOPHAGUS: Focal erosive esophagitis at GE junction ? STOMACH: Antral gastritis ? DUODENUM: Normal ? Plan ? Continue present medications (Dexilant 60 mg PO once daily) ? Patient has an appointment on 10/16/2018 in the GI Clinic with MAY Olivas Medical History Benign skin papilloma NABIL (obstructive sleep apnea) Morbid obesity Irreducible umbilical hernia Multiple lipomas Lumbar radiculopathy Morbid obesity with BMI of 40.0-44.9, adult Epigastric pain Chronic constipation Elevated LFTs Hypercholesterolemia Vitamin D deficiency Bilateral wrist pain History of Helicobacter pylori infection (~06/2014) GERD (gastroesophageal reflux disease) Lactose intolerance NAFL (nonalcoholic fatty liver) Obstructive sleep apnea Surgical History Hx of hernia repair (07/30/24) History of hand surgery Status post excision of lipoma (~07/09/23) H/O: History of colonoscopy Family History Unknown No problems noted. Social History Household Members: Family Alcohol intake: current Alcohol intake frequency: a few times a month Patient Tobacco Use Status: Never used Tobacco Review of Systems Const All systems reviewed & are unremarkable except as noted in HPI and below Physical Exam Vital Signs: Last Vital Signs Pulse 88 03/10/25 08:34 BP 122/71 03/10/25 08:34 BMI result Body Mass Index 35.5 Const General: healthy appearing and no acute distress Nutritional Appearance: obese Orientation/consciousness: patient oriented x3 Limitations: no limitations HEENT Head: Yes normal to inspection Ears: hearing grossly normal bilaterally Eyes Sclerae: sclerae normal Pupils: Equal, round and reactive pupils present Neck Neck: Yes normal visual inspection Chest Chest palpation & inspection: normal inspection of the chest Resp Effort & Inspection: normal respiratory effort Auscultation: clear to auscultation bilaterally Cardio Palpation: normal PMI Rate: regular rate Rhythm: regular rhythm Heart sounds: S1 normal heart sound present, S2 normal heart sound present and no murmurs GI Palpation (GI): Soft to palpation, nontender and No hepatosplenomegaly present Auscultation: normal bowel sounds Rectal Exam - Female: deferred Skin General skin exam: no rashes or lesions noted Neuro General: patient oriented x3, gait normal and moves all extremities Cranial nerves: Yes Equal, round and reactive pupils present Psych Appearance: grossly normal Mental Status: mental status grossly normal Assessment & Plan Assessment & Plan (1) GERD (gastroesophageal reflux disease): Comment: Continue Dexilant Capsule Delayed Release, 60 MG, 1 capsule at suppertime, Orally, Once a day, Code(s): K21.9 - Gastro-esophageal reflux disease without esophagitis Category: Medical (2) NAFL (nonalcoholic fatty liver): Code(s): K76.0 - Fatty (change of) liver, not elsewhere classified Category: Medical (3) Elevated LFTs: Comment: hepatitis C was negative. Hepatitis-B serologies were consistent with past infection. TERRENCE, antimitochondrial antibody and celiac sprue serologies were negative. Abdominal ultrasound showed fatty liver. Patient was advised to work on weight reduction. Code(s): R79.89 - Other specified abnormal findings of blood chemistry Category: Medical (4) Lactose intolerance: Code(s): E73.9 - Lactose intolerance, unspecified Category: Medical (5) Chronic constipation: Comment: Continue Magnesium Oxide 400 MG, 1-2 tablets at bedtime and Linzess Capsule, 290 MCG, 1 capsule, Orally, Once a day, Code(s): K59.09 - Other constipation Category: Medical (6) Supraumbilical hernia: Comment: A 1.5 to 2 cms firm rounded smooth slightly tender mass just above the umbilicus - ? hernia, cyst or submucosal lipoma Code(s): K43.9 - Ventral hernia without obstruction or gangrene Category: Medical (7) Epigastric pain: Code(s): R10.13 - Epigastric pain Category: Medical Plan 58 YF with heartburn, headaches, hypercholesterolemia, prediabetic, varicose veins, vitamin D def, Obesity and sleep apnea followed in GI for peristent epigastric pain and abdominal bloating. EGD in 2014 showed esophagitis,? hemorrhagic gastritis and duodenitis. Patient takes naproxen intermittently. 10/02/18 EGD showed a small hiatal hernia with focal esophagitis at GE junction with a 1 cms ulcer/erosion covered with white exudate and erosive gastritis. Biopsies showed chronic inactive gastritis without Helicobacter organisms.? Patient admitted to taking Dexilant and Linzess p.r.n. and was advised to take them daily and monitor her symptoms and use simethicone p.r.n. Abdominal bloating likely related to chronic constipation.? Constipation has improved with Linzess once daily. Serologies for celiac disease were negative in 2014. Colonoscopy in August [address] Cassidy showed sigmoid diverticulosis and no polyps and repeat colonoscopy was advised in 10 years - action was set in [facility]. ELEVATED LFTS;?hepatitis C was negative. Hepatitis-B serologies were consistent with past infection. TERRENCE, antimitochondrial antibody and celiac sprue serologies were negative. Abdominal ultrasound showed fatty liver. Patient was advised to work on weight reduction. ETOH level 204 in 11/[address] scan showed scattered sigmoid and descending colon diverticulosis. A well-defined round structure left retroperitoneum not connected to kidneys ovaries -? question lymphocele Sucralfate 1 gm twice daily was added to her GERD treatment regimen. 05/27/22 EGD was performed and findings as noted above. 01/22/24 Taking a PPI daily Taking Linzess and having a BM once a day. She is on a diet and lost 3 lbs. Occasional rectal bleeding when she strains. Pt advised to schedule an abdominal ultrasound with elastography and labs to evaluate for chronic liver disease (FU of elevated LFTs) She was referred to General Surgery for evaluation of supra-umblical hernia 05/13/24 Lab and US results reviewed - LFTs improved with wt reduction Taking a PPI daily Taking Linzess and having a BM once a day. 07/2024 Pt had repair of supraumbilical hernia with Ventralex mesh by Dr Sanders 03/10/25 Pt advised a FODMAP diet for abdominal bloating - handout was provided Continue Linzess daily for constipation FU appt in 4 months - scheduled 07/21/25 Orders: Orders Liver Panel Today R79.89 - Other specified abnormal findings of blood chemistry Complete Blood Count no Diff Today R79.89 - Other specified abnormal findings of blood chemistry Coding Level of Care Code Est Pt Level 4 (81591) Diagnoses GERD (gastroesophageal reflux disease) K21.9 NAFL (nonalcoholic fatty liver) K76.0 Elevated LFTs R79.89 Lactose intolerance E73.9 Chronic constipation K59.09 Supraumbilical hernia K43.9 Epigastric pain R10.13 Time Spent (min) 22
[2025-03-10 08:34] VITALS: BP 122/71; PULSE 88; BMI 35.5
--- OUTSIDE RECORDS SUMMARY | 2025-03-10 09:02 | XMS_ITS | Encounter Summary ---
Author Organization [employer] Address [address] [facility] 7t [place] [address] Care Team Providers Care Supervisor Brooder Farm Name Role Phone Cathie Becerra Primary Care Provider [phone] Reason for Visit * Reason Onset Date Comments Med Refill 10/10/2022 Encounter Details Date Type Department Care Team ([facility] st Contact Info) Description 10/10/2022 Telephone [facility] MEDICINE [address] [place] [address] Cathie Becerra ANP [address] [place] [address] Med Refill Social History Tobacco Use Types [...] High cholesterol on 10/09/2022. Please sent to [facility]/pharmacy #[id number] - [place] FLORES - [address] [place] [address] documented in this encounter Plan of Treatment Upcoming Encounters Date Type Department Care Team (Late st Contact Info) Description 04/20/2025 8:00 AM EST Office Visit [facility] ADULT DENTAL [address] [place] [address] Gordy Holguin [address] [place] [address] documented as of this encounter Visit Diagnoses Not on filedocumented in this encounter Care Teams Supervisor Brooder Farm Relationship Specialty Start Date End Date Cathie Becerra ANP [address] [place] [address] PCP - General Family Medicine 06/20/22 documented as of this encounter
--- OUTSIDE RECORDS SUMMARY | 2025-03-10 09:02 | XMS_ITS | Encounter Summary ---
Author Organization [employer] Address [address] [facility] 7t [place] [address] Care Team Providers Care Shank Burnisher Name Role Phone Cathie Becerra Primary Care Provider [phone] Reason for Visit * Reason Onset Date Comments call back 10/18/2022 Encounter Details Date Type Department Care Team ([facility] st Contact Info) Description 10/18/2022 Telephone [facility] MED[facility] [address] [place] [address] Cathie Becerra ANP [address] [place] [address] call back Social History Tobacco Use Types [...] Upcoming Encounters Date Type Department Care Team ([facility] st Contact Info) Description 04/20/2025 8:00 AM EST Office Visit [facility] ADULT DENT[facility] [address] [place], [place] [phone] Gordy Holguin [address] [place], [place] [phone] documented as of this encounter Visit Diagnoses Not on filedocumented in this encounter Care Teams Shank Burnisher Relationship Specialty Start Date End Date Cathie Becerra ANP [address] [place] [address] PCP - General Family Medicine 06/20/22 documented as of this encounter
--- OUTSIDE RECORDS SUMMARY | 2025-03-10 09:02 | XMS_ITS | Encounter Summary ---
Author Organization [employer] Address [address] [facility] [address]t [place] [address] Care Team Providers Care Braid Cutter Name Role Phone Cathie Becerra Primary Care Provider [phone] Reason for Visit * Reason Onset Date Comments Nurse Triage 10/20/2023 Encounter Details Date Type Department Care Team ([facility] st Contact Info) Description 10/20/2023 Telephone [facility] MEDICINE [address] [place] [address] Cathie Becerra ANP [address] [place] [address] Nurse Triage Social History Tobacco Use Types [...] 10/20/2023 4:57 PM EDT Triage call with [email or web address] Psychology Teacher [place] [id number] Pt reports since last Friday has had some rectal bleeding. Pt denies constipation and reports diarrhea today with some drops of blood seen in toilet. Pt denies pain, dizziness, light headedness and isn't sure if Pt has hemorrhoids. Pt is advised to come to [facility] which is open till 8pm [...] The caller accepted this outcome Patient speaks jordanian documented in this encounter Plan of Treatment Upcoming Encounters Date Type Department Care Team (Late st Contact Info) Description 04/20/2025 8:00 AM EST Office Visit [facility] AD[facility] [address] [place] [address] Chelsie Gordy [address] [place] [address] documented as of this encounter Visit Diagnoses Not on filedocumented in this encounter Care Teams Braid Cutter Relationship Specialty Start Date End Date Cathie Becerra ANP [address] [place] [address] PCP - General Family Medicine 06/20/22 documented as of this encounter
--- OUTSIDE RECORDS SUMMARY | 2025-03-10 09:02 | XMS_ITS | Encounter Summary ---
Author Organization [employer] Address [address] [facility] 7t [place] [address] Care Team Providers Care Sheet Metal Shop Foreman Name Role Phone Cathie Becerra Primary Care Provider [phone] Reason for Visit * Reason Onset Date Comments Appointment Request 06/01/2024 Encounter Details Date Type Department Care Team ([facility] st Contact Info) Description 06/01/2024 Telephone [facility] MEDICINE [address] [place] [address] Cathie Becerra ANP [address] [place] [address] Appointment Request Social History Tobacco Use Types [...] r/s appt from 06/01. Contact pt at [phone] documented in this encounter Plan of Treatment Upcoming Encounters Date Type Department Care Team (Late st Contact Info) Description 04/20/2025 8:00 AM EST Office Visit [facility] ADULT DENTAL [address] [place] [address] Gordy Holguin 505 [place] [address] documented as of this encounter Visit Diagnoses Not on filedocumented in this encounter Care Teams Sheet Metal Shop Foreman Relationship Specialty Start Date End Date Cathie Becerra ANP [address] [place] [address] PCP - General Family Medicine 06/20/22 documented as of this encounter
--- OUTSIDE RECORDS SUMMARY | 2025-03-10 09:02 | XMS_ITS | Encounter Summary ---
Author Organization [employer] Address [address] [facility] 7t [place] [address] Care Team Providers Care Inspector Air Carrier Name Role Phone Cathie Becerra Primary Care Provider [phone] Encounter Details Date Type Department Care Team (Late st Contact Info) Description 08/22/2023 Orders Only [facility] MEDICINE [address] [place], [place] [phone] Cathie Becerra ANP [address] [place] [address] Social History Tobacco Use Types Packs/Day Years [...] Description 04/20/2025 8:00 AM EST Office Visit [facility] ADULT DENTAL [address] [place] [address] Gordy Holguin [address] [place] [address] documented as of this encounter Visit Diagnoses Not on filedocumented in this encounter Care Teams Inspector Air Carrier Relationship Specialty Start Date End Date Cathie Becerra ANP [address] [place] [address] PCP - General Family Medicine 06/20/22 documented as of this encounter
--- OUTSIDE RECORDS SUMMARY | 2025-03-10 09:02 | XMS_ITS | Encounter Summary ---
Author Organization [employer] Address [address] [facility] 7t [place] [address] Care Team Providers Care Body Make Up Artist Name Role Phone Cathie Becerra Primary Care Provider [phone] Reason for Visit * Reason Comments Med Refill Encounter Details Date Type Department Care Team ([facility] st Contact Info) Description 07/17/2023 Refill [facility] MEDICINE [address] [place], [place] [phone] Cathie Becerra ANP [address] [place] [address] Wheezing Social History Tobacco Use Types Packs/Day [...] Description 04/20/2025 8:00 AM EST Office Visit [facility] ADULT DENTAL [address] [place], [place] [phone] Gordy Holguin [address] [place], [place] [phone] documented as of this encounter Visit Diagnoses Diagnosis Wheezing documented in this encounter Care Teams Body Make Up Artist Relationship Specialty Start Date End Date Cathie Becerra ANP [address] [place] [address] PCP - General Family Medicine 06/20/22 documented as of this encounter
--- OUTSIDE RECORDS SUMMARY | 2025-03-10 09:02 | XMS_ITS | Clinical Summary ---
Author Organization [facility] Address [address] [place] [id number] Care Team Providers Care Boulevard Glassware Replacer Name Role Phone Ed Collins MD Primary Care Provider [phone] Surgical History Surgery Date Site/Laterality Comments TUBAL [...] age to complete this topic Care Teams Boulevard Glassware Replacer Relationship Specialty Start Date End Date Ed Collins MD [address] [place] [address] [address] DAVID Gomes PCP - General Internal Medicine 10/12/12
--- OUTSIDE RECORDS SUMMARY | 2025-03-10 09:02 | XMS_ITS | Encounter Summary ---
Author Organization [email or web address] Address [address] [facility] 7t [place] [address] Care Team Providers Care Surface Logging Systems Logger Name Role Phone Cathie Becerra Primary Care Provider [phone] Reason for Visit * Reason Onset Date Comments Med Refill 10/13/2023 Encounter Details Date Type Department Care Team ([facility] st Contact Info) Description 10/13/2023 Telephone [facility] MEDICINE [address] [place] [address] Cathie Becerra ANP [address] [place] [address] Med Refill Social History Tobacco Use Types [...] 50 MG tablet To be sent to: [facility]/pharmacy #[id number] documented in this encounter Plan of Treatment Upcoming Encounters Date Type Department Care Team (Late st Contact Info) Description 04/20/2025 8:00 AM EST Office Visit [facility] ADULT DENTAL [address] [place] [address] Chelsie Gordy [address] [place] [address] documented as of this encounter Visit Diagnoses Not on filedocumented in this encounter Care Teams Surface Logging Systems Logger Relationship Specialty Start Date End Date Cathie Becerra ANP [address] [place] [address] PCP - General Family Medicine 06/20/22 documented as of this encounter
--- OUTSIDE RECORDS SUMMARY | 2025-03-10 09:02 | XMS_ITS | Encounter Summary ---
Author Organization [employer] Address [address] [facility] 7t [place] [address] Care Team Providers Care Blurb Writer Name Role Phone Cathie Becerra Primary Care Provider [phone] Reason for Visit * Reason Onset Date Comments Appointment Request 10/11/2024 Encounter Details Date Type Department Care Team ([facility] st Contact Info) Description 10/11/2024 Telephone [facility] MEDICINE [address] [place] [address] Cathie Becerra ANP [address] [place] [address] Appointment Request Social History Tobacco Use Types [...] [facility] ADULT DENTAL [address] [place] [address] Gordy Holguin [address] [place] [address] documented as of this encounter Visit Diagnoses Not on filedocumented in this encounter Additional Health Concerns Assessment Noted Time PHQ-9 Depression Total Score: 15 025 10:44 AM EST documented as of this encounter Care Teams Blurb Writer Relationship Specialty Start Date End Date Cathie Becerra ANP [address] [place] [address] PCP - General Family Medicine 06/20/22 documented as of this encounter
--- OUTSIDE RECORDS SUMMARY | 2025-03-10 09:03 | XMS_ITS | Encounter Summary ---
Author Organization [employer] Address [address] [facility] 7t [place] [address] Care Team Providers Care Bilingual School Psychologist Name Role Phone Cathie Becerra Primary Care Provider [phone] Reason for Visit * Reason Onset Date Comments Med Refill 10/11/2024 Encounter Details Date Type Department Care Team ([facility] st Contact Info) Description 10/11/2024 Telephone [facility] MEDICINE [address] [place] [address] Cathie Becerra ANP [address] [place] [address] Med Refill Social History Tobacco Use Types [...] Telephone Encounter - Sherita Clarke - 10/11/2024 1:52 PM EDT TC from pt requesting medication refill. Medications needing refill : traMADol (Ultram) 50 MG tablet To be sent to: [facility]/pharmacy #[id number] documented in this encounter Plan of Treatment Upcoming Encounters Date Type Department Care Team (Late st Contact Info) Description 04/20/2025 8:00 AM EST Office Visit [facility] ADULT DENTAL [address] [place] [address] Gordy Holguin [address] [place] [address] documented as of this encounter Visit Diagnoses Not on filedocumented in this encounter Additional Health Concerns Assessment Noted Time PHQ-9 Depression Total Score: 15 025 10:44 AM EST documented as of this encounter Care Teams Bilingual School Psychologist Relationship Specialty Start Date End Date Cathie Becerra ANP [address] [place] [address] PCP - General Family Medicine 06/20/22 documented as of this encounter
--- OUTSIDE RECORDS SUMMARY | 2025-03-10 09:03 | XMS_ITS | Encounter Summary ---
Author Organization [employer] Address [address] [facility] 7 [place] [address] Care Team Providers Care Ear Nose Throat Surgeon Name Role Phone Bubba Story MD Primary Care Provider Cathie Johnson Primary Care Provider [phone] Encounter Details Date Type Department Care Team (Latest Contact Info) Description 07/16/2018 Abstract [facility] CONVERSIONS Dental, Provider, DDS Social History [...] Description 04/20/2025 8:00 AM EST Office Visit [facility] ADULT DENTAL [address] [place], [place] [phone] Chelsie, Gordy [address] [place] [address] documented as of this encounter Visit Diagnoses Not on filedocumented in this encounter Care Teams Ear Nose Throat Surgeon Relationship Specialty Start Date End Date Bubba Story MD PCP - General Family Medicine 06/15/20 06/19/22 Cathie Becerra ANP [address] [place] [address] PCP - General Family Medicine 06/20/22 documented as of this encounter
--- OUTSIDE RECORDS SUMMARY | 2025-03-10 09:03 | XMS_ITS | Encounter Summary ---
Author Organization [employer] Address [address] [facility] 7 [place] [address] Care Team Providers Care Welder Apprentice Arc Name Role Phone Bubba Story MD Primary Care Provider Cathie Johnson Primary Care Provider [phone] Encounter Details Date Type Department Care Team (Latest Contact Info) Description 07/21/2019 Abstract [facility] CONVERSIONS Dental, Provider, DDS Social History [...] Description 04/20/2025 8:00 AM EST Office Visit [facility] ADULT DENTAL [address] [place], [place] [phone] Chelsie, Gordy [address] [place] [address] documented as of this encounter Visit Diagnoses Not on filedocumented in this encounter Care Teams Welder Apprentice Arc Relationship Specialty Start Date End Date Bubba Story MD PCP - General Family Medicine 06/15/20 06/19/22 Cathie Becerra ANP [address] [place] [address] PCP - General Family Medicine 06/20/22 documented as of this encounter
--- OUTSIDE RECORDS SUMMARY | 2025-03-10 09:03 | XMS_ITS | Encounter Summary ---
Author Organization [employer] Address [address] [facility] 7 [place] [address] Care Team Providers Care Turn Out Worker Name Role Phone Cathie Becerra Primary Care Provider [phone] Reason for Visit * Reason Onset Date Comments Appointment 09/05/2022 Encounter Details Date Type Department Care Team (Late st Contact Info) Description 09/05/[address] [facility] ADULT DENTAL [address] [place] [address] Lupe Beckett [address] [place] [address] Appointment Social History Tobacco Use Types Packs/Day [...] Description 04/20/2025 8:00 AM EST Office Visit [facility] ADULT DENTAL [address] [place], [place] [phone] Gordy Holguin [address] [place], [place] [phone] documented as of this encounter Visit Diagnoses Not on filedocumented in this encounter Care Teams Turn Out Worker Relationship Specialty Start Date End Date Cathie Becerra ANP [address] [place] [address] PCP - General Family Medicine 06/20/22 documented as of this encounter
--- OUTSIDE RECORDS SUMMARY | 2025-03-10 09:04 | XMS_ITS | Clinical Summary ---
Author Organization [employer] Address [address] [place] [address] Care Team Providers Care Bobbin Painter Name Role Phone Mekhi Martinez Primary Care Provider [phone] Allergies Active Allergy Reactions Criticality Noted Date [...] each 11 023 Active Continuous Blood Gluc Liquid Center Assembler (FreeStyle Nhi 2 Nekoma) deviceIndication s:Type 2 diabetes mellitus with hyperlipidemia [...] IF NEEDED FOR SEVERE PAIN. 15 tablet 025 Active tiZANidine (Zanaflex) 2 MG tabletIndication s:Muscle pain TAKE 1 TABLET (2 MG) BY MOUTH 3 TIMES DAILY FOR 10 DAYS. IF NEEDED FOR MUSCLE PAIN 30 tablet 025 Active cetirizine (ZyrTEC) 10 MG tabletIndication s:Congestion [...] 90 tablet 1 023 2024 Discontinued(I neffective) doxepin (SINEquan) 25 MG capsuleIndicatio ns:Insomnia, unspecified [...] 2024 Discontinued DULoxetine (Cymbalta) [address] capsuleIndicatio ns:Depression, [...] Morbid obesity with BMI of 40.0-44.9, adult (CMS /HCC) 02/13/2023 Excessive attrition of teeth, limited to [...] 02/14/2023 Vitamin D deficiency 11/29/2015 025 Encounters * This document contains information received from the source organization and may not represent a complete record from that organization. Date Type Department Care Team Description 03/07/2025 11:00 AM EDT Office Visit [facility] [address] [place] [address] Daryl Powell Dental calculus (Primary Dx) 03/03/2025 9:30 AM EDT Office Visit [address] [address] Mekhi Martinez ANP Healthcare maintenance (Primary Dx); Type 2 diabetes mellitus with hyperlipidemia (HCC); Encounter for immunization; Screening mammogram for breast cancer; Need for hepatitis B screening test; Chronic pain of both knees; Dietary counseling; Exercise counseling; Bilateral hearing loss, unspecified hearing loss type; Congestion of left ear; Depression, unspecified depression type 03/03/2025 Travel 03/01/2025 Telephone [facility] [address] [place] [phone] Mekhi Martinez ANP chart prep 02/28/2025 11:00 AM EDT Office Visit [facility] [address] [place] [address] Daryl Powell Dental calculus (Primary Dx) 02/23/2025 Patient Outreach [facility] [address] [place] [phone] Mekhi Martinez ANP Pre-visit Planning (Pre-visit planning - LVM ) 02/22/2025 Refill [facility] [address] [place] [address] Mekhi Martinez ANP Primary osteoarthritis of left knee; Muscle pain 02/20/2025 Refill [facility] [address] [place] [address] Mekhi Martinez ANP Depression, unspecified depression type; Insomnia, unspecified type 02/01/2025 Refill [facility] [address] [place] [address] Mekhi Martinez ANP Non-seasonal allergic rhinitis due to other allergic trigger 01/24/2025 Refill [facility] [address] [place] [address] Desmond Price MD Type 2 diabetes mellitus with hyperlipidemia (CMS/[facility]) ([facility]) 12/31/2024 8:00 AM EDT Office Visit [facility] [address] [place] [address] Gordy Holguin 12/20/2024 Refill [facility] [address] [place] [address] Mekhi Martinez ANP Wheezing 12/13/2024 Refill [facility] [address] [place] [address] Mekhi Martinez ANP Depression, unspecified depression type 12/10/2024 9:30 AM EDT Procedure Visit [facility] [address] [place] [address] Elaine Calvo MD Chronic pain of left knee (Primary Dx); Type 2 diabetes mellitus with hyperlipidemia (CMS/HCC) ([facility]) 12/10/2024 Telephone [facility] [address] [place] [address] Mekhi Martinez ANP Reschedule appt. 12/10/2024 Travel from Last 3 Months Immunizations Immunization Administration [...] Caprice SARS-CoV-2 Vaccination 08/02/2020 MMR 11/06/2006 Novel [id number], preservative-free 05/01/2009 PPD Test 07/09/2011,06/16/2009 Pfizer Covid-19 [...] Pulse 67 03/07/2025 11:01 AM EDT Temperature 36.4 C (97.6 F) [...] Upcoming Encounters Date Type Department Care Team ([facility] st Contact Info) Description 04/20/2025 8:00 AM EST Office Visit [facility] [address] [place] [address] Gordy Holguin [address] [place] [address] Health Maintenance Due Date Last Done Comments CT Colonography 1965 FIT DNA/Cologuard 1965 FIT 1965 FOBT 1965 HIV Screening 1965 Sigmoidoscopy 1965 Diabetes: Urine Protein Screening 1985 Hepatitis A Vaccines (1 of 2 - Risk 2-dose series) 1984 Eye Exam 09/09/2013 09/10/2011 Mammogram 10/15/2024 10/16/2023, 02/27/2016 Dental Oral Exam 12/01/2024 06/02/2024, , 07/21/2019, Additional history exists Diabetes: Hemoglobin A1C 06/03/2025 025, 06/17/2024, 03/03/2024, Additional history exists Dental Prophylaxis 06/04/2025 12/01/2024, 0 06/02/2024, 10/01/2022, Additional history exists Alcohol/Substance Use Screening 06/17/2025 06/17/2024 Diabetes: Foot Exam 06/17/2025 06/17/2024, 06/17/2024, 06/17/2024 Dental X-Ray: Bitewings 12/02/2025 12/02/19, 06/02/2024, 07/21/2019, Additional history exists Depression Screening 03/03/2026 03/03/2025, 03/03/20 Disability Screening 03/03/2026 03/03/2025 Lipid Panel 03/03/2026 03/03/2025, 10/01/2022 SDOH Screening 03/03/2026 03/03/2025 Tobacco Screening 03/07/2026 03/07/2025 Colonoscopy 08/23/2026 08/23/2016 Colorectal Cancer Screening 08/23/2026 Dental X-Ray: Full Mouth 06/03/2027 06/02/2024, 11/10 Cervical Cancer Screening 05/29/2028 HPV/Cotest 05/29/2028 05/29/2023, 03/12, 03/30/2019, Additional history exists Pap Smear 05/29/2028 05/29/2023, 03/30/2019 DTaP/Tdap/Td Vaccines (3 - Td or Tdap) 12/22/2029 12/23/2019, 11/28/2008, 05/07/2002 RSV Patients and Patients Aged 60 years or older (1 - 1-dose 75+ series) 2041 Hepatitis B Vaccines Discontinued 07/22/1996, 02/26/1996, 06/19/1995 Zoster Vaccines Completed 06/28/2020, 04/20/2020 Hepatitis C [...] Procedure Name Priority Date/Time Associated Diagnosis Comments ORAL HYGIENE INSTRUCTIONS Routine 03/07/2025 11:00 AM EDT CASE PRESENTATION, DETAILED AND EXTENSIVE TREATMENT PLANNING Routine 03/07/2025 11:00 AM EDT LL PERIODONTAL SCALING AND ROOT PLANING - 1 TO 3 TEETH PER QUADRANT Routine 03/07/2025 11:00 AM EDT UL PERIODONTAL SCALING AND ROOT PLANING - 4 OR MORE TEETH PER QUADRANT Routine 03/07/2025 11:00 AM EDT HEPATITIS B SURFACE ANTIBODY, QUALITATIVE Routine 03/03/2025 [...] SURF, ANTERIOR Routine 12/31/2024 8:00 AM EDT GA ARTHROCENTESIS ASPIR&/INJ MAJOR JT/BURSA W/O US Routine 12/10/2024 10:10 AM EDT Chronic pain of left knee POCT GLUCOSE Routine 12/10/2024 9:29 AM EDT Type 2 diabetes mellitus with hyperlipidemia (CMS/HCC) (CMS/HCC) PROPHYLAXIS - ADULT Routine 12/01/2024 8 :00 AM EDT BITEWINGS - 2 RADIOGRAPHIC IMAGES Routine 12/01/2024 8:00 AM EDT INTRAORAL - COMPLETE SERIES OF [...] Routine 10/01/2022 9:17 AM EDT Healthcare maintenance COLONOSCOPY Routine 08/23/2016 from Last 3 Months or Most Recently Relevant to Health Maintenance Results * Hepatitis B surface antigen, EIA (03/03/2025 10:44 AM EDT) Hepatitis B Surface Ag Negative Negative [facility] Blood Venous blood specimen / Unknown 03/03/2025 10:44 AM EDT 03/03/2025 11:21 AM EDT us Mekhi Martinez ANP LAB BLOOD ORDERABLES Final Resul t Performing Organization Address [facility] de Phone Number [facility] [address] [place] [phone] * Hepatitis B Core Antibody, Total (03/03/2025 10:44 AM EDT) Pathologist [facility] Hepatitis B Core Antibody Nonreactive Nonreactive [facility] Blood Venous blood specimen / Unknown 03/03/2025 10:44 AM EDT 03/03/2025 11:21 AM EDT us Mekhi Martinez ANP LAB BLOOD ORDERABLES Final Resul t Performing Organization Address [facility] de Phone Number [facility] [address] [place] [phone] * Hepatitis B Surface Antibody, Qualitative (03/03/2025 10:44 AM EDT) ~Hepatitis B Surface Antibody REACTIVE Nonreactive [facility] Comment:REACTIVE: > 11.99 mI U/mL Blood Venous blood specimen / Unknown 03/03/2025 10:44 AM EDT 03/03/2025 11:21 AM EDT us Mekhi Martinez ANP LAB BLOOD ORDERABLES Final Resul t Performing Organization Address [facility] [[email or web address]] Co de Phone Number [facility] [address] [place] [address] [place] [phone] * (ABNORMAL) Lipid Panel, Standard (03/03/2025 10:44 AM EDT) Triglycerides 146 <150 mg/dL [facility] Comment:Desirable Triglyceri de: less than 150 mg/dLBorderline High Triglyceride 150-199 mg/dLHigh Triglyceride: 200-499 mg/dLVery High Triglyceride: greater than or equal to 5OO mg/dL Cholesterol 186 <200 mg/dL [facility] Comment:Desirable Cholestero l: less than 200 mg/dLBorderline High Cholesterol: 200-239 mg/dLHigh Cholesterol: greater than 239 mg/dL LDL Cholesterol Calculated 114(H) <100 mg/dL [facility] Comment:Desirable LDL: less than 100 mg/dLNear Optimal/Above Optimal LDL: 110- 129 mg/dLBorderline High LDL: 130-159 mg/dLHigh LDL: 160-189 mg/dLVery High LDL: greater than or equal to 190 mg/dL HDL Cholesterol 43 >40 mg/dL [facility] Comment:Desirable HDL: great er than 40 mg/dL Note: This HDL assay may give artificially low results in patients with liver disease. Blood Venous blood specimen / Unknown 03/03/2025 10:44 AM EDT 03/03/2025 11:21 AM EDT Mekhi Martinez BANNER LAB BLOOD ORDERABLES Final Resul t [facility] [address] [place] [phone] [phone] * (ABNORMAL) Basic Metabolic Panel (03/03/2025 10:44 AM EDT) Sodium 142 135 - 145 mmol/L [facility] Potassium 4.1 3.3 - 5.1 mmol/L [facility] Chloride 103 96 - 108 mmol/L [facility] Carbon Dioxide 30(H) 22 - 29 mmol/L [facility] Anion Gap 13 12 - 20 [facility] Urea Nitrogen (BUN) 14 9 - 16 mg/dL [facility] Creatinine, Serum 0.70 0.5 - 1.4 mg/dL [facility] Estimated Glomerular Filt Rate >60 [facility] Comment:Chronic Kidney Disea se: Estimated GFR < 60 mL/min/[id number] Kidney Disease: Estimated GFR < 15 mL/min/1.73m2 Glucose 146(H) 60 - 115 mg/dL [facility] Calcium 9.9 8.4 - 10.2 mg/dL [facility] Blood Venous blood specimen / Unknown 03/03/2025 10:44 AM EDT 03/03/2025 11:21 AM EDT us Mekhi CISNEROS LAB BLOOD ORDERABLES Final Resul t [facility] [address] [place] [address] [phone] * (ABNORMAL) POCT Hgb A1c (03/03/2025 9:52 AM EDT) Hemoglobin A1C 7.5(A) 4.0 - 5.7 % QC Media Lot # [id number] Lot# Expiration Date Blood 03/03/2025 9:52 AM EDT us Mekhi Martinez ANP POINT OF CARE TEST ENTER/EDIT OR DERABLES Final Result * POCT Glucose (03/03/2025 9:49 AM EDT) Only the most recent of2 resultswithin the time period is included. Glucose Blood, POC 159 60 - 200 mg/dL QC Media Lot # [id number] Lot# Expiration Date 921, Blood Capillary blood specimen / Unknown 03/03/2025 9:49 AM EDT us Mekhi Martinez ANP POINT OF CARE TEST ENTER/EDIT OR DERABLES Final Result * GA ARTHROCENTESIS ASPIR&/INJ MAJOR JT/BURSA W/O US (12/10/2024 10:10 AM EDT) Narrative Elaine Calvo MD - 12/10/2024 10:10 AM EDT Elaine Calvo MD 12/10/2024 10:13 AM Arthrocentesis Date/Time: 12/10/2024 10:10 AM Performed by: Elaine Calvo MD Authorized by: Elaine Calvo MD Consent: Consent obtained: Verbal and written Consent given by: Patient Risks, benefits, and alternatives were discussed: yes Risks discussed: Pain Alternatives discussed: Referral [place] protocol: Procedure explained and questions answered to [...] AM EDT Narrative 11/03/2023 3:21 AM EDT [facility] [address] [place] [address] Mammography Report Signed Patient: My Clarke MR#: [id number] : 1965 Acct:[id number] Age/Sex: 58 / F ADM Date: 10/16/23 Loc: [facility] Attending Dr: Mekhi Martinez NP Ordering Physician: Shanel Villalobos MD Results: 1Ne gative Date of Service: 10/16/23 Follow Up: 1 Year From Orig inal Mammogram Procedure(s): MM tomosynthesis screening BI Accession Number(s): [id number] cc: Shanel Villalobos MD; MEKHI MARTINEZ NP [...] in OV> 11/03/23 0317 DD/ 0755 TD/TT: Electronic Imaging System Operator: Procedure Note Donotuseinterpreter, Image - 11/03/2023 [facility] [address] [place] [address] Mammography Report Signed Patient: Gabriele Clarke#: [id number] : 1965Acct:[id number] Age/Sex: 58 / FADM Date: 10/16/23 Loc: [facility] Attending Dr: eMkhi Martinez NP Ordering Physician: Shanel Villalobos MDResults: 1Ne gative Date of Service: 10/16/23Follow Up: 1 Year From Orig inal Mammogram Procedure(s): MM tomosynthesis screening BI Accession Number(s): [id number] cc: Shanel Villalobos MD; MEKHI MARTINEZ NP EXAMINATION: MM SCREENING DIGITAL BREAST TOMOSYNTHESIS, BILATERAL CLINICAL INFORMATION: Screening. Asymptomatic. COMPARISON: Mammography: This study is compared with prior exams dating back to 2016. TECHNIQUE: Digital breast tomosynthesis is performed in [...] Debbi Beard MD in OV> 11/03/23316 DD/ 0755 TD/TT: Electronic Imaging System Operator: Shanel Villalobos MD IM BI PROCEDURES Final Result * HPV mRNA E6/E7 w/Reflex to HPV Genotypes 16, 18/45 (05/29/2023 9:32 AM EST) HPV nRNA E6/E7 Not Detected Not Detected [facility] Comment:Methodology: Transcr iption-Mediated AmplificationThis assay detects E6/E7 viral messenger RNA (mRNA) from 14high-risk HPV types (16,18,31,33,35,39,45,51,52,56,58,59,66,68).Cervical sources are required for HPV testing.If a vaginal source from a patient who has had atotal hysterectomy with removal of cervix wassubmitted, please contact the testing laboratoryfor alternative testing options.For additional information, please refer tohttp://education.TargetX/faq/IZW356b1(This link if provided for information/educational purposes only.)THIS TEST WAS PERFORMED AT:[facility] [place] [phone] OSEGUERA MD HPV mRNA E6/E7 [facility] HPV 16 RNA [facility] HPV 18/45 RNA [facility] 05/29/2023 9:32 AM EST 05/30/2023 9:15 AM EST Monica Parikh CNM LAB CYTOLOGY ORDERABLES F inal Result [facility] [address] [place] [phone] * Pap Smear (05/29/2023 9:32 AM EST) Swab Cervix uteri structure / Unknown 05/29/2023 9:32 AM EST 05/30/2023 9:15 AM EST Narrative [facility] - 06/11/2023 8:42 AM EST ----- ------- Name: My Clarke Age/Sex: 58/F : 1965 Unit#: [id number] Attend Dr: Re05/29/23 Status: PRE REF Location: [facility] Disch: ----- ------- SPEC : [id number] RECD: 05/30/23 STATUS: RUDDY GARAY NUM: [id number] ELO: 05/29/[address]: MONICA PARIKH CNM ENTERED: 06/02/23 SP [...] 59, 66, 68) HPV testing performed by [facility], [place], [place]. See reference laboratory portion of the EMR for entire report. Clinical Information LMP: Postmenopausal Previous PAP test: Unknown date/findings Material Received ThinPrep-Cervical ----- ------- Signed (signature on file) PATEL Mendez (ASCP) 06/11/23 0842 ----- ------- END OF REPORT us Monica Parikh [facility] CYTOLOGY ORDERABLES F inal Result [facility] [address] [place] [phone] * Hepatitis C Antibody with Reflex to HCV, RNA, Quantitative, Real-Time PCR (10/01/2022 9:17 AM EDT) Hepatitis C Antibody NON-REACT RAMILA NON-REACT RAMILA [facility] Index 0.05 <1.00 [facility] Comment: HCV antibody was non-reactive. There is no laboratory evidence of HCV infection. In most cases, no further action is required. However, if recent HCV exposure is suspected, a test for HCV RNA (test code 43528) is suggested. For additional information please refer to http://education.TargetX/faq/QPZ40r9 (This link is being provided for informational/ educational purposes only.) Blood Venous blood specimen / Unknown 10/01/2022 9:17 AM EDT 10/01/2022 9:17 AM EDT Narrative [facility] - 10/02/2022 10:28 PM EDT FASTING:YES FASTING: YES Mekhi CISNEROS LAB BLOOD ORDERABLES Final Resul t [facility] [address], [place] [phone] [facility] [address] [place] [phone] * Colonoscopy (08/23/2016) Colonoscopy Normal Normal Grant Cassidy MD HEALTH MAINTENANCE Final Res ult from Last 3 Months or Most Recently Relevant to Health Maintenance Insurance [facility] C3 DENTAL-[facility] MEDICAID STAND ADULT Care Teams Bobbin Painter Relationship Specialty Start Date End Date Mekhi Martinez ANP [address] [place] [phone] PCP - General Family Medicine 06/20/22
== END 2025-03-10 09:07 | disposition home or self-care (01) ==
LOC: HO.HGI 08:23
PROVIDERS: PCP Nurse Practitioner Primary Care; Visit Provider Internal Medicine Gastroenterology
DX: K21.9 Gastro-esophageal reflux disease without esophagitis (principal); K76.0 Fatty (change of) liver, not elsewhere classified; E73.9 Lactose intolerance, unspecified; K59.09 Other constipation; K43.9 Ventral hernia without obstruction or gangrene; R10.13 Epigastric pain
CPT/HCPCS: 99214

== ENCOUNTER → 2025-03-10 08:22 | Outpatient (BNVA) | payer MEDICAID, SELFPAY | PROVIDERS: PCP Nurse Practitioner Primary Care; Visit Provider Internal Medicine Gastroenterology | DX: K21.9 Gastro-esophageal reflux disease without esophagitis (principal); K76.0 Fatty (change of) liver, not elsewhere classified; R79.89 Other specified abnormal findings of blood chemistry; K59.09 Other constipation; K43.9 Ventral hernia without obstruction or gangrene; E73.9 Lactose intolerance, unspecified; R10.13 Epigastric pain | CPT/HCPCS: 99212 ==

== ENCOUNTER 2025-05-08 10:10 | Emergency (ER) | payer MEDICAID, SELFPAY ==
--- NOTE | ~2025-05-08 | XR_ITS ---
CLINICAL HISTORY: cough 1 view chest x-ray Comparison: CR/SR - XR RIBS 3 VIEWS MINIMUM WITH CHEST LEFT - 02/24/23 15:28 EDT Findings: No consolidation or effusion. Normal size heart. Tortuous aorta. No acute fracture. IMPRESSION: 1. No acute findings. This document has been electronically signed by: Eden Cavazos MD on 05/08/2025 12:04:22
[2025-05-08 10:43] VITALS: BP 146/89; PULSE 103; RESP 20; TEMP 37.2; O2SAT 95; BMI 36.0
[2025-05-08 12:10] LABS: Hematocrit 43.7 % (37.0-47.0); Hemoglobin 14.6 g/dl (12.0-16.0); Imm Gran Abs Auto 0.02 X10*3/uL (0.00-0.03); Imm Gran Pct Auto 0.3 % (0.0-0.4); Lymphocytes Absolute Auto 1.7 X10*3/uL (1.2-4.9); MANUAL DIFF FLAG NO; Mean Corpuscular HGB Conc 33.4 g/dl (31.0-35.0); Mean Corpuscular Hemoglobin 26.9 pg (27.0-33.0); Mean Corpuscular Volume 80.5 fL (80.0-98.0); NRBC Abs Auto 0.000 X10*3/uL (0.0-0.012); NRBC Pct Auto 0.0 /100WBC (0.0-0.2); Platelet Count 273 X10*3/uL (160-400); Red Blood Count 5.43 X10*6/uL (4.20-5.50); White Blood Count 6.2 X10*3/uL (4.8-10.8)
[2025-05-08 12:21] LABS: Strep A Nucleic Acid Negative (Negative)
[2025-05-08 12:45] LABS: Alanine Aminotransferase 74 U/L (0-31); Albumin Level 4.9 g/dL (3.5-5.0); Alkaline Phosphatase 290 U/L (39-117); Anion Gap 16 (12-20); Aspartate Amino Transferase 82 U/L (5-31); Blood Urea Nitrogen 12 mg/dL (9-16); Calcium 10.1 mg/dL (8.4-10.2); Carbon Dioxide 24 mmol/L (22-29); Chloride 103 mmol/L (96-108); Creatinine Clr Calc Pharmacy 100.2; Estimated Glomerular Filt Rate > 60; Lipase 28 U/L (8-78); Potassium 4.2 mmol/L (3.3-5.1); Sodium 139 mmol/L (135-145); Total Protein 8.1 g/dL (6.5-8.0)
[2025-05-08 12:50] LABS: Resp Syncy Virus RNA Qual PCR NEGATIVE (Negative); SARS COV2 PCR INHOUSE NEGATIVE (Negative)
--- NOTE | 2025-05-08 13:35 | ED_ITS ---
HPI - General Adult General Chief complaint: Upper Respiratory Symptoms Stated complaint: SINUS BODYACHES 102 FEVER Time Seen by Provider: 05/08/25 13:34 Source: patient Mode of arrival: ambulatory Limitations: no limitations History of Present Illness ED Provider: Faye Teran PA-C HPI narrative: Patient is a 59 year old female with a history of GERD, non-alcoholic fatty liver (NAFL), and NABIL presenting to the emergency department today with cough, congestion, and headache. Patient states that over the last 5 days she has felt generally unwell with a cough, headache, and congestion. Patient denies any other complaints at this time. Relieving factors: none Exacerbating factors: none Associated symptoms: cough and headaches Treatments prior to arrival: none Related Data Home Medications ?Medication ?Instructions ?Recorded ?Confirmed Saccharomyces boulardii 250 mg 250 mg PO BID 02/18/20 03/10/25 capsule (Probiotic (S.boulardii)) biotin 10,000 mcg capsule 10,000 mcg PO DAILY 02/18/20 03/10/25 cholecalciferol (vitamin D3) 50 50 mcg PO DAILY 03/10/25 mcg (2,000 unit) capsule (Vitamin D3) citalopram 20 mg tablet 20 mg PO DAILY 02/18/2002/11 docusate sodium 100 mg capsule 100 mg PO DAILY 0 03/10/25 epinephrine 0.3 mg/0.3 mL 0.3 mg IM Q10M PRN Allergy S ymptoms 02/18/20 03/10/25 injection, auto-injector (EpiPen) loratadine 10 mg tablet (Allergy 10 mg PO DAILY 03/10/25 Relief (loratadine)) lorazepam 1 mg tablet 1 mg PO BEDTIME PRN Anxiety 02/18/20 03/10/25 simethicone 125 mg capsule (Gas 125 mg PO BID-QID PRN Acid Reflux 02/18/20 03/10/25 Relief (simethicone)) topiramate 50 mg capsule 50 mg PO DAILY 02/18/2002/11 sprinkle,extended release 24 hr mtxqeowjcy-uguolnvfuvcbz-oikyltvd 1 tab PO .prn 03/10/25 50 mg-325 mg-40 mg tablet albuterol sulfate 90 mcg/actuation 2 puff inhalation Q 6H PRN wheezing 06/18/23 03/10/25 aerosol inhaler (Ventolin HFA) duloxetine 60 mg capsule,delayed 60 mg PO DAILY 03/10/25 release metformin 500 mg tablet,extended mg PO 06/18/23 release 24 hr rosuvastatin 5 mg tablet 5 mg PO DAILY cholesterol 03/10/25 tizanidine 2 mg tablet 2 mg PO Q8H PRN muscle spasm 06/18/23 03/10/25 bupropion HCl 150 mg 24 hr tablet, 150 mg PO QAM 06/0703/10/25 extended release topiramate 50 mg tablet 50 mg PO BEDTIME 06/07/24 tirzepatide 7.5 mg/0.5 mL 7.5 mg subcut QWEEK 03/10/25 03/10/25 subcutaneous pen injector (Ami) Previous Rx's ?Medication ?Instructions ?Recorded magnesium oxide 400 mg (241.3 mg 400 mg PO DAILY PRN c onstipation 02/18/20 magnesium) tablet 30 days #30 tabs fluticasone propionate 50 1 spray intranasal BID #16 g minerva 10/25/21 mcg/actuation nasal spray,suspension (24 Hour Allergy Relief) diphenhydramine HCl 25 mg capsule 50 mg (2 x 25 mg) PO ONCE PRN 01/03/22 (Benadryl) sleep 1 day #2 caps sucralfate 1 gram tablet (Carafate) 1 g PO BID 30 days #60 tabs 05/23/22 cyclobenzaprine 10 mg tablet 10 mg PO Q8H #20 tabs tramadol 50 mg tablet 50 mg PO Q6H PRN pain #20 ta bs 02/24/23 linaclotide 145 mcg capsule 145 mcg PO QAM 90 days #90 caps 01/22/24 (Linzess) dexlansoprazole 30 mg 60 mg (2 x 30 mg) PO DAILY 9 0 days 02/19/24 capsule,biphase delayed release #180 caps (Dexilant) doxepin 25 mg capsule 25 mg PO BEDTIME 30 days #30 caps 06/21/24 ibuprofen 600 mg tablet 600 mg PO Q6H PRN pain #30 t abs 07/30/24 oxycodone-acetaminophen 5 mg-325 1 tab PO Q6H PRN pain #20 tabs 07/30/24 mg tablet Allergies Allergy/AdvReac Type Severity Reaction Status Date / Time lactose intolerant Allergy Intermediate stomach Uncoded 05/08/25 10:46 pain and heart burn SEAFOOD Allergy Intermediate ANGIOEDEMA Uncoded 05/08/25 10:46 Review of Systems 2 Constitutional: Constitutional: Reports as per HPI Eyes: Eyes: Reports as per HPI ENT: Reports as per HPI Cardiovascular: Cardiovascular: Reports as per HPI Respiratory: Respiratory: Reports as per HPI Gastrointestinal: Gastrointestinal: Reports as per HPI Genitourinary: Genitourinary: Reports as per HPI Musculoskeletal: Musculoskeletal: Reports as per HPI Integumentary/Breasts: Skin/Breast: Reports as per HPI Neurologic: Reports as per HPI Psychiatric: Psychiatric: Reports as per HPI Endocrine: Endocrine: Reports as per HPI Hematologic/Lymphatic: Hematologic/Lymphatic: Reports as per HPI Allergic/Immunologic: Allergic/Immunologic: Reports as per HPI [facility] Past Medical History Attestation statement: The following information was validated with the patient. Source: old records reviewed and nursing notes reviewed Medical History Benign skin papilloma NABIL (obstructive sleep apnea) Morbid obesity Irreducible umbilical hernia Multiple lipomas Lumbar radiculopathy Morbid obesity with BMI of 40.0-44.9, adult Epigastric pain Chronic constipation Elevated LFTs Hypercholesterolemia Vitamin D deficiency Bilateral wrist pain History of Helicobacter pylori infection (~06/2014) GERD (gastroesophageal reflux disease) Lactose intolerance NAFL (nonalcoholic fatty liver) Obstructive sleep apnea Surgical History Hx of hernia repair (07/30/24) History of hand surgery Status post excision of lipoma (~07/09/23) H/O: History of colonoscopy Family History Family History Unknown No problems noted. Social History Social History Household Members: Family Alcohol intake: current Alcohol intake frequency: a few times a month Patient Tobacco Use Status: Never used Tobacco Advance Directives: No Advance Directives Information Provided: Yes Do you have a plan to hurt others: No Plan Physical Exam ED Vital Signs: Vital Signs - 24 hr 05/08/25 10:43 05/08/25 13:53 Temperature 98.9 F 98.9 F Pulse Rate 103 H 103 H Respiratory Rate 20 20 Blood Pressure 146/89 H 146/89 H Pulse Oximetry 95 95 Oxygen Delivery Method Room Air Room Air BMI result Body Mass Index 36.0 Const General: cooperative, alert and awake Orientation/consciousness: patient oriented x3 HENMT Head: Yes normal to inspection and Yes atraumatic Ears: hearing grossly normal bilaterally and external ears normal General nose exam: Normal external nose present, no nasal discharge noted and no epistaxis Face and sinus: Yes normal facial exam, No abrasion and No laceration Mouth: Normal oral and palatal mucosa present, no drooling and no muffled voice Eyes General: appearance normal, both eyes and all related structures Periorbital: periorbital findings normal Eyelids: Yes eyelids normal Conjunctivae: conjunctivae normal Pupils: Equal, round and reactive pupils present EOM: EOMs intact bilaterally Resp Effort & Inspection: normal respiratory effort and able to speak in complete sentences Neuro General: patient oriented x3, moves all extremities and CN's II-XI intact bilaterally Cranial nerves: Yes Equal, round and reactive pupils present Cognition (Neuro): normal cognition Extrem General: Yes full ROM Psych Appearance: grossly normal Mental Status: mental status grossly normal Attitude: cooperative Medical Decision Making Medical Decision Making MDM Narrative: Patient is a 59 year old female with a history of GERD, non-alcoholic fatty liver (NAFL), and NABIL presenting to the emergency department today with cough, congestion, and headache. Patient's physical exam was as noted in the physical exam portion of this note. Patient was not tachycardic during my examination. Patient's Influenza testing was positive. Patient's blood work showed elevated LFTs with an AST of 82, ALT of 74, and ALK phos of 290 - this is likely secondary to the patient's history of NAFL as well as her current influenza infection. Patient's chest x-ray showed no acute process. I explained my physical exam findings as well as all test results to the patient. I answered all questions asked by the patient. Patient was able to tolerate PO intake and was eating while I was conversing with her. I stressed the importance of the patient taking her medication as directed (either prescribed or as the over the counter packaging recommends). I stressed the importance of the patient following up with her primary care provider. I stressed the importance of the patient returning to the emergency department immediately if her symptoms were to worsen or if she were to develop any dizziness, shortness of breath, difficulty breathing, chest pain, blurry vision, loss of vision, nausea, vomiting, abdominal pain, fever, chills, back pain, or any other complaints. Patient verbalized agreement and understanding with this treatment plan and discharge. Differential Diagnosis Differential Diagnoses: The differential diagnosis associated with the presentation includes Influenza Viral illness Admission/Observation Consideration of admission/observation: Escalation of care including admission/observation considered Patient would have been admitted to the hospital had her work up had any findings where hospital admission was appropriate and her clinical presentation warranted hospital admission. Lab Data [facility] Lab Attestation statement: I reviewed the patient's lab results. My interpretation of these results are in the [facility] Rationale portion of this note. 05/08/25 12:01 05/08/25 12:01 Labs: Lab Results 05/08/25 Range/Units 12:01 WBC 6.2 (4.8-10.8) X10*3/uL RBC 5.43 (4.20-5.50) X10*6/uL Hgb 14.6 (12.0-16.0) g/dl Hct 43.7 (37.0-47.0) % MCV 80.5 (80.0-98.0) fL MCH 26.9 L (27.0-33.0) pg MCHC 33.4 (31.0-35.0) g/dl RDW 13.4 (11.0-16.0) % Plt Count 273 (160-400) X10*3/uL MPV 8.9 L (9.4-12.3) fL Immature Gran % (Auto) 0.3 (0.0-0.4) % Neut % (Auto) 61.8 (45-73) % Lymph % (Auto) 27.2 (20-40) % [place] % (Auto) 9.7 (2-11) % Eos % (Auto) 0.5 (0-4) % Baso % (Auto) 0.5 (0-2) % Lymph # (Auto) 1.7 (1.2-4.9) X10*3/uL [place] # (Auto) 0.6 (0.1-1.2) X10*3/uL Eos # (Auto) 0.0 (0.0-0.4) X10*3/uL Baso # (Auto) 0.0 (0.0-0.2) X10*3/uL Abs Immat Gran (auto) 0.02 (0.00-0.03) X10*3/uL Absolute Neuts (auto) 3.8 (2.0-8.3) x10*3/uL Absolute Nucleated RBC 0.000 (0.0-0.012) X10*3/uL Nucleated RBC % (auto) 0.0 (0.0-0.2) /100WBC Sodium 139 (135-145) mmol/L Potassium 4.2 (3.3-5.1) mmol/L Chloride 103 (96-108) mmol/L Carbon Dioxide 24 (22-29) mmol/L Anion Gap 16 (12-20) BUN 12 (9-16) mg/dL Creatinine 0.66 (0.5-1.4) mg/dL Estim Creat Clear Calc 100.2 Estimated GFR > 60 Fasting Glucose 140 H (60-99) mg/dL Calcium 10.1 (8.4-10.2) mg/dL Total Bilirubin 0.5 (0.0-1.0) mg/dL Direct Bilirubin 0.3 (0.0-0.5) mg/dL AST 82 H (5-31) U/L ALT 74 H (0-31) U/L Alkaline Phosphatase 290 H (39-117) U/L Total Protein 8.1 H (6.5-8.0) g/dL Albumin 4.9 (3.5-5.0) g/dL Lipase 28 (8-78) U/L Influenza Type A (PCR) POSITIVE A (Negative) Influenza Type B (PCR) NEGATIVE (Negative) RSV RNA Qual (PCR) NEGATIVE (Negative) SARS-CoV-2 RNA (RT-PCR) NEGATIVE (Negative) S. pyogenes GrpA DONOVAN Negative (Negative) Independent Interpretation I performed an independent interpretation of an: Plain X-Ray Interpretation: My interpretation is in agreement with the radiologist's impression of this imaging study as written below. CLINICAL HISTORY: cough 1 view chest x-ray Comparison: CR/SR - XR RIBS 3 VIEWS MINIMUM WITH CHEST LEFT - 02/24/23 15:28 EDT Findings: No consolidation or effusion. Normal size heart. Tortuous aorta. No acute fracture. IMPRESSION: 1. No acute findings. This document has been electronically signed by: Eden Cavazos MD on 05/08/2025 12:04:22 Dictated By: Eden Cavazos MD Signed By: Electronically signed by Eden Cavazos MD 05/08/25 1205 Radiology Impression Discussion of test interpretation with radiology: I have reviewed the radiologist's reading. Prescription Management I considered prescription management with: Antiviral (I considered prescribing tamiflu however, the patient's current clinical presentation did not warrant it at this time.) Discharge Plan Discharge Clinical Impression: Influenza A, Elevated LFTs Patient Disposition: Home, Self-Care Instructions: Influenza (DC) Additional Instructions: You are influenza positive. Has dado positivo en gripe. Your LFTs are elevated - this appears to be chronic for you but you should follow up with your primary care provider about it. Francesca pruebas de funci?n hep?karina est?n elevadas; parece ser un problema cr?carolyn en casper callie, caden debe consultar con casper m?dico de cabecera al respecto. IF you are prescribed home medications and/or you are taking over the counter medications at home - it is very important you continue to do so as prescribed / directed unless told otherwise. SI le recetan medicamentos y/o est? tomando medicamentos de venta meche, es muy importante que contin?e haci?ndolo seg?n lo recetado/indicado a menos que le indiquen lo contrario. Follow up with your primary care provider. Return to the emergency department immediately if your symptoms worsen or if you develop any dizziness, shortness of breath, difficulty breathing, chest pain, blurry vision, loss of vision, nausea, vomiting, abdominal pain, fever, chills, back pain, or any other complaints. Jeffrey?seguimiento?con casper m?dico de atenci?n primaria. Acuda inmediatamente al servicio de urgencias si francesca s?ntomas empeoran o si presenta falta de aliento, dificultad para respirar, dolor tor?cico, mareos, aturdimiento, dolor de espalda, dolor abdominal, fiebre, escalofr?os o cualquier otro s?ntoma. If you do not have a primary care provider - call any of the below numbers to establish and follow up with a primary care provider. Si no tiene un proveedor de atenci?n primaria, llame a cualquiera de los n?meros que aparecen a continuaci?n para establecer y hacer seguimiento con un proveedor de atenci?n primaria. [facility] Primary Care ([place]) [phone] [facility], [address] [facility] Primary Care ([address] [place]) [phone] [place] [address], [address] [facility], [address] [facility] Primary Care ([address] [place]) [phone] [place] [address], [address] [facility], [address] [facility] Primary Care ([place]) [phone] [place] [address], [address] [facility], [address] [facility] Family Medicine [phone] [place] [address], [address] Please see the information below about our Patient Portal. If you are not yet enrolled in the [facility] Patient Portal, you will receive an enrollment email invitation following your visit to any [facility] care setting. You may also self-enroll in the Patient Portal by visiting our website: [email or web address] The following information is required to access the Patient Portal: - Your [facility] Medical Record Number - Your personal home email address (must match what is in your electronic medical record, Registration staff can assist with this) - Name - Date of Capabilities of the Patient Portal: - Message some providers - View upcoming appointments - Access your health summary, medical history, and visit history - View current conditions and allergies - View procedure and lab results - View your medications, including guidelines, side effects, and precautions - Complete pre-appointment questionnaires requested by your provider - Ready summary reports of your office visits and procedures To access the Patient Portal Mobile Viktoriya, follow these directions: - Search [employer] in the Viktoriya Store or zulily Store - Download the Viktoriya - Search for [facility] - Enter your login/password Portal del paciente Si usted no esta inscrito en el portal de pacientes de [facility] y [facility], recibira deena invitacion de inscripcion despues de casper visita al [facility] o al [facility] via correo electronico. Tambien puede inscribirse voluntariamente en el portal de pacientes visitando nuestra pagina web: [email or web address] La siguiente informacion sera requerida para acceder al portal: - Casper dionte de historia medica de [facility] - Casper direccion de correo electronico personal - Nombre - Fecha de nacimiento Capacidades: Las siguientes capacidades estan disponibles en el portal de pacientes: - Enviar mensajes a algunos doctores - Verificar proximas citas - Acceso a casper historial de gabby, registro medico e historial de visitas - Jostin las condiciones actuales y alergias jostin procedimientos y resultados del laboratorio - Jostin francesca medicamentos, incluyendo las pautas - Efectos secundarios y precauciones - Completar o llenar formularios / cuestionarios de - Citas solicitadas por casper doctor - Leer los resumenes de reportes medicos de francesca visitas y procedimientos Stitzer acceder a la aplicacion movil: - Chivo Information [employer] en la Vitkoriya Store o zulily Store - Descargue la aplicacion - Chivo [facility] - Ingrese casper nombre de usuario / Contrasena Prescriptions: No Action diphenhydramine HCl [Benadryl] 25 mg capsule 50 mg PO ONCE PRN (Reason: sleep) 1 Days Qty: 2 0RF Rx Instructions: Take 2 tablets PO 1 hour before getting IV contrast dexlansoprazole [Dexilant] 30 mg capsule,biphase delayed releas 60 mg PO DAILY 90 Days Qty: 180 1RF fluticasone propionate [24 Hour Allergy Relief] 50 mcg/actuation spray,suspension 1 spray intranasal BID Qty: 16 0RF Rx Instructions: administer into each nostril cyclobenzaprine 10 mg tablet 10 mg PO Q8H Qty: 20 0RF tramadol 50 mg tablet 50 mg PO Q6H PRN (Reason: pain) Qty: 20 0RF oxycodone-acetaminophen 5-325 mg tablet 1 tab PO Q6H PRN (Reason: pain) Qty: 20 0RF Rx Instructions: Partial Fill upon patient request. ibuprofen 600 mg tablet 600 mg PO Q6H PRN (Reason: pain) Qty: 30 0RF topiramate 50 mg capsule,sprinkle,ER 24hr 50 mg PO DAILY loratadine [Allergy Relief (loratadine)] 10 mg tablet 10 mg PO DAILY biotin 10,000 mcg capsule 10,000 mcg PO DAILY cholecalciferol (vitamin D3) [Vitamin D3] 50 mcg (2,000 unit) capsule 50 mcg PO DAILY epinephrine [EpiPen] 0.3 mg/0.3 mL auto-injector 0.3 mg IM Q10M PRN (Reason: Allergy Symptoms) Rx Instructions: for 2 doses docusate sodium 100 mg capsule 100 mg PO DAILY Saccharomyces boulardii [Probiotic (S.boulardii)] 250 mg capsule 250 mg PO BID Rx Instructions: swallow whole citalopram 20 mg tablet 20 mg PO DAILY lorazepam 1 mg tablet 1 mg PO BEDTIME PRN (Reason: Anxiety) simethicone [Gas Relief (simethicone)] 125 mg capsule 125 mg PO BID-QID PRN (Reason: Acid Reflux) magnesium oxide 400 mg (241.3 mg magnesium) tablet 400 mg PO DAILY PRN (Reason: constipation) 30 Days Qty: 30 4RF sucralfate [Carafate] 1 gram tablet 1 g PO BID 30 Days Qty: 60 2RF qvoloqctjw-wdtwiozfeiwaq-tijg 50-325-40 mg tablet 1 tab PO .prn doxepin 25 mg capsule 25 mg PO BEDTIME 30 Days Qty: 30 1RF Mounjaro 7.5 mg/0.5 mL pen injector 7.5 mg subcut QWEEK rosuvastatin 5 mg tablet 5 mg PO DAILY albuterol sulfate [Ventolin HFA] 90 mcg/actuation HFA aerosol inhaler 2 puff inhalation Q6H PRN (Reason: wheezing) tizanidine 2 mg tablet 2 mg PO Q8H PRN (Reason: muscle spasm) duloxetine 60 mg capsule,delayed release(DR/EC) 60 mg PO DAILY metformin 500 mg tablet extended release 24 hr PO Linzess 145 mcg capsule 145 mcg PO QAM 90 Days Qty: 90 1RF topiramate 50 mg tablet 50 mg PO BEDTIME bupropion HCl 150 mg tablet extended release 24 hr 150 mg PO QAM Interventions: ED Discharge Assessment Last Done: 05/08/25 13:53 Discharge Date/Time: 05/08/25 13:53 Print Language: Latvian
--- OUTSIDE RECORDS SUMMARY | 2025-05-08 13:43 | XMS_ITS | Clinical Summary ---
Author Organization [facility] Address [id number] [place] [id number] Care Team Providers Care Hardware Technician Name Role Phone Ed Collins MD Primary Care Provider [phone] Surgical History Surgery Date Site/Laterality Comments TUBAL [...] on file Sexual Orientation Not on file Plan of Treatment Health Maintenance Due Date Last Done Comments Breast Cancer Screening 1966 Hepatitis B Vaccines (1 of 3 - 19+ 3-dose series) 1985 Cervical Cancer Screening: P ap Smear 1987 Pneumococcal Vaccine: 50+ Years (1 of 1 - PCV) 2016 Zoster Vaccines (1 of 2) 2016 DTaP,Tdap,and Td Vaccines (2 - Td or Tdap) 11/28/2018 11/28/2008 Depression Screening 05/12/2024 COVID-19 Vaccine (1 - 2024-2 6 season) 2025 Influenza Vaccine (#1) 2025 1, [...] age to complete this topic Care Teams Hardware Technician Relationship Specialty Start Date End Date Ed Collins MD [address] [place] [address] Dr [address] DAVID Gomes PCP - General Internal Medicine 10/12/12
[2025-05-08 13:53] VITALS: BP 146/89; PULSE 103; RESP 20; TEMP 37.2; O2SAT 95
== END 2025-05-08 13:53 | disposition home or self-care (01) ==
PROVIDERS: Emergency Provider Emergency Medicine
DX: J10.1 Influenza due to other identified influenza virus with other respiratory manifestations (principal); R79.89 Other specified abnormal findings of blood chemistry; R50.9 Fever, unspecified; R05.9 Cough, unspecified; R51.9 Headache, unspecified; K21.9 Gastro-esophageal reflux disease without esophagitis; G47.33 Obstructive sleep apnea (adult) (pediatric)
CPT/HCPCS: 71045; 80048; 80076; 83690; 85025; 87637; 87651; 99282; 99283

== ENCOUNTER → 2025-05-08 10:48 | Outpatient (BNV) | payer MEDICAID, SELFPAY | PROVIDERS: Visit Provider Radiology Diagnostic Radiology | DX: R05.9 Cough, unspecified (principal) | CPT/HCPCS: 71045 ==

== ENCOUNTER 2025-05-10 11:12 | Outpatient (REF) | payer MEDICAID, SELFPAY ==
--- NOTE | ~2025-05-10 | XR_ITS ---
EXAMINATION: XR KNEE 3 VIEWS LEFT HISTORY: atraumatic chronic knee pain COMPARISON: Comparison is made with the standing AP views of both knees dated 04/24/2023. FINDINGS: Three views of the left knee are submitted. Osseous mineralization is normal. There is no fracture or dislocation. There is moderate degenerative change of the medial compartment with joint space narrowing and osteophyte formation. There is mild degenerative change of the patellofemoral joint. There is a small joint effusion. XR/XR knee LT 3V IMPRESSION: Degenerative changes of the left knee as described. Electronically signed by: Victor Manuel Ballesteros MD 05/10/2025 01:04 PM [facility]
--- NOTE | ~2025-05-10 | XR_ITS ---
EXAMINATION: XR KNEE, RIGHT CLINICAL INFORMATION: atraumatic chronic knee pain COMPARISON: 04/24/2023. TECHNIQUE: Three views of the right knee. FINDINGS: No fracture, dislocation, or suspicious bone lesion. Normal alignment. Tricompartmental joint space narrowing, moderate to severe in the medial compartment where there is significant joint space loss, subchondral cystic changes and sclerosis, and marginal osteophytic spurring. Limited assessment for joint effusion due to the being in flexion. Suspect there is a joint effusion present. Normal-appearing soft tissues. XR/XR knee RT 3V IMPRESSION: 1. No acute bony or soft tissue abnormalities. 2. Tricompartmental osteoarthrosis, moderate to severe in the medial compartment. This appears similar to 04/24/2023. 3. Probable joint effusion present. Electronically signed by: Charles Kwan MD 05/11/2025 01:28 PM [facility]
--- OUTSIDE RECORDS SUMMARY | 2025-05-10 13:20 | XMS_ITS | Encounter Summary ---
Author Organization [employer] Address 75 [facility] 7t [place] [address] Care Team Providers Care Tint Layer Name Role Phone Cathie Becerra Primary Care Provider Reason for Visit * Reason Comments Cough Shortness of Breath Encounter Details Date Type Department Care Team ([facility] st Contact Info) Description 05/10/2025 1:20 PM EST Office Visit [facility] [address] [place] [address] Influenza A (Primary Dx); Wheezing; Acute otitis externa of left ear, unspecified type Social History Tobacco Use Types Packs/Day [...] Sign Reading Time Taken Comments Blood Pressure 148/95 05/10/2025 1:47 PM EST Pulse 83 05/10/2025 1:47 PM EST Temperature 36.7 C (98 F) 05/10/2025 1:47 PM EST Respiratory Rate 20 05/10/2025 1:47 PM EST Oxygen Saturation 94% 05/10/2025 1:47 PM EST Inhaled Oxygen Concentration - - Weight 92.4 kg (203 lb 9.6 oz) 05/10/2025 1:47 P M EST Height 160 cm (5' 3 ) 05/10/2025 1:47 PM EST Body Mass Index 36.07 05/10/2025 1:47 PM EST documented in this encounter Plan of Treatment Upcoming Encounters Date Type Department Care Team (Late st Contact Info) Description 06/03/2025 9:30 AM EST Office Visit [facility] [address] [place] [address] Cathie Becerra ANP [address] [place] [address] 06/07/2025 8:45 AM EST Office Visit [facility] ADULT DENTAL [address] [place] [address] Lissa Casey documented as of this encounter Goals Goal Patient Goal Type Associated Problems Recent Progress Patient-Stated? Author Help patients manage their type 2 diabetes Care Plan Help patients manage their type 2 diabetes Ivonne Ron Patient has chronic kidney disease Care Plan Patient has chronic kidney disease No Ivonne Calles Patient has chronic kidney disease Care Plan Patient has chronic kidney disease No Ivonne Calles Patient has chronic kidney disease Care Plan Patient has chronic kidney disease No Kristin Henry RN Patient has chronic kidney disease Care Plan Patient has chronic kidney disease No Gordy Holguin Patient has chronic kidney disease Care Plan Patient has chronic kidney disease No Belnida Wei MA documented as of this encounter Visit Diagnoses Diagnosis Influenza A- Primary Influenza with other respiratory manifestations Wheezing Acute otitis externa of left ear, unspecified type documented in this encounter Additional Health Concerns Active Problems Noted Date Diagnosed Date Help patients manage their type 2 diabetes 03/30 Patient has chronic kidney disease 03/30/2025 Patient has chronic kidney disease 03/30/2025 Patient has chronic kidney disease 03/30/2025 Patient has chronic kidney disease 04/18/2025 Patient has chronic kidney disease 05/10/2025 Assessment Noted Time PHQ-9 Depression Total Score: 8 03/03/20 25 10:18 AM EDT documented as of this encounter Care Teams Tint Layer Relationship Specialty Start Date End Date Cathie Becerra ANP [address] [place] [address] PCP - General Family Medicine 06/20/22 documented as of this encounter
--- OUTSIDE RECORDS SUMMARY | 2025-05-10 15:13 | XMS_ITS | Encounter Summary ---
Author Organization [employer] Address 75 [facility] 7t [place] [address] Care Team Providers Care Strip Polisher Name Role Phone Bubba Story MD Primary Care Provider Cathie Johnson Primary Care Provider [phone] Encounter Details Date Type Department Care Team (Latest Contact Info) Description 07/21/2019 Abstract [facility] CONVERSIONS Dental, Provider, DDS Social History [...] Description 06/03/2025 9:30 AM EST Office Visit [facility] [address] [place] [address] Cathie Becerra ANP [address] [place] [address] 06/07/2025 8:45 AM EST Office Visit [facility] ADULT DENTAL [address] [place] [address] Lissa Csaey documented as of this encounter Visit Diagnoses Not on filedocumented in this encounter Care Teams Strip Polisher Relationship Specialty Start Date End Date Bubba Story MD PCP - General Family Medicine 06/15/20 06/19/22 Cathie Becerra ANP [address] [place] [address] PCP - General Family Medicine 06/20/22 documented as of this encounter
--- OUTSIDE RECORDS SUMMARY | 2025-05-10 15:13 | XMS_ITS | Encounter Summary ---
Author Organization [employer] Address [address] [facility] 7t [place] [address] Care Team Providers Care Animal Hospital Clerk Name Role Phone Cathie Becerra Primary Care Provider [phone] Encounter Details Date Type Department Care Team (Late st Contact Info) Description 08/22/2023 Orders Only [facility] [address] [place], [place] [phone] Cathie Becerra ANP [address] [place] [address] Social History Tobacco Use Types Packs/Day Years [...] Description 06/03/2025 9:30 AM EST Office Visit [facility] [address] [place] [address] Cathie Becerra ANP [address] [place] [address] 06/07/2025 8:45 AM EST Office Visit [facility] ADULT DENTAL [address] [place] [address] Lissa Casey documented as of this encounter Visit Diagnoses Not on filedocumented in this encounter Care Teams Animal Hospital Clerk Relationship Specialty Start Date End Date Cathie Becerra ANP [address] [place] [address] PCP - General Family Medicine 06/20/22 documented as of this encounter
--- OUTSIDE RECORDS SUMMARY | 2025-05-10 15:13 | XMS_ITS | Encounter Summary ---
Author Organization [employer] Address 75 [facility] 7t [place] [address] Care Team Providers Care Business Services Director Name Role Phone Cathie Becerra Primary Care Provider [phone] Reason for Visit * Reason Comments Med Change Request Encounter Details Date Type Department Care Team ([facility] Contact Info) Description 05/10/2025 Refill [facility] [address] [place], [place] [phone] Alyssa Lopez FNP [address] [place], [place] [phone] Social History Tobacco Use Types Packs/Day Years [...] Description 06/03/2025 9:30 AM EST Office Visit [facility] [address] [place] [address] Cathie Becerra ANP [address] [place] [address] 06/07/2025 8:45 AM EST Office Visit [facility] ADULT DENTAL [address] [place] [address] Lissa Casey documented as of this encounter Goals Goal Patient Goal Type Associated Problems Recent Progress Patient-Stated? Author Help patients manage their type 2 diabetes Care Plan Help patients manage their type 2 diabetes No Ivonne Calles Patient has chronic kidney disease Care Plan Patient has chronic kidney disease No Ivonne Calles Patient has chronic kidney disease Care Plan Patient has chronic kidney disease No Ivonne Calles Patient has chronic kidney disease Care Plan Patient has chronic kidney disease No Kristin Henry, CARRIE Patient has chronic kidney disease Care Plan Patient has chronic kidney disease No Gordy Holguin Patient has chronic kidney disease Care Plan Patient has chronic kidney disease No Belinda Wei MA documented as of this encounter Visit Diagnoses Not on filedocumented in this encounter Additional Health Concerns Active [...] documented as of this encounter Care Teams Business Services Director Relationship Specialty Start Date End Date Cathie Becerra ANP [address] [place] [address] PCP - General Family Medicine 06/20/22 documented as of this encounter
--- OUTSIDE RECORDS SUMMARY | 2025-05-10 15:13 | XMS_ITS | Encounter Summary ---
Author Organization [employer] Address 75 [facility] 7t [place] [address] Care Team Providers Care Internal Medicine Specialist Name Role Phone Bubba Story MD Primary Care Provider Cathie Johnson Primary Care Provider [phone] Encounter Details Date Type Department Care Team (Latest Contact Info) Description 07/16/2018 Abstract [facility] CONVERSIONS Dental, Provider, DDS Social History [...] Description 06/03/2025 9:30 AM EST Office Visit [facility] 230 [place] [address] Cathie Becerra ANP [address] [place] [address] 06/07/2025 8:45 AM EST Office Visit [facility] CHC ADULT DENTAL [address] [place] [address] Lissa Casey documented as of this encounter Visit Diagnoses Not on filedocumented in this encounter Care Teams Internal Medicine Specialist Relationship Specialty Start Date End Date Bubba Story MD PCP - General Family Medicine 06/15/20 06/19/22 Cathie Becerra ANP [address] [place] [address] PCP - General Family Medicine 06/20/22 documented as of this encounter
--- OUTSIDE RECORDS SUMMARY | 2025-05-10 15:13 | XMS_ITS | Encounter Summary ---
Author Organization [employer] Address 75 [facility] 7t [place] [address] Care Team Providers Care Stakeholder Manager Name Role Phone Cathie Becerra Primary Care Provider [phone] Reason for Visit * Reason Onset Date Comments Appointment Request 10/11/2024 Encounter Details Date Type Department Care Team ([facility] st Contact Info) Description 10/11/2024 Telephone [facility] MEDICINE [address] [place] [address] Cathie Becerra ANP [address] [place] [address] Appointment Request Social History Tobacco Use Types [...] Description 06/03/2025 9:30 AM EST Office Visit [facility] MED[facility] [address] [place] [address] Cathie Becerra ANP [address] [place] [address] 06/07/2025 8:45 AM EST Office Visit [facility] AD[facility] [address] [place] [address] Lissa Casey documented as of this encounter Visit Diagnoses Not on filedocumented in this encounter Additional Health Concerns Assessment Noted Time PHQ-9 Depression Total Score: 15 025 10:44 AM EST documented as of this encounter Care Teams Stakeholder Manager Relationship Specialty Start Date End Date Cathie Becerra ANP [address] [place] [address] PCP - General Family Medicine 06/20/22 documented as of this encounter
--- OUTSIDE RECORDS SUMMARY | 2025-05-10 15:13 | XMS_ITS | Encounter Summary ---
Author Organization [employer] Address 75 [facility] 7t [place] [address] Care Team Providers Care Financial Aid Director Name Role Phone Cathie Becerra Primary Care Provider [phone] Reason for Visit * Reason Onset Date Comments Appointment 09/05/2022 Encounter Details Date Type Department Care Team (Late st Contact Info) Description 09/05/2022 Telephone [facility] ADULT DENTAL [address] [place] [address] Lupe Beckett [address] [place] [address] Appointment Social History Tobacco Use Types Packs/Day [...] been on waiting list since 11/2021 in Count Includes [facility] for prophy exam and xrays and is looking to be scheduled. DR documented in this encounter Plan of Treatment Upcoming Encounters Date Type Department Care Team (Late st Contact Info) Description 06/03/2025 9:30 AM EST Office Visit [facility] [address] [place] [address] Cathie Becerra ANP [address] [place], [place] [phone] 06/07/2025 8:45 AM EST Office Visit [facility] ADULT DENTAL [address] [place] [address] Lissa Casey documented as of this encounter Visit Diagnoses Not on filedocumented in this encounter Care Teams Financial Aid Director Relationship Specialty Start Date End Date Cathie Becerra ANP [address] [place] [address] PCP - General Family Medicine 06/20/22 documented as of this encounter
--- OUTSIDE RECORDS SUMMARY | 2025-05-10 15:13 | XMS_ITS | Encounter Summary ---
Author Organization [employer] Address 75 [facility] 7t [place] [address] Care Team Providers Care Recovery Room Nurse Name Role Phone Cathie Becerra Primary Care Provider [phone] Reason for Visit * Reason Onset Date Comments call back 10/18/2022 Encounter Details Date Type Department Care Team ([facility] st Contact Info) Description 10/18/2022 Telephone [facility] MEDICINE 230 [place] [address] Cathie Becerra ANP [address] [place] [address] call back Social History Tobacco Use Types [...] ([facility] st Contact Info) Description 06/03/2025 9:30 AM EST Office Visit [facility] MEDICINE 230 [place] [address] Cathie Becerra ANP [address] [place] [address] 06/07/2025 8:45 AM EST Office Visit [facility] CHC ADULT DENTAL [address] [place] [address] Lissa Casey documented as of this encounter Visit Diagnoses Not on filedocumented in this encounter Care Teams Recovery Room Nurse Relationship Specialty Start Date End Date Cathie Becerra ANP [address] [place] [address] PCP - General Family Medicine 06/20/22 documented as of this encounter
--- OUTSIDE RECORDS SUMMARY | 2025-05-10 15:13 | XMS_ITS | Encounter Summary ---
Author Organization [employer] Address 75 [facility] 7t [place] [address] Care Team Providers Care Dry Transfer Worker Name Role Phone Cathie Becerra Primary Care Provider [phone] Reason for Visit * Reason Onset Date Comments Med Refill 10/11/2024 Encounter Details Date Type Department Care Team ([facility] st Contact Info) Description 10/11/2024 Telephone [facility] MEDICINE [address] [place], [place] [phone] Cathie Becerra ANP 230 [place] [address] Med Refill Social History Tobacco Use Types [...] 50 MG tablet To be sent to: [facility]/pharmacy #[id number] [facility] [place] - [address] [place] [address] documented in this encounter Plan of Treatment Upcoming Encounters Date Type Department Care Team (Late st Contact Info) Description 06/03/2025 9:30 AM EST Office Visit [facility] MEDICINE [address] [place] [address] Cathie Becerra ANP 230 [place] [address] 06/07/2025 8:45 AM EST Office Visit [facility] CHC ADULT DENTAL [address] [place] [address] Lissa Casey documented as of this encounter Visit Diagnoses Not on filedocumented in this encounter Additional Health Concerns Assessment Noted Time PHQ-9 Depression Total Score: 15 025 10:44 AM EST documented as of this encounter Care Teams Dry Transfer Worker Relationship Specialty Start Date End Date Cathie Becerra ANP [address] [place] [address] PCP - General Family Medicine 06/20/22 documented as of this encounter
--- OUTSIDE RECORDS SUMMARY | 2025-05-10 15:13 | XMS_ITS | Encounter Summary ---
Author Organization [employer] Address 75 [facility] 7t [place] [address] Care Team Providers Care Machine Umbrella Tipper Name Role Phone Cathie Becerra Primary Care Provider [phone] Reason for Visit * Reason Onset Date Comments Med Refill 10/13/2023 Encounter Details Date Type Department Care Team ([facility] st Contact Info) Description 10/13/2023 Telephone [facility] MEDIC[facility] 230 [place], [place] [phone] Cathie Becerra ANP [address] [place] [address] Med Refill Social History Tobacco Use Types [...] 50 MG tablet To be sent to: [facility]/pharmacy #[id number] [place] - [address] [place] [address] documented in this encounter Plan of Treatment Upcoming Encounters Date Type Department Care Team (Late st Contact Info) Description 06/03/2025 9:30 AM EST Office Visit [facility] [address] [place] [address] Cathie Becerra ANP [address] [place] [address] 06/07/2025 8:45 AM EST Office Visit [facility] ADULT DENTAL [address] [place] [address] Lissa Casey documented as of this encounter Visit Diagnoses Not on filedocumented in this encounter Care Teams Machine Umbrella Tipper Relationship Specialty Start Date End Date Cathie Becerra ANP [address] [place] [address] PCP - General Family Medicine 06/20/22 documented as of this encounter
--- OUTSIDE RECORDS SUMMARY | 2025-05-10 15:13 | XMS_ITS | Clinical Summary ---
Author Organization [employer] [facility] Address [id number] [place] [id number] Care Team Providers Care Infantry Unit Leader Name Role Phone Ed Collins MD Primary Care Provider [phone] Surgical History Surgery Date Site/Laterality Comments TUBAL [...] age to complete this topic Care Teams Infantry Unit Leader Relationship Specialty Start Date End Date Ed Collins MD [address] [place] [address] Dr [address] DAVID Gomes PCP - General Internal Medicine 10/12/12
--- OUTSIDE RECORDS SUMMARY | 2025-05-10 15:13 | XMS_ITS | Encounter Summary ---
Author Organization [employer] Address 75 [facility] 7t [place] [address] Care Team Providers Care Music Journalist Name Role Phone Cathie Becerra Primary Care Provider [phone] Reason for Visit * Reason Comments Med Refill Encounter Details Date Type Department Care Team ([facility] st Contact Info) Description 07/17/2023 Refill [facility] MEDICINE 230 [place], [place] [phone] Cathie Becerra ANP [address] [place] [address] Wheezing Social History Tobacco Use Types Packs/Day [...] Description 06/03/2025 9:30 AM EST Office Visit [facility] MEDICINE [address] [place] [address] Cathie Becerra ANP [address] [place] [address] 06/07/2025 8:45 AM EST Office Visit [facility] CHC ADULT DENTAL [address] [place] [address] Lissa Casey documented as of this encounter Visit Diagnoses Diagnosis Wheezing documented in this encounter Care Teams Music Journalist Relationship Specialty Start Date End Date Cathie Becerra ANP [address] [place] [address] PCP - General Family Medicine 06/20/22 documented as of this encounter
--- OUTSIDE RECORDS SUMMARY | 2025-05-10 15:13 | XMS_ITS | Encounter Summary ---
Author Organization [employer] Address 75 [facility] 7t [place] [address] Care Team Providers Care Criminal Investigator Name Role Phone Cathie Becerra Primary Care Provider [phone] Reason for Visit * Reason Comments Med Refill Encounter Details Date Type Department Care Team (Late st Contact Info) Description 05/08/2025 Refill [facility] MED & PEDS [address] [place], [place] [phone] Cathie Becerra ANP [address] [place], [place] [phone] Insomnia, unspecified type Social History Tobacco Use Types [...] 9:30 AM EST Office Visit [facility] MEDICINE [address] [place] [address] Cathie Becerra ANP [address] [place] [address] 06/07/2025 8:45 AM EST Office Visit [facility] CH[facility] ADULT DENTAL [address] [place] [address] Lissa Casey documented as of this encounter [...] has chronic kidney disease No Gordy Holguin documented as of this encounter Visit Diagnoses Diagnosis Insomnia, unspecified type documented in this encounter Additional Health Concerns Active Problems Noted Date Diagnosed Date Help patients manage their type 2 diabetes 03/30 Patient has chronic kidney disease 03/30/2025 Patient has chronic kidney disease 03/30/2025 Patient has chronic kidney disease 03/30/2025 Patient has chronic kidney disease 04/18/2025 Assessment Noted Time PHQ-9 Depression Total Score: 8 03/03/20 25 10:18 AM EDT documented as of this encounter Care Teams Criminal Investigator Relationship Specialty Start Date End Date Cathie Becerra ANP [address] [place] [address] PCP - General Family Medicine 06/20/22 documented as of this encounter
--- OUTSIDE RECORDS SUMMARY | 2025-05-10 15:13 | XMS_ITS | Encounter Summary ---
Author Organization [employer] Address 75 [facility] 7t [place] [address] Care Team Providers Care Lifts And Cranes Inspector Name Role Phone Cathie Becerra Primary Care Provider [phone] Encounter Details Date Type Department Care Team (Latest Contact Info) Description 05/10/2025 Travel Social History Tobacco Use Types Packs/Day [...] Description 06/03/2025 9:30 AM EST Office Visit [facility] MEDICINE 230 [place] [address] Cathie Becerra ANP [address] [place], [place] [phone] 06/07/2025 8:45 AM EST Office Visit [facility] CH[facility] ADULT DENTAL [address] [place] [address] Lissa Casey documented as of this encounter [...] documented as of this encounter Care Teams Lifts And Cranes Inspector Relationship Specialty Start Date End Date Cathie Becerra ANP [address] [place] [address] PCP - General Family Medicine 06/20/22 documented as of this encounter
--- OUTSIDE RECORDS SUMMARY | 2025-05-10 15:13 | XMS_ITS | Encounter Summary ---
Author Organization [employer] Address 75 [facility] 7t [place] [address] Care Team Providers Care Public Defender Name Role Phone Cathie Becerra Primary Care Provider [phone] Reason for Visit * Reason Onset Date Comments Appointment Request 06/01/2024 Encounter Details Date Type Department Care Team ([facility] st Contact Info) Description 06/01/2024 Telephone [facility] MEDICINE [address] [place] [address] Cathie Becerra ANP [address] [place] [address] Appointment Request Social History Tobacco Use Types [...] r/s appt from 06/01. Contact pt at [phone] documented in this encounter Plan of Treatment Upcoming Encounters Date Type Department Care Team (Late st Contact Info) Description 06/03/2025 9:30 AM EST Office Visit [facility] MEDICINE [address] [place] [address] Cathie Becerra ANP [address] [place] [address] 06/07/2025 8:45 AM EST Office Visit [facility] CH[facility] ADULT DENTAL [address] [place] [address] Lissa Casey documented as of this encounter Visit Diagnoses Not on filedocumented in this encounter Care Teams Public Defender Relationship Specialty Start Date End Date Cathie Becerra ANP [address] [place] [address] PCP - General Family Medicine 06/20/22 documented as of this encounter
--- OUTSIDE RECORDS SUMMARY | 2025-05-10 15:13 | XMS_ITS | Encounter Summary ---
Author Organization [employer] Address 75 [facility] 7t [place] [address] Care Team Providers Care Open Hearth Worker Name Role Phone Cathie Becerra Primary Care Provider [phone] Reason for Visit * Reason Onset Date Comments Nurse Triage 10/20/2023 Encounter Details Date Type Department Care Team ([facility] st Contact Info) Description 10/20/2023 Telephone [facility] MEDICINE [address] [place] [address] Cathie Becerra ANP [address] [place] [address] Nurse Triage Social History Tobacco Use Types [...] 10/20/2023 4:57 PM EDT Triage call with [employer] [address] H Youth Development Specialist ID [id number] Pt reports since last Friday has had some rectal bleeding. Pt denies constipation and reports diarrhea today with some drops of blood seen in toilet. Pt denies pain, dizziness, light headedness and isn't sure if Pt has hemorrhoids. Pt is advised to come to [facility] which is open till 8pm [...] The caller accepted this outcome Patient speaks hong konger documented in this encounter Plan of Treatment Upcoming Encounters Date Type Department Care Team (Late st Contact Info) Description 06/03/2025 9:30 AM EST Office Visit [facility] MEDICINE [address] [place] [address] Cathie Becerra ANP [address] [place] [address] 06/07/2025 8:45 AM EST Office Visit [facility] ADULT DENTAL [address] [place] [address] Lissa Casey documented as of this encounter Visit Diagnoses Not on filedocumented in this encounter Care Teams Open Hearth Worker Relationship Specialty Start Date End Date Cathie Becerra ANP [address] [place] [address] PCP - General Family Medicine 06/20/22 documented as of this encounter
--- OUTSIDE RECORDS SUMMARY | 2025-05-10 15:13 | XMS_ITS | Encounter Summary ---
Author Organization [employer] Address [address] [place] [address] Care Team Providers Care Environmental Service Aide Name Role Phone Cathie Becerra Primary Care Provider [phone] Reason for Visit * Reason Onset Date Comments Med Refill 03/30/2025 Encounter Details Date Type Department Care Team ([facility] st Contact Info) Description 03/30/2025 Telephone [facility] [address] [place] [address] Cathie Becerra ANP [address] [place] [address] Med Refill Social History Tobacco Use Types [...] encounter Miscellaneous Notes * Telephone Encounter - Ivonne Mullins - 03/30/2025 2:41 PM EST TC from pt requesting medication refill. Medications needing refill : traMADol (Ultram) 50 MG tablet To be sent to: [facility]/pharmacy #[id number] [place] [address] documented in this encounter Plan of Treatment Upcoming Encounters Date Type Department Care Team (Late st Contact Info) Description 06/03/2025 9:30 AM EST Office Visit [facility] [address] [place] [address] Cathie Becerra ANP [address] [place] [address] 06/07/2025 8:45 AM EST Office Visit [facility] [address] [place] [address] Lissa Casey documented as of this encounter [...] chronic kidney disease No Kristin Henry RN documented as of this encounter Visit Diagnoses Not on filedocumented in this encounter Additional Health Concerns Active Problems Noted Date Diagnosed Date Help patients manage their type 2 diabetes 03/30 Patient has chronic kidney disease 03/30/2025 Patient has chronic kidney disease 03/30/2025 Patient has chronic kidney disease 03/30/2025 Assessment Noted Time PHQ-9 Depression Total Score: 8 03/03/20 25 10:18 AM EDT documented as of this encounter Care Teams Environmental Service Aide Relationship Specialty Start Date End Date Cathie Becerra ANP [address] [place] [address] PCP - General Family Medicine 06/20/22 documented as of this encounter
--- OUTSIDE RECORDS SUMMARY | 2025-05-10 15:13 | XMS_ITS | Clinical Summary ---
Author Organization [employer] Address [address] [facility] [address] [facility] [address] [place] [address] Care Team Providers Care Transformer Inspector Name Role Phone Mekhi Martinez Primary Care Provider [phone] Allergies Active Allergy Reactions Criticality Noted Date [...] each 11 023 Active Continuous Blood Gluc Burlap Man (FreeStyle Nhi 2 [place]) deviceIndications :Type 2 diabetes mellitus with hyperlipidemia (HCC) 1 each 5 (five) times a day. 1 each 023 Active Continuous Blood Gluc Sensor (FreeStyle Nhi 2 Sensor) miscIndications:T ype 2 diabetes mellitus with hyperlipidemia (HCC) 1 each every 14 (fourteen) days. 6 each 3 023 Active EPINEPHrine (Epipen) 0.3 MG/0.3ML injection syringeIndication s:Shellfish allergy Inject 0.3 mL (0.3 mg) as directed 1 (one) time for 1 dose. 2 each 024 Active glucose blood (FREESTYLE LITE) test stripIndications: Type 2 diabetes mellitus with hyperlipidemia (HCC) USE INSTRUCTED CHECK BLOOD GLUCOSE 2-3 TIMES DAILY 100 strip 11 024 Active cholecalciferol (D3 Super Strength) 50 MCG (2000 UT) capsule TAKE 1 CAPSULE BY MOUTH EVERY MORNING 90 capsule 1 024 Active topiramate 50 MG tabletIndications :Migraine without aura and without status migrainosus, not intractable TAKE 1 TABLET BY MOUTH AT BEDTIME 30 tablet 5 025 Active metFORMIN XR (Glucophage-XR) 500 MG 24 hr tabletIndications :Type 2 diabetes mellitus with hyperlipidemia (HCC) 1 tablet twice daily with meal. Do not crush, chew, or split. 180 tablet 3 025 Active Linzess 145 MCG capsule take 1 capsule by mouth every day in the morning 025 Active fluticasone (Flonase) 50 MCG/ACT nasal sprayIndications: Non-seasonal allergic rhinitis due to other allergic trigger INSTILL 1 SPRAY IN EACH NOSTRIL TWICE DAILY 48 g 1 025 Active DULoxetine (Cymbalta) [address] capsuleIndication s:Depression, unspecified depression type TAKE 1 CAPSULE BY MOUTH EVERY MORNING. DO NOT CRUSH OR CHEW. 30 capsule 1 025 Active Tirzepatide (Mounjaro) 7.5 MG/0.5ML solution auto-injectorIndi cations:Type 2 diabetes mellitus with hyperlipidemia (HCC) Inject 7.5 mg under the skin 1 (one) time per week. 2 mL 2 05/03/20 25 5:55 PM EST 025 Active butalbital-acetam inophen-caffeine 50-325-40 MG tabletIndications :Migraine without aura and without status migrainosus, not intractable Take 1 tablet by mouth every 6 (six) hours if needed for headaches. Try to limit use to < 3d/mo 12 tablet 1 025 Active tiZANidine (Zanaflex) 2 MG tabletIndications :Muscle pain Take 1 tablet (2 mg) by mouth 3 times daily. If needed for muscle pain 30 tablet 025 Active traMADol (Ultram) 50 MG tabletIndications :Primary osteoarthritis of left knee Take 1 tablet (50 mg) by mouth every 12 (twelve) hours if needed for severe pain. 15 tablet 04/01/20 25 4:24 PM EST Active rosuvastatin (Crestor) 5 MG tabletIndications :Type 2 diabetes mellitus with hyperlipidemia (HCC),Cardiovascu lar event risk Take 1 tablet once daily for cholesterol 90 tablet 1 Active doxepin (SINEquan) 25 MG capsuleIndication s:Insomnia, unspecified type TAKE 1 CAPSULE BY MOUTH AT BEDTIME. 30 capsule 1 Active albuterol (Ventolin HFA) 108 (90 Base) MCG/ACT inhaler Inhale 2 puffs every 6 (six) hours if needed for wheezing. 18 g 1 Active ibuprofen 600 MG tabletIndications :Influenza A Take 1 tablet (600 mg) by mouth every 6 (six) hours if needed for mild pain for up to 20 doses. 20 tablet Active acetaminophen (Tylenol Extra Strength) 500 MG tabletIndications :Influenza A Take 2 tablets (1,000 mg) by mouth every 6 (six) hours if needed for mild pain for up to 10 days. 30 tablet 025 2025 Active cetirizine (ZyrTEC) 10 MG tablet Take 1 tab daily for 1 week and then take as needed for allergy sx 90 tablet Active neomycin-polymyxi n-hydrocortisone (Cortisporin) otic solution Administer 3 drops into each ear 3 times daily for 10 days. Left ear 10 mL 2025 Active rosuvastatin (Crestor) 5 MG tabletIndications :Type 2 diabetes mellitus with hyperlipidemia (HCC),Cardiovascu lar event risk Take 1 tablet once daily for cholesterol 90 tablet 1 025 2024 Discontinued albuterol (Ventolin HFA) 108 (90 Base) MCG/ACT inhalerIndication s:Wheezing INHALE 2 PUFFS EVERY 6 HOURS IF NEEDED FOR WHEEZING. 18 g 1 025 2024 Discontinued(R eorder (will not trigger notification to Pharmacy)) doxepin (SINEquan) 25 MG capsuleIndication s:Insomnia, unspecified type Take 1 capsule (25 mg) by mouth at bedtime. 30 capsule 1 025 2024 Discontinued cetirizine (ZyrTEC) 10 MG tabletIndications :Congestion of left ear Take 1 tab daily for 1 week and then take as needed for allergy sx 90 tablet 025 2024 Discontinued(R eorder (will not trigger notification to Pharmacy)) ibuprofen 600 MG tablet Take 1 tablet (600 mg) by mouth every 6 (six) hours if needed for mild pain for up to 20 doses. 20 tablet 04/25/20 25 5:33 PM EST 025 2024 Discontinued(R eorder (will not trigger notification to Pharmacy)) Active Problems Problem Noted Date Diagnosed Date [...] organization. Date Type Department Care Team Description 05/10/2025 1:20 PM EST Office Visit [facility] [address] [place] [phone] Influenza A (Primary Dx); Wheezing; Acute otitis externa of left ear, unspecified type 05/10/2025 Refill [facility] [address] [place] [phone] Alyssa Lopez FNP 05/10/2025 Travel 05/08/2025 Refill [facility] [address] [place] [address] Mekhi Martinez ANP Insomnia, unspecified type 04/21/2025 Refill [facility] [address] [place] [address] Mekhi Martinez ANP Type 2 diabetes mellitus with hyperlipidemia (HCC); Cardiovascular event risk 04/20/2025 8:00 AM EST Office Visit [facility] [address] [place] [address] Gordy Holguin 03/30/2025 Refill [facility] [address] [place] [address] Kristin Henry, CARRIE Primary osteoarthritis of left knee 03/30/2025 Refill [facility] [address] [place] [phone] Mekhi Martinez ANP Migraine without aura and without status migrainosus, not intractable; Muscle pain 03/30/[address] [address] Mekhi Martinez ANP Med Refill 03/11/[address] [address] Mekhi Martinez ANP May03/07/2025 11:00 AM EDT Office Visit [facility] [address] [place] [address] Daryl Powell Dental calculus (Primary Dx) 03/03/2025 9:30 AM EDT Office Visit [address] [address] Mekhi Martinez ANP Healthcare maintenance (Primary Dx); Type 2 diabetes mellitus with hyperlipidemia (HCC); Encounter for immunization; Screening mammogram for breast cancer; Need for hepatitis B screening test; Chronic pain of both knees; Dietary counseling; Exercise counseling; Bilateral hearing loss, unspecified hearing loss type; Congestion of left ear; Depression, unspecified depression type 03/03/2025 Travel 03/01/[address] [address] Mekhi Martinez ANP chart prep 02/28/2025 11:00 AM EDT Office Visit [facility] [address] [place] [address] Daryl Powell Dental calculus (Primary Dx) 02/23/2025 Patient Outreach [address] [address] Mekhi Martinez ANP Pre-visit Planning (Pre-visit planning - LVM ) 02/22/2025 Refill [facility] [address] [place] [address] Mekhi Martinez ANP Primary osteoarthritis of left knee; Muscle pain 02/20/2025 Refill [facility] [address] [place] [address] Mekhi Martinez ANP Depression, unspecified depression type; Insomnia, unspecified type from Last 3 Months Immunizations Immunization Administration [...] Caprice SARS-CoV-2 Vaccination 08/02/2020 MMR 11/06/2006 Novel [id number], preservative-free 05/01/2009 PPD Test 07/09/2011,06/16/2009 Pfizer Covid-19 [...] Mass Index 36.07 05/10/2025 1:47 PM EST Plan of Treatment Upcoming Encounters Date Type Department Care Team (Late st Contact Info) Description 06/03/2025 9:30 AM EST Office Visit [facility] [address] [place] [address] Mekhi Martinez ANP [address] [place] [address] 06/07/2025 8:45 AM EST Office Visit [facility] [address] [place] [address] Lissa Casey Health Maintenance Due Date Last Done Comments CT Colonography 1966 FIT DNA/Cologuard 1966 FIT 1965 FOBT 1965 HIV Screening 1965 Sigmoidoscopy 1966 Diabetes: Urine Protein Screening 1985 Hepatitis A Vaccines (1 of 2 - Risk 2-dose series) 1985 Eye Exam 09/09/2013 09/10/2011 RSV Patients and Patients Aged 60 years or older (1 - Risk 50-74 years 1-dose series) 2016 Mammogram 10/15/2024 10/16/2023, 02/27/2016 Dental Oral Exam 12/01/2024 06/02/2024, , 07/21/2019, Additional history exists COVID-19 Vaccine ( season) 2025 03/03/2024, 05/08/2023, 02/20/2022, Additional history exists Diabetes: Hemoglobin A1C 06/03/2025 [...] 10/01/2022 SDOH Screening 03/03/2026 03/03/2025 Tobacco Screening 05/10/2026 05/10/2025 Colonoscopy 08/23/2026 08/23/2016 Colorectal Cancer Screening 08/23/2026 Dental X-Ray: Full Mouth 06/03/2027 06/02/2024, 07/05/2014 Cervical Cancer Screening 05/29/2028 HPV/Cotest 05/29/2028 05/29/2023, 03/12, 03/30/2019, Additional history exists Pap Smear 05/29/2028 05/29/2023, 03/30/2019 DTaP/Tdap/Td Vaccines (3 - Td or Tdap) 12/22/2029 12/23/2019, 11/28/2008, 05/07/2002 Hepatitis B Vaccines Discontinued 07/22/1996, 02/26/1996, 06/19/1995 Zoster Vaccines Completed 06/28/2020, 04/20/2020 Hepatitis C Screening Completed 10/01/2022 Pneumococcal Vaccine: 50+ Years Completed 06/03/2023 Influenza Vaccine Completed 03/03/2025, , 02/14/2023, Additional [...] on patient's age to complete this topic Goals Goal Patient Goal Type Associated Problems Recent Progress Patient-Stated? Author Help patients manage their type 2 diabetes Care Plan Help patients manage their type 2 diabetes No Ivonne Calles Patient has chronic kidney disease Care Plan Patient has chronic kidney disease No Ivonen Calles Patient has chronic kidney disease Care Plan Patient has chronic kidney disease No Ivonne Calles Patient has chronic kidney disease Care Plan Patient has chronic kidney disease No Kristin Henry RN Patient has chronic kidney disease Care Plan Patient has chronic kidney disease No Gordy Holguin Patient has chronic kidney disease Care Plan Patient has chronic kidney disease No Belinda Wei MA Procedures Procedure Name Priority Date/Time Associated Diagnosis Comments XR KNEE 3 VIEWS LEFT Routine 05/10/2025 11:51 AM EST Chronic pain of both knees ORAL HYGIENE INSTRUCTIONS Routine 04/20/2025 8:00 AM EST CASE PRESENTATION, DETAILED AND EXTENSIVE TREATMENT PLANNING Routine 04/20/2025 8:00 AM EST 14 EXTRACTION, ERUPTED TOOTH OR EXPOSED ROOT (ELEVATION/FORCEPS REMOVAL) Routine 04/20/2025 8:00 AM EST ORAL HYGIENE INSTRUCTIONS Routine 03/07/2025 11:00 AM [...] diabetes mellitus with hyperlipidemia (HCC) POCT GLUCOSE (CPT-06138) Routine 03/03/2025 9:49 AM EDT Type 2 [...] PER QUADRANT Routine 02/28/2025 11:00 AM EDT PROPHYLAXIS - ADULT Routine 12/01/2024 [...] Recently Relevant to Health Maintenance Results * XR Knee 3 Views Left (05/10/2025 11:51 AM EST) Anatomical Region Laterality Modality Lower Extremities, Knee Left [facility] 05/10/2025 11:5 1 AM EST Narrative 05/10/2025 1:06 PM EST [address] [address] XRay Report Signed Patient: My Clarke MR#: [id number] : 1965 Acct:[id number] Age/Sex: 59 / F ADM Date: 05/10/25 Loc: .HHCX Attending Dr: Mekhi Martinez BUSINESS UNIT LEADER Ordering Physician: MEKHI MARTINEZ NP Date of Service: 05/10/25 Procedure(s): XR knee LT 3V Accession Number(s): [id number] cc: MEKHI MARTINEZ NP Reason for Exam: atraumatic chronic knee pain EXAMINATION: XR KNEE 3 VIEWS LEFT HISTORY: atraumatic chronic knee pain COMPARISON: Comparison is made with the standing AP views of both knees dated 04/24/2023. FINDINGS: Three views of the left knee are submitted. Osseous mineralization is normal. There is no fracture or dislocation. There is moderate degenerative change of the medial compartment with joint space narrowing and osteophyte formation. There is mild degenerative change of the patellofemoral joint. There is a small joint effusion. XR/XR knee LT 3V IMPRESSION: Degenerative changes of the left knee as described. Electronically signed by: Victor Manuel Ballesteros MD 05/10/2025 01:04 PM [facility] Dictated By: Victor Manuel Ballesteros MD Signed By: <Electronically signed by Victor Manuel Ballesteros MD in OV> 05/10/25 1304 DD/ 1151 TD/TT: 05/10/25 1200 Monotype Machinist: Procedure Note Donotuseinterpreter, Image - 05/10/[address] [address] XRay Report Signed Patient: Gabriele Clarke#: [id number] : 1965Acct:[id number] Age/Sex: 59 / FADM Date: 05/10/25 Loc: HO.HHCX Attending Dr: Mekhi Martinez NP Ordering Physician: MEKHI MARTINEZ NP Date of Service: 05/10/25 Procedure(s): XR knee LT 3V Accession Number(s): [id number] cc: MEKHI MARTINEZ NP Reason for Exam: atraumatic chronic knee pain EXAMINATION: XR KNEE 3 VIEWS LEFT HISTORY: atraumatic chronic knee pain COMPARISON: Comparison is made with the standing AP views of both knees dated 04/24/2023. FINDINGS: Three views of the left knee are submitted. Osseous mineralization is normal. There is no fracture or dislocation. There is moderate degenerative change of the medial compartment with joint space narrowing and osteophyte formation. There is mild degenerative change of the patellofemoral joint. There is a small joint effusion. XR/XR knee LT 3V IMPRESSION: Degenerative changes of the left knee as described. Electronically signed by: Victor Manuel Ballesteros MD 05/10/2025 01:04 PM EST Dictated By: Victor Manuel Ballesteros MD Signed By: <Electronically signed by Victor Manuel Ballesteros MD in OV> 05/10/25 1304 DD/ 1151 TD/TT: 05/10/25 1200 Monotype Machinist: Mekhi Martinez ANP IMG XR PROCEDURES Final Result * Hepatitis B surface antigen, EIA (03/03/2025 10:44 AM EDT) Pathologist [facility] [place] Hepatitis B Surface Ag Negative Negative [facility] Blood Venous blood specimen / Unknown 03/03/2025 10:44 AM EDT 03/03/2025 11:21 AM EDT Mekhi Martinez ANP LAB BLOOD ORDERABLES Final Resul t Performing Organization Address [facility] Co de Phone Number [facility] [address] [place] [phone] * Hepatitis B Core Antibody, Total (03/03/2025 10:44 AM EDT) Pathologist [facility] [place] Hepatitis B Core Antibody Nonreactive Nonreactive [facility] Blood Venous blood specimen / Unknown 03/03/2025 10:44 AM EDT 03/03/2025 11:21 AM EDT Mekhi Martinez ANP LAB BLOOD ORDERABLES Final Resul t Performing Organization Address [facility] Co de Phone Number [facility] [address] [place] [phone] * Hepatitis B Surface Antibody, Qualitative (03/03/2025 10:44 AM EDT) ~Hepatitis B Surface Antibody REACTIVE Nonreactive [facility] Comment:REACTIVE: > 11.99 mI U/mL Blood Venous blood specimen / Unknown 03/03/2025 10:44 AM EDT 03/03/2025 11:21 AM EDT Mekhi Martinez ANP LAB BLOOD ORDERABLES Final Resul t Performing Organization Address [facility] Co de Phone Number [facility] [address] [place] [phone] * (ABNORMAL) Lipid Panel, Standard (03/03/2025 10:44 AM EDT) Triglycerides 146 <150 mg/dL [facility] Comment:Desirable Triglyceri de: less than 150 mg/dLBorderline High Triglyceride 150-199 mg/dLHigh Triglyceride: 200-499 mg/dLVery High Triglyceride: greater than or equal to 5OO mg/dL Cholesterol 186 <200 mg/dL [facility] Comment:Desirable Cholestero l: less than 200 mg/dLBorderline High Cholesterol: 200-239 mg/dLHigh Cholesterol: greater than 239 mg/dL LDL Cholesterol Calculated 114(H) <100 mg/dL [facility] Comment:Desirable LDL: less than 100 mg/dLNear Optimal/Above Optimal LDL: 110- 129 mg/dLBorderline High LDL: 130-159 mg/dLHigh LDL: 160-189 mg/dLVery High LDL: greater than or equal to 190 mg/dL HDL Cholesterol 43 >40 mg/dL [facility] Comment:Desirable HDL: great er than 40 mg/dL Note: This HDL assay may give artificially low results in patients with liver disease. Blood Venous blood specimen / Unknown 03/03/2025 10:44 AM EDT 03/03/2025 11:21 AM EDT us Mekhi Martinez ANP LAB BLOOD ORDERABLES Final Resul t Performing Organization Address [facility] Co de Phone Number [facility] [address] [place] [phone] [phone] * (ABNORMAL) Basic Metabolic Panel (03/03/2025 10:44 AM EDT) Sodium 142 135 - 145 mmol/L [facility] Potassium 4.1 3.3 - 5.1 mmol/L [facility] Chloride 103 96 - 108 mmol/L [facility] Carbon Dioxide 30(H) 22 - 29 mmol/L [facility] Anion Gap 13 12 - 20 [facility] Urea Nitrogen (BUN) 14 9 - 16 mg/dL [facility] Creatinine, Serum 0.70 0.5 - 1.4 mg/dL [facility] Estimated Glomerular Filt Rate >60 [facility] Comment:Chronic Kidney Disea se: Estimated GFR < 60 mL/min/1.59a8Ohkndm Kidney Disease: Estimated GFR < 15 mL/min/1.73m2 Glucose 146(H) 60 - 115 mg/dL [facility] Calcium 9.9 8.4 - 10.2 mg/dL [facility] Blood Venous blood specimen / Unknown 03/03/2025 10:44 AM EDT 03/03/2025 11:21 AM EDT us Mekhi Martinez ANP LAB BLOOD ORDERABLES Final Resul t [facility] [address] [place] [phone] * (ABNORMAL) POCT Hgb A1c (03/03/2025 9:52 AM EDT) Hemoglobin A1C 7.5(A) 4.0 - 5.7 % QC Media Lot # [id number] Lot# Expiration Date ,452,851 Blood 03/03/2025 9:52 AM EDT us Mekhi Martinez ANP POINT OF CARE TEST ENTER/EDIT OR DERABLES Final Result * POCT Glucose (03/03/2025 9:49 AM EDT) Glucose Blood, POC 159 60 - 200 mg/dL QC Media Lot # [id number] Lot# Expiration Date ,932,148 Blood Capillary blood specimen / Unknown 03/03/2025 9:49 AM EDT Mekhi CISNEROS POINT OF CARE TEST ENTER/EDIT OR DERABLES Final Result * BI Mammogram Screening Tomosynthesis Bilateral (10/16/2023 7:55 AM EDT) Anatomical Region Laterality Modality Breast Bilateral Mammography 10/16/2023 7:55 AM EDT Narrative 11/03/2023 3:21 AM EDT [address] [place] [address] Mammography Report Signed Patient: My Clarke MR#: [id number] : 1965 Acct:[id number] Age/Sex: 58 / F ADM Date: 10/16/23 Loc: HO.MAMMO Attending Dr: Mekhi Martinez NP Ordering Physician: Shanel Villalobos MD Results: 1Ne gative Date of Service: 10/16/23 Follow Up: 1 Year From Orig ina Mammogram Procedure(s): MM tomosynthesis screening BI Accession Number(s): [id number] cc: Shanel Villalobos MD; MEKHI MARTINEZ NP [...] Debbi Beard MD in OV> 11/03/23316 DD/ 075 TD/TT: Monotype Machinist: Procedure Note Donotuseinterpreter, Image - 11/03/2023 [facility] [address] [place] [address] Mammography Report Signed Patient: Gabriele Clarke#: [id number] : 1965Acct:[id number] Age/Sex: 58 / FADM Date: 10/16/23 Loc: [facility] Attending Dr: Mekhi Martinez NP Ordering Physician: Shanel Villalobos MDResults: 1Ne gative Date of Service: 10/16/23Follow Up: 1 Year From Orig ina Mammogram Procedure(s): MM tomosynthesis screening BI Accession Number(s): [id number] cc: Shanel Villalobos MD; MEKHI MARTINEZ NP [...] Debbi Beard MD in OV> 11/03/23316 DD/ 075 TD/TT: Monotype Machinist: Shanel Villalobos MD IMG BI PROCEDURES Final Result * HPV mRNA E6/E7 w/Reflex to HPV Genotypes 16, 18/45 (05/29/2023 9:32 AM EST) HPV nRNA E6/E7 Not Detected Not Detected [facility] Comment:Methodology: Transcr iption-Mediated AmplificationThis assay detects E6/E7 viral messenger RNA (mRNA) from 14high-risk HPV types (16,18,31,33,35,39,45,51,52,56,58,59,66,68).Cervical sources are required for HPV testing.If a vaginal source from a patient who has had atotal hysterectomy with removal of cervix wassubmitted, please contact the testing laboratoryfor alternative testing options.For additional information, please refer tohttp://education.Skyepack/faq/IFY698n1(This link if provided for information/educational purposes only.)THIS TEST WAS PERFORMED AT:[address] [place] [phone] OSEGUERA MD HPV mRNA E6/E7 [facility] HPV 16 RNA [facility] HPV 18/45 RNA [facility] 05/29/2023 9:32 AM EST 05/30/2023 9:15 AM EST Monica Parikh [facility] CYTOLOGY ORDERABLES F inal Result [facility] [address] [place] [phone] * Pap Smear (05/29/2023 9:32 AM EST) Swab Cervix uteri structure / Unknown 05/29/2023 9:32 AM EST 05/30/2023 9:15 AM EST Narrative [facility] - 06/11/2023 8:42 AM EST ----- ------- Name: My Clarke Age/Sex: 58/F : 1965 [id number] [id number] Attend Dr: Re05/29/23 Status: PRE REF Location: [facility] Disch: ----- ------- SPEC : [id number] RECD: 05/30/23 STATUS: DIONEVirgie JARROD NUM: [id number] ELO: 05/29/[address] [facility] [address]: MONICA PARIKH Filiberto ENTERED: 06/02/23 SP TYPE: Pap Smr OT DR: ORDERED: Pap Smear Interpretation Satisfactory for evaluation. No endocervical cells seen. Negative for intraepithelial lesion or malignancy. HPV mRNA E6/E7: NOT DETECTED This assay detects E6/E7 viral messenger RNA (mRNA) from 14 high-risk HPV types (16, 18, 31, 33, 35, 39, 45, 51, 52, 56, 58, 59, 66, 68) HPV testing performed by [employer], [place], [place]. See reference laboratory portion of the EMR for entire report. Clinical Information LMP: Postmenopausal Previous PAP test: Unknown date/findings Material Received ThinPrep-Cervical ----- ------- Signed (signature on file) PATEL Mendez ([facility]) 06/11/23 0842 ----- ------- END OF REPORT Monica MATTHEWS LAB CYTOLOGY ORDERABLES F inal Result Performing Organization Address City/[facility]/ZIP Co de Phone Number [address] [phone] * Hepatitis C Antibody with Reflex to HCV, RNA, Quantitative, Real-Time PCR (10/01/2022 9:17 AM EDT) Hepatitis C Antibody NON-REACT RAMILA NON-REACT RAMILA [employer] [place] [employer] Index 0.05 <1.00 [employer] [place] [employer] Comment: HCV antibody was non-reactive. There is no laboratory evidence of HCV infection. In most cases, no further action is required. However, if recent HCV exposure is suspected, a test for HCV RNA (test code 50348) is suggested. For additional information please refer to http://education.Skyepack/faq/SLO20i1 (This link is being provided for informational/ educational purposes only.) Blood Venous blood specimen / Unknown 10/01/2022 9:17 AM EDT 10/01/2022 9:17 AM EDT Narrative [facility] - 10/02/2022 10:28 PM EDT FASTING:YES FASTING: YES Mekhi CISNEROS LAB BLOOD ORDERABLES Final Resul t Performing Organization Address City/[facility]/ZIP Co de Phone Number [facility] [address] [place] [address], [place] [phone] [employer] [place] [employer] [address] [place] [phone] * Colonoscopy (08/23/2016) Colonoscopy Normal Normal Grant Cassidy MD HEALTH MAINTENANCE Final Res ult from Last 3 Months or Most Recently Relevant to Health Maintenance Additional Health Concerns Active Problems Noted Date Diagnosed Date Help patients manage their type 2 diabetes 03/30 Patient has chronic kidney disease 03/30/2025 Patient has chronic kidney disease 03/30/2025 Patient has chronic kidney disease 03/30/2025 Patient has chronic kidney disease 04/18/2025 Patient has chronic kidney disease 05/10/2025 Insurance [facility] C3 DENTAL-[facility] MEDICAID STAND ADULT Care Teams Transformer Inspector Relationship Specialty Start Date End Date Mekhi Martinez ANP [address] [place] [id number] PCP - General Family Medicine 06/20/22
--- OUTSIDE RECORDS SUMMARY | 2025-05-10 15:13 | XMS_ITS | Encounter Summary ---
Author Organization [employer] Address [address] [place] [address] Care Team Providers Care Book Sewing Machine Operator Name Role Phone Cathie Becerra Primary Care Provider [phone] Reason for Visit * Reason Onset Date Comments Med Refill 10/10/2022 Encounter Details Date Type Department Care Team ([facility] st Contact Info) Description 10/10/2022 Telephone [facility] MEDICINE [address] [place] [address] Cathie Becerra ANP [address] [place] [address] Med Refill Social History Tobacco Use Types [...] you. * Telephone Encounter - Gissel Cortes Pastora - 10/10/2022 9:52 AM EDT Tc from pt requesting med refill on Simvastatin 20 mg, pt claims provider advise will send a medication script for her High cholesterol on 10/09/2022. Please sent to [facility]/pharmacy #[id number] - DAVID FLORES - [address] [place] [address] documented in this encounter Plan of Treatment Upcoming Encounters Date Type Department Care Team (Late st Contact Info) Description 06/03/2025 9:30 AM EST Office Visit [facility] MEDICINE [address] [place] [address] Cathie Becerra ANP [address] [place] [address] 06/07/2025 8:45 AM EST Office Visit [facility] ADULT DENTAL [address] [place] [address] Lissa Casey documented as of this encounter Visit Diagnoses Not on filedocumented in this encounter Care Teams Book Sewing Machine Operator Relationship Specialty Start Date End Date Cathie Becerra ANP [address] [place] [phone] PCP - General Family Medicine 06/20/22 documented as of this encounter
== END 2025-05-10 11:13 ==
LOC: HO.HHCX 11:12
PROVIDERS: PCP Nurse Practitioner Primary Care; Visit Provider Nurse Practitioner Primary Care
DX: G89.29 Other chronic pain (principal); M25.561 Pain in right knee; M25.562 Pain in left knee
CPT/HCPCS: 73562

== ENCOUNTER → 2025-05-10 11:29 | Outpatient (BNV) | payer MEDICAID, SELFPAY | PROVIDERS: PCP Nurse Practitioner Primary Care; Visit Provider Radiology Diagnostic Radiology | DX: M17.11 Unilateral primary osteoarthritis, right knee (principal) | CPT/HCPCS: 73562 ==